=== PATIENT | female | born 1935 | race Asian ===

== ENCOUNTER 2016-11-27 14:55 | Inpatient (IN) | payer OTHER ==
--- NOTE | 2016-11-27 15:00 | PDOC ---
Rapid Medical Evaluation Time Seen by Provider: 11/27/16 14:57 Medical Evaluation: Allergies Allergy/AdvReac Type Severity Reaction Status Date / Time No Known Allergies Allergy Verified 12/15/14 22:42 11/27/16 14:57 I have performed a brief in-person evaluation of this patient. This is an 81 yo F with a history of DM, HTN, HLD, Asthma presenting to the ER with a complaint of cough and shortness of breath x 1 week Pt also reports headache. Pt denies chest pain. Pt is able to lay flat in bed. Pt walks slowly due to shortness of breath Pertinent physical exam findings: On examination, pt is grunting while walking into the Triage area Temp: 97.6, O2 sat: 99% Faint end expiratory wheezing right upper lobe I have ordered the following: CBC, CMP, trop, BNP, EKG Will do blood cultures and lactate Will order cxr The patient will proceed to the ED for further evaluation. 11/27/16 15:00 11/27/16 15:03
[2016-11-27 15:01] VITALS: BMI 22.6
[2016-11-27 15:47] LABS: VENOUS PH 7.35 (7.32-7.42)
[2016-11-27 15:48] LABS: VENOUS BLOOD GAS HCO3 27.3 meq/L (19-25)
[2016-11-27 15:54] LABS: BASOPHIL 0.7 % (0-2.0); EOSINOPHIL 1.3 % (0-4.5); MCH 25.2 pg (25.7-33.7); MEAN CELL VOLUME 78.7 fl (80-96); MEAN PLT VOLUME 8.1 fl (7.5-11.1); NEUTROPHILS 72.1 % (42.8-82.8); PLATELET COUNT 248 K/MM3 (134-434); RDW 15.2 % (11.6-15.6)
[2016-11-27 16:18] LABS: INR 1.03 (0.82-1.09); PROTHROMBIN TIME (PATIENT) 11.3 SEC (9.98-11.88)
[2016-11-27 16:21] LABS: ACTIVATED PTT 32.5 SECONDS (26.9-34.4)
[2016-11-27 16:22] LABS: ALBUMIN 3.5 g/dl (3.4-5.0); ANION GAP 9 (8-16); BILIRUBIN,TOTAL 0.4 mg/dL (0.2-1.0); CALCIUM 9.4 mg/dL (8.5-10.1); CO2 29 mmol/L (21-32); CREATININE 0.8 mg/dL (0.55-1.02); GLUCOSE,RANDOM 182 mg/dL (74-106); SGOT/AST 13 U/L (15-37); SGPT/ALT 27 U/L (12-78); TOT PROT 7.6 g/dl (6.4-8.2)
[2016-11-27 16:25] LABS: ALK PHOS 79 U/L (45-117); TROPONIN I < 0.02 ng/ml (0.00-0.05)
[2016-11-27] MEDS ORDERED: methylPREDNISolone NA SUCC 125 MG/2 ML VIAL IVPB ONE (16:30)
[2016-11-27] MEDS ORDERED: SODIUM CHLORIDE 1,000 ML IV STA (16:37)
--- NOTE | 2016-11-27 16:38 | PDOC ---
History of Present Illness - General History Source: Patient, Family (Son) Exam Limitations: No Limitations - History of Present Illness Initial Comments: 11/27/16 17:04 The patient is an 81 year old female with significant past medical history of diabetes, hypertension, hyperlipidemia, and asthma who presents to the emergency department with cough and SOB for 1 week. The patient states that her breathing has gotten progressively worse in the last week. She has a dry cough. She does report mild SOB at rest and this gets worse with moving and walking around. She also reports a headache. She denies any fevers but reports chills. <Kimber Zavala - Last Filed: 11/27/16 17:04> <Margarita Cast - Last Filed: 11/29/16 08:02> - General Chief Complaint: Shortness of Breath Stated Complaint: SOB Time Seen by Provider: 11/27/16 14:57 Past History <Kimber Zavala - Last Filed: 11/27/16 17:04> - Past Medical History Anemia: No Asthma: Yes Cancer: No Cardiac Disorders: No CVA: No COPD: No CHF: No Dementia: No Diabetes: Yes GI Disorders: No Disorders: No HTN: Yes Hypercholesterolemia: Yes Liver Disease: No Suicide Attempt (Hx): No Seizures: No Thyroid Disease: No - Surgical History Abdominal Surgery: Yes Appendectomy: No Cardiac Surgery: No Cholecystectomy: Yes Lung Surgery: No Neurologic Surgery: No Orthopedic Surgery: Yes - Psycho/Social/Smoking Cessation Hx Anxiety: No Suicidal Ideation: No Smoking Status: No Smoking History: Never smoked Have you smoked in the past 12 months: No Number of Cigarettes Smoked Daily: 0 Hx Alcohol Use: No Drug/Substance Use Hx: No Substance Use Type: None Hx Substance Use Treatment: No <Margarita Cast - Last Filed: 11/29/16 08:02> - Past Medical History Allergies/Adverse Reactions: Allergies Allergy/AdvReac Type Severity Reaction Status Date / Time No Known Allergies Allergy Verified 11/27/16 15:01 Home Medications: Ambulatory Orders Glipizide [Glipizide Xl] 10 mg PO BID 02/20/13 Pravastatin Sodium [Pravachol -] 20 mg PO HS 02/20/13 Metoprolol Tartrate [Lopressor -] 25 mg PO BID 08/20/13 Metformin HCl [Metformin HCl ER] 500 mg PO BID 11/27/16 Albuterol Sulfate Inhaler - [Ventolin Hfa Inhaler -] 1 - 2 inh PO QID PRN Review of Systems - Review of Systems Able to Perform ROS?: Yes Comments:: 11/27/16 17:05 GENERAL/CONSTITUTIONAL: No fever or chills. No weakness. HEAD, EYES, EARS, NOSE AND THROAT: No change in vision. No ear pain or discharge. No sore throat. CARDIOVASCULAR: +SOB. No chest pain RESPIRATORY: +Wheezing, +cough. No hemoptysis. GASTROINTESTINAL: No nausea, vomiting, diarrhea or constipation. GENITOURINARY: No dysuria, frequency, or change in urination. MUSCULOSKELETAL: No joint or muscle swelling or pain. No neck or back pain. SKIN: No rash NEUROLOGIC: No headache, vertigo, loss of consciousness, or change in strength/ sensation. ENDOCRINE: No increased thirst. No abnormal weight change. HEMATOLOGIC/LYMPHATIC: No anemia, easy bleeding, or history of blood clots. ALLERGIC/IMMUNOLOGIC: No hives or skin allergy. <Kimber Zavala - Last Filed: 11/27/16 17:04> *Physical Exam - Vital Signs Last Vital Signs Temp Pulse Resp BP Pulse Ox 97.6 F 82 20 152/72 99 11/27/16 14:57 11/27/16 14:57 11/27/16 14:57 11/27/16 14:57 11/27/16 14:57 - Physical Exam Comments: 11/27/16 17:05 GENERAL: Awake, alert, and fully oriented, in no acute distress HEAD: No signs of trauma EYES: PERRLA, EOMI, sclera anicteric, conjunctiva clear ENT: Auricles normal inspection, hearing grossly normal, nares patent, oropharynx clear without exudates. Moist mucosa NECK: Normal ROM, supple, no lymphadenopathy, JVD, or masses LUNGS: +Decreased air entry bilaterally with diffuse expiratory wheezing and intermittent grunting. No crackles. HEART: Regular rate and rhythm, normal S1 and S2, no murmurs, rubs or gallops ABDOMEN: Soft, nontender, normoactive bowel sounds. No guarding, no rebound. No masses EXTREMITIES: Normal range of motion, no edema. No clubbing or cyanosis. No cords, erythema, or tenderness NEUROLOGICAL: Cranial nerves II through XII grossly intact. Normal speech, normal gait SKIN: Warm, Dry, normal turgor, no rashes or lesions noted. <Kimber Zavala - Last Filed: 11/27/16 17:04> - Vital Signs Last Vital Signs Temp Pulse Resp BP Pulse Ox 97.6 F 82 20 152/72 99 11/27/16 14:57 11/27/16 14:57 11/27/16 14:57 11/27/16 14:57 11/27/16 14:57 <Margarita Cast - Last Filed: 11/29/16 08:02> ED Treatment Course - LABORATORY CBC & Chemistry Diagram: 11/27/16 15:45 11/27/16 15:45 - ADDITIONAL ORDERS Additional order review: Laboratory Results 11/27/16 11/27/16 11/27/16 15:45 15:45 15:45 INR PTT (Actin FS) VBG pH 7.35 POC VBG pCO2 50.2 POC VBG pO2 35.0 Mixed VBG HCO3 27.3 H Sodium 138 Potassium 3.8 Chloride 100 Carbon Dioxide 29 Anion Gap 9 BUN 11 Creatinine 0.8 D Creat Clearance w eGFR > 60 Random Glucose 182 H Lactic Acid 2.884 H* Calcium 9.4 Total Bilirubin 0.4 D AST 13 L D ALT 27 D Alkaline Phosphatase 79 Creatine Kinase 73 Troponin I < 0.02 Total Protein 7.6 Albumin 3.5 11/27/16 15:45 INR 1.03 PTT (Actin FS) 32.5 VBG pH POC VBG pCO2 POC VBG pO2 Mixed VBG HCO3 Sodium Potassium Chloride Carbon Dioxide Anion Gap BUN Creatinine Creat Clearance w eGFR Random Glucose Lactic Acid Calcium Total Bilirubin AST ALT Alkaline Phosphatase Creatine Kinase Troponin I Total Protein Albumin 11/27/16 15:45 RBC 4.55 MCV 78.7 L MCHC 32.0 RDW 15.2 MPV 8.1 Neutrophils % 72.1 Lymphocytes % 21.3 D Monocytes % 4.6 Eosinophils % 1.3 D Basophils % 0.7 - Medications Given in the ED: ED Medications Discontinued Medications Generic Name Dose Route Start Last Admin Trade Name Freq PRN Reason Stop Dose Admin Methylprednisolone Sodium Succinate 125 mg 11/27/16 16:30 11/27/16 16:46 Solu-Medrol - IVPB 11/27/16 16:31 125 mg ONCE ONE Administration <Kimber Zavala - Last Filed: 11/27/16 17:04> - LABORATORY CBC & Chemistry Diagram: 11/28/16 06:00 11/28/16 06:00 - ADDITIONAL ORDERS Additional order review: Laboratory Results 11/27/16 11/27/16 11/27/16 15:45 15:45 15:45 INR PTT (Actin FS) VBG pH 7.35 POC VBG pCO2 50.2 POC VBG pO2 35.0 Mixed VBG HCO3 27.3 H Sodium 138 Potassium 3.8 Chloride 100 Carbon Dioxide 29 Anion Gap 9 BUN 11 Creatinine 0.8 D Creat Clearance w eGFR > 60 Random Glucose 182 H Lactic Acid 2.884 H* Calcium 9.4 Total Bilirubin 0.4 D AST 13 L D ALT 27 D Alkaline Phosphatase 79 Creatine Kinase 73 Troponin I < 0.02 Total Protein 7.6 Albumin 3.5 11/27/16 15:45 INR 1.03 PTT (Actin FS) 32.5 VBG pH POC VBG pCO2 POC VBG pO2 Mixed VBG HCO3 Sodium Potassium Chloride Carbon Dioxide Anion Gap BUN Creatinine Creat Clearance w eGFR Random Glucose Lactic Acid Calcium Total Bilirubin AST ALT Alkaline Phosphatase Creatine Kinase Troponin I Total Protein Albumin 11/27/16 15:45 RBC 4.55 MCV 78.7 L MCHC 32.0 RDW 15.2 MPV 8.1 Neutrophils % 72.1 Lymphocytes % 21.3 D Monocytes % 4.6 Eosinophils % 1.3 D Basophils % 0.7 <Margarita Cast - Last Filed: 11/29/16 08:02> Medical Decision Making - Medical Decision Making 11/27/16 19:[address] Guzman. Lung exam has improved. Awaiting CXR and repeat lactate results, reassessment. <Margarita Cast - Last Filed: 11/29/16 08:02> *DC/Admit/Observation/Transfer - Attestations Scribe Attestion: 11/27/16 17:05 Documentation prepared by Kimber Zavala, acting as medical staff credentialing coordinator for Margarita Cast MD. <Kimber Zavala - Last Filed: 11/27/16 17:04> <Margarita Cast - Last Filed: 11/29/16 08:02> Diagnosis at time of Disposition: Cough, Elevated lactic acid level Sepsis Qualifiers: Sepsis type: sepsis due to unspecified organism Qualified Code(s): A41.9 - Sepsis, unspecified organism
[2016-11-27] MEDS ORDERED: methylPREDNISolone NA SUCC 125 MG/2 ML VIAL ONE (16:46)
[2016-11-27] MEDS: ALBUTEROL SO4 2.5/IPRATROPIUM 0.5 INH SOL 3 ML VIAL.NEB. NEB SCH ×5 (17:00→23:55)
[2016-11-27] MEDS ORDERED: ALBUTEROL SO4 2.5/IPRATROPIUM 0.5 INH SOL 3 ML VIAL.NEB. NEB ONE (17:12)
[2016-11-27] MEDS ORDERED: guaiFENesin/CODEINE 10 ML UNIT-DOSE CUPS PO ONE (18:20)
[2016-11-27] MEDS ORDERED: guaiFENesin/CODEINE 5 ML UNIT-DOSE CUPS PO ONE ×2 (18:57→18:58)
--- NOTE | 2016-11-27 19:34 | PDOC ---
*Physical Exam - Vital Signs Last Vital Signs Temp Pulse Resp BP Pulse Ox 98 F 114 H 19 108/45 97 11/27/16 19:31 11/27/16 19:31 11/27/16 19:31 11/27/16 19:31 11/27/16 19:31 ED Treatment Course - LABORATORY CBC & Chemistry Diagram: 11/27/16 15:45 11/27/16 15:45 - ADDITIONAL ORDERS Additional order review: Laboratory Results 11/27/16 11/27/16 11/27/16 18:35 15:45 15:45 INR PTT (Actin FS) VBG pH POC VBG pCO2 POC VBG pO2 Mixed VBG HCO3 Sodium 138 Potassium 3.8 Chloride 100 Carbon Dioxide 29 Anion Gap 9 BUN 11 Creatinine 0.8 D Creat Clearance w eGFR > 60 Random Glucose 182 H Lactic Acid 4.389 H* 2.884 H* Calcium 9.4 Total Bilirubin 0.4 D AST 13 L D ALT 27 D Alkaline Phosphatase 79 Creatine Kinase 73 Troponin I < 0.02 Total Protein 7.6 Albumin 3.5 11/27/16 11/27/16 15:45 15:45 INR 1.03 PTT (Actin FS) 32.5 VBG pH 7.35 POC VBG pCO2 50.2 POC VBG pO2 35.0 Mixed VBG HCO3 27.3 H Sodium Potassium Chloride Carbon Dioxide Anion Gap BUN Creatinine Creat Clearance w eGFR Random Glucose Lactic Acid Calcium Total Bilirubin AST ALT Alkaline Phosphatase Creatine Kinase Troponin I Total Protein Albumin 11/27/16 15:45 RBC 4.55 MCV 78.7 L MCHC 32.0 RDW 15.2 MPV 8.1 Neutrophils % 72.1 Lymphocytes % 21.3 D Monocytes % 4.6 Eosinophils % 1.3 D Basophils % 0.7 - Medications Given in the ED: ED Medications Discontinued Medications Generic Name Dose Route Start Last Admin Trade Name Freq PRN Reason Stop Dose Admin Albuterol/Ipratropium 1 amp 11/27/16 16:30 11/27/16 18:10 Duoneb - NEB 11/27/16 17:16 1 amp Q15M HERSON Administration Guaifenesin/Codeine Phosphate 10 ml 11/27/16 18:20 11/27/16 18:56 Robitussin Ac - PO 11/27/16 18:21 10 ml ONCE ONE Administration Sodium Chloride 1,000 mls @ 1,000 mls/hr 11/27/16 16:37 11/27/16 16:46 Normal Saline - IV 11/27/16 17:36 1,000 mls/hr ASDIR STA Administration Methylprednisolone Sodium Succinate 125 mg 11/27/16 16:30 11/27/16 16:46 Solu-Medrol - IVPB 11/27/16 16:31 125 mg ONCE ONE Administration Medical Decision Making - Medical Decision Making 11/27/16 19:35 Pt still doesn't feel well. Pt repeat Lactic acid is above 4. Pt will be admitted *DC/Admit/Observation/Transfer Diagnosis at time of Disposition: Cough, Elevated lactic acid level Sepsis Qualifiers: Sepsis type: sepsis due to unspecified organism Qualified Code(s): A41.9 - Sepsis, unspecified organism - Discharge Dispostion Admit: Yes
[2016-11-27] MEDS ORDERED: CEFEPIME HCL 2 GM VIAL (RESTRICTED TO ID) IVPB ONE (19:41)
[2016-11-27] MEDS ORDERED: VANCOMYCIN 1,000 MG in DEXTROSE 5%-WATER - 250 ML IVPB ONE (19:42)
[2016-11-27] MEDS ORDERED: CEFEPIME 100 ML IVPB ONE (19:45)
[2016-11-27] MEDS ORDERED: SODIUM CHLORIDE 1,000 ML IV SCH ×2 (19:45→21:05)
[2016-11-27] MEDS ORDERED: VANCOMYCIN 1 GRAM (PRE-DOCKED) 250 ML IVPB ONE (20:04)
[2016-11-27 20:35] LABS: URINE APPEARANCE CLEAR; URINE BILIRUBIN NEGATIVE (NEGATIVE); URINE COLOR COLORLESS; URINE GLUCOSE (UA) 1+ (NEGATIVE); URINE KETONE TRACE (NEGATIVE); URINE LEUK ESTERASE NEGATIVE (NEGATIVE); URINE NITRITE NEGATIVE (NEGATIVE); URINE PROTEIN NEGATIVE (NEGATIVE); URINE UROBILINOGEN NEGATIVE E.U./dl (0.2-1.0)
[2016-11-27 21:13] LABS: URINE BLOOD 1+ (NEGATIVE)
[2016-11-27 21:29] LABS: URINE BACTERIA RARE /hpf (NONE SEEN); URINE MUCUS RARE; URINE RBC 1 /hpf (0-3); URINE WBC <1 /hpf (3-5)
--- NOTE | 2016-11-27 21:33 | HP ---
CHIEF COMPLAINT: SOB, cough PCP: Gema Luna HISTORY OF PRESENT ILLNESS: This is an 81 year old female with PMH DM, HTN, HLD, asthma, lumbar herniations presented to ED with c/o cough and SOB x 1 week. Also with c/o left sided chest pain which worsens with cough and deep breathing ER course was notable for: (1) elevated lactic acid 2.884, repeat 4.389 (2) CXR without obvious infiltrate or effusion Recent Travel: pt denies PAST MEDICAL HISTORY: DM HTN HLD asthma lumbar disc herniations, receives steroid injections twice/year PAST SURGICAL HISTORY: cholecystectomy R dislocated shoulder s/p surgical repair Social History: Smoking: pt denies Alcohol: pt denies Drugs: pt denies Family History: mother and father both age 97, old age brother had DC age 65, another brother with DM Allergies No Known Allergies Allergy (Verified 11/27/16 15:01) HOME MEDICATIONS: 3 Medication Instructions Recorded Glipizide [Glipizide Xl] 10 mg PO BID 02/20/13 Pravastatin Sodium [Pravachol -] 20 mg PO HS 02/20/13 Albuterol 0.083% Nebulizer Amie 1 neb NEB PRN PRN 08/20/13 [Ventolin 0.083% Nebulizer Soln -] Metoprolol Tartrate [Lopressor -] 25 mg PO BID 08/20/13 Metformin HCl [Metformin HCl ER] 500 mg PO BID 11/27/16 REVIEW OF SYSTEMS CONSTITUTIONAL: Absent: fever, chills, diaphoresis, generalized weakness, malaise, loss of appetite, weight change HEENT: Absent: rhinorrhea, nasal congestion, throat pain, throat swelling, difficulty swallowing, mouth swelling, ear pain, eye pain, visual changes CARDIOVASCULAR: Present: chest pain Absent: syncope, palpitations, irregular heart rate, lightheadedness, peripheral edema RESPIRATORY: Present: cough, shortness of breath Absent: dyspnea with exertion, orthopnea, wheezing, stridor, hemoptysis GASTROINTESTINAL: Absent: abdominal pain, abdominal distension, nausea, vomiting, diarrhea, constipation, melena, hematochezia GENITOURINARY: Absent: dysuria, frequency, urgency, hesitancy, hematuria, flank pain, genital pain MUSCULOSKELETAL: Absent: myalgia, arthralgia, joint swelling, back pain, neck pain SKIN: Absent: rash, itching, pallor HEMATOLOGIC/IMMUNOLOGIC: Absent: easy bleeding, easy bruising, lymphadenopathy, frequent infections ENDOCRINE: Absent: unexplained weight gain, unexplained weight loss, heat intolerance, cold intolerance NEUROLOGIC: Absent: headache, focal weakness or paresthesias, dizziness, unsteady gait, seizure, mental status changes, bladder or bowel incontinence PSYCHIATRIC: Absent: anxiety, depression, suicidal or homicidal ideation, hallucinations. PHYSICAL EXAMINATION Vital Signs - 24 hr 3 11/27/16 11/27/16 11/27/16 14:57 19:31 21:05 Temperature 97.6 F 98 F 98.2 F Pulse Rate 82 Pulse Rate [ 114 H 109 H Radial] Respiratory 20 19 Rate Blood Pressure 152/72 Blood Pressure 108/45 126/67 [Arm] O2 Sat by Pulse 99 97 Oximetry (%) GENERAL: Awake, alert, and fully oriented, in no acute distress. HEAD: Normal with no signs of trauma. EYES: Pupils equal, round and reactive to light, extraocular movements intact, sclera anicteric, conjunctiva clear. No lid lag. EARS, NOSE, THROAT: Ears normal, nares patent, oropharynx clear without exudates. Moist mucous membranes. NECK: Normal range of motion, supple without lymphadenopathy, JVD, or masses. LUNGS: Breath sounds equal, clear to auscultation bilaterally. No wheezes, and no crackles. No accessory muscle use. HEART: Regular rate and rhythm, normal S1 and S2 without murmur, rub or gallop. ABDOMEN: Soft, nontender, not distended, normoactive bowel sounds, no guarding, no rebound, no masses. No hepatomegaly or splenomegaly. MUSCULOSKELETAL: Normal range of motion at all joints. No bony deformities or tenderness. No CVA tenderness. UPPER EXTREMITIES: 2+ pulses, warm, well-perfused. No cyanosis. No clubbing. Cap refill <2 seconds. No peripheral edema. LOWER EXTREMITIES: 2+ pulses, warm, well-perfused. No calf tenderness. No peripheral edema. NEUROLOGICAL: Cranial nerves II-XII intact. Normal speech. Normal gait. PSYCHIATRIC: Cooperative. Good eye contact. Appropriate mood and affect. SKIN: Warm, dry, normal turgor, no rashes or lesions noted. Laboratory Results - last 24 hr 3 11/27/16 11/27/16 11/27/16 15:45 15:45 15:45 WBC 12.0 H RBC 4.55 Hgb 11.4 Hct 35.8 MCV 78.7 L MCHC 32.0 RDW 15.2 Plt Count 248 D MPV 8.1 Neutrophils % 72.1 Lymphocytes % 21.3 D Monocytes % 4.6 Eosinophils % 1.3 D Basophils % 0.7 INR 1.03 PTT (Actin FS) 32.5 VBG pH 7.35 POC VBG pCO2 50.2 POC VBG pO2 35.0 Mixed VBG HCO3 27.3 H Sodium Potassium Chloride Carbon Dioxide Anion Gap BUN Creatinine Creat Clearance w eGFR Random Glucose Lactic Acid Calcium Total Bilirubin AST ALT Alkaline Phosphatase Creatine Kinase Troponin I Total Protein Albumin Urine Color Urine Appearance Urine pH Ur Specific [place] Urine Protein Urine Glucose (UA) Urine Ketones Urine Blood Urine Nitrite Urine Bilirubin Urine Urobilinogen Ur Leukocyte Esterase 3 11/27/16 11/27/16 11/27/16 15:45 15:45 18:35 WBC RBC Hgb Hct MCV MCHC RDW Plt Count MPV Neutrophils % Lymphocytes % Monocytes % Eosinophils % Basophils % INR PTT (Actin FS) VBG pH POC VBG pCO2 POC VBG pO2 Mixed VBG HCO3 Sodium 138 Potassium 3.8 Chloride 100 Carbon Dioxide 29 Anion Gap 9 BUN 11 Creatinine 0.8 D Creat Clearance w eGFR > 60 Random Glucose 182 H Lactic Acid 2.884 H* 4.389 H* Calcium 9.4 Total Bilirubin 0.4 D AST 13 L D ALT 27 D Alkaline Phosphatase 79 Creatine Kinase 73 Troponin I < 0.02 Total Protein 7.6 Albumin 3.5 Urine Color Urine Appearance Urine pH Ur Specific [place] Urine Protein Urine Glucose (UA) Urine Ketones Urine Blood Urine Nitrite Urine Bilirubin Urine Urobilinogen Ur Leukocyte Esterase 3 Urine Color Colorless 11/27/16 20:00 Urine Appearance Clear 11/27/16 20:00 Urine pH 5.0 (5.0-8.0) D 11/27/16 20:00 Ur Specific [place] 1.005 (1.001-1.035) 11/27/16 20:00 Urine Protein Negative (NEGATIVE) 11/27/16 20:00 Urine Glucose (UA) 1+ (NEGATIVE) H 11/27/16 20:00 Urine Ketones Trace (NEGATIVE) H 11/27/16 20:00 Urine Blood 1+ (NEGATIVE) H 11/27/16 20:00 Urine Nitrite Negative (NEGATIVE) 11/27/16 20:00 Urine Bilirubin Negative (NEGATIVE) 11/27/16 20:00 Ur Leukocyte Esterase Negative (NEGATIVE) 11/27/16 20:00 CXR: No obvious infiltrates or effusion noted, official read pending ECG: sinus tachycardia, rate 113, QTC 493, nonspecific ST abnormality ASSESSMENT/PLAN: 81yF with PMH HTN, HLD, DM, asthma presented to the ED with cough x 1 week. She is being admitted for sepsis. Sepsis secondary to respiratory infection with asthma exacerbation - Lactic acid went up to 4.389, give additional liter IVF @ 200cc/hr - repeat lactic acid at 10pm - given cefepime and vanco in ED empirically, will obtain ID consult, cont cefepime - duoneb q6h - solumedrol 40mg Q8H chest pain - likely due to cough/costochondritis but will trend troponin - murmur noted on auscultation, will obtain echo HTN - cont home lopressor HLD - home pravachol changed to formulary lipitor with dose reduction to 10mg HS DVT PPX - heparin 5000u SC TID FEN - NS 200cc/hr x 1 liter, then reassess - repeat labs in am - low sodium diet in am as tolerated Dispo: Pt currently requires inpatient hospitalization for management of her emergent condition. Visit type - Emergency Visit Emergency Visit: Yes ED Registration Date: 11/27/16 Care time: The patient presented to the Emergency Department on the above date and was hospitalized for further evaluation of their emergent condition. - New Patient This patient is new to me today: Yes Date on this admission: 11/27/16 - Critical Care Critical Care patient: No
[2016-11-27] MEDS: METOPROLOL TARTRATE 25 MG TABLET (FP) PO SCH (22:42)
[2016-11-27] MEDS: ATORVASTATIN CA 10 MG TABLET (FP) PO SCH (22:42)
[2016-11-27] MEDS ORDERED: INSULIN (NOVOLOG) ASPART 100 UNITS/ML 10ML VIAL ONE (22:54)
[2016-11-27] MEDS ORDERED: INSULIN (NOVOLOG) ASPART 100 UNITS/ML 10ML VIAL SQ ONE (23:19)
[2016-11-27] MEDS: SODIUM CHLORIDE 1,000 ML IV SCH (23:27)
[2016-11-28 03:13] LABS: TROPONIN I 0.04 ng/ml (0.00-0.05)
[2016-11-28] MEDS ORDERED: CEFEPIME HCL 2 GM VIAL (RESTRICTED TO ID) IVPB ONE (06:00)
[2016-11-28] MEDS ORDERED: INSULIN (NOVOLOG) ASPART 100 UNITS/ML 10ML VIAL ONE ×3 (06:12→21:16)
[2016-11-28] MEDS ORDERED: CEFEPIME 2 GM/100 ML BAG PRE-DOCKED IVPB ONE (06:15)
[2016-11-28] MEDS: guaiFENesin 200 MG/10 ML 10 ML UNIT-DOSE CUPS PO PRN ×2 (06:18→17:28)
[2016-11-28] MEDS: INSULIN SLIDING SCALE (NOVOLOG) 1 VIAL SQ SCH ×4 (06:20→21:22)
[2016-11-28] MEDS: ALBUTEROL SO4 2.5/IPRATROPIUM 0.5 INH SOL 3 ML VIAL.NEB. NEB SCH ×4 (06:37→23:35)
[2016-11-28 07:27] LABS: BASOPHIL 0.5 % (0-2.0); MCH 25.4 pg (25.7-33.7); MCHC 32.6 g/dl (32.0-36.0); MEAN CELL VOLUME 77.7 fl (80-96); MEAN PLT VOLUME 8.5 fl (7.5-11.1); NEUTROPHILS 82.9 % (42.8-82.8); PLATELET COUNT 201 K/MM3 (134-434); WHITE BLOOD COUNT 11.2 K/mm3 (4.0-10.0)
[2016-11-28 08:11] LABS: ALBUMIN 2.8 g/dl (3.4-5.0); ANION GAP 13 (8-16); BILIRUBIN,TOTAL 0.4 mg/dL (0.2-1.0); CALCIUM 8.4 mg/dL (8.5-10.1); CO2 22 mmol/L (21-32); CREATININE 0.8 mg/dL (0.55-1.02); GLUCOSE,RANDOM 169 mg/dL (74-106); MAGNESIUM 1.7 mg/dL (1.8-2.4); SGOT/AST 20 U/L (15-37); SGPT/ALT 20 U/L (12-78); TOT PROT 6.3 g/dl (6.4-8.2)
[2016-11-28 08:25] LABS: ALK PHOS 62 U/L (45-117)
[2016-11-28 08:36] LABS: TROPONIN I 2.62 ng/ml (0.00-0.05)
[2016-11-28] MEDS ORDERED: ASPIRIN 325 MG ENTERIC COATED TABLET (FP) PO ONE (08:41)
[2016-11-28] MEDS ORDERED: ASPIRIN 81 MG CHEWABLE TABLETS PO ONE (08:51)
--- NOTE | 2016-11-28 09:01 | PN ---
Physical Exam: SUBJECTIVE: Patient seen this morning and was in process of getting a bedside echo. Patient denies any chest pain or shortness of breath. She is resting in the bed , her daughter at the bedside. OBJECTIVE: Noted elevated trop of 2.62 Ordered Lovenox BID weight dosing ASA 324 x 1 Oxygen 2 liters Give Lopressor 25mg now (has scheduled Lopressor BID) EKG shows a run of atrial fib? spoke to bilingual manager, there are P waves vehicle monitor technician: sinus tachy 100 EKG 11/27/2016 sinus tacy 113 with PACs Vital Signs Period Temp Pulse Resp BP Sys/Thomas Pulse Ox Last 24 Hr 98.0 F-99.1 F 95-132 18-20 110-149/50-77 96 GENERAL: The patient is awake, alert, and fully oriented, in no acute distress. HEAD: Normal with no signs of trauma. EYES: PERRL, extraocular movements intact, sclera anicteric, conjunctiva clear. No ptosis. ENT: Ears normal, nares patent, oropharynx clear without exudates, moist mucous membranes. NECK: Trachea midline, full range of motion, supple. LUNGS: Breaths sounds diminished at the bases, no wheezing noted, patient grunts intermittently HEART: radiation monitor with sinus tachycardia 105s ABDOMEN: Soft, nontender, nondistended, normoactive bowel sounds, no guarding, no rebound, no hepatosplenomegaly, no masses. EXTREMITIES: no edema. NEUROLOGICAL: Normal speech, gait not observed. PSYCH: Normal mood, normal affect. SKIN: Warm, dry, normal turgor, no rashes or lesions noted Laboratory Results - last 24 hr 11/27/16 11/27/16 11/27/16 20:00 21:20 22:00 WBC RBC Hgb Hct MCV MCHC RDW Plt Count MPV Neutrophils % Lymphocytes % Monocytes % Eosinophils % Basophils % Sodium Potassium Chloride Carbon Dioxide Anion Gap BUN Creatinine Creat Clearance w eGFR POC Glucometer Random Glucose Hemoglobin A1c % Lactic Acid 6.268 H* Calcium Phosphorus Magnesium Total Bilirubin AST ALT Alkaline Phosphatase Creatine Kinase Troponin I Total Protein Albumin Urine Color Colorless Urine Appearance Clear Urine pH 5.0 D Ur Specific [place] 1.005 Urine Protein Negative Urine Glucose (UA) 1+ H Urine Ketones Trace H Urine Blood 1+ H Urine Nitrite Negative Urine Bilirubin Negative Urine Urobilinogen Negative Ur Leukocyte Esterase Negative Urine RBC 1 Urine WBC <1 Urine Bacteria Rare Urine Mucus Rare Blood Type O POSITIVE Antibody Screen Negative 11/27/16 11/27/16 11/28/16 22:00 22:40 05:55 WBC RBC Hgb Hct MCV MCHC RDW Plt Count MPV Neutrophils % Lymphocytes % Monocytes % Eosinophils % Basophils % Sodium Potassium Chloride Carbon Dioxide Anion Gap BUN Creatinine Creat Clearance w eGFR POC Glucometer 343 187 Random Glucose Hemoglobin A1c % Lactic Acid Calcium Phosphorus Magnesium Total Bilirubin AST ALT Alkaline Phosphatase Creatine Kinase 57 Troponin I 0.04 Total Protein Albumin Urine Color Urine Appearance Urine pH Ur Specific [place] Urine Protein Urine Glucose (UA) Urine Ketones Urine Blood Urine Nitrite Urine Bilirubin Urine Urobilinogen Ur Leukocyte Esterase Urine RBC Urine WBC Urine Bacteria Urine Mucus Blood Type Antibody Screen 11/28/16 11/28/16 11/28/16 06:00 06:00 06:00 WBC 11.2 H RBC 3.84 Hgb 9.7 L D Hct 29.9 L D MCV 77.7 L MCHC 32.6 RDW 15.0 Plt Count 201 MPV 8.5 Neutrophils % 82.9 H Lymphocytes % 12.2 D Monocytes % 4.4 Eosinophils % 0.0 D Basophils % 0.5 Sodium 142 Potassium 4.0 Chloride 107 Carbon Dioxide 22 D Anion Gap 13 BUN 10 Creatinine 0.8 Creat Clearance w eGFR > 60 POC Glucometer Random Glucose 169 H Hemoglobin A1c % 8.3 H D Lactic Acid Calcium 8.4 L Phosphorus 3.0 Magnesium 1.7 L Total Bilirubin 0.4 AST 20 D ALT 20 D Alkaline Phosphatase 62 D Creatine Kinase 105 Troponin I 2.62 H* Total Protein 6.3 L Albumin 2.8 L Urine Color Urine Appearance Urine pH Ur Specific [place] Urine Protein Urine Glucose (UA) Urine Ketones Urine Blood Urine Nitrite Urine Bilirubin Urine Urobilinogen Ur Leukocyte Esterase Urine RBC Urine WBC Urine Bacteria Urine Mucus Blood Type Antibody Screen 11/28/16 06:00 WBC RBC Hgb Hct MCV MCHC RDW Plt Count MPV Neutrophils % Lymphocytes % Monocytes % Eosinophils % Basophils % Sodium Potassium Chloride Carbon Dioxide Anion Gap BUN Creatinine Creat Clearance w eGFR POC Glucometer Random Glucose Hemoglobin A1c % Lactic Acid 3.431 H* Calcium Phosphorus Magnesium Total Bilirubin AST ALT Alkaline Phosphatase Creatine Kinase Troponin I Total Protein Albumin Urine Color Urine Appearance Urine pH Ur Specific [place] Urine Protein Urine Glucose (UA) Urine Ketones Urine Blood Urine Nitrite Urine Bilirubin Urine Urobilinogen Ur Leukocyte Esterase Urine RBC Urine WBC Urine Bacteria Urine Mucus Blood Type Antibody Screen Active Medications Generic Name Dose Route Start Last Admin Trade Name Freq PRN Reason Stop Dose Admin Albuterol/Ipratropium 1 amp 11/28/16 00:00 11/28/16 06:37 Duoneb - NEB 1 amp QIDR HERSON Administration Atorvastatin Calcium 10 mg 11/27/16 22:00 11/27/16 22:42 Lipitor - PO 10 mg HS HERSON Administration Enoxaparin Sodium 60 mg 11/28/16 08:45 Lovenox - SQ Q12H HERSON Guaifenesin 10 ml 11/28/16 06:00 11/28/16 06:18 Robitussin - PO 10 ml Q4H PRN Administration COUGH Sodium Chloride 1,000 mls @ 100 mls/hr 11/27/16 23:30 11/27/16 23:27 Normal Saline - IV 100 mls/hr ASDIR HERSON Administration Insulin Aspart 1 vial 11/28/16 07:00 11/28/16 06:20 Novolog Vial Sliding Scale - SQ 2 units ACHS HERSON Administration Protocol Methylprednisolone Sodium Succinate 40 mg 11/28/16 10:00 Solu-Medrol - IVPB Q8H-IV HERSON Metoprolol Tartrate 25 mg 11/27/16 22:00 11/27/16 22:42 Lopressor - PO 25 mg BID HERSON Administration ASSESSMENT/PLAN: Patient is an 81 year old female with a significant past medical history of diabetes, hypertension, hyperlipidemia and asthma. She presented to the ED on 11/27/2016 with complaints of a persistent cough and shortness of breath x 1 week. On admission, patient denied any chest pain and continues to deny chest pain despite elevated troponins. Cardiology: Positive Troponin with EKG sinus tachy/NSTEMI- acute Assessment/Plan: On exam, patient without chest pain, no shortness of breath Troponin 0.02 > 0.04> 2.62 > 3.31. will order a.m. troponin to document peak Ordered Lovenox BID weight dosing ASA 324 x 1, then ASA 81mg daily Oxygen 2 liters Give Lopressor 25mg now (has scheduled Lopressor BID) EKG shows a run of atrial fib? spoke to bilingual manager, there are P waves vehicle monitor technician: sinus tachy 100 EKG 11/27/2016 sinus tacy 113 with PACs On Lipitor @ hs Nitro SL PRN if chest pain occurs Echo 11/28/2016: LV hyperdynamic, LV wall normal, mild mitral regurg, mild-mod tricuspid regurg, mod-pulm htn As per cardiology: once pt is more stable, plan on nuclear stress test vs. cath Hypertension - chronic Assessment/Plan: BP controlled on Metoprolol 25mg BID Monitor BPs Hyperlipidemia - chronic Assessment/Plan: On Lipitor 10mg @hs Pulmonary: Cough/Asthma - acute exacerbation Assessment/Plan: On Solumedrol 40mg q8 Supplemental oxygen as needed Negative for flu ID: Sepsis criteria met on admission: SIRS criteria - acute Assessment/Plan: Lactic acidosis, Leukocytosis, Tachycardia Persistent lactic acidosis: 2.8>4.3>6.2>3.4>3.5 - will give 500cc bolus x 1 now cautiously as pt is slightly short of breath and concern for fluid overload Blood cultures and urine cultures pending ID consulted for antibiotic therapy Repeat lactic acid levels after bolus Hematology Anemia - likely acute Assessment/Plan: Hmg/hct low stable monitor while on anticoags. Endocrine Diabetes mellitus - elevated BGMs added levemir 5u tonight Hmg A1c: 8.3 Disposition: Continues to require inpatient hospitalization. Full code. Visit type - Emergency Visit Emergency Visit: Yes ED Registration Date: 11/27/16 Care time: The patient presented to the Emergency Department on the above date and was hospitalized for further evaluation of their emergent condition. - New Patient This patient is new to me today: Yes Date on this admission: 11/28/16 - Critical Care Critical Care patient: No - Discharge Referral Referred to [facility] No
[2016-11-28] MEDS: METOPROLOL TARTRATE 25 MG TABLET (FP) PO SCH ×2 (09:03→21:18)
[2016-11-28] MEDS: ENOXAPARIN NA (PORCINE) 60 MG/0.6 ML DISP.SYRIN SQ SCH ×2 (09:05→21:20)
[2016-11-28] MEDS: methylPREDNISolone NA SUCC 40 MG/1 ML VIAL IVPB SCH ×2 (09:05→17:28)
--- NOTE | 2016-11-28 10:30 | CON.CARD ---
Cardiology Consult (text) - Consultation Consultation Note: cc: sob, cough hpi: 81 f hx dm, htn, hld, asthma here with sob, cough. For about 1 week has had sob and dry cough. No cp, palps, dizzy, loc, pnd, orthopnea, le edema. No hx hrt dz. Being treated for asthma/uri and trops elevated now so cardio eval requested. Pt currently comfortable, no cp/sob. pmh: per hpi psh: cholecystectomy, shoulder surgery fam: brother mi 65 yo social: no tob ros: per hpi; no nvd, fever, gib, hematuria, dysuria, wt loss, vision changes, muscle pains meds: Home Medications Medication Instructions Recorded Glipizide [Glipizide Xl] 10 mg PO BID 02/20/13 Pravastatin Sodium [Pravachol -] 20 mg PO HS 02/20/13 Metoprolol Tartrate [Lopressor -] 25 mg PO BID 08/20/13 Metformin HCl [Metformin HCl ER] 500 mg PO BID 11/27/16 Albuterol Sulfate Inhaler - 1 - 2 inh PO QID PRN 11/28/16 [Ventolin Hfa Inhaler -] pe: Vital Signs Period Temp Pulse Resp BP Sys/Thomas Pulse Ox Last 24 Hr 97.6 F-99.1 F 82-132 18-20 108-152/45-77 96-99 nad no jvd rrr s1s2 no mrg mild wheeze, nl eff abd nt nd pos bs no le e/c/c aaox3 no jaundice diaphoresis +dp pt no carotid bruit Laboratory Last Values WBC 11.2 K/mm3 (4.0-10.0) H 11/28/16 06:00 RBC 3.84 M/mm3 (3.60-5.2) 11/28/16 06:00 Hgb 9.7 GM/dL (10.7-15.3) L D 11/28/16 06:00 Hct 29.9 % (32.4-45.2) L D 11/28/16 06:00 MCV 77.7 fl (80-96) L 11/28/16 06:00 MCHC 32.6 g/dl (32.0-36.0) 11/28/16 06:00 RDW 15.0 % (11.6-15.6) 11/28/16 06:00 Plt Count 201 K/MM3 (134-434) 11/28/16 06:00 MPV 8.5 fl (7.5-11.1) 11/28/16 06:00 Neutrophils % 82.9 % (42.8-82.8) H 11/28/16 06:00 Lymphocytes % 12.2 % (8-40) D 11/28/16 06:00 Monocytes % 4.4 % (3.8-10.2) 11/28/16 06:00 Eosinophils % 0.0 % (0-4.5) D 11/28/16 06:00 Basophils % 0.5 % (0-2.0) 11/28/16 06:00 INR 1.03 (0.82-1.09) 11/27/16 15:45 PTT (Actin FS) 32.5 SECONDS (26.9-34.4) 11/27/16 15:45 VBG pH 7.35 (7.32-7.42) 11/27/16 15:45 POC VBG pCO2 50.2 mmHg (38-52) 11/27/16 15:45 POC VBG pO2 35.0 mmHg (28-48) 11/27/16 15:45 Mixed VBG HCO3 27.3 meq/L (19-25) H 11/27/16 15:45 Sodium 142 mmol/L (136-145) 11/28/16 06:00 Potassium 4.0 mmol/L (3.5-5.1) 11/28/16 06:00 Chloride 107 mmol/L (98-107) 11/28/16 06:00 Carbon Dioxide 22 mmol/L (21-32) D 11/28/16 06:00 Anion Gap 13 (8-16) 11/28/16 06:00 BUN 10 mg/dL (7-18) 11/28/16 06:00 Creatinine 0.8 mg/dL (0.55-1.02) 11/28/16 06:00 Creat Clearance w eGFR > 60 (>60) 11/28/16 06:00 POC Glucometer 187 UNITS (()) 11/28/16 05:55 Random Glucose 169 mg/dL (74-106) H 11/28/16 06:00 Hemoglobin A1c % 8.3 % (4.8-6.0) H D 11/28/16 06:00 Lactic Acid 3.431 mmol/L (0.4-2.0) H* 11/28/16 06:00 Calcium 8.4 mg/dL (8.5-10.1) L 11/28/16 06:00 Phosphorus 3.0 mg/dL (2.5-4.9) 11/28/16 06:00 Magnesium 1.7 mg/dL (1.8-2.4) L 11/28/16 06:00 Total Bilirubin 0.4 mg/dL (0.2-1.0) 11/28/16 06:00 AST 20 U/L (15-37) D 11/28/16 06:00 ALT 20 U/L (12-78) D 11/28/16 06:00 Alkaline Phosphatase 62 U/L (45-117) D 11/28/16 06:00 Creatine Kinase 105 IU/L (26-192) 11/28/16 06:00 Troponin I 2.62 ng/ml (0.00-0.05) H* 11/28/16 06:00 Total Protein 6.3 g/dl (6.4-8.2) L 11/28/16 06:00 Albumin 2.8 g/dl (3.4-5.0) L 11/28/16 06:00 Urine Color Colorless 11/27/16 20:00 Urine Appearance Clear 11/27/16 20:00 Urine pH 5.0 (5.0-8.0) D 11/27/16 20:00 Ur Specific [place] 1.005 (1.001-1.035) 11/27/16 20:00 Urine Protein Negative (NEGATIVE) 11/27/16 20:00 Urine Glucose (UA) 1+ (NEGATIVE) H 11/27/16 20:00 Urine Ketones Trace (NEGATIVE) H 11/27/16 20:00 Urine Blood 1+ (NEGATIVE) H 11/27/16 20:00 Urine Nitrite Negative (NEGATIVE) 11/27/16 20:00 Urine Bilirubin Negative (NEGATIVE) 11/27/16 20:00 Urine Urobilinogen Negative E.U./dl (0.2-1.0) 11/27/16 20:00 Ur Leukocyte Esterase Negative (NEGATIVE) 11/27/16 20:00 Urine RBC 1 /hpf (0-3) 11/27/16 20:00 Urine WBC <1 /hpf (3-5) 11/27/16 20:00 Urine Bacteria Rare /hpf (NONE SEEN) 11/27/16 20:00 Urine Mucus Rare 11/27/16 20:00 Blood Type O POSITIVE 11/27/16 21:20 Antibody Screen Negative 11/27/16 21:20 tele: sr, artifact, no afib, sinus tach with pacs vs mat at times cxr: clear lungs ecg 11/27/16: sinus tachy, pacs, nl intervals, no ischemic changes a/p: 81 f hx dm, htn, hld, asthma here with sob, cough. positive troponin, nstemi: -pt has no chest pain symptoms but trop has trended up from 0.02 to 0.04 to 2.62 now. ecg unremarkable. This pattern of trop elevation consistent with nstemi/acs. Would cont to treat with asa, lovenox as doing. Also cont bb, statin. Given her anemia with drop from 11s to 9s since yesterday would hold off on plavix for now and monitor hgb trend. -monitor on tele -check echo -if remains stable then once acute uri/asthma issues resolve will plan on nuclear stress test vs cath prior to dc htn: -stable on current meds hld: -cont statin sob, cough, asthma: -no signs chf -check echo -likely due to uri/asthma, cont treatment per pmd/ID anemia: -hgb dropped from baseline 11s to 9s today, monitor while on ac, w/u per pmd
--- NOTE | 2016-11-28 11:37 | EKG ---
Test Reason : Blood Pressure : / mmHG Vent. Rate : 113 BPM Atrial Rate : 113 BPM P-R Int : 138 ms QRS Dur : 080 ms QT Int : 360 ms P-R-T Axes : 055 021 054 degrees QTc Int : 493 ms SINUS TACHYCARDIA WITH PREMATURE ATRIAL COMPLEXES NONSPECIFIC ST ABNORMALITY ABNORMAL ECG WHEN COMPARED WITH ECG OF 01-SEP-2014 10:04, PREMATURE ATRIAL COMPLEXES ARE NOW PRESENT Confirmed by WALKER KEMP, REINA ([id number]) on 11/28/2016 11:36:54 AM Referred By: Confirmed By:REINA CARDOSO MD
[2016-11-28] MEDS: SODIUM CHLORIDE 1,000 ML IV SCH (12:00)
--- NOTE | 2016-11-28 13:53 | EKG ---
Test Reason : Blood Pressure : / mmHG Vent. Rate : 086 BPM Atrial Rate : 086 BPM P-R Int : 156 ms QRS Dur : 080 ms QT Int : 370 ms P-R-T Axes : 041 019 053 degrees QTc Int : 442 ms NORMAL SINUS RHYTHM NORMAL ECG WHEN COMPARED WITH ECG OF 27-NOV-2016 20:03, PREMATURE ATRIAL COMPLEXES ARE NO LONGER PRESENT Confirmed by REINA CARDOSO MD ([id number]) on 11/28/2016 1:52:54 PM Referred By: LEOBARDO RIOS Confirmed By:REINA CARDOSO MD
[2016-11-28] MEDS ORDERED: HEPARIN NA (PORCINE) 5,000 UNITS/ML 1ML VIAL SQ SCH (14:00)
--- NOTE | 2016-11-28 15:53 | CONSULT ---
Consult Consult Specialty:: infectious diseases Reason for Consultation:: resp infection,weakness,uti. lactic acidosis, leikocytosis - History of Present Illness Chief Complaint: weakness,dirrhoea History of Present Illness: 81 year old female with significant past medical history of diabetes, hypertension, hyperlipidemia, and asthma who presents to the emergency department with cough and SOB for 1 week. The patient states that her breathing has gotten progressively worse in the last week. She has a dry cough. She does report mild SOB at rest and this gets worse with moving and walking around. She also reports a headache. She denies any fevers but reports chills. spoke wiht her son he says she hs not been eating also well the cough just progressively increased and patient became very weak and last week she has not been eating well at all and he decided to bring the patient to the hospital - History Source History Provided By: Family Member Limitations to Obtaining History: Language Barrier - Past Medical History ...: No - Alcohol/Substance Use Hx Alcohol Use: No - Smoking History Smoking history: Never smoked Have you smoked in the past 12 months: No Aproximately how many cigarettes per day: 0 Home Medications - Allergies Allergies/Adverse Reactions: Allergies Allergy/AdvReac Type Severity Reaction Status Date / Time No Known Allergies Allergy Verified 11/27/16 15:01 - Home Medications Home Medications: Ambulatory Orders Glipizide [Glipizide Xl] 10 mg PO BID 02/20/13 Pravastatin Sodium [Pravachol -] 20 mg PO HS 02/20/13 Metoprolol Tartrate [Lopressor -] 25 mg PO BID 08/20/13 Metformin HCl [Metformin HCl ER] 500 mg PO BID 11/27/16 Albuterol Sulfate Inhaler - [Ventolin Hfa Inhaler -] 1 - 2 inh PO QID PRN Review of Systems - Review of Systems Constitutional: reports: Weakness Eyes: reports: No Symptoms HENT: reports: No Symptoms Neck: reports: No Symptoms Cardiovascular: reports: No Symptoms Respiratory: reports: Cough, SOB, SOB on Exertion, Wheezing Gastrointestinal: reports: Other (not hungry) Musculoskeletal: reports: No Symptoms Integumentary: reports: No Symptoms Neurological: reports: No Symptoms Endocrine: reports: No Symptoms Hematology/Lymphatic: reports: No Symptoms Psychiatric: reports: No Symptoms Physical Exam Vital Signs: Vital Signs Temperature 99.1 F 11/28/16 14:21 Pulse Rate 99 H 11/28/16 14:21 Respiratory Rate 20 11/28/16 14:21 Blood Pressure 120/54 11/28/16 14:21 O2 Sat by Pulse Oximetry (%) 96 11/28/16 08:50 Constitutional: Yes: Calm, Mild Distress, Thin, Other Eyes: Yes: Conjunctiva Clear HENT: Yes: Atraumatic Neck: Yes: Supple, Trachea Midline Cardiovascular: Yes: Regular Rate and Rhythm Respiratory: Yes: Regular, Poor Air Entry, Wheezes Gastrointestinal: Yes: Normal Bowel Sounds, Soft Musculoskeletal: Yes: WNL Extremities: Yes: WNL Integumentary: Yes: WNL Neurological: Yes: Alert, Oriented Psychiatric: Yes: Alert, Oriented Labs: CBC, BMP 11/28/16 06:00 11/28/16 06:00 Imaging - Results Chest X-ray: Report Reviewed, Image Reviewed Assessment/Plan after evaluating the patient i think she is severely dehydrated she probably has upper resp infection (1) Cough Code(s): R05 - COUGH (2) Elevated lactic acid level Code(s): R79.89 - OTHER SPECIFIED ABNORMAL FINDINGS OF BLOOD CHEMISTRY (3) Bronchitis Code(s): J40 - BRONCHITIS, NOT SPECIFIED ACUTE OR CHRONIC (4) Diabetes Code(s): E11.9 - TYPE 2 DIABETES MELLITUS WITHOUT COMPLICATIONS (5) Upper respiratory infection Code(s): J06.9 - ACUTE UPPER RESPIRATORY INFECTION, UNSPECIFIED (6) Pulmonary hypertension Code(s): I27.2 - OTHER SECONDARY PULMONARY HYPERTENSION (7) Non-ST elevation (NSTEMI) myocardial infarction Code(s): I21.4 - NON-ST ELEVATION (NSTEMI) MYOCARDIAL INFARCTION (8) Interstitial lung disease Code(s): J84.9 - INTERSTITIAL PULMONARY DISEASE, UNSPECIFIED patient is on ceftriaxone plan continue ceftriaxone we should work her up from p[ul poit of view ct of the chest incentive shar[facility] nutrition
[2016-11-28] MEDS ORDERED: NITROGLYCERIN SUBLINGUAL 1/200 0.3 MG BTL SL PRN (17:51)
[2016-11-28] MEDS ORDERED: SODIUM CHLORIDE 500 ML IV STA (18:05)
[2016-11-28] MEDS ORDERED: FUROSEMIDE 40 MG/4 ML INJECTABLE VIAL IVPUSH ONE (20:30)
--- NOTE | 2016-11-28 20:40 | HOSP ---
Subjective - Review of Symptoms Events since last encounter: Called by nurse who reported pt sounded congested. Immediately went to evaluate the pt. Pulmonary: Yes: Dyspnea, Cough, Pleuritic Chest Pain Physical Examination Vital Signs: Vital Signs Temperature 99.2 F 11/28/16 18:00 Pulse Rate 80 11/28/16 18:00 Respiratory Rate 20 11/28/16 18:00 Blood Pressure 136/62 11/28/16 18:00 O2 Sat by Pulse Oximetry (%) 96 11/28/16 08:50 Cardiovascular: Yes: WNL Respiratory: Yes: Other (bibasilar rales with expiratory wheezing) Gastrointestinal: Yes: WNL Labs: CBC, BMP 11/28/16 06:00 11/28/16 06:00 Hospitalist Encounter Assessment: Acute fluid overload - lasix 20mg IVP now - hold IVF wheezing - albuterol neb now
[2016-11-28] MEDS ORDERED: ALBUTEROL SO4 0.083% IH SOL 2.5 MG/3 ML VIAL.NEB. NEB ONE ×2 (20:46→21:00)
[2016-11-28] MEDS: ATORVASTATIN CA 10 MG TABLET (FP) PO SCH (21:18)
[2016-11-28] MEDS ORDERED: INSULIN DETEMIR 100 UNITS/ML MDV SQ SCH (22:00)
[2016-11-29] MEDS: methylPREDNISolone NA SUCC 40 MG/1 ML VIAL IVPB SCH ×3 (01:18→17:24)
[2016-11-29] MEDS: INSULIN SLIDING SCALE (NOVOLOG) 1 VIAL SQ SCH ×4 (06:11→22:25)
[2016-11-29] MEDS: ALBUTEROL SO4 2.5/IPRATROPIUM 0.5 INH SOL 3 ML VIAL.NEB. NEB SCH ×4 (06:25→23:12)
[2016-11-29 07:41] LABS: ARTERIAL BLD GAS O2 SATURATION 97.9 % (90-98.9); ARTERIAL BLOOD GAS HCO3 23.8 meq/L (22-26); ARTERIAL BLOOD GAS PO2 88.1 mmHg (68-100); ARTERIAL BLOOD GAS pH 7.48 (7.35-7.45)
[2016-11-29 07:42] LABS: ALLENS TEST POSITIVE; ART PUNCT SITE RIGHT RADIAL; LPM/O2% 21%; PT. ON O2? NO; TYPE OF O2 ROOM AIR
[2016-11-29 08:00] LABS: BASOPHIL 0.3 % (0-2.0); MCH 25.3 pg (25.7-33.7); MCHC 32.4 g/dl (32.0-36.0); MEAN CELL VOLUME 78.3 fl (80-96); MEAN PLT VOLUME 9.2 fl (7.5-11.1); NEUTROPHILS 89.3 % (42.8-82.8); PLATELET COUNT 209 K/MM3 (134-434); RDW 15.3 % (11.6-15.6); WHITE BLOOD COUNT 12.9 K/mm3 (4.0-10.0)
[2016-11-29] MEDS ORDERED: POLYETHYLENE GLYCOL 3350 119 GM BTL PO ONE (08:26)
[2016-11-29 08:48] LABS: ALBUMIN 3.3 g/dl (3.4-5.0); CALCIUM 9.3 mg/dL (8.5-10.1)
[2016-11-29 08:51] LABS: BILIRUBIN,TOTAL 0.3 mg/dL (0.2-1.0); CREATININE 0.9 mg/dL (0.55-1.02); TOT PROT 7.1 g/dl (6.4-8.2)
--- NOTE | 2016-11-29 09:37 | PN ---
Physical Exam: SUBJECTIVE: Patient seen and examined. She was sitting up in the chair, daughter at the bedside. Patient in mild respiratory distress. She denies chest pain, denies shortness of breath although she clearly is. OBJECTIVE: Overnight patient had difficulty breathing, likely secondary to fluid boluses to try and clear her persistent lactic acidosis Was given Lasix with good effect ABG today shows respiratory alkalosis Asked respiratory to place patient on venti mask @50% to help with her labored breathing alternating with nasal cannula. Lactic acidosis may be due to her asthma vs. home metformin use and not likely due to sepsis Started her on Symbicort, noted more wheezing on left anterior lobe. Troponins trended down to 1.55. Vital Signs Period Temp Pulse Resp BP Sys/Thomas Pulse Ox Last 24 Hr 97.9 F-99.2 F 80-105 20-22 120-144/54-66 94-100 GENERAL: The patient is awake, alert, and fully oriented, in mild respiratory distress. HEAD: Normal with no signs of trauma. EYES: PERRL, extraocular movements intact, sclera anicteric, conjunctiva clear. No ptosis. ENT: Ears normal, nares patent, oropharynx clear without exudates, moist mucous membranes. NECK: Trachea midline, full range of motion, supple. LUNGS: Increased wheezing on left anterior lobe, bilateral lung melvin mostly clear, diminished at the bases. HEART: property assessment monitor with sinus tachycardia 100s ABDOMEN: Soft, nontender, nondistended, normoactive bowel sounds, +constipation EXTREMITIES: no edema. NEUROLOGICAL: Normal speech, gait not observed. PSYCH: Normal mood, normal affect. SKIN: Warm, dry, normal turgor, no rashes or lesions noted Laboratory Results - last 24 hr 11/28/16 11/28/16 11/28/16 11:55 12:00 15:00 WBC RBC Hgb Hct MCV MCHC RDW Plt Count MPV Neutrophils % Lymphocytes % Monocytes % Eosinophils % Basophils % Puncture Site ABG pH ABG pCO2 at Pt Temp ABG pO2 at Pt Temp ABG HCO3 ABG O2 Sat (Measured) ABG O2 Content ABG Base Excess Paulino Test O2 Delivery Device Oxygen Flow Rate PEEP Sodium Potassium Chloride Carbon Dioxide Anion Gap BUN Creatinine Creat Clearance w eGFR POC Glucometer 288 Random Glucose Lactic Acid 3.511 H* Calcium Total Bilirubin AST ALT Alkaline Phosphatase Troponin I 3.31 H* Total Protein Albumin Triglycerides Cholesterol Total LDL Cholesterol HDL Cholesterol 11/28/16 11/28/16 11/28/16 17:52 20:42 23:00 WBC RBC Hgb Hct MCV MCHC RDW Plt Count MPV Neutrophils % Lymphocytes % Monocytes % Eosinophils % Basophils % Puncture Site ABG pH ABG pCO2 at Pt Temp ABG pO2 at Pt Temp ABG HCO3 ABG O2 Sat (Measured) ABG O2 Content ABG Base Excess Paulino Test O2 Delivery Device Oxygen Flow Rate PEEP Sodium Potassium Chloride Carbon Dioxide Anion Gap BUN Creatinine Creat Clearance w eGFR POC Glucometer 265 282 Random Glucose Lactic Acid 5.857 H* Calcium Total Bilirubin AST ALT Alkaline Phosphatase Troponin I Total Protein Albumin Triglycerides Cholesterol Total LDL Cholesterol HDL Cholesterol 11/29/16 11/29/16 11/29/16 05:35 05:35 05:35 WBC RBC Hgb Hct MCV MCHC RDW Plt Count MPV Neutrophils % Lymphocytes % Monocytes % Eosinophils % Basophils % Puncture Site ABG pH ABG pCO2 at Pt Temp ABG pO2 at Pt Temp ABG HCO3 ABG O2 Sat (Measured) ABG O2 Content ABG Base Excess Paulino Test O2 Delivery Device Oxygen Flow Rate PEEP Sodium 137 Potassium 4.1 Chloride 102 Carbon Dioxide 25 Anion Gap 10 BUN 14 D Creatinine 0.9 Creat Clearance w eGFR 59.94 POC Glucometer Random Glucose 263 H D Lactic Acid Calcium 9.3 Total Bilirubin 0.3 D AST 28 D ALT 24 Alkaline Phosphatase 68 Troponin I 1.55 H* Total Protein 7.1 Albumin 3.3 L Triglycerides 74 Cancelled Cholesterol 141 Cancelled Total LDL Cholesterol 70 Cancelled HDL Cholesterol 65 H Cancelled 11/29/16 11/29/16 11/29/16 05:35 05:50 06:00 WBC 12.9 H RBC 4.14 Hgb 10.5 L Hct 32.4 MCV 78.3 L MCHC 32.4 RDW 15.3 Plt Count 209 MPV 9.2 Neutrophils % 89.3 H Lymphocytes % 8.2 D Monocytes % 2.2 L Eosinophils % 0.0 Basophils % 0.3 Puncture Site ABG pH ABG pCO2 at Pt Temp ABG pO2 at Pt Temp ABG HCO3 ABG O2 Sat (Measured) ABG O2 Content ABG Base Excess Paulino Test O2 Delivery Device Oxygen Flow Rate PEEP Sodium Potassium Chloride Carbon Dioxide Anion Gap BUN Creatinine Creat Clearance w eGFR POC Glucometer 293 Random Glucose Lactic Acid 3.917 H* Calcium Total Bilirubin AST ALT Alkaline Phosphatase Troponin I Total Protein Albumin Triglycerides Cholesterol Total LDL Cholesterol HDL Cholesterol 11/29/16 07:28 WBC RBC Hgb Hct MCV MCHC RDW Plt Count MPV Neutrophils % Lymphocytes % Monocytes % Eosinophils % Basophils % Puncture Site Right radial ABG pH 7.48 H ABG pCO2 at Pt Temp 32.6 L ABG pO2 at Pt Temp 88.1 D ABG HCO3 23.8 ABG O2 Sat (Measured) 97.9 ABG O2 Content 13.8 L ABG Base Excess 1.0 Paulino Test Positive O2 Delivery Device Room air Oxygen Flow Rate 21% PEEP 0.0 Sodium Potassium Chloride Carbon Dioxide Anion Gap BUN Creatinine Creat Clearance w eGFR POC Glucometer Random Glucose Lactic Acid Calcium Total Bilirubin AST ALT Alkaline Phosphatase Troponin I Total Protein Albumin Triglycerides Cholesterol Total LDL Cholesterol HDL Cholesterol Active Medications Generic Name Dose Route Start Last Admin Trade Name Freq PRN Reason Stop Dose Admin Albuterol/Ipratropium 1 amp 11/28/16 00:00 11/29/16 06:25 Duoneb - NEB 1 amp QIDR HERSON Administration Aspirin 81 mg 11/29/16 10:00 Ecotrin - PO DAILY HERSON Atorvastatin Calcium 10 mg 11/27/16 22:00 11/28/16 21:18 Lipitor - PO 10 mg HS HERSON Administration Budesonide/Formoterol Fumarate 2 puff 11/29/16 10:00 Symbicort 80/4.5mcg - IH BID HERSON Docusate Sodium 100 mg 11/29/16 14:00 Colace - PO TID HERSON Enoxaparin Sodium 60 mg 11/28/16 10:00 11/28/16 21:20 Lovenox - SQ 60 mg BID HERSON Administration Guaifenesin 10 ml 11/28/16 06:00 11/28/16 17:28 Robitussin - PO 10 ml Q4H PRN Administration COUGH Insulin Aspart 1 vial 11/28/16 18:34 11/29/16 06:11 Novolog Vial Sliding Scale - SQ 8 units ACHS HERSON Administration Protocol Insulin Detemir 5 units 11/28/16 22:00 11/28/16 21:22 Levemir Vial SQ 5 units HS HERSON Administration Methylprednisolone Sodium Succinate 40 mg 11/28/16 10:00 11/29/16 01:18 Solu-Medrol - IVPB 40 mg Q8H-IV HERSON Administration Metoprolol Tartrate 25 mg 11/27/16 22:00 11/28/16 21:18 Lopressor - PO 25 mg BID HERSON Administration ASSESSMENT/PLAN: Patient is an 81 year old female with a significant past medical history of diabetes, hypertension, hyperlipidemia and asthma. She presented to the ED on 11/27/2016 with complaints of a persistent cough and shortness of breath x 1 week. On admission, patient denied any chest pain and continues to deny chest pain despite elevated troponins. Cardiology: Positive Troponin with EKG sinus tachy/NSTEMI- acute Assessment/Plan: On exam, patient without chest pain, no shortness of breath Troponin 0.02 > 0.04> 2.62 > 3.31 >1.55 On Lovenox BID weight dosing ASA 324 x 1 given yesterday for ACS, now ASA 81mg daily Added venti mask @ 50% after ABG shows respiratory alkalosis, pt continues to have intermittent grunting and to help keep her breathing less labored. On Lopressor 25mg BID EKG shows a run of atrial fib? spoke to chute tapper, there are P waves alarm security or surveillance monitor: sinus tachy 100s EKG 11/27/2016 sinus tacy 113 with PACs On Lipitor @ hs Nitro SL PRN if chest pain occurs - denies chest pain Echo 11/28/2016: LV hyperdynamic, LV wall normal, mild mitral regurg, mild-mod tricuspid regurg, mod-pulm htn As per cardiology: once pt is more stable, plan on nuclear stress test vs. cath Hypertension - chronic Assessment/Plan: BP controlled on Metoprolol 25mg BID Monitor BPs Hyperlipidemia - chronic Assessment/Plan: On Lipitor 10mg @hs awaiting lipid panel and will adjust Lipitor Pulmonary: Cough/Asthma - acute exacerbation Assessment/Plan: On Solumedrol 40mg q8 Venti mask @50% with nasal cannula at 2 liters Negative for flu Pulmonary consult ID: Sepsis criteria met on admission: SIRS criteria - acute Assessment/Plan: Lactic acidosis, Leukocytosis, Tachycardia Persistent lactic acidosis: 2.8>4.3>6.2>3.4>3.5 >3.9 urine cultures negative/blood cult pending. ID consulted for antibiotic therapy Persistent Lactic acidosis - acute Assessment/Plan: causes could be sepsis vs. asthma exacerbation vs. metformin use vs. cardiac? Now on Novolog, will not send pt home with metformin Will hold off on further IVF boluses as she was congested this a.m. and was given Lasix by night team. Hematology Anemia - likely acute - improving Assessment/Plan: Hmg/hct low stable monitor while on anticoags. Endocrine Diabetes mellitus - elevated BGMs added levemir but will adjust to higher dose Hmg A1c: 8.3 Disposition: Continues to require inpatient hospitalization. Full code. Visit type - Emergency Visit Emergency Visit: Yes ED Registration Date: 11/27/16 Care time: The patient presented to the Emergency Department on the above date and was hospitalized for further evaluation of their emergent condition. - New Patient This patient is new to me today: No - Critical Care Critical Care patient: No - Discharge Referral Referred to [facility] Med P.C.: No
[2016-11-29] MEDS ORDERED: PT OWN MED DRAWER 7, Y5N ONE ×2 (09:42→10:27)
[2016-11-29] MEDS: ASPIRIN COATED 81 MG TABLET.EC PO SCH (10:06)
[2016-11-29] MEDS: ENOXAPARIN NA (PORCINE) 60 MG/0.6 ML DISP.SYRIN SQ SCH ×2 (10:06→22:19)
[2016-11-29] MEDS: METOPROLOL TARTRATE 25 MG TABLET (FP) PO SCH ×2 (10:06→22:18)
[2016-11-29] MEDS: BUDESONIDE/FORMETEROL FUMARATE 80/4.5 mcg INHALER IH SCH ×2 (10:07→22:15)
--- NOTE | 2016-11-29 10:19 | PN ---
Progress Note (short form) - Note Progress Note: s: cc: nstemi; overnight had some sob and thought to have pulm edema 2/2 ivfs. ivfs stopped and given lasix iv20 x1 and sxs improved. This AM has sob/cough still but more comfortable laying flat (no orthopnea). Has sharp left chest pain with cough and deep breaths. No palps dizzy. Eating well per family. No cigs. o: Vital Signs Period Temp Pulse Resp BP Sys/Thomas Pulse Ox Last 24 Hr 97.9 F-99.2 F 80-105 20-22 120-144/54-66 94-100 nad no jvd rrr s1s2 no mrg mild wheeze, nl eff abd nt nd pos bs no le e/c/c aaox3 no jaundice diaphoresis +dp pt Current Medications Generic Name Dose Route Start Last Admin Trade Name Freq PRN Reason Stop Dose Admin Albuterol/Ipratropium 1 amp 11/28/16 00:00 11/29/16 06:25 Duoneb - NEB 1 amp QIDR HERSON Administration Aspirin 81 mg 11/29/16 10:00 Ecotrin - PO DAILY HERSON Atorvastatin Calcium 20 mg 11/29/16 22:00 Lipitor - PO HS HERSON Budesonide/Formoterol Fumarate 2 puff 11/29/16 10:00 Symbicort 80/4.5mcg - IH BID HERSON Docusate Sodium 100 mg 11/29/16 14:00 Colace - PO TID HERSON Enoxaparin Sodium 60 mg 11/28/16 10:00 11/28/16 21:20 Lovenox - SQ 60 mg BID HERSON Administration Guaifenesin 10 ml 11/28/16 06:00 11/28/16 17:28 Robitussin - PO 10 ml Q4H PRN Administration COUGH Insulin Aspart 1 vial 11/28/16 18:34 11/29/16 06:11 Novolog Vial Sliding Scale - SQ 8 units ACHS HERSON Administration Protocol Insulin Detemir 10 units 11/29/16 09:56 Levemir Vial SQ HS HERSON Methylprednisolone Sodium Succinate 40 mg 11/28/16 10:00 11/29/16 01:18 Solu-Medrol - IVPB 40 mg Q8H-IV HERSON Administration Metoprolol Tartrate 25 mg 11/27/16 22:00 11/28/16 21:18 Lopressor - PO 25 mg BID HERSON Administration Laboratory Last Values WBC 12.9 K/mm3 (4.0-10.0) H 11/29/16 06:00 RBC 4.14 M/mm3 (3.60-5.2) 11/29/16 06:00 Hgb 10.5 GM/dL (10.7-15.3) L 11/29/16 06:00 Hct 32.4 % (32.4-45.2) 11/29/16 06:00 MCV 78.3 fl (80-96) L 11/29/16 06:00 MCHC 32.4 g/dl (32.0-36.0) 11/29/16 06:00 RDW 15.3 % (11.6-15.6) 11/29/16 06:00 Plt Count 209 K/MM3 (134-434) 11/29/16 06:00 MPV 9.2 fl (7.5-11.1) 11/29/16 06:00 Neutrophils % 89.3 % (42.8-82.8) H 11/29/16 06:00 Lymphocytes % 8.2 % (8-40) D 11/29/16 06:00 Monocytes % 2.2 % (3.8-10.2) L 11/29/16 06:00 Eosinophils % 0.0 % (0-4.5) 11/29/16 06:00 Basophils % 0.3 % (0-2.0) 11/29/16 06:00 INR 1.03 (0.82-1.09) 11/27/16 15:45 PTT (Actin FS) 32.5 SECONDS (26.9-34.4) 11/27/16 15:45 Puncture Site Right radial 11/29/16 07:28 ABG pH 7.48 (7.35-7.45) H 11/29/16 07:28 ABG pCO2 at Pt Temp 32.6 mmHg (35-45) L 11/29/16 07:28 ABG pO2 at Pt Temp 88.1 mmHg (68-100) D 11/29/16 07:28 ABG HCO3 23.8 meq/L (22-26) 11/29/16 07:28 ABG O2 Sat (Measured) 97.9 % (90-98.9) 11/29/16 07:28 ABG O2 Content 13.8 % vol (15-22) L 11/29/16 07:28 ABG Base Excess 1.0 meq/l (-2-2) 11/29/16 07:28 Paulino Test Positive 11/29/16 07:28 VBG pH 7.35 (7.32-7.42) 11/27/16 15:45 POC VBG pCO2 50.2 mmHg (38-52) 11/27/16 15:45 POC VBG pO2 35.0 mmHg (28-48) 11/27/16 15:45 Mixed VBG HCO3 27.3 meq/L (19-25) H 11/27/16 15:45 O2 Delivery Device Room air 11/29/16 07:28 Oxygen Flow Rate 21% 11/29/16 07:28 PEEP 0.0 cmH2O 11/29/16 07:28 Sodium 137 mmol/L (136-145) 11/29/16 05:35 Potassium 4.1 mmol/L (3.5-5.1) 11/29/16 05:35 Chloride 102 mmol/L (98-107) 11/29/16 05:35 Carbon Dioxide 25 mmol/L (21-32) 11/29/16 05:35 Anion Gap 10 (8-16) 11/29/16 05:35 BUN 14 mg/dL (7-18) D 11/29/16 05:35 Creatinine 0.9 mg/dL (0.55-1.02) 11/29/16 05:35 Creat Clearance w eGFR 59.94 (>60) 11/29/16 05:35 POC Glucometer 293 UNITS (()) 11/29/16 05:50 Random Glucose 263 mg/dL (74-106) H D 11/29/16 05:35 Hemoglobin A1c % 8.3 % (4.8-6.0) H D 11/28/16 06:00 Lactic Acid 3.917 mmol/L (0.4-2.0) H* 11/29/16 05:35 Calcium 9.3 mg/dL (8.5-10.1) 11/29/16 05:35 Phosphorus 3.0 mg/dL (2.5-4.9) 11/28/16 06:00 Magnesium 1.7 mg/dL (1.8-2.4) L 11/28/16 06:00 Total Bilirubin 0.3 mg/dL (0.2-1.0) D 11/29/16 05:35 AST 28 U/L (15-37) D 11/29/16 05:35 ALT 24 U/L (12-78) 11/29/16 05:35 Alkaline Phosphatase 68 U/L (45-117) 11/29/16 05:35 Creatine Kinase 105 IU/L (26-192) 11/28/16 06:00 Troponin I 1.55 ng/ml (0.00-0.05) H* 11/29/16 05:35 Total Protein 7.1 g/dl (6.4-8.2) 11/29/16 05:35 Albumin 3.3 g/dl (3.4-5.0) L 11/29/16 05:35 Triglycerides 74 mg/dL (35-160) 11/29/16 05:35 Cholesterol 141 mg/dL (50-200) 11/29/16 05:35 Total LDL Cholesterol 70 mg/dL (5-100) 11/29/16 05:35 HDL Cholesterol 65 mg/dL (40-60) H 11/29/16 05:35 Urine Color Colorless 11/27/16 20:00 Urine Appearance Clear 11/27/16 20:00 Urine pH 5.0 (5.0-8.0) D 11/27/16 20:00 Ur Specific Baker 1.005 (1.001-1.035) 11/27/16 20:00 Urine Protein Negative (NEGATIVE) 11/27/16 20:00 Urine Glucose (UA) 1+ (NEGATIVE) H 11/27/16 20:00 Urine Ketones Trace (NEGATIVE) H 11/27/16 20:00 Urine Blood 1+ (NEGATIVE) H 11/27/16 20:00 Urine Nitrite Negative (NEGATIVE) 11/27/16 20:00 Urine Bilirubin Negative (NEGATIVE) 11/27/16 20:00 Urine Urobilinogen Negative E.U./dl (0.2-1.0) 11/27/16 20:00 Ur Leukocyte Esterase Negative (NEGATIVE) 11/27/16 20:00 Urine RBC 1 /hpf (0-3) 11/27/16 20:00 Urine WBC <1 /hpf (3-5) 11/27/16 20:00 Urine Bacteria Rare /hpf (NONE SEEN) 11/27/16 20:00 Urine Mucus Rare 11/27/16 20:00 Blood Type O POSITIVE 11/27/16 21:20 Antibody Screen Negative 11/27/16 21:20 tele: sr, no afib, sinus tach with pacs with brief episodes mat/PAT at times cxr: clear lungs ecg 11/27/16: sinus tachy, pacs, nl intervals, no ischemic changes echo 11/2016: hyperdynamic lvef, nl lv size, nl rv, mod phtn, mild mr, mild-mod tr a/p: 81 f hx dm, htn, hld, asthma here with sob, cough. positive troponin, nstemi: -troponin trended up from 0.02 to 0.04 to 2.62 to peak at 3.3, now trending down. ecg unremarkable. This pattern of trop elevation consistent with nstemi/ acs. Would cont to treat with asa, lovenox (48-72 hours, started 316 AM) as doing. Also cont bb, statin. Given her anemia with drop from 11s to 9s 11/28 have been holding plavix to monitor trend of hgb -monitor on tele -echo shows no WMA's -if remains stable then once acute uri/asthma issues resolve will plan on nuclear stress test vs cath prior to dc sob, cough, asthma: -no signs chf (had pulm congestion from ivfs, now have been stopped) -likely due to uri/asthma, cont treatment per pmd/ID -if sob not improving with steroids/nebs would consider cta chest to r/o PE as well given symptoms and +trops htn: -stable on current meds hld: -cont statin anemia: -hgb dropped from baseline 11s to 9s 11/28, today back up in 10s. Possibly was dilutional from ivfs, now stopped. Monitor hgb trend while on AC.\
[2016-11-29] MEDS ORDERED: BENZOCAINE/MENTH/CETYLPYRD CL 1 EACH LOZENGE MM PRN (11:38)
[2016-11-29] MEDS ORDERED: INSULIN (NOVOLOG) ASPART 100 UNITS/ML 10ML VIAL ONE ×2 (12:57→17:56)
--- NOTE | 2016-11-29 13:35 | PN ---
Progress Note (short form) - Note Progress Note: PULMONARY CONSULTATION DICTATED 11/29/16 IMP ASTHMA EXACERBATION/ACUTE BRONCHITIS LIKELY INTERSTITIAL LUNG DISEASE ACUTE NSTEMI + TROPONINS ELEVATED LACTATE LEVEL PULMONARY HTN ANEMIA PLAN IV STEROIDS INHALED BRONCHODILATORS NASAL O2 IVF TREND LACTATE CHEST CT ASA,LOVENOX MONITOR H=H DR GOULD Problem List - Problems (1) Cough Code(s): R05 - COUGH (2) Elevated lactic acid level Code(s): R79.89 - OTHER SPECIFIED ABNORMAL FINDINGS OF BLOOD CHEMISTRY (3) Bronchitis Code(s): J40 - BRONCHITIS, NOT SPECIFIED ACUTE OR CHRONIC (4) Diabetes Code(s): E11.9 - TYPE 2 DIABETES MELLITUS WITHOUT COMPLICATIONS (5) Upper respiratory infection Code(s): J06.9 - ACUTE UPPER RESPIRATORY INFECTION, UNSPECIFIED (6) Pulmonary hypertension Code(s): I27.2 - OTHER SECONDARY PULMONARY HYPERTENSION (7) Non-ST elevation (NSTEMI) myocardial infarction Code(s): I21.4 - NON-ST ELEVATION (NSTEMI) MYOCARDIAL INFARCTION (8) Interstitial lung disease Code(s): J84.9 - INTERSTITIAL PULMONARY DISEASE, UNSPECIFIED
--- NOTE | 2016-11-29 14:41 | CONS ---
DATE OF CONSULTATION: 11/29/2016 REFERRING PHYSICIAN: Kanika English NP HISTORY OF PRESENT ILLNESS: The patient is an 81-year-old [facility] female, past medical history of noninsulin-dependent diabetes mellitus, hypertension, hyperlipidemia, emotional asthma, interstitial lung disease, history of bronchitis treated 3 years ago, who is a nonsmoker, admitted to [facility] with complaint of 1-week history of increasing shortness of breath and dry cough. Patient denying fevers, chills, nausea, vomiting, and diaphoresis. Apparently, symptoms worsened at which time she presented to the ER. In the ER, she was started on inhaled bronchodilators and steroids. Some clinical improvement. She was transferred up to the telemetry unit for further monitoring. Of note, she was noted to have elevation of troponin. She was evaluated by Dr. 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 Patient, as stated, is a nonsmoker. There is no history of occupational exposure to chemical fumes. There is no history of recent travel. There is no history of DVT or PE in the past. Patient denies hemoptysis. She does complain of some right-sided chest discomfort that is sharp in character for the past couple of days. There is no history of TB in the past. She was born in [facility] and moved to the [facility] in the late . PAST MEDICAL HISTORY: Again includes noninsulin-dependent diabetes mellitus, hyperlipidemia, bronchitis, asthma, likely interstitial lung disease as noted on previous CAT scan of the chest in 2012. CURRENT MEDICATIONS: Include Symbicort 80/4.5, Solu-Medrol 40 q.8, Lovenox 60 b.i.d., Duo-Neb, Lopressor, Colace, Robitussin, Lipitor, and Ecotrin. REVIEW OF SYSTEMS: Positive for cough. Positive for mild chest congestion. No fever. No chills. No hemoptysis. Positive right-sided chest pain. No nausea. No vomiting. No diaphoresis. No lower extremity edema. PHYSICAL EXAMINATION: General: The patient is an elderly female, wide awake, alert, in no acute distress. Vital Signs: She is currently afebrile, blood pressure 136/68, respiratory rate is 22, O2 saturation is 98% on 2 L. HEENT: Normocephalic, atraumatic. Neck: Supple. Heart: Regular. S1, S2. Chest: Bilateral crackles throughout. Abdomen: Soft. Bowel sounds are positive. Extremities: No cyanosis or edema. LABORATORIES: WBC is 12.9, hemoglobin 10.5, hematocrit 32.4, with a platelet count of 209,000. D-dimer is less than 200. Blood gas: PH 7.48, PCO2 of 32, PO2 of 88, bicarbonate of 23, and saturation of 97.9. Lactate level is 3.917. Troponin 1.55. Chest x-ray: No acute infiltrates ,mild increased markings bilaterally. Echocardiogram: Normal LV function, left ventricle is hyperdynamic, RV is normal in size and function, the tricuspid valve is not well visualized, there is moderate pulmonary hypertension. IMPRESSION: 1. Dyspnea and cough most likely secondary to acute asthmatic bronchitis/asthma exacerbation. 2. Likely chronic interstitial lung disease. 3. NSTEMI 4. Elevated lactate level. 5. Anemia. 6. Pulmonary Hypertension PLAN: IV steroids,inhaled bronchodilator. Supplemental O2. Chest Ct non- contrast PFTs as outpatient. IV fluids. Trend lactate. Continue aspirin and Lovenox. GI prophylaxis. Thank you. KOFI GOULD M.D. [id number] MTDD
--- NOTE | 2016-11-29 15:08 | PN ---
Progress Note, Physician History of Present Illness: feels better today still says very sob - Current Medication List Current Medications: Active Medications Albuterol/Ipratropium (Duoneb -) 1 amp NEB QIDR [facility], [facility] Last Admin: 11/29/16 11:23 Dose: 1 amp Aspirin (Ecotrin -) 81 mg PO DAILY [facility], [facility] Last Admin: 11/29/16 10:06 Dose: 81 mg Atorvastatin Calcium (Lipitor -) 20 mg PO HS [facility], [facility]1983 Benzocaine/Menthol (Cepacol Lozenge -) 1 each MM PRN PRN PRN Reason: SORE THROAT Last Admin: 11/29/16 13:16 Dose: 1 each Budesonide/Formoterol Fumarate (Symbicort 80/4.5mcg -) 2 puff IH BID [facility], [facility] Last Admin: 11/29/16 10:07 Dose: 2 puff Docusate Sodium (Colace -) 100 mg PO TID [facility] Enoxaparin Sodium (Lovenox -) 60 mg SQ BID [facility] Last Admin: 11/29/16 10:06 Dose: 60 mg Guaifenesin (Robitussin -) 10 ml PO Q4H PRN PRN Reason: COUGH Last Admin: 11/28/16 17:28 Dose: 10 ml Insulin Aspart (Novolog Vial Sliding Scale -) 1 vial SQ ACHS [facility] PRN Reason: Protocol Last Admin: 11/29/16 13:15 Dose: 8 units Insulin Detemir (Levemir Vial) 10 units SQ HS [facility] Methylprednisolone Sodium Succinate (Solu-Medrol -) 40 mg IVPB Q8H-IV [facility] Last Admin: 11/29/16 10:06 Dose: 40 mg Metoprolol Tartrate (Lopressor -) 25 mg PO BID [facility] Last Admin: 11/29/16 10:06 Dose: 25 mg - Objective Vital Signs: Vital Signs Temperature 97.6 F 11/29/16 13:47 Pulse Rate 90 11/29/16 13:47 Respiratory Rate 20 11/29/16 13:47 Blood Pressure 157/74 11/29/16 13:47 O2 Sat by Pulse Oximetry (%) 98 11/29/16 11:22 Constitutional: Yes: Calm, Mild Distress Cardiovascular: Yes: Regular Rate and Rhythm Respiratory: Yes: Poor Air Entry, Wheezes Gastrointestinal: Yes: Normal Bowel Sounds, Soft Musculoskeletal: Yes: WNL Extremities: Yes: WNL Neurological: Yes: Alert, Oriented Psychiatric: Yes: Alert Labs: CBC, BMP 11/29/16 06:00 11/29/16 05:35 INR, PTT INR 1.03 (0.82-1.09) 11/27/16 15:45 Assessment/Plan after evaluating the patient i think she is severely dehydrated she probably has upper resp infection (1) Cough Code(s): R05 - COUGH (2) Elevated lactic acid level Code(s): R79.89 - OTHER SPECIFIED ABNORMAL FINDINGS OF BLOOD CHEMISTRY (3) Bronchitis Code(s): J40 - BRONCHITIS, NOT SPECIFIED ACUTE OR CHRONIC (4) Diabetes Code(s): E11.9 - TYPE 2 DIABETES MELLITUS WITHOUT COMPLICATIONS (5) Upper respiratory infection Code(s): J06.9 - ACUTE UPPER RESPIRATORY INFECTION, UNSPECIFIED (6) Pulmonary hypertension Code(s): I27.2 - OTHER SECONDARY PULMONARY HYPERTENSION (7) Non-ST elevation (NSTEMI) myocardial infarction Code(s): I21.4 - NON-ST ELEVATION (NSTEMI) MYOCARDIAL INFARCTION (8) Interstitial lung disease Code(s): J84.9 - INTERSTITIAL PULMONARY DISEASE, UNSPECIFIED patient is on ceftriaxone plan continue ceftriaxone polly wait ct of results
[2016-11-29] MEDS: DOCUSATE SODIUM 100 MG CAPSULE (FP) PO SCH ×2 (16:34→22:16)
[2016-11-29] MEDS: ATORVASTATIN CA 20 MG TABLET (FP) PO SCH (22:16)
[2016-11-29] MEDS: INSULIN DETEMIR 100 UNITS/ML MDV SQ SCH (22:20)
[2016-11-30] MEDS: methylPREDNISolone NA SUCC 40 MG/1 ML VIAL IVPB SCH ×3 (01:59→17:48)
[2016-11-30] MEDS: ALBUTEROL SO4 2.5/IPRATROPIUM 0.5 INH SOL 3 ML VIAL.NEB. NEB SCH ×4 (05:47→23:43)
[2016-11-30] MEDS: DOCUSATE SODIUM 100 MG CAPSULE (FP) PO SCH ×3 (06:58→21:37)
[2016-11-30] MEDS: INSULIN SLIDING SCALE (NOVOLOG) 1 VIAL SQ SCH ×4 (06:58→21:38)
[2016-11-30 07:39] LABS: BASOPHIL 0.3 % (0-2.0); MCH 25.7 pg (25.7-33.7); MCHC 33.1 g/dl (32.0-36.0); MEAN CELL VOLUME 77.6 fl (80-96); MEAN PLT VOLUME 8.9 fl (7.5-11.1); NEUTROPHILS 89.3 % (42.8-82.8); PLATELET COUNT 225 K/MM3 (134-434); RDW 15.6 % (11.6-15.6); WHITE BLOOD COUNT 12.6 K/mm3 (4.0-10.0)
[2016-11-30 09:16] LABS: ALBUMIN 3.4 g/dl (3.4-5.0); ALK PHOS 72 U/L (45-117); ANION GAP 7 (8-16); BILIRUBIN,TOTAL 0.3 mg/dL (0.2-1.0); CALCIUM 9.2 mg/dL (8.5-10.1); CO2 29 mmol/L (21-32); CREATININE 0.8 mg/dL (0.55-1.02); GLUCOSE,RANDOM 278 mg/dL (74-106); SGOT/AST 29 U/L (15-37); SGPT/ALT 32 U/L (12-78); TOT PROT 7.2 g/dl (6.4-8.2)
[2016-11-30] MEDS ORDERED: PT OWN MED DRAWER 7, Y5N ONE ×2 (09:26→21:43)
[2016-11-30] MEDS: BUDESONIDE/FORMETEROL FUMARATE 80/4.5 mcg INHALER IH SCH ×2 (09:36→21:44)
[2016-11-30] MEDS: METOPROLOL TARTRATE 25 MG TABLET (FP) PO SCH ×2 (09:37→21:38)
[2016-11-30] MEDS: ASPIRIN COATED 81 MG TABLET.EC PO SCH (09:37)
[2016-11-30] MEDS: ENOXAPARIN NA (PORCINE) 60 MG/0.6 ML DISP.SYRIN SQ SCH (09:37)
[2016-11-30] MEDS ORDERED: INSULIN DETEMIR 100 UNITS/ML MDV SQ ONE (11:15)
--- NOTE | 2016-11-30 11:20 | PN ---
Progress Note, Physician History of Present Illness: No events Just returned from CTA COmplains of MSK left chest pain - Current Medication List Current Medications: Active Medications Albuterol/Ipratropium (Duoneb -) 1 amp NEB QIDR [facility] Last Admin: 11/30/16 05:47 Dose: 1 amp Aspirin (Ecotrin -) 81 mg PO DAILY [facility] Last Admin: 11/30/16 09:37 Dose: 81 mg Atorvastatin Calcium (Lipitor -) 20 mg PO HS [facility] Last Admin: 11/29/16 22:16 Dose: 20 mg Benzocaine/Menthol (Cepacol Lozenge -) 1 each MM PRN PRN PRN Reason: SORE THROAT Last Admin: 11/29/16 13:16 Dose: 1 each Budesonide/Formoterol Fumarate (Symbicort 80/4.5mcg -) 2 puff IH BID [facility] Last Admin: 11/30/16 09:36 Dose: 2 puff Docusate Sodium (Colace -) 100 mg PO TID [facility] Last Admin: 11/30/16 06:58 Dose: 100 mg Enoxaparin Sodium (Lovenox -) 60 mg SQ BID [facility] Last Admin: 11/30/16 09:37 Dose: 60 mg Guaifenesin (Robitussin -) 10 ml PO Q4H PRN PRN Reason: COUGH Last Admin: 11/28/16 17:28 Dose: 10 ml Insulin Aspart (Novolog Vial Sliding Scale -) 1 vial SQ [facility] PRN Reason: Protocol Last Admin: 11/30/16 06:58 Dose: 8 units Insulin Detemir (Levemir Vial) 10 units SQ [facility] Last Admin: 11/29/16 22:20 Dose: 10 units Insulin Detemir (Levemir Vial) 5 units SQ DAILY@0700 [facility] Methylprednisolone Sodium Succinate (Solu-Medrol -) 40 mg IVPB Q8H-IV [facility] Last Admin: 11/30/16 09:37 Dose: 40 mg Metoprolol Tartrate (Lopressor -) 25 mg PO BID [facility] Last Admin: 11/30/16 09:37 Dose: 25 mg - Objective Vital Signs: Vital Signs Temperature 97.4 F L 11/30/16 06:00 Pulse Rate 87 11/30/16 09:44 Respiratory Rate 20 11/30/16 09:44 Blood Pressure 150/75 11/30/16 09:44 O2 Sat by Pulse Oximetry (%) 96 11/29/16 20:00 Constitutional: Yes: No Distress Eyes: Yes: WNL HENT: Yes: WNL Neck: Yes: WNL Cardiovascular: Yes: Regular Rate and Rhythm Respiratory: Yes: WNL Gastrointestinal: Yes: WNL Musculoskeletal: Yes: Muscle Pain (Reproducible left precordial pain) Extremities: Yes: WNL Edema: No Labs: CBC, BMP 11/30/16 06:00 11/30/16 06:00 INR, PTT INR 1.03 (0.82-1.09) 11/27/16 15:45 Assessment/Plan a/p: 81 f hx dm, htn, hld, asthma here with sob, cough. positive troponin, nstemi: -troponin trended up from 0.02 to 0.04 to 2.62 to peak at 3.3, now trending down. ecg unremarkable. This pattern of trop elevation consistent with nstemi/ acs. Would cont to treat with asa, lovenox (48-72 hours, started 316 AM) as doing - will d/c today as trop down Also cont bb, statin. Given her anemia with drop from 11s to 9s 11/28 have been holding plavix to monitor trend of hgb -monitor on tele -echo shows no WMA's -if remains stable then once acute uri/asthma issues resolve will plan on nuclear stress test vs cath prior to dc sob, cough, asthma: -no signs chf (had pulm congestion from ivfs, now have been stopped) -likely due to uri/asthma, cont treatment per pmd/ID -Chest CTA negative for PE htn: -stable on current meds hld: -cont statin anemia: -hgb dropped from baseline 11s to 9s 11/28, today back up in 10s. Possibly was dilutional from ivfs, now stopped. Monitor hgb trend while on AC.
[2016-11-30] MEDS ORDERED: POLYETHYLENE GLYCOL 3350 119 GM BTL PO ONE (11:27)
--- NOTE | 2016-11-30 12:48 | PN ---
Physical Exam: SUBJECTIVE: Patient seen and examined. She is on the venti mask. She laying in her bed complaining of constipation and weakness. Otherwise appears well. Having some left sided chest discomfort/reproducible on palpation. OBJECTIVE: Vital Signs Period Temp Pulse Resp BP Sys/Thomas Pulse Ox Last 24 Hr 97.4 F-98.2 F 81-96 20-20 141-157/62-80 96 GENERAL: The patient is awake, alert, and fully oriented, in mild respiratory distress - now on venti mask @50% HEAD: Normal with no signs of trauma. EYES: PERRL, extraocular movements intact, sclera anicteric, conjunctiva clear. No ptosis. ENT: Ears normal, nares patent, oropharynx clear without exudates, moist mucous membranes. NECK: Trachea midline, full range of motion, supple. LUNGS: Increased wheezing on left anterior lobe, bilateral lung melvin mostly clear, diminished at the bases. 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 NEUROLOGICAL: Normal speech, gait not observed. PSYCH: Normal mood, normal affect. SKIN: Warm, dry, normal turgor, no rashes or lesions noted Laboratory Results - last 24 hr 11/29/16 11/29/16 11/29/16 16:53 18:45 18:45 WBC RBC Hgb Hct MCV MCHC RDW Plt Count MPV Neutrophils % Lymphocytes % Monocytes % Eosinophils % Basophils % D-Dimer 311 H Sodium Potassium Chloride Carbon Dioxide Anion Gap BUN Creatinine Creat Clearance w eGFR POC Glucometer 196 Random Glucose Lactic Acid 2.737 H* Calcium Total Bilirubin AST ALT Alkaline Phosphatase Troponin I Total Protein Albumin 11/29/16 11/30/16 11/30/16 22:12 06:00 06:00 WBC 12.6 H RBC 4.25 Hgb 10.9 Hct 33.0 MCV 77.6 L MCHC 33.1 RDW 15.6 Plt Count 225 MPV 8.9 Neutrophils % 89.3 H Lymphocytes % 8.0 Monocytes % 2.4 L Eosinophils % 0.0 Basophils % 0.3 D-Dimer Sodium 137 Potassium 3.9 Chloride 101 Carbon Dioxide 29 Anion Gap 7 L BUN 15 Creatinine 0.8 Creat Clearance w eGFR > 60 POC Glucometer 243 Random Glucose 278 H Lactic Acid Calcium 9.2 Total Bilirubin 0.3 AST 29 ALT 32 D Alkaline Phosphatase 72 Troponin I Total Protein 7.2 Albumin 3.4 11/30/16 11/30/16 11/30/16 06:00 06:00 06:00 WBC RBC Hgb Hct MCV MCHC RDW Plt Count MPV Neutrophils % Lymphocytes % Monocytes % Eosinophils % Basophils % D-Dimer Sodium Potassium Chloride Carbon Dioxide Anion Gap BUN Creatinine Creat Clearance w eGFR POC Glucometer 252 Random Glucose Lactic Acid 3.428 H* Calcium Total Bilirubin AST ALT Alkaline Phosphatase Troponin I 0.92 H* Total Protein Albumin 11/30/16 12:14 WBC RBC Hgb Hct MCV MCHC RDW Plt Count MPV Neutrophils % Lymphocytes % Monocytes % Eosinophils % Basophils % D-Dimer Sodium Potassium Chloride Carbon Dioxide Anion Gap BUN Creatinine Creat Clearance w eGFR POC Glucometer 289 Random Glucose Lactic Acid Calcium Total Bilirubin AST ALT Alkaline Phosphatase Troponin I Total Protein Albumin Active Medications Generic Name Dose Route Start Last Admin Trade Name Freq PRN Reason Stop Dose Admin Albuterol/Ipratropium 1 amp 11/28/16 00:00 11/30/16 05:47 Duoneb - NEB 1 amp QIDR [facility] Administration Aspirin 81 mg 11/29/16 10:00 11/30/16 09:37 Ecotrin - PO 81 mg DAILY [facility] Administration Atorvastatin Calcium 20 mg 11/29/16 22:00 11/29/16 22:16 Lipitor - PO 20 mg HS [facility] Administration Benzocaine/Menthol 1 each 11/29/16 11:38 11/29/16 13:16 Cepacol Lozenge - MM 1 each PRN PRN Administration SORE THROAT Budesonide/Formoterol Fumarate 2 puff 11/29/16 10:00 11/30/16 09:36 Symbicort 80/4.5mcg - IH 2 puff BID [facility] Administration Docusate Sodium 100 mg 11/29/16 14:00 11/30/16 06:58 Colace - PO 100 mg TID [facility] Administration Guaifenesin 10 ml 11/28/16 06:00 11/28/16 17:28 Robitussin - PO 10 ml Q4H PRN Administration COUGH Insulin Aspart 1 vial 11/28/16 18:34 11/30/16 12:19 Novolog Vial Sliding Scale - SQ 8 units ACHS [facility] Administration Protocol Insulin Detemir 10 units 11/29/16 09:56 11/29/16 22:20 Levemir Vial SQ 10 units HS [facility] Administration Insulin Detemir 5 units 12/01/16 07:00 Levemir Vial SQ DAILY@0700 [facility] Methylprednisolone Sodium Succinate 40 mg 11/28/16 10:00 11/30/16 09:37 Solu-Medrol - IVPB 40 mg Q8H-IV [facility] Administration Metoprolol Tartrate 25 mg 11/27/16 22:00 11/30/16 09:37 Lopressor - PO 25 mg BID [facility] Administration ASSESSMENT/PLAN: Patient is an 81 year old female with a significant past medical history of diabetes, hypertension, hyperlipidemia and asthma. She presented to the ED on 11/27/2016 with complaints of a persistent cough and shortness of breath x 1 week. On admission, patient denied any chest pain and continues to deny chest pain despite elevated troponins. Imaging: CT CTA 11/30/2016: negative for PE: some congestion noted, likely chronic vs. acute Cardiology: Positive Troponin with EKG sinus tachy/NSTEMI- acute Assessment/Plan: On exam, patient without chest pain, no shortness of breath Troponin 0.02 > 0.04> 2.62 > 3.31 >1.55>0.92. Lovenox BID d/nicky today by cardiology ASA 81mg daily Added venti mask @ 50% after ABG shows respiratory alkalosis:pt continues to have intermittent grunting, venti mask to help keep her breathing less labored. 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 cath Hypertension - chronic Assessment/Plan: BP controlled on Metoprolol 25mg BID Monitor BPs Hyperlipidemia - chronic Assessment/Plan: On Lipitor 20mg @hs Pulmonary: Cough/Asthma - acute exacerbation Assessment/Plan: On Solumedrol 40mg q8 Venti mask @50% with nasal cannula at 2 liters Negative for flu Symbicort BID Pulmonary consult, as per pulmonary, likely interstitial lung disease ID: Sepsis criteria met on admission: SIRS criteria - acute Assessment/Plan: Lactic acidosis, Leukocytosis, Tachycardia Persistent lactic acidosis: 2.8>4.3>6.2>3.4>3.5 >3.9>2.7>3.4 urine cultures negative/blood cult pending. ID consulted for possible antibiotic therapy Persistent Lactic acidosis - acute Assessment/Plan: Differentials of persistent lactic acidosis: metformin use, muscle fatigue from asthma exacerbation, elevated troponins, sepsis. Metformin discontinued, should not be re-started on discharge, spoke to daughter about a long acting on d/c Asthma exacerbation: muscle fatigue secondary to high energy demand of breathing - on venti mask now, likely will need home oxygen Elevated troponins: could be cause of elevated LA, trops peaked at 3.31 Sepsis: WBC @12.6, tachycardia, afebrile, blood and urine cultures ngtd - hold off on further IVF boluses secondary to congestion. Hematology Anemia - likely acute - improving Assessment/Plan: Hmg/hct low stable monitor while on anticoags. Endocrine Diabetes mellitus - elevated BGMs, Levemir 5units a.m., Levemir 10 units night Sliding scale Hmg A1c: 8.3 Proplylaxis: DVT: Lovenox 40mg daily GI: miralax, Protonix, Colace Disposition: Continues to require inpatient hospitalization. Full code. Visit type - Emergency Visit Emergency Visit: Yes ED Registration Date: 11/27/16 Care time: The patient presented to the Emergency Department on the above date and was hospitalized for further evaluation of their emergent condition. - New Patient This patient is new to me today: No - Critical Care Critical Care patient: No - Discharge Referral Referred to [facility] Med P.C.: No
--- NOTE | 2016-11-30 13:07 | PN ---
Progress Note, Physician History of Present Illness: patient slightly better today sitting in chair still very sob - Current Medication List Current Medications: Active Medications Albuterol/Ipratropium (Duoneb -) 1 amp NEB QIDR [facility] Last Admin: 11/30/16 05:47 Dose: 1 amp Aspirin (Ecotrin -) 81 mg PO DAILY [facility] Last Admin: 11/30/16 09:37 Dose: 81 mg Atorvastatin Calcium (Lipitor -) 20 mg PO [facility] Last Admin: 11/29/16 22:16 Dose: 20 mg Benzocaine/Menthol (Cepacol Lozenge -) 1 each MM PRN PRN PRN Reason: SORE THROAT Last Admin: 11/29/16 13:16 Dose: 1 each Budesonide/Formoterol Fumarate (Symbicort 80/4.5mcg -) 2 puff IH BID [facility] Last Admin: 11/30/16 09:36 Dose: 2 puff Docusate Sodium (Colace -) 100 mg PO TID [facility] Last Admin: 11/30/16 06:58 Dose: 100 mg Guaifenesin (Robitussin -) 10 ml PO Q4H PRN PRN Reason: COUGH Last Admin: 11/28/16 17:28 Dose: 10 ml Insulin Aspart (Novolog Vial Sliding Scale -) 1 vial SQ [facility] PRN Reason: Protocol Last Admin: 11/30/16 12:19 Dose: 8 units Insulin Detemir (Levemir Vial) 10 units SQ [facility] Last Admin: 11/29/16 22:20 Dose: 10 units Insulin Detemir (Levemir Vial) 5 units SQ DAILY@0700 [facility] Methylprednisolone Sodium Succinate (Solu-Medrol -) 40 mg IVPB Q8H-IV [facility] Last Admin: 11/30/16 09:37 Dose: 40 mg Metoprolol Tartrate (Lopressor -) 25 mg PO BID [facility] Last Admin: 11/30/16 09:37 Dose: 25 mg - Objective Vital Signs: Vital Signs Temperature 97.4 F L 11/30/16 06:00 Pulse Rate 87 11/30/16 09:44 Respiratory Rate 20 11/30/16 09:44 Blood Pressure 150/75 11/30/16 09:44 O2 Sat by Pulse Oximetry (%) 96 11/29/16 20:00 Constitutional: Yes: Calm, Mild Distress Cardiovascular: Yes: Regular Rate and Rhythm Respiratory: Yes: Wheezes Gastrointestinal: Yes: Normal Bowel Sounds, Soft Musculoskeletal: Yes: WNL Extremities: Yes: WNL Neurological: Yes: Alert, Oriented Psychiatric: Yes: Alert, Oriented Labs: CBC, BMP 11/30/16 06:00 11/30/16 06:00 INR, PTT INR 1.03 (0.82-1.09) 11/27/16 15:45 Assessment/Plan after evaluating the patient i think she is severely dehydrated she probably has upper resp infection (1) Cough Code(s): R05 - COUGH (2) Elevated lactic acid level Code(s): R79.89 - OTHER SPECIFIED ABNORMAL FINDINGS OF BLOOD CHEMISTRY (3) Bronchitis Code(s): J40 - BRONCHITIS, NOT SPECIFIED ACUTE OR CHRONIC (4) Diabetes Code(s): E11.9 - TYPE 2 DIABETES MELLITUS WITHOUT COMPLICATIONS (5) Upper respiratory infection Code(s): J06.9 - ACUTE UPPER RESPIRATORY INFECTION, UNSPECIFIED (6) Pulmonary hypertension Code(s): I27.2 - OTHER SECONDARY PULMONARY HYPERTENSION (7) Non-ST elevation (NSTEMI) myocardial infarction Code(s): I21.4 - NON-ST ELEVATION (NSTEMI) MYOCARDIAL INFARCTION (8) Interstitial lung disease Code(s): J84.9 - INTERSTITIAL PULMONARY DISEASE, UNSPECIFIED continues to have wheezing plan ct result noted continue current mgmt incentive sharita
[2016-11-30] MEDS ORDERED: PANTOPRAZOLE 40 MG TABLET (FP) PO ONE (13:11)
[2016-11-30] MEDS: guaiFENesin 200 MG/10 ML 10 ML UNIT-DOSE CUPS PO PRN ×2 (13:51→21:44)
--- NOTE | 2016-11-30 15:13 | PN ---
Progress Note (short form) - Note Progress Note: PULMONARY Per family at bedside, pt still some chest discomfort. +cough productive of white sputum. No fevers or chills. Last Vital Signs Temp Pulse Resp BP Pulse Ox 97.4 F L 87 20 150/75 96 11/30/16 06:00 11/30/16 09:44 11/30/16 09:44 11/30/16 09:44 11/29/16 20:00 Gen: NAD at rest Heart: RRR Lung: scattered rhonchi Abd: soft, nontender Ext: no edema CBC, BMP 11/30/16 06:00 11/30/16 06:00 Active Medications Albuterol/Ipratropium (Duoneb -) 1 amp NEB QIDR [facility] Last Admin: 11/30/16 11:45 Dose: 1 amp Aspirin (Ecotrin -) 81 mg PO DAILY [facility] Last Admin: 11/30/16 09:37 Dose: 81 mg Atorvastatin Calcium (Lipitor -) 20 mg PO [facility] Last Admin: 11/29/16 22:16 Dose: 20 mg Benzocaine/Menthol (Cepacol Lozenge -) 1 each MM PRN PRN PRN Reason: SORE THROAT Last Admin: 11/29/16 13:16 Dose: 1 each Budesonide/Formoterol Fumarate (Symbicort 80/4.5mcg -) 2 puff IH BID [facility] Last Admin: 11/30/16 09:36 Dose: 2 puff Docusate Sodium (Colace -) 100 mg PO TID [facility] Last Admin: 11/30/16 13:51 Dose: 100 mg Guaifenesin (Robitussin -) 10 ml PO Q4H PRN PRN Reason: COUGH Last Admin: 11/30/16 13:51 Dose: 10 ml Insulin Aspart (Novolog Vial Sliding Scale -) 1 vial SQ [facility] PRN Reason: Protocol Last Admin: 11/30/16 12:19 Dose: 8 units Insulin Detemir (Levemir Vial) 10 units SQ [facility] Last Admin: 11/29/16 22:20 Dose: 10 units Insulin Detemir (Levemir Vial) 5 units SQ DAILY@0700 [facility] Methylprednisolone Sodium Succinate (Solu-Medrol -) 40 mg IVPB Q8H-IV [facility] Last Admin: 03/18/17 09:37 Dose: 40 mg Metoprolol Tartrate (Lopressor -) 25 mg PO BID [facility] Last Admin: 11/30/16 09:37 Dose: 25 mg Pantoprazole Sodium (Protonix -) 40 mg PO DAILY [facility] A/P Acute Asthma Exacerbation +Troponins/Acute NSTEMI Lactic Acidosis Pulmonary HTN - continue medrol at current dose - inhaled bronchodilators - O2 as needed - ASA - cardiology work up in progress - DVT prophylaxis
[2016-11-30] MEDS ORDERED: INSULIN (NOVOLOG) ASPART 100 UNITS/ML 10ML VIAL ONE ×2 (17:53→21:34)
[2016-11-30] MEDS: ATORVASTATIN CA 20 MG TABLET (FP) PO SCH (21:38)
[2016-11-30] MEDS: INSULIN DETEMIR 100 UNITS/ML MDV SQ SCH (21:39)
[2016-12-01] MEDS: methylPREDNISolone NA SUCC 40 MG/1 ML VIAL IVPB SCH ×3 (01:28→21:55)
[2016-12-01] MEDS: guaiFENesin 200 MG/10 ML 10 ML UNIT-DOSE CUPS PO PRN (05:54)
[2016-12-01] MEDS: DOCUSATE SODIUM 100 MG CAPSULE (FP) PO SCH ×3 (05:57→21:55)
[2016-12-01] MEDS: INSULIN SLIDING SCALE (NOVOLOG) 1 VIAL SQ SCH ×4 (06:00→22:00)
[2016-12-01] MEDS: INSULIN DETEMIR 100 UNITS/ML MDV SQ SCH ×2 (06:01→21:59)
[2016-12-01] MEDS: ALBUTEROL SO4 2.5/IPRATROPIUM 0.5 INH SOL 3 ML VIAL.NEB. NEB SCH ×3 (06:16→18:00)
[2016-12-01] MEDS ORDERED: morphine CARPU-JECT 2 MG/1 ML DISP.SYRIN IVPUSH PRN (07:16)
[2016-12-01 07:26] LABS: BASOPHIL 0.4 % (0-2.0); MCH 25.4 pg (25.7-33.7); MCHC 32.5 g/dl (32.0-36.0); MEAN CELL VOLUME 78.4 fl (80-96); MEAN PLT VOLUME 8.4 fl (7.5-11.1); PLATELET COUNT 224 K/MM3 (134-434); RDW 15.3 % (11.6-15.6); WHITE BLOOD COUNT 11.5 K/mm3 (4.0-10.0)
[2016-12-01 07:53] LABS: ALBUMIN 3.2 g/dl (3.4-5.0); ANION GAP 10 (8-16); CALCIUM 8.7 mg/dL (8.5-10.1); CO2 29 mmol/L (21-32); GLUCOSE,RANDOM 225 mg/dL (74-106)
[2016-12-01 07:57] LABS: ALK PHOS 69 U/L (45-117); BILIRUBIN,TOTAL 0.4 mg/dL (0.2-1.0); CREATININE 0.8 mg/dL (0.55-1.02); SGOT/AST 23 U/L (15-37); SGPT/ALT 43 U/L (12-78)
[2016-12-01] MEDS ORDERED: PT OWN MED DRAWER 7, Y5N ONE ×3 (09:45→22:10)
[2016-12-01] MEDS: PANTOPRAZOLE 40 MG TABLET (FP) PO SCH (09:52)
[2016-12-01] MEDS: ASPIRIN COATED 81 MG TABLET.EC PO SCH (09:52)
[2016-12-01] MEDS: METOPROLOL TARTRATE 25 MG TABLET (FP) PO SCH ×2 (09:52→21:55)
[2016-12-01] MEDS: BUDESONIDE/FORMETEROL FUMARATE 80/4.5 mcg INHALER IH SCH ×2 (09:57→22:11)
[2016-12-01] MEDS ORDERED: morphine CARPU-JECT 2 MG/1 ML DISP.SYRIN IVPUSH ONE (10:18)
[2016-12-01] MEDS: SODIUM CHLORIDE 1,000 ML IV SCH (10:21)
[2016-12-01 10:44] LABS: ARTERIAL BLD GAS O2 SATURATION 99.5 % (90-98.9); ARTERIAL BLOOD GAS BASE EXCESS 3.4 meq/l (-2-2); ARTERIAL BLOOD GAS HCO3 27.6 meq/L (22-26); ARTERIAL BLOOD GAS pH 7.43 (7.35-7.45)
[2016-12-01 10:48] LABS: ALLENS TEST POSITIVE; ART PUNCT SITE RIGHT RADIAL; LPM/O2% 50%; PT. ON O2? YES; TYPE OF O2 VENTIMASK
--- NOTE | 2016-12-01 11:54 | PN ---
Progress Note, Physician History of Present Illness: No events overnight Still with MSK chest pain this AM CTA neg for PE Off LMWH - Current Medication List Current Medications: Active Medications Albuterol/Ipratropium (Duoneb -) 1 amp NEB QIDR [facility] Last Admin: 12/01/16 06:16 Dose: 1 amp Aspirin (Ecotrin -) 81 mg PO DAILY [facility] Last Admin: 12/01/16 09:52 Dose: 81 mg Atorvastatin Calcium (Lipitor -) 20 mg PO HS [facility] Last Admin: 11/30/16 21:38 Dose: 20 mg Benzocaine/Menthol (Cepacol Lozenge -) 1 each MM PRN PRN PRN Reason: SORE THROAT Last Admin: 11/29/16 13:16 Dose: 1 each Budesonide/Formoterol Fumarate (Symbicort 80/4.5mcg -) 2 puff IH BID [facility] Last Admin: 12/01/16 09:57 Dose: 2 puff Docusate Sodium (Colace -) 100 mg PO TID [facility] Last Admin: 12/01/16 05:57 Dose: 100 mg Guaifenesin (Robitussin -) 10 ml PO Q4H PRN PRN Reason: COUGH Last Admin: 12/01/16 05:54 Dose: 10 ml Sodium Chloride (Normal Saline -) 1,000 mls @ 42 mls/hr IV ASDIR [facility] Last Admin: 12/01/16 10:21 Dose: 42 mls/hr Insulin Aspart (Novolog Vial Sliding Scale -) 1 vial SQ ACHS [facility] PRN Reason: Protocol Last Admin: 12/01/16 06:00 Dose: 6 units Insulin Detemir (Levemir Vial) 10 units SQ HS [facility] Last Admin: 11/30/16 21:39 Dose: 10 units Insulin Detemir (Levemir Vial) 5 units SQ DAILY@0700 [facility] Last Admin: 12/01/16 06:01 Dose: 5 units Methylprednisolone Sodium Succinate (Solu-Medrol -) 40 mg IVPB Q8H-IV [facility] Last Admin: 12/01/16 09:53 Dose: 40 mg Metoprolol Tartrate (Lopressor -) 25 mg PO BID [facility] Last Admin: 12/01/16 09:52 Dose: 25 mg Morphine Sulfate (Morphine Injection -) 2 mg IVPUSH Q4H PRN PRN Reason: PAIN Pantoprazole Sodium (Protonix -) 40 mg PO DAILY [facility] Last Admin: 12/01/16 09:52 Dose: 40 mg - Objective Vital Signs: Vital Signs Temperature 98.1 F 12/01/16 10:02 Pulse Rate 86 12/01/16 10:02 Respiratory Rate 20 12/01/16 10:02 Blood Pressure 120/46 12/01/16 10:02 O2 Sat by Pulse Oximetry (%) 100 11/30/16 21:00 Constitutional: Yes: No Distress, Calm Eyes: Yes: WNL HENT: Yes: WNL Neck: Yes: WNL Cardiovascular: Yes: WNL, Regular Rate and Rhythm Respiratory: Yes: WNL Gastrointestinal: Yes: WNL Extremities: Yes: WNL Edema: No Labs: CBC, BMP 12/01/16 06:15 12/01/16 06:15 INR, PTT INR 1.03 (0.82-1.09) 11/27/16 15:45 Assessment/Plan a/p: 81 f hx dm, htn, hld, asthma here with sob, cough. positive troponin, nstemi: -troponin trended up from 0.02 to 0.04 to 2.62 to peak at 3.3, now trending down. ecg unremarkable. This pattern of trop elevation consistent with nstemi/ acs. Would cont to treat with asa, Lovenox stopped 11/30 Also cont bb, statin. Given her anemia with drop from 11s to 9s 11/28 have been holding plavix to monitor trend of hgb -monitor on tele -echo shows no WMA's -Agree with further risk stratification with myocardial perfusion stress testing (ordered for tomorrow) sob, cough, asthma: -no signs chf (had pulm congestion from ivfs, now have been stopped) -likely due to uri/asthma, cont treatment per pmd/ID -Chest CTA negative for PE htn: -stable on current meds hld: -cont statin anemia: -hgb dropped from baseline 11s to 9s 11/28, today back up in 10s. Possibly was dilutional from ivfs, now stopped. Off LMWH.
--- NOTE | 2016-12-01 13:06 | PN ---
Physical Exam: SUBJECTIVE: Patient seen and examined. She was laying in the bed, c/o of left chest wall tenderness. OBJECTIVE: for Persantine test tomorrow Will likely need pulmonary rehab, home oxygen and steriods on discharge D/c once cleared by cardiology and pulmonary No Metformin on d/c - will convert to Levemir left chest wall discomfort/pain reproducible on palpation Given Morphine 2mg for pain ABG repeated: shows acid base disorder with normal PH, will stop venti mask and apply 2 liter of nasal cannula and monitor Vital Signs Period Temp Pulse Resp BP Sys/Thomas Pulse Ox Last 24 Hr 97.6 F-98.5 F 85-104 20-20 120-165/46-76 100 GENERAL: The patient is awake, alert, and fully oriented, in mild respiratory distress - now on 2 liters nasal cannula HEAD: Normal with no signs of trauma. EYES: PERRL, extraocular movements intact, sclera anicteric, conjunctiva clear. No ptosis. ENT: Ears normal, nares patent, oropharynx clear without exudates, moist mucous membranes. NECK: Trachea midline, full range of motion, supple. LUNGS: Increased wheezing on left anterior lobe, bilateral lung melvin mostly clear, diminished at the bases. 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 NEUROLOGICAL: Normal speech, gait not observed. PSYCH: Normal mood, normal affect. SKIN: Warm, dry, normal turgor, no rashes or lesions noted Laboratory Results - last 24 hr 11/30/16 11/30/16 12/01/16 17:50 21:27 05:33 WBC RBC Hgb Hct MCV MCHC RDW Plt Count MPV Neutrophils % Lymphocytes % Monocytes % Eosinophils % Basophils % Puncture Site ABG pH ABG pCO2 at Pt Temp ABG pO2 at Pt Temp ABG HCO3 ABG O2 Sat (Measured) ABG O2 Content ABG Base Excess Paulino Test O2 Delivery Device Oxygen Flow Rate Sodium Potassium Chloride Carbon Dioxide Anion Gap BUN Creatinine Creat Clearance w eGFR POC Glucometer 295 344 234 Random Glucose Lactic Acid Calcium Total Bilirubin AST ALT Alkaline Phosphatase Total Protein Albumin 12/01/16 12/01/16 12/01/16 06:15 06:15 06:15 WBC 11.5 H RBC 4.34 Hgb 11.0 Hct 34.0 MCV 78.4 L MCHC 32.5 RDW 15.3 Plt Count 224 MPV 8.4 Neutrophils % 87.0 H Lymphocytes % 9.0 Monocytes % 3.6 L Eosinophils % 0.0 Basophils % 0.4 Puncture Site ABG pH ABG pCO2 at Pt Temp ABG pO2 at Pt Temp ABG HCO3 ABG O2 Sat (Measured) ABG O2 Content ABG Base Excess Paulino Test O2 Delivery Device Oxygen Flow Rate Sodium 137 Potassium 4.3 Chloride 98 Carbon Dioxide 29 Anion Gap 10 BUN 15 Creatinine 0.8 Creat Clearance w eGFR > 60 POC Glucometer Random Glucose 225 H Lactic Acid 3.433 H* Calcium 8.7 Total Bilirubin 0.4 D AST 23 D ALT 43 D Alkaline Phosphatase 69 Total Protein 7.0 Albumin 3.2 L 12/01/16 12/01/16 10:35 12:20 WBC RBC Hgb Hct MCV MCHC RDW Plt Count MPV Neutrophils % Lymphocytes % Monocytes % Eosinophils % Basophils % Puncture Site Right radial ABG pH 7.43 ABG pCO2 at Pt Temp 42.5 D ABG pO2 at Pt Temp 142.0 H D ABG HCO3 27.6 H ABG O2 Sat (Measured) 99.5 H ABG O2 Content 14.3 L ABG Base Excess 3.4 H Paulino Test Positive O2 Delivery Device Ventimask Oxygen Flow Rate 50% Sodium Potassium Chloride Carbon Dioxide Anion Gap BUN Creatinine Creat Clearance w eGFR POC Glucometer 208 Random Glucose Lactic Acid Calcium Total Bilirubin AST ALT Alkaline Phosphatase Total Protein Albumin Active Medications Generic Name Dose Route Start Last Admin Trade Name Freq PRN Reason Stop Dose Admin Albuterol/Ipratropium 1 amp 11/28/16 00:00 12/01/16 12:19 Duoneb - NEB 1 amp QIDR [facility] Administration Aspirin 81 mg 11/29/16 10:00 12/01/16 09:52 Ecotrin - PO 81 mg DAILY [facility] Administration Atorvastatin Calcium 20 mg 11/29/16 22:00 11/30/16 21:38 Lipitor - PO 20 mg HS [facility] Administration Benzocaine/Menthol 1 each 11/29/16 11:38 11/29/16 13:16 Cepacol Lozenge - MM 1 each PRN PRN Administration SORE THROAT Budesonide/Formoterol Fumarate 2 puff 11/29/16 10:00 12/01/16 09:57 Symbicort 80/4.5mcg - IH 2 puff BID [facility] Administration Docusate Sodium 100 mg 11/29/16 14:00 12/01/16 05:57 Colace - PO 100 mg TID [facility] Administration Guaifenesin 10 ml 11/28/16 06:00 12/01/16 05:54 Robitussin - PO 10 ml Q4H PRN Administration COUGH Sodium Chloride 1,000 mls @ 42 mls/hr 12/01/16 08:15 12/01/16 10:21 Normal Saline - IV 42 mls/hr ASDIR [facility] Administration Insulin Aspart 1 vial 11/28/16 18:34 12/01/16 12:26 Novolog Vial Sliding Scale - SQ 6 units ACHS [facility] Administration Protocol Insulin Detemir 10 units 11/29/16 09:56 11/30/16 21:39 Levemir Vial SQ 10 units HS [facility] Administration Insulin Detemir 5 units 12/01/16 07:00 12/01/16 06:01 Levemir Vial SQ 5 units DAILY@0700 [facility] Administration Methylprednisolone Sodium Succinate 40 mg 11/28/16 10:00 12/01/16 09:53 Solu-Medrol - IVPB 40 mg Q8H-IV [facility] Administration Metoprolol Tartrate 25 mg 11/27/16 22:00 12/01/16 09:52 Lopressor - PO 25 mg BID [facility] Administration Morphine Sulfate 2 mg 12/01/16 07:16 Morphine Injection - IVPUSH Q4H PRN PAIN Pantoprazole Sodium 40 mg 12/01/16 10:00 12/01/16 09:52 Protonix - PO 40 mg DAILY [facility] Administration ASSESSMENT/PLAN: Patient is an 81 year old female with a significant past medical history of diabetes, hypertension, hyperlipidemia and asthma. She presented to the ED on 11/27/2016 with complaints of a persistent cough and shortness of breath x 1 week. On admission, patient denied any chest pain and continues to deny chest pain despite elevated troponins. Imaging: CT CTA 11/30/2016: negative for PE: some congestion noted, likely chronic vs. acute Echo 11/28/2016: LV hyperdynamic, LV wall normal, mild mitral regurg, mild-mod tricuspid regurg, mod-pulm htn Cardiology: Positive Troponin with EKG sinus tachy/NSTEMI- acute Assessment/Plan: On exam, patient without chest pain, no shortness of breath Troponin 0.02 > 0.04> 2.62 > 3.31 >1.55>0.92. 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 EKG 11/27/2016 sinus tacy 113 with PACs On Lipitor @ hs Nitro SL PRN if chest pain occurs - having left sided chest discomfort reproducible on palpation - given morphine 2mg Persantine stress test tomorrow Hypertension - chronic Assessment/Plan: BP controlled on Metoprolol 25mg BID Monitor BPs Hyperlipidemia - chronic Assessment/Plan: On Lipitor 20mg @hs Pulmonary: Cough/Asthma - acute exacerbation Assessment/Plan: On Solumedrol 40mg q8 nasal cannula at 2 liters Negative for flu Symbicort BID Pulmonary following:as per pulmonary, likely interstitial lung disease ID: Sepsis criteria met on admission: SIRS criteria - likely not sepsis Assessment/Plan: urine cultures negative/blood cult negative Lactic acidosis, Leukocytosis, Tachycardia on admission Persistent lactic acidosis: 2.8>4.3>6.2>3.4>3.5 >3.9>2.7>3.4 ID consulted for possible antibiotic therapy Persistent Lactic acidosis - acute Assessment/Plan: Differentials of persistent lactic acidosis: metformin vs. muscle fatigue from asthma exacer vs elevated troponins - not likely sepsis Metformin discontinued, should not be re-started on discharge, spoke to daughter about a long acting on d/c Asthma exacerbation: muscle fatigue secondary to high energy demand of breathing - On 2 liters of nasal cannula Elevated troponins: could be cause of elevated LA, trops peaked at 3.31 Sepsis: unlikely, she remains afebrile, blood and urine cultures negative, WBC trending down Hematology Anemia - likely acute - resolved Assessment/Plan: Hmg/hct stable monitor while on anticoags. Endocrine Diabetes mellitus - elevated BGMs, Levemir 5units a.m., Levemir 10 units night Sliding scale, Hmg A1c: 8.3 Proplylaxis: DVT: Lovenox 40mg daily GI: miralax, Protonix, Colace Disposition: Continues to require inpatient hospitalization. Full code. for Persantine test tomorrow Will likely need pulmonary rehab, home oxygen and steriods on discharge D/c once cleared by cardiology and pulmonary No Metformin on d/c - will convert to Levemir Visit type - Emergency Visit Emergency Visit: Yes ED Registration Date: 11/27/16 Care time: The patient presented to the Emergency Department on the above date and was hospitalized for further evaluation of their emergent condition. - New Patient This patient is new to me today: No - Critical Care Critical Care patient: No - Discharge Referral Referred to [facility] Med P.C.: No
--- NOTE | 2016-12-01 13:38 | PN ---
Progress Note (short form) - Note Progress Note: PULMONARY Per family at bedside, pt still some chest discomfort with coughing. No fevers or chills. Last Vital Signs Temp Pulse Resp BP Pulse Ox 98.1 F 86 20 120/46 100 12/01/16 10:02 12/01/16 10:02 12/01/16 10:02 12/01/16 10:02 11/30/16 21:00 Gen: NAD at rest Heart: RRR Lung: decreased breath sounds at the bases Abd: soft, nontender Ext: no edema CBC, BMP 12/01/16 06:15 12/01/16 06:15 Active Medications Albuterol/Ipratropium (Duoneb -) 1 amp NEB QIDR [facility] Last Admin: 12/01/16 12:19 Dose: 1 amp Aspirin (Ecotrin -) 81 mg PO DAILY [facility] Last Admin: 12/01/16 09:52 Dose: 81 mg Atorvastatin Calcium (Lipitor -) 20 mg PO HS [facility] Last Admin: 11/30/16 21:38 Dose: 20 mg Benzocaine/Menthol (Cepacol Lozenge -) 1 each MM PRN PRN PRN Reason: SORE THROAT Last Admin: 11/29/16 13:16 Dose: 1 each Budesonide/Formoterol Fumarate (Symbicort 80/4.5mcg -) 2 puff IH BID [facility] Last Admin: 12/01/16 09:57 Dose: 2 puff Docusate Sodium (Colace -) 100 mg PO TID [facility] Last Admin: 12/01/16 05:57 Dose: 100 mg Guaifenesin (Robitussin -) 10 ml PO Q4H PRN PRN Reason: COUGH Last Admin: 12/01/16 05:54 Dose: 10 ml Sodium Chloride (Normal Saline -) 1,000 mls @ 42 mls/hr IV ASDIR [facility] Last Admin: 12/01/16 10:21 Dose: 42 mls/hr Insulin Aspart (Novolog Vial Sliding Scale -) 1 vial SQ ACHS [facility] PRN Reason: Protocol Last Admin: 12/01/16 12:26 Dose: 6 units Insulin Detemir (Levemir Vial) 10 units SQ HS [facility] Last Admin: 11/30/16 21:39 Dose: 10 units Insulin Detemir (Levemir Vial) 5 units SQ DAILY@0700 [facility] Last Admin: 12/01/16 06:01 Dose: 5 units Methylprednisolone Sodium Succinate (Solu-Medrol -) 40 mg IVPB Q8H-IV [facility] Last Admin: 12/01/16 09:53 Dose: 40 mg Metoprolol Tartrate (Lopressor -) 25 mg PO BID [facility] Last Admin: 12/01/16 09:52 Dose: 25 mg Morphine Sulfate (Morphine Injection -) 2 mg IVPUSH Q4H PRN PRN Reason: PAIN Pantoprazole Sodium (Protonix -) 40 mg PO DAILY [facility] Last Admin: 12/01/16 09:52 Dose: 40 mg A/P Acute Asthma Exacerbation +Troponins/Acute NSTEMI Lactic Acidosis Pulmonary HTN - will decrease medrol to q12h - if lung exam remains clear, can change steroids to PO in AM - will add codeine to robitussin - inhaled bronchodilators - O2 as needed - ASA - DVT prophylaxis
--- NOTE | 2016-12-01 17:36 | PN ---
Progress Note, Physician History of Present Illness: patient still not feeling well grand daughter in room patient still looks very sick looks very fatigued - Current Medication List Current Medications: Active Medications Albuterol/Ipratropium (Duoneb -) 1 amp NEB QIDR [facility] Last Admin: 12/01/16 12:19 Dose: 1 amp Aspirin (Ecotrin -) 81 mg PO DAILY [facility] Last Admin: 12/01/16 09:52 Dose: 81 mg Atorvastatin Calcium (Lipitor -) 20 mg PO [facility] Last Admin: 11/30/16 21:38 Dose: 20 mg Benzocaine/Menthol (Cepacol Lozenge -) 1 each MM PRN PRN PRN Reason: SORE THROAT Last Admin: 11/29/16 13:16 Dose: 1 each Budesonide/Formoterol Fumarate (Symbicort 80/4.5mcg -) 2 puff IH BID [facility] Last Admin: 12/01/16 09:57 Dose: 2 puff Docusate Sodium (Colace -) 100 mg PO TID [facility] Last Admin: 12/01/16 13:43 Dose: 100 mg Guaifenesin/Codeine Phosphate (Robitussin Ac -) 5 ml PO TID PRN PRN Reason: COUGH Sodium Chloride (Normal Saline -) 1,000 mls @ 42 mls/hr IV ASDIR [facility] Last Admin: 12/01/16 10:21 Dose: 42 mls/hr Insulin Aspart (Novolog Vial Sliding Scale -) 1 vial SQ ACHS [facility] PRN Reason: Protocol Last Admin: 12/01/16 12:26 Dose: 6 units Insulin Detemir (Levemir Vial) 10 units SQ [facility] Last Admin: 11/30/16 21:39 Dose: 10 units Insulin Detemir (Levemir Vial) 5 units SQ DAILY@0700 [facility] Last Admin: 12/01/16 06:01 Dose: 5 units Methylprednisolone Sodium Succinate (Solu-Medrol -) 40 mg IVPB BID [facility] Metoprolol Tartrate (Lopressor -) 25 mg PO BID [facility] Last Admin: 12/01/16 09:52 Dose: 25 mg Morphine Sulfate (Morphine Injection -) 2 mg IVPUSH Q4H PRN PRN Reason: PAIN Pantoprazole Sodium (Protonix -) 40 mg PO DAILY [facility] Last Admin: 12/01/16 09:52 Dose: 40 mg - Objective Vital Signs: Vital Signs Temperature 97.7 F 12/01/16 14:00 Pulse Rate 91 H 12/01/16 14:00 Respiratory Rate 20 12/01/16 14:00 Blood Pressure 116/70 12/01/16 14:00 O2 Sat by Pulse Oximetry (%) 100 11/30/16 21:00 Constitutional: Yes: Calm, Mild Distress Cardiovascular: Yes: Regular Rate and Rhythm Respiratory: Yes: Regular, Poor Air Entry, Wheezes Gastrointestinal: Yes: Normal Bowel Sounds, Soft Musculoskeletal: Yes: WNL Extremities: Yes: WNL Neurological: Yes: Alert, Oriented Psychiatric: Yes: Alert Labs: CBC, BMP 12/01/16 06:15 12/01/16 06:15 INR, PTT INR 1.03 (0.82-1.09) 11/27/16 15:45 Assessment/Plan after evaluating the patient i think she is severely dehydrated she probably has upper resp infection (1) Cough Code(s): R05 - COUGH (2) Elevated lactic acid level Code(s): R79.89 - OTHER SPECIFIED ABNORMAL FINDINGS OF BLOOD CHEMISTRY (3) Bronchitis Code(s): J40 - BRONCHITIS, NOT SPECIFIED ACUTE OR CHRONIC (4) Diabetes Code(s): E11.9 - TYPE 2 DIABETES MELLITUS WITHOUT COMPLICATIONS (5) Upper respiratory infection Code(s): J06.9 - ACUTE UPPER RESPIRATORY INFECTION, UNSPECIFIED (6) Pulmonary hypertension Code(s): I27.2 - OTHER SECONDARY PULMONARY HYPERTENSION (7) Non-ST elevation (NSTEMI) myocardial infarction Code(s): I21.4 - NON-ST ELEVATION (NSTEMI) MYOCARDIAL INFARCTION (8) Interstitial lung disease Code(s): J84.9 - INTERSTITIAL PULMONARY DISEASE, UNSPECIFIED continues to have wheezing plan ct result noted will continue to watch if patient does not become alright might consider starting on ceftriaxone
[2016-12-01] MEDS: ATORVASTATIN CA 20 MG TABLET (FP) PO SCH (21:55)
[2016-12-01] MEDS: guaiFENesin/CODEINE 5 ML UNIT-DOSE CUPS PO PRN (21:55)
[2016-12-02] MEDS: ALBUTEROL SO4 2.5/IPRATROPIUM 0.5 INH SOL 3 ML VIAL.NEB. NEB SCH ×3 (06:05→11:20)
[2016-12-02] MEDS: DOCUSATE SODIUM 100 MG CAPSULE (FP) PO SCH ×3 (06:13→21:34)
[2016-12-02] MEDS: INSULIN SLIDING SCALE (NOVOLOG) 1 VIAL SQ SCH ×4 (06:13→21:34)
[2016-12-02] MEDS: INSULIN DETEMIR 100 UNITS/ML MDV SQ SCH ×2 (06:14→21:35)
[2016-12-02 07:07] LABS: BASOPHIL 0.1 % (0-2.0); EOSINOPHIL 0.1 % (0-4.5); MCH 25.7 pg (25.7-33.7); MCHC 32.7 g/dl (32.0-36.0); MEAN CELL VOLUME 78.7 fl (80-96); MEAN PLT VOLUME 8.2 fl (7.5-11.1); NEUTROPHILS 77.1 % (42.8-82.8); PLATELET COUNT 194 K/MM3 (134-434); RDW 15.8 % (11.6-15.6); WHITE BLOOD COUNT 10.6 K/mm3 (4.0-10.0)
[2016-12-02 07:52] LABS: ALBUMIN 2.9 g/dl (3.4-5.0); BILIRUBIN,TOTAL 0.4 mg/dL (0.2-1.0); CALCIUM 8.3 mg/dL (8.5-10.1); CREATININE 0.9 mg/dL (0.55-1.02)
--- NOTE | 2016-12-02 08:40 | PN ---
Progress Note, Physician Chief Complaint: sob, NSTEMI, asthma History of Present Illness: no cp, sob, palpit, syncope no cigs - Current Medication List Current Medications: Active Medications Albuterol/Ipratropium (Duoneb -) 1 amp NEB QIDR [facility] Last Admin: 12/02/16 06:05 Dose: 1 amp Aspirin (Ecotrin -) 81 mg PO DAILY [facility] Last Admin: 12/01/16 09:52 Dose: 81 mg Atorvastatin Calcium (Lipitor -) 20 mg PO [facility] Last Admin: 12/01/16 21:55 Dose: 20 mg Benzocaine/Menthol (Cepacol Lozenge -) 1 each MM PRN PRN PRN Reason: SORE THROAT Last Admin: 11/29/16 13:16 Dose: 1 each Budesonide/Formoterol Fumarate (Symbicort 80/4.5mcg -) 2 puff IH BID [facility] Last Admin: 12/01/16 22:11 Dose: 2 puff Docusate Sodium (Colace -) 100 mg PO TID [facility] Last Admin: 12/02/16 06:13 Dose: Not Given Guaifenesin/Codeine Phosphate (Robitussin Ac -) 5 ml PO TID PRN PRN Reason: COUGH Last Admin: 12/01/16 21:55 Dose: 5 ml Sodium Chloride (Normal Saline -) 1,000 mls @ 42 mls/hr IV ASDIR [facility] Last Admin: 12/01/16 10:21 Dose: 42 mls/hr Insulin Aspart (Novolog Vial Sliding Scale -) 1 vial SQ ACHS [facility] PRN Reason: Protocol Last Admin: 12/02/16 06:13 Dose: Not Given Insulin Detemir (Levemir Vial) 10 units SQ [facility] Last Admin: 12/01/16 21:59 Dose: 10 units Insulin Detemir (Levemir Vial) 5 units SQ DAILY@0700 [facility] Last Admin: 12/02/16 06:14 Dose: Not Given Methylprednisolone Sodium Succinate (Solu-Medrol -) 40 mg IVPB BID [facility] Last Admin: 12/01/16 21:55 Dose: 40 mg Metoprolol Tartrate (Lopressor -) 25 mg PO BID [facility] Last Admin: 12/01/16 21:55 Dose: 25 mg Morphine Sulfate (Morphine Injection -) 2 mg IVPUSH Q4H PRN PRN Reason: PAIN Pantoprazole Sodium (Protonix -) 40 mg PO DAILY [facility] Last Admin: 12/01/16 09:52 Dose: 40 mg - Objective Vital Signs: Vital Signs Temperature 98.1 F 12/02/16 06:00 Pulse Rate 75 12/02/16 06:00 Respiratory Rate 18 12/02/16 06:00 Blood Pressure 131/65 12/02/16 06:00 O2 Sat by Pulse Oximetry (%) 96 12/01/16 21:00 Constitutional: Yes: No Distress, Calm Eyes: No: Sclera Icterus HENT: No: Nasal Congestion Cardiovascular: Yes: Regular Rate and Rhythm, JVD (6cm), S1, S2, Other (PMI non diplaced). No: Gallop, Murmur Respiratory: Yes: Rales (R base), Wheezes (faint end-exp wheeze R base). No: Accessory Muscle Use Gastrointestinal: Yes: Normal Bowel Sounds, Soft. No: Tenderness Musculoskeletal: Yes: Other (No kyphosis) Extremities: No: Cyanosis Edema: No Integumentary: No: Jaundice Neurological: Yes: Alert, Oriented (x3) Psychiatric: No: Agitated Labs: CBC, BMP 12/02/16 05:35 12/02/16 05:35 INR, PTT INR 1.03 (0.82-1.09) 11/27/16 15:45 - ....Imaging EKG: Other (tele: NSR with APCs) Assessment/Plan echo 11/2016: hyperdynamic lvef, nl lv size, nl rv, mod phtn, mild mr, mild-mod tr a/p: 81 f hx dm, htn, hld, asthma here with sob, cough. positive troponin, nstemi: -troponin trended up from 0.02 to 0.04 to 2.62 to peak at 3.3, now trending down. ecg unremarkable. This pattern of trop elevation consistent with nstemi/ acs (? triggered by acute resp infection). -cont asa, low dose BB (monitor for bronchospasm worsening), statin -lovenox now d/c'd -plavix held due to initial drop in Hgb--? spurious (see below)--stable since, resume plavix -monitor on tele -echo normal LVEF/no WMA's -scattered ground glass opacification on 11/30 CT chest, no effusions--? mild acute HFpEF sec to myocardial ischemia -plan for nuclear stress test (persantine) once chf, asthma/wheezing stable (-will keep NPO after midnight tonight--to reassess in am for ? stress test) acute diast CHF: -ground glass opacities on CT chest -+JVD -? wheezing is chf vs asthma -? pulm htn on echo sec to hi LV filling pressures -send BNP -lasix 40 IVP x 1 today, reassess lasix requirements tomorrow -change RTC albuterol nebs to prn and reassess wheezing s/p diuresis a.e. asthma: -likely due to uri/asthma--cont tx per pulm -Chest CTA negative for PE lactic acidosis: -L.A. as hi as 6 here, ? etiology -doubt due to MS--never evidence of cardiogenic shock, never hypotensive here -? sepsis (BCx's negative) pulm HTN: -? sec to diast chf -CTA no PE -merits further outpt w/u once acute issues stabilized (rpt echo as well when euvolemic--as outpt) htn: -stable on current meds hld: -cont statin anemia: -prior baseline values 10s-11s; -initially dropped 11 to 9.7 here, came up on its own (no PRBCs given) and remains stable 10s-11s since--suspect 9 was spurious value -cont monitoring H/H trend
--- NOTE | 2016-12-02 09:56 | CONSULT ---
Consult - text type - Consultation Consultation Note: Renal Follow up for Lactic Acidosis This is a 81 year old woman with PMhx of DM type 2, Hypertension, Asthma who presented with sob x 1 week and found have acute asthma exacerbation with lactic acidosis. Lactic acidosis trend as below: Laboratory Tests 11/27/16 11/27/16 11/28/16 15:45 22:00 15:00 Lactic Acid 2.884 H* 6.268 H* 3.511 H* 11/29/16 11/30/16 12/01/16 05:35 06:00 06:15 Lactic Acid 3.917 H* 3.428 H* 3.433 H* Pt w/o any periods of hypotension or relative hypotension. Has been on IVF. + SOB but imporved. No chest pain, Abd pain, N/V/D. No flank pain. Good urine output. PMhx: as above Allergies: NKDA Family Hx: NC Social Hx :No T/A/D ROS: as per HPI, all other pertinent ros negative Home Meds: Home Medications Medication Instructions Recorded Pravastatin Sodium [Pravachol -] 20 mg PO HS 02/20/13 Metoprolol Tartrate [Lopressor -] 25 mg PO BID 08/20/13 Albuterol Sulfate Inhaler - 1 - 2 inh PO QID PRN 11/28/16 [Ventolin HFA Inhaler -] Vital Signs Temperature 98.1 F 12/02/16 06:00 Pulse Rate 75 12/02/16 06:00 Respiratory Rate 18 12/02/16 06:00 Blood Pressure 131/65 12/02/16 06:00 O2 Sat by Pulse Oximetry (%) 96 12/01/16 21:00 Intake & Output 11/29/16 11/30/16 12/01/16 12/02/16 23:59 23:59 23:59 23:59 Intake Total 400 400 862 504 Balance 400 400 862 504 Gen: Awake and alert HEENT: NC/AT, MMM, No JVD CVS:RRR, No M/R Lungs: CTA, no rales or wheeze Abd: soft NT/ND Ext: No edema, clubbing or cyanosis : no bladder distension Neuro: AAOx3, no focal defects CBC, BMP 12/02/16 05:35 12/02/16 05:35 Laboratory Tests 12/02/16 05:35 Calcium 8.3 L Albumin 2.9 L Current Medications Albuterol/Ipratropium (Duoneb -) 1 amp NEB QIDR [facility] Last Admin: 12/02/16 06:05 Dose: 1 amp Aspirin (Ecotrin -) 81 mg PO DAILY [facility] Last Admin: 12/01/16 09:52 Dose: 81 mg Atorvastatin Calcium (Lipitor -) 20 mg PO HS [facility] Last Admin: 12/01/16 21:55 Dose: 20 mg Benzocaine/Menthol (Cepacol Lozenge -) 1 each MM PRN PRN PRN Reason: SORE THROAT Last Admin: 11/29/16 13:16 Dose: 1 each Budesonide/Formoterol Fumarate (Symbicort 80/4.5mcg -) 2 puff IH BID [facility] Last Admin: 12/01/16 22:11 Dose: 2 puff Clopidogrel Bisulfate (Plavix -) 75 mg PO DAILY [facility] Docusate Sodium (Colace -) 100 mg PO TID [facility] Last Admin: 12/02/16 06:13 Dose: Not Given Guaifenesin/Codeine Phosphate (Robitussin Ac -) 5 ml PO TID PRN PRN Reason: COUGH Last Admin: 12/01/16 21:55 Dose: 5 ml Sodium Chloride (Normal Saline -) 1,000 mls @ 42 mls/hr IV ASDIR [facility] Last Admin: 12/01/16 10:21 Dose: 42 mls/hr Insulin Aspart (Novolog Vial Sliding Scale -) 1 vial SQ ACHS [facility] PRN Reason: Protocol Last Admin: 12/02/16 06:13 Dose: Not Given Insulin Detemir (Levemir Vial) 10 units SQ HS [facility] Last Admin: 12/01/16 21:59 Dose: 10 units Insulin Detemir (Levemir Vial) 5 units SQ DAILY@0700 [facility] Last Admin: 12/02/16 06:14 Dose: Not Given Methylprednisolone Sodium Succinate (Solu-Medrol -) 40 mg IVPB BID [facility] Last Admin: 12/01/16 21:55 Dose: 40 mg Metoprolol Tartrate (Lopressor -) 25 mg PO BID [facility] Last Admin: 12/01/16 21:55 Dose: 25 mg Morphine Sulfate (Morphine Injection -) 2 mg IVPUSH Q4H PRN PRN Reason: PAIN Pantoprazole Sodium (Protonix -) 40 mg PO DAILY [facility] Last Admin: 12/01/16 09:52 Dose: 40 mg A/P 81 year old woman with PMhx of DM type 2, Hypertension, Asthma who presented with sob x 1 week and found have acute asthma exacerbation with lactic acidosis. 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
[2016-12-02] MEDS: SODIUM CHLORIDE 1,000 ML IV SCH (10:20)
[2016-12-02] MEDS: BUDESONIDE/FORMETEROL FUMARATE 80/4.5 mcg INHALER IH SCH ×2 (10:25→21:34)
[2016-12-02] MEDS: methylPREDNISolone NA SUCC 40 MG/1 ML VIAL IVPB SCH ×2 (10:25→21:34)
[2016-12-02] MEDS ORDERED: ALBUTEROL SO4 2.5/IPRATROPIUM 0.5 INH SOL 3 ML VIAL.NEB. NEB PRN (12:00)
[2016-12-02] MEDS ORDERED: FUROSEMIDE 40 MG/4 ML INJECTABLE VIAL IVPUSH ONE (12:02)
--- NOTE | 2016-12-02 12:11 | PN ---
Physical Exam: SUBJECTIVE: Patient seen and examined. Reports continued chest pain with cough, but improved from previous. Denies abd pain. Reports normal BM this AM. OBJECTIVE: Vital Signs - 24 hr 3 12/01/16 12/01/16 12/01/16 14:00 18:00 18:02 Temperature 97.7 F 99.3 F Pulse Rate 91 H 88 76 Respiratory 20 18 Rate Blood Pressure 116/70 121/70 O2 Sat by Pulse 99 Oximetry (%) 3 12/01/16 12/01/16 12/02/16 21:00 22:00 02:00 Temperature 98.2 F 98.2 F 98.3 F Pulse Rate 76 76 91 H Respiratory 18 18 18 Rate Blood Pressure 144/65 144/65 121/63 O2 Sat by Pulse 96 Oximetry (%) 3 12/02/16 06:00 Temperature 98.1 F Pulse Rate 75 Respiratory 18 Rate Blood Pressure 131/65 O2 Sat by Pulse Oximetry (%) GENERAL: The patient is awake, alert, and fully oriented, in no acute distress. HEAD: Normal with no signs of trauma. EYES: PERRL, extraocular movements intact, sclera anicteric, conjunctiva clear. No ptosis. ENT: Ears normal, nares patent, oropharynx clear without exudates, moist mucous membranes. slightly distend neck veins NECK: Trachea midline, full range of motion, supple. LUNGS: Breath sounds equal, mild expiratory wheezes, bibasilar crackles, no accessory muscle use. HEART: Regular rate and rhythm, S1, S2 without murmur, rub or gallop. ABDOMEN: Soft, nontender, nondistended, normoactive bowel sounds, no guarding, no rebound, no hepatosplenomegaly, no masses. EXTREMITIES: 2+ pulses, warm, well-perfused, no edema. NEUROLOGICAL: Cranial nerves II through XII grossly intact. Normal speech, gait not observed. PSYCH: Normal mood, normal affect. SKIN: Warm, dry, normal turgor, no rashes or lesions noted Laboratory Results - last 24 hr 3 12/01/16 12/01/16 12/01/16 12:20 17:36 21:53 WBC RBC Hgb Hct MCV MCHC RDW Plt Count MPV Neutrophils % Lymphocytes % Monocytes % Eosinophils % Basophils % Sodium Potassium Chloride Carbon Dioxide Anion Gap BUN Creatinine Creat Clearance w eGFR POC Glucometer 208 170 160 Random Glucose Calcium Total Bilirubin AST ALT Alkaline Phosphatase Total Protein Albumin 3 12/02/16 12/02/16 12/02/16 05:35 05:35 05:52 WBC 10.6 H RBC 4.07 Hgb 10.5 L Hct 32.0 L MCV 78.7 L MCHC 32.7 RDW 15.8 H Plt Count 194 MPV 8.2 Neutrophils % 77.1 Lymphocytes % 17.0 D Monocytes % 5.7 Eosinophils % 0.1 D Basophils % 0.1 Sodium 139 Potassium 4.4 Chloride 103 Carbon Dioxide 30 Anion Gap 6 L BUN 25 H D Creatinine 0.9 Creat Clearance w eGFR 59.94 POC Glucometer 205 Random Glucose 198 H Calcium 8.3 L Total Bilirubin 0.4 AST 24 ALT 40 Alkaline Phosphatase 56 Total Protein 6.0 L Albumin 2.9 L Active Medications 3 Generic Name Dose Route Start Last Admin Trade Name Freq PRN Reason Stop Dose Admin Albuterol/Ipratropium 1 amp 12/02/16 12:00 Duoneb - NEB QIDR PRN WHEEZING Aspirin 81 mg 11/29/16 10:00 12/01/16 09:52 Ecotrin - PO 81 mg DAILY [facility] Administration Atorvastatin Calcium 20 mg 11/29/16 22:00 12/01/16 21:55 Lipitor - PO 20 mg HS [facility] Administration Benzocaine/Menthol 1 each 11/29/16 11:38 11/29/16 13:16 Cepacol Lozenge - MM 1 each PRN PRN Administration SORE THROAT Budesonide/Formoterol Fumarate 2 puff 11/29/16 10:00 12/02/16 10:25 Symbicort 80/4.5mcg - IH 2 puff BID [facility] Administration Clopidogrel Bisulfate 75 mg 12/02/16 10:00 Plavix - PO DAILY [facility] Docusate Sodium 100 mg 11/29/16 14:00 12/02/16 06:13 Colace - PO Not Given TID [facility] Guaifenesin/Codeine Phosphate 5 ml 12/01/16 13:39 12/01/16 21:55 Robitussin Ac - PO 5 ml TID PRN Administration COUGH Insulin Aspart 1 vial 11/28/16 18:34 12/02/16 06:13 Novolog Vial Sliding Scale - SQ Not Given ACHS [facility] Protocol Insulin Detemir 10 units 11/29/16 09:56 12/01/16 21:59 Levemir Vial SQ 10 units HS [facility] Administration Insulin Detemir 5 units 12/01/16 07:00 12/02/16 06:14 Levemir Vial SQ Not Given DAILY@0700 [facility] Methylprednisolone Sodium Succinate 40 mg 12/01/16 22:00 12/02/16 10:25 Solu-Medrol - IVPB 40 mg BID [facility] Administration Metoprolol Tartrate 25 mg 11/27/16 22:00 12/01/16 21:55 Lopressor - PO 25 mg BID [facility] Administration Morphine Sulfate 2 mg 12/01/16 07:16 Morphine Injection - IVPUSH Q4H PRN PAIN Pantoprazole Sodium 40 mg 12/01/16 10:00 12/01/16 09:52 Protonix - PO 40 mg DAILY [facility] Administration Imaging: CT CTA 11/30/2016: negative for PE: some congestion noted, likely chronic vs. acute Echo 11/28/2016: LV hyperdynamic, LV wall normal, mild mitral regurg, mild-mod tricuspid regurg, mod-pulm htn ASSESSMENT/PLAN: 81yF with PMH HTN, HLD, DM, asthma presented to the ED with cough x 1 week. She has been admitted with acute asthma exacerbation and elevated troponins. NSTEMI - troponin peaked at 3.31, then trended back down - cont ASA and statin - persantine stress test on hold due to wheezing. If no further wheezing, will be done tomorrow - lasix 40mg x1 for fluid overload, dc IVF Asthma exacerbation - cont solumedrol 40mg BID, taper as tolerated - nebs changed to PRN, to better ascertain respiratory readiness for persantine stress brad - cont symbicort BID - cont pulmonary consult HTN - cont home metoprolol. BP well controlled with same. Hyperlipidemia - cont statin Persistent lactic acidosis - unclear etiology. Metformin use vs elevated troponins - not likely sepsis as pt afebrile and WBC trending down; off antibiotics since 11/28 DM - cont levemir - cont novolog sliding scale - Would NOT restart metformin on DC. Anemia - likely dilutional, cont to monitor DVT PPX - on hold due to drop in H/H Disposition: Continues to require inpatient hospitalization. Full code. Visit type - Emergency Visit Emergency Visit: Yes ED Registration Date: 11/27/16 Care time: The patient presented to the Emergency Department on the above date and was hospitalized for further evaluation of their emergent condition. - New Patient This patient is new to me today: No - Critical Care Critical Care patient: No
[2016-12-02] MEDS: ASPIRIN COATED 81 MG TABLET.EC PO SCH (14:03)
[2016-12-02] MEDS: PANTOPRAZOLE 40 MG TABLET (FP) PO SCH (14:03)
[2016-12-02] MEDS: CLOPIDOGREL BISULFATE 75 MG TABLET (FP) PO SCH (14:03)
[2016-12-02] MEDS: METOPROLOL TARTRATE 25 MG TABLET (FP) PO SCH ×2 (14:03→21:34)
--- NOTE | 2016-12-02 14:24 | PN ---
Progress Note, Physician History of Present Illness: PULMONARY ALERT,FEELING BETTER,NAD,OOB-CHAIR. - Current Medication List Current Medications: Active Medications Albuterol/Ipratropium (Duoneb -) 1 amp NEB QIDR PRN PRN Reason: WHEEZING Aspirin (Ecotrin -) 81 mg PO DAILY [facility] Last Admin: 12/01/16 09:52 Dose: 81 mg Atorvastatin Calcium (Lipitor -) 20 mg PO HS [facility] Last Admin: 12/01/16 21:55 Dose: 20 mg Benzocaine/Menthol (Cepacol Lozenge -) 1 each MM PRN PRN PRN Reason: SORE THROAT Last Admin: 11/29/16 13:16 Dose: 1 each Budesonide/Formoterol Fumarate (Symbicort 80/4.5mcg -) 2 puff IH BID [facility] Last Admin: 12/02/16 10:25 Dose: 2 puff Clopidogrel Bisulfate (Plavix -) 75 mg PO DAILY [facility] Docusate Sodium (Colace -) 100 mg PO TID [facility] Last Admin: 12/02/16 06:13 Dose: Not Given Guaifenesin/Codeine Phosphate (Robitussin Ac -) 5 ml PO TID PRN PRN Reason: COUGH Last Admin: 12/01/16 21:55 Dose: 5 ml Insulin Aspart (Novolog Vial Sliding Scale -) 1 vial SQ [facility] PRN Reason: Protocol Last Admin: 12/02/16 12:14 Dose: Not Given Insulin Detemir (Levemir Vial) 10 units SQ [facility] Last Admin: 12/01/16 21:59 Dose: 10 units Insulin Detemir (Levemir Vial) 5 units SQ DAILY@0700 [facility] Last Admin: 12/02/16 06:14 Dose: Not Given Methylprednisolone Sodium Succinate (Solu-Medrol -) 40 mg IVPB BID [facility] Last Admin: 12/02/16 10:25 Dose: 40 mg Metoprolol Tartrate (Lopressor -) 25 mg PO BID [facility] Last Admin: 12/01/16 21:55 Dose: 25 mg Morphine Sulfate (Morphine Injection -) 2 mg IVPUSH Q4H PRN PRN Reason: PAIN Pantoprazole Sodium (Protonix -) 40 mg PO DAILY [facility] Last Admin: 12/01/16 09:52 Dose: 40 mg - Objective Vital Signs: Vital Signs Temperature 98.1 F 12/02/16 06:00 Pulse Rate 85 12/02/16 11:15 Respiratory Rate 18 12/02/16 06:00 Blood Pressure 131/65 12/02/16 06:00 O2 Sat by Pulse Oximetry (%) 98 12/02/16 11:15 Constitutional: Yes: Well Nourished, Calm Eyes: Yes: WNL HENT: Yes: WNL Neck: Yes: WNL Cardiovascular: Yes: Regular Rate and Rhythm, S1, S2 Respiratory: Yes: Rales, Rhonchi (BIBASILAR CRACKLES) Gastrointestinal: Yes: Normal Bowel Sounds, Soft Extremities: Yes: WNL Edema: No Labs: CBC, BMP 12/02/16 05:35 12/02/16 05:35 INR, PTT INR 1.03 (0.82-1.09) 11/27/16 15:45 Problem List - Problems (1) Cough Code(s): R05 - COUGH (2) Elevated lactic acid level Code(s): R79.89 - OTHER SPECIFIED ABNORMAL FINDINGS OF BLOOD CHEMISTRY (3) Bronchitis Code(s): J40 - BRONCHITIS, NOT SPECIFIED ACUTE OR CHRONIC (4) Diabetes Code(s): E11.9 - TYPE 2 DIABETES MELLITUS WITHOUT COMPLICATIONS (5) Upper respiratory infection Code(s): J06.9 - ACUTE UPPER RESPIRATORY INFECTION, UNSPECIFIED (6) Pulmonary hypertension Code(s): I27.2 - OTHER SECONDARY PULMONARY HYPERTENSION (7) Non-ST elevation (NSTEMI) myocardial infarction Code(s): I21.4 - NON-ST ELEVATION (NSTEMI) MYOCARDIAL INFARCTION (8) Interstitial lung disease Code(s): J84.9 - INTERSTITIAL PULMONARY DISEASE, UNSPECIFIED Assessment/Plan IMP ASTHMA EXACERBATION/ACUTE BRONCHITIS IMPROVING ACUTE NSTEMI + TROPONINS ELEVATED LACTATE LEVEL PULMONARY HTN ANEMIA PLAN TAPER STEROIDS INHALED BRONCHODILATORS NASAL O2 IVF TREND LACTATE ASA,LOVENOX MONITOR H=H DR GOULD Problem List - Problems (1) Cough Code(s): R05 - COUGH (2) Elevated lactic acid level Code(s): R79.89 - OTHER SPECIFIED ABNORMAL FINDINGS OF BLOOD CHEMISTRY (3) Bronchitis Code(s): J40 - BRONCHITIS, NOT SPECIFIED ACUTE OR CHRONIC (4) Diabetes Code(s): E11.9 - TYPE 2 DIABETES MELLITUS WITHOUT COMPLICATIONS (5) Upper respiratory infection Code(s): J06.9 - ACUTE UPPER RESPIRATORY INFECTION, UNSPECIFIED (6) Pulmonary hypertension Code(s): I27.2 - OTHER SECONDARY PULMONARY HYPERTENSION (7) Non-ST elevation (NSTEMI) myocardial infarction Code(s): I21.4 - NON-ST ELEVATION (NSTEMI) MYOCARDIAL INFARCTION (8) Interstitial lung disease Code(s): J84.9 - INTERSTITIAL PULMONARY DISEASE, UNSPECIFIED
--- NOTE | 2016-12-02 14:38 | PN ---
Progress Note, Physician History of Present Illness: feeling better still continues to wheeze - Current Medication List Current Medications: Active Medications Albuterol/Ipratropium (Duoneb -) 1 amp NEB QIDR PRN PRN Reason: WHEEZING Aspirin (Ecotrin -) 81 mg PO DAILY [facility] Last Admin: 12/02/16 14:03 Dose: 81 mg Atorvastatin Calcium (Lipitor -) 20 mg PO HS [facility] Last Admin: 12/01/16 21:55 Dose: 20 mg Benzocaine/Menthol (Cepacol Lozenge -) 1 each MM PRN PRN PRN Reason: SORE THROAT Last Admin: 11/29/16 13:16 Dose: 1 each Budesonide/Formoterol Fumarate (Symbicort 80/4.5mcg -) 2 puff IH BID [facility] Last Admin: 12/02/16 10:25 Dose: 2 puff Clopidogrel Bisulfate (Plavix -) 75 mg PO DAILY [facility] Last Admin: 12/02/16 14:03 Dose: 75 mg Docusate Sodium (Colace -) 100 mg PO TID [facility] Last Admin: 12/02/16 14:17 Dose: 100 mg Guaifenesin/Codeine Phosphate (Robitussin Ac -) 5 ml PO TID PRN PRN Reason: COUGH Last Admin: 12/01/16 21:55 Dose: 5 ml Insulin Aspart (Novolog Vial Sliding Scale -) 1 vial SQ [facility] PRN Reason: Protocol Last Admin: 12/02/16 12:14 Dose: Not Given Insulin Detemir (Levemir Vial) 10 units SQ HS [facility] Last Admin: 12/01/16 21:59 Dose: 10 units Insulin Detemir (Levemir Vial) 5 units SQ DAILY@0700 [facility] Last Admin: 12/02/16 06:14 Dose: Not Given Methylprednisolone Sodium Succinate (Solu-Medrol -) 40 mg IVPB BID [facility] Last Admin: 12/02/16 10:25 Dose: 40 mg Metoprolol Tartrate (Lopressor -) 25 mg PO BID [facility] Last Admin: 12/02/16 14:03 Dose: 25 mg Morphine Sulfate (Morphine Injection -) 2 mg IVPUSH Q4H PRN PRN Reason: PAIN Pantoprazole Sodium (Protonix -) 40 mg PO DAILY [facility] Last Admin: 12/02/16 14:03 Dose: 40 mg - Objective Vital Signs: Vital Signs Temperature 98.5 F 12/02/16 14:00 Pulse Rate 83 12/02/16 14:00 Respiratory Rate 18 12/02/16 14:00 Blood Pressure 123/54 12/02/16 14:00 O2 Sat by Pulse Oximetry (%) 98 12/02/16 11:15 Constitutional: Yes: Calm, Mild Distress Cardiovascular: Yes: Regular Rate and Rhythm Respiratory: Yes: Regular, Wheezes Gastrointestinal: Yes: Normal Bowel Sounds, Soft Musculoskeletal: Yes: WNL Extremities: Yes: WNL Neurological: Yes: Alert, Oriented Psychiatric: Yes: Alert Labs: CBC, BMP 12/02/16 05:35 12/02/16 05:35 INR, PTT INR 1.03 (0.82-1.09) 11/27/16 15:45 Assessment/Plan after evaluating the patient i think she is severely dehydrated she probably has upper resp infection (1) Cough Code(s): R05 - COUGH (2) Elevated lactic acid level Code(s): R79.89 - OTHER SPECIFIED ABNORMAL FINDINGS OF BLOOD CHEMISTRY (3) Bronchitis Code(s): J40 - BRONCHITIS, NOT SPECIFIED ACUTE OR CHRONIC (4) Diabetes Code(s): E11.9 - TYPE 2 DIABETES MELLITUS WITHOUT COMPLICATIONS (5) Upper respiratory infection Code(s): J06.9 - ACUTE UPPER RESPIRATORY INFECTION, UNSPECIFIED (6) Pulmonary hypertension Code(s): I27.2 - OTHER SECONDARY PULMONARY HYPERTENSION (7) Non-ST elevation (NSTEMI) myocardial infarction Code(s): I21.4 - NON-ST ELEVATION (NSTEMI) MYOCARDIAL INFARCTION (8) Interstitial lung disease Code(s): J84.9 - INTERSTITIAL PULMONARY DISEASE, UNSPECIFIED continues to have wheezing plan ct result noted will continue to watch await for stress test rest as per pulmonary
[2016-12-02] MEDS ORDERED: INSULIN (NOVOLOG) ASPART 100 UNITS/ML 10ML VIAL ONE ×2 (19:33→21:28)
[2016-12-02] MEDS: ATORVASTATIN CA 20 MG TABLET (FP) PO SCH (21:34)
[2016-12-03] MEDS: DOCUSATE SODIUM 100 MG CAPSULE (FP) PO SCH ×3 (05:41→21:04)
[2016-12-03] MEDS: INSULIN DETEMIR 100 UNITS/ML MDV SQ SCH ×3 (06:10→17:38)
[2016-12-03] MEDS: INSULIN SLIDING SCALE (NOVOLOG) 1 VIAL SQ SCH ×4 (06:10→21:04)
[2016-12-03 07:02] LABS: EOSINOPHIL 0.2 % (0-4.5); MCH 25.8 pg (25.7-33.7); MCHC 32.8 g/dl (32.0-36.0); MEAN CELL VOLUME 78.6 fl (80-96); MEAN PLT VOLUME 8.1 fl (7.5-11.1); NEUTROPHILS 79.4 % (42.8-82.8); PLATELET COUNT 252 K/MM3 (134-434); RDW 15.5 % (11.6-15.6); WHITE BLOOD COUNT 13.7 K/mm3 (4.0-10.0)
[2016-12-03 07:04] LABS: ALBUMIN 3.1 g/dl (3.4-5.0); BILIRUBIN,TOTAL 0.5 mg/dL (0.2-1.0); CREATININE 0.9 mg/dL (0.55-1.02); MAGNESIUM 2.4 mg/dL (1.8-2.4); PHOSPHOROUS 3.6 mg/dL (2.5-4.9); TOT PROT 6.6 g/dl (6.4-8.2)
--- NOTE | 2016-12-03 10:01 | PN ---
Progress Note (short form) - Note Progress Note: Chief Complaint: sob, NSTEMI, asthma History of Present Illness: no cp, sob, palpit, syncope. Received lasix 40 mg IV x 1 yesterday. no cigs Current Medications Albuterol/Ipratropium (Duoneb -) 1 amp NEB QIDR PRN PRN Reason: WHEEZING Aspirin (Ecotrin -) 81 mg PO DAILY [facility] Last Admin: 12/02/16 14:03 Dose: 81 mg Atorvastatin Calcium (Lipitor -) 20 mg PO HS [facility] Last Admin: 12/02/16 21:34 Dose: 20 mg Benzocaine/Menthol (Cepacol Lozenge -) 1 each MM PRN PRN PRN Reason: SORE THROAT Last Admin: 11/29/16 13:16 Dose: 1 each Budesonide/Formoterol Fumarate (Symbicort 80/4.5mcg -) 2 puff IH BID [facility] Last Admin: 12/02/16 21:34 Dose: 2 puff Clopidogrel Bisulfate (Plavix -) 75 mg PO DAILY [facility] Last Admin: 12/02/16 14:03 Dose: 75 mg Docusate Sodium (Colace -) 100 mg PO TID [facility] Last Admin: 12/03/16 05:41 Dose: Not Given Guaifenesin/Codeine Phosphate (Robitussin Ac -) 5 ml PO TID PRN PRN Reason: COUGH Last Admin: 12/01/16 21:55 Dose: 5 ml Insulin Aspart (Novolog Vial Sliding Scale -) 1 vial SQ ACHS [facility] PRN Reason: Protocol Last Admin: 12/03/16 06:10 Dose: Not Given Insulin Detemir (Levemir Vial) 12 units SQ BIDAC [facility] Methylprednisolone Sodium Succinate (Solu-Medrol -) 40 mg IVPB BID [facility] Last Admin: 12/02/16 21:34 Dose: 40 mg Metoprolol Tartrate (Lopressor -) 25 mg PO BID [facility] Last Admin: 12/02/16 21:34 Dose: 25 mg Morphine Sulfate (Morphine Injection -) 2 mg IVPUSH Q4H PRN PRN Reason: PAIN Pantoprazole Sodium (Protonix -) 40 mg PO DAILY [facility] Last Admin: 12/02/16 14:03 Dose: 40 mg Vital Signs - 24 hr 12/02/16 12/02/16 12/02/16 11:10 11:15 14:00 Temperature 98.5 F Pulse Rate 85 83 Respiratory 18 Rate Blood Pressure 123/54 O2 Sat by Pulse 98 98 Oximetry (%) 12/02/16 12/02/16 12/03/16 21:00 22:00 02:00 Temperature 98.5 F 98.7 F Pulse Rate 84 78 Respiratory 20 20 20 Rate Blood Pressure 114/55 120/57 O2 Sat by Pulse 98 Oximetry (%) 12/03/16 06:00 Temperature 98.1 F Pulse Rate 67 Respiratory 20 Rate Blood Pressure 108/47 O2 Sat by Pulse Oximetry (%) Intake & Output 12/01/16 12/02/16 12/03/16 12/04/16 07:59 07:59 07:59 07:59 Intake Total 712 1054 120 Balance 712 1054 120 Constitutional: Yes: No Distress, Calm Eyes: No: Sclera Icterus HENT: No: Nasal Congestion Cardiovascular: Yes: Regular Rate and Rhythm, JVD (6cm), S1, S2, Other (PMI non diplaced). No: Gallop, Murmur Respiratory: Yes: Rales bibasilar, . No: Accessory Muscle Use, nl effort Gastrointestinal: Yes: Normal Bowel Sounds, Soft. No: Tenderness Musculoskeletal: Yes: Other (No kyphosis) Extremities: No: Cyanosis Edema: No Integumentary: No: Jaundice Neurological: Yes: Alert, Oriented (x3) Psychiatric: No: Agitated Labs: CBC, BMP 12/03/16 05:35 12/03/16 05:35 Laboratory Tests 12/03/16 12/03/16 05:35 05:35 Lactic Acid 2.456 H* Magnesium 2.4 D Albumin 3.1 L - ....Imaging EKG: Other (tele: NSR with APCs) Assessment/Plan echo 11/2016: hyperdynamic lvef, nl lv size, nl rv, mod phtn, mild mr, mild-mod tr a/p: 81 f hx dm, htn, hld, asthma here with sob, cough. positive troponin, nstemi: -troponin trended up from 0.02 to 0.04 to 2.62 to peak at 3.3, now trending down. ecg unremarkable. This pattern of trop elevation consistent with nstemi/ acs (? triggered by acute resp infection). -cont asa, low dose BB (monitor for bronchospasm worsening), statin -lovenox now d/c'd -plavix held due to initial drop in Hgb--? spurious (see below)--stable since -- > resumed plavix. also on aSA -monitor on tele -echo normal LVEF/no WMA's -scattered ground glass opacification on 11/30 CT chest, no effusions--? mild acute HFpEF sec to myocardial ischemia -plan for nuclear stress test (persantine) once chf, asthma/wheezing stable - 12/03: wheezing resolved, but still with rales on exam. Will plan on IV lasix today and stress testing tomorrow am. Consider addition of ACEI if there is bp room down the road. acute diast CHF: -ground glass opacities on CT chest -+JVD -? wheezing is chf vs asthma -? pulm htn on echo sec to hi LV filling pressures -send BNP -lasix 40 IVP x 1 12/02. Repeat today 12/03. Daily standing weights. a.e. asthma: -likely due to uri/asthma--cont tx per pulm -Chest CTA negative for PE lactic acidosis: -L.A. as hi as 6 here, ? etiology -doubt due to WI--never evidence of cardiogenic shock, never hypotensive here. Per renal 2/2 albuterol. -? sepsis (BCx's negative) pulm HTN: -? sec to diast chf -CTA no PE -merits further outpt w/u once acute issues stabilized (rpt echo as well when euvolemic--as outpt) htn: -stable on current meds hld: -cont statin anemia: -prior baseline values 10s-11s; -initially dropped 11 to 9.7 here, came up on its own (no PRBCs given) and remains stable 10s-11s since--suspect 9 was spurious value -cont monitoring H/H trend
--- NOTE | 2016-12-03 11:03 | PN ---
Physical Exam: SUBJECTIVE: Patient seen and examined. She denies sob, CP, coughing at this time. Daughter at bedside. OBJECTIVE: Vital Signs Period Temp Pulse Resp BP Sys/Thomas Pulse Ox Last 24 Hr 98.1 F-98.7 F 67-85 18-20 108-123/47-57 98-98 PE Gen: appears fatigues Neuro: alert, awake, cn 2-12intact HEENT: + JVD Pulm: No wheezing, diminished bs CV: s1 s2 rrr no mrg Abd: s nt nd +bs Ext: Warm, no le edema CBCD WBC 13.7 K/mm3 (4.0-10.0) H 12/03/16 05:35 RBC 4.39 M/mm3 (3.60-5.2) 12/03/16 05:35 Hgb 11.3 GM/dL (10.7-15.3) 12/03/16 05:35 Hct 34.5 % (32.4-45.2) 12/03/16 05:35 MCV 78.6 fl (80-96) L 12/03/16 05:35 MCHC 32.8 g/dl (32.0-36.0) 12/03/16 05:35 RDW 15.5 % (11.6-15.6) 12/03/16 05:35 Plt Count 252 K/MM3 (134-434) D 12/03/16 05:35 MPV 8.1 fl (7.5-11.1) 12/03/16 05:35 CMP Sodium 137 mmol/L (136-145) 12/03/16 05:35 Potassium 4.2 mmol/L (3.5-5.1) 12/03/16 05:35 Chloride 96 mmol/L (98-107) L 12/03/16 05:35 Carbon Dioxide 32 mmol/L (21-32) 12/03/16 05:35 Anion Gap 9 (8-16) 12/03/16 05:35 BUN 25 mg/dL (7-18) H 12/03/16 05:35 Creatinine 0.9 mg/dL (0.55-1.02) 12/03/16 05:35 Creat Clearance w eGFR 59.94 (>60) 12/03/16 05:35 Calcium 9.0 mg/dL (8.5-10.1) 12/03/16 05:35 Total Bilirubin 0.5 mg/dL (0.2-1.0) D 12/03/16 05:35 AST 22 U/L (15-37) 12/03/16 05:35 ALT 46 U/L (12-78) 12/03/16 05:35 Alkaline Phosphatase 63 U/L (45-117) 12/03/16 05:35 Total Protein 6.6 g/dl (6.4-8.2) 12/03/16 05:35 Albumin 3.1 g/dl (3.4-5.0) L 12/03/16 05:35 11/28/16 11/29/16 11/30/16 11:55 05:35 06:00 Lactic Acid Troponin I 3.31 H* 1.55 H* 0.92 H* 12/01/16 12/03/16 06:15 05:35 Lactic Acid 3.433 H* 2.456 H* Troponin I Active Medications Generic Name Dose Route Start Last Admin Trade Name Freq PRN Reason Stop Dose Admin Albuterol/Ipratropium 1 amp 12/02/16 12:00 Duoneb - NEB QIDR PRN WHEEZING Aspirin 81 mg 11/29/16 10:00 12/02/16 14:03 Ecotrin - PO 81 mg DAILY [facility] Administration Atorvastatin Calcium 20 mg 11/29/16 22:00 12/02/16 21:34 Lipitor - PO 20 mg HS [facility] Administration Benzocaine/Menthol 1 each 11/29/16 11:38 11/29/16 13:16 Cepacol Lozenge - MM 1 each PRN PRN Administration SORE THROAT Budesonide/Formoterol Fumarate 2 puff 11/29/16 10:00 12/02/16 21:34 Symbicort 80/4.5mcg - IH 2 puff BID [facility] Administration Clopidogrel Bisulfate 75 mg 12/02/16 10:00 12/02/16 14:03 Plavix - PO 75 mg DAILY [facility] Administration Docusate Sodium 100 mg 11/29/16 14:00 12/03/16 05:41 Colace - PO Not Given TID [facility] Furosemide 40 mg 12/03/16 10:42 Lasix Injection - IVPUSH 12/03/16 10:43 ONCE ONE Guaifenesin/Codeine Phosphate 5 ml 12/01/16 13:39 12/01/16 21:55 Robitussin Ac - PO 5 ml TID PRN Administration COUGH Insulin Aspart 1 vial 11/28/16 18:34 12/03/16 06:10 Novolog Vial Sliding Scale - SQ Not Given ACHS [facility] Protocol Insulin Detemir 12 units 12/03/16 08:00 Levemir Vial SQ BIDAC [facility] Methylprednisolone Sodium Succinate 40 mg 12/01/16 22:00 12/02/16 21:34 Solu-Medrol - IVPB 40 mg BID [facility] Administration Metoprolol Tartrate 25 mg 11/27/16 22:00 12/02/16 21:34 Lopressor - PO 25 mg BID [facility] Administration Morphine Sulfate 2 mg 12/01/16 07:16 Morphine Injection - IVPUSH Q4H PRN PAIN Pantoprazole Sodium 40 mg 12/01/16 10:00 12/02/16 14:03 Protonix - PO 40 mg DAILY [facility] Administration Imaging: CT CTA 11/30/2016: negative for PE: some congestion noted, likely chronic vs. acute Echo 11/28/2016: LV hyperdynamic, LV wall normal, mild mitral regurg, mild-mod tricuspid regurg, mod-pulm htn Assessment: 81 year old female PMHx: HTN, HLD, DM, asthma admitted with cough x 1 week, acute asthma exacerbation and elevated troponins. Plan: 1. NSTEMI - Additional lasix 40mg x1 today - Lasix 40mg x1 yesterday - Trops down trended - Continue ASA, Lipitor 20mg daily - Stress test tomorrow 2. Asthma exacerbation - Improving, no further wheezing - Cont solumedrol 40mg BID - Symbicort BID - Duonebs PRN - Pulm seeing 3. HTN - Continue metoprolol 25mg BID - Monitor resp status 4. Hyperlipidemia - Cont statin 5. Lactic acidosis B - Likely due to Albuterol at this time, initially o2 demand - Lactate is decreasing, no further interventions as this time - Appreciate Renal consult 6. DM II - Change levemir 12units BID - ISS, BGM ACHS - Would NOT restart metformin on DC 7. Anemia - Stable 8. DVT PPX - Heparin BID Visit type - Emergency Visit Emergency Visit: Yes ED Registration Date: 11/27/16 Care time: The patient presented to the Emergency Department on the above date and was hospitalized for further evaluation of their emergent condition. - New Patient This patient is new to me today: Yes Date on this admission: 12/03/16 - Critical Care Critical Care patient: No
[2016-12-03] MEDS ORDERED: FUROSEMIDE 40 MG/4 ML INJECTABLE VIAL IVPUSH ONE (11:30)
[2016-12-03] MEDS: CLOPIDOGREL BISULFATE 75 MG TABLET (FP) PO SCH (11:44)
[2016-12-03] MEDS: METOPROLOL TARTRATE 25 MG TABLET (FP) PO SCH (11:45)
[2016-12-03] MEDS: methylPREDNISolone NA SUCC 40 MG/1 ML VIAL IVPB SCH ×2 (11:45→21:04)
[2016-12-03] MEDS: PANTOPRAZOLE 40 MG TABLET (FP) PO SCH (11:45)
[2016-12-03] MEDS: guaiFENesin/CODEINE 5 ML UNIT-DOSE CUPS PO PRN (11:45)
[2016-12-03] MEDS: ASPIRIN COATED 81 MG TABLET.EC PO SCH (11:45)
[2016-12-03] MEDS ORDERED: INSULIN (NOVOLOG) ASPART 100 UNITS/ML 10ML VIAL ONE ×3 (11:50→20:46)
[2016-12-03] MEDS: BUDESONIDE/FORMETEROL FUMARATE 80/4.5 mcg INHALER IH SCH ×2 (11:52→21:04)
--- NOTE | 2016-12-03 12:15 | PN ---
Progress Note, Physician History of Present Illness: pulmonary alert,oob-chair,less dyspneic,+ cough non-productive - Current Medication List Current Medications: Active Medications Albuterol/Ipratropium (Duoneb -) 1 amp NEB QIDR PRN PRN Reason: WHEEZING Last Admin: 12/03/16 11:03 Dose: 1 amp Aspirin (Ecotrin -) 81 mg PO DAILY [facility] Last Admin: 12/03/16 11:45 Dose: 81 mg Atorvastatin Calcium (Lipitor -) 20 mg PO HS [facility] Last Admin: 12/02/16 21:34 Dose: 20 mg Benzocaine/Menthol (Cepacol Lozenge -) 1 each MM PRN PRN PRN Reason: SORE THROAT Last Admin: 11/29/16 13:16 Dose: 1 each Budesonide/Formoterol Fumarate (Symbicort 80/4.5mcg -) 2 puff IH BID [facility] Last Admin: 12/03/16 11:52 Dose: 2 puff Clopidogrel Bisulfate (Plavix -) 75 mg PO DAILY [facility] Last Admin: 12/03/16 11:44 Dose: 75 mg Docusate Sodium (Colace -) 100 mg PO TID [facility] Last Admin: 12/03/16 05:41 Dose: Not Given Guaifenesin/Codeine Phosphate (Robitussin Ac -) 5 ml PO TID PRN PRN Reason: COUGH Last Admin: 12/03/16 11:45 Dose: 5 ml Heparin Sodium (Porcine) (Heparin -) 5,000 unit SQ BID [facility] Insulin Aspart (Novolog Vial Sliding Scale -) 1 vial SQ ACHS [facility] PRN Reason: Protocol Last Admin: 12/03/16 11:52 Dose: 4 units Insulin Detemir (Levemir Vial) 12 units SQ BIDAC [facility] Last Admin: 12/03/16 11:41 Dose: 12 units Methylprednisolone Sodium Succinate (Solu-Medrol -) 40 mg IVPB BID [facility] Last Admin: 12/03/16 11:45 Dose: 40 mg Metoprolol Tartrate (Lopressor -) 25 mg PO BID [facility] Last Admin: 12/03/16 11:45 Dose: 25 mg Morphine Sulfate (Morphine Injection -) 2 mg IVPUSH Q4H PRN PRN Reason: PAIN Pantoprazole Sodium (Protonix -) 40 mg PO DAILY [facility] Last Admin: 12/03/16 11:45 Dose: 40 mg - Objective Vital Signs: Vital Signs Temperature 98.1 F 12/03/16 06:00 Pulse Rate 67 12/03/16 06:00 Respiratory Rate 20 12/03/16 06:00 Blood Pressure 108/47 12/03/16 06:00 O2 Sat by Pulse Oximetry (%) 98 12/02/16 21:00 Constitutional: Yes: Well Nourished, Calm Eyes: Yes: WNL HENT: Yes: WNL Neck: Yes: WNL Cardiovascular: Yes: Regular Rate and Rhythm, S1, S2 Respiratory: Yes: Rales (bilateral crackles1/3 up,-wheezes) Gastrointestinal: Yes: Normal Bowel Sounds, Soft Extremities: Yes: WNL Edema: No Labs: CBC, BMP 12/03/16 05:35 12/03/16 05:35 INR, PTT INR 1.03 (0.82-1.09) 11/27/16 15:45 Problem List - Problems (1) Cough Code(s): R05 - COUGH (2) Elevated lactic acid level Code(s): R79.89 - OTHER SPECIFIED ABNORMAL FINDINGS OF BLOOD CHEMISTRY (3) Bronchitis Code(s): J40 - BRONCHITIS, NOT SPECIFIED ACUTE OR CHRONIC (4) Diabetes Code(s): E11.9 - TYPE 2 DIABETES MELLITUS WITHOUT COMPLICATIONS (5) Upper respiratory infection Code(s): J06.9 - ACUTE UPPER RESPIRATORY INFECTION, UNSPECIFIED (6) Pulmonary hypertension Code(s): I27.2 - OTHER SECONDARY PULMONARY HYPERTENSION (7) Non-ST elevation (NSTEMI) myocardial infarction Code(s): I21.4 - NON-ST ELEVATION (NSTEMI) MYOCARDIAL INFARCTION (8) Interstitial lung disease Code(s): J84.9 - INTERSTITIAL PULMONARY DISEASE, UNSPECIFIED Assessment/Plan IMP ASTHMA EXACERBATION/ACUTE BRONCHITIS IMPROVING ACUTE NSTEMI + TROPONINS ELEVATED LACTATE LEVEL PULMONARY HTN ANEMIA LIKELY ILD PLAN TAPER STEROIDS INHALED BRONCHODILATORS NASAL O2 TREND LACTATE ASA,LOVENOX MONITOR H+H DR GOULD Problem List - Problems (1) Cough Code(s): R05 - COUGH (2) Elevated lactic acid level Code(s): R79.89 - OTHER SPECIFIED ABNORMAL FINDINGS OF BLOOD CHEMISTRY (3) Bronchitis Code(s): J40 - BRONCHITIS, NOT SPECIFIED ACUTE OR CHRONIC (4) Diabetes Code(s): E11.9 - TYPE 2 DIABETES MELLITUS WITHOUT COMPLICATIONS (5) Upper respiratory infection Code(s): J06.9 - ACUTE UPPER RESPIRATORY INFECTION, UNSPECIFIED (6) Pulmonary hypertension Code(s): I27.2 - OTHER SECONDARY PULMONARY HYPERTENSION (7) Non-ST elevation (NSTEMI) myocardial infarction Code(s): I21.4 - NON-ST ELEVATION (NSTEMI) MYOCARDIAL INFARCTION (8) Interstitial lung disease Code(s): J84.9 - INTERSTITIAL PULMONARY DISEASE, UNSPECIFIED
--- NOTE | 2016-12-03 15:29 | PN ---
Progress Note (short form) - Note Progress Note: Renal followup for Lactic Acidosis Pt seen and examined at the bedside no acute complaints daughter at the bedside Vital Signs Temperature 98.1 F 12/03/16 14:24 Pulse Rate 76 12/03/16 14:24 Respiratory Rate 16 12/03/16 14:24 Blood Pressure 103/50 12/03/16 14:24 O2 Sat by Pulse Oximetry (%) 98 12/02/16 21:00 Gen: Awake and alert CVS:RRR, No M/R Lungs: CTA, no rales or wheeze Abd: soft NT/ND Ext: No edema, clubbing or cyanosis CBC, BMP 12/03/16 05:35 12/03/16 05:35 Current Medications Albuterol/Ipratropium (Duoneb -) 1 amp NEB QIDR PRN PRN Reason: WHEEZING Last Admin: 12/03/16 11:03 Dose: 1 amp Aspirin (Ecotrin -) 81 mg PO DAILY [facility] Last Admin: 12/03/16 11:45 Dose: 81 mg Atorvastatin Calcium (Lipitor -) 20 mg PO HS [facility] Last Admin: 12/02/16 21:34 Dose: 20 mg Benzocaine/Menthol (Cepacol Lozenge -) 1 each MM PRN PRN PRN Reason: SORE THROAT Last Admin: 11/29/16 13:16 Dose: 1 each Budesonide/Formoterol Fumarate (Symbicort 80/4.5mcg -) 2 puff IH BID [facility] Last Admin: 12/03/16 11:52 Dose: 2 puff Clopidogrel Bisulfate (Plavix -) 75 mg PO DAILY [facility] Last Admin: 12/03/16 11:44 Dose: 75 mg Docusate Sodium (Colace -) 100 mg PO TID [facility] Last Admin: 12/03/16 14:42 Dose: Not Given Guaifenesin/Codeine Phosphate (Robitussin Ac -) 5 ml PO TID PRN PRN Reason: COUGH Last Admin: 12/03/16 11:45 Dose: 5 ml Heparin Sodium (Porcine) (Heparin -) 5,000 unit SQ BID [facility] Insulin Aspart (Novolog Vial Sliding Scale -) 1 vial SQ ACHS [facility] PRN Reason: Protocol Last Admin: 12/03/16 11:52 Dose: 4 units Insulin Detemir (Levemir Vial) 12 units SQ BIDAC [facility] Last Admin: 12/03/16 11:41 Dose: 12 units Methylprednisolone Sodium Succinate (Solu-Medrol -) 30 mg IVPB BID [facility] Metoprolol Tartrate (Lopressor -) 25 mg PO BID [facility] Last Admin: 12/03/16 11:45 Dose: 25 mg Morphine Sulfate (Morphine Injection -) 2 mg IVPUSH Q4H PRN PRN Reason: PAIN Pantoprazole Sodium (Protonix -) 40 mg PO DAILY [facility] Last Admin: 12/03/16 11:45 Dose: 40 mg A/P 81 year old woman with PMhx of DM type 2, Hypertension, Asthma who presented with sob x 1 week and found have acute asthma exacerbation with lactic acidosis. #Lactic Acidosis (intially due to decreaed O2 delivery but now likely related to Albuterol) Lactic acidosis improved would continue to trend no aucte change in management #NSTEMI on ASA, Plavix, Metoprolol Stress test as per cardiology #Asthma Exacerbation Continue Steroid Taper and Nebs as per Pulmonry #Hypertension BP at goal on Metoprolol #Dm Insulin sliding scale Avoid Metformin for now Thank you Will follow Natan Orellana DO
--- NOTE | 2016-12-03 17:41 | PN ---
Progress Note, Physician History of Present Illness: feeling better patient for stress awaited - Current Medication List Current Medications: Active Medications Albuterol/Ipratropium (Duoneb -) 1 amp NEB QIDR PRN PRN Reason: WHEEZING Last Admin: 12/03/16 11:03 Dose: 1 amp Aspirin (Ecotrin -) 81 mg PO DAILY [facility] Last Admin: 12/03/16 11:45 Dose: 81 mg Atorvastatin Calcium (Lipitor -) 20 mg PO HS [facility] Last Admin: 12/02/16 21:34 Dose: 20 mg Benzocaine/Menthol (Cepacol Lozenge -) 1 each MM PRN PRN PRN Reason: SORE THROAT Last Admin: 11/29/16 13:16 Dose: 1 each Budesonide/Formoterol Fumarate (Symbicort 80/4.5mcg -) 2 puff IH BID [facility] Last Admin: 12/03/16 11:52 Dose: 2 puff Clopidogrel Bisulfate (Plavix -) 75 mg PO DAILY [facility] Last Admin: 12/03/16 11:44 Dose: 75 mg Docusate Sodium (Colace -) 100 mg PO TID [facility] Last Admin: 12/03/16 14:42 Dose: Not Given Guaifenesin/Codeine Phosphate (Robitussin Ac -) 5 ml PO TID PRN PRN Reason: COUGH Last Admin: 12/03/16 11:45 Dose: 5 ml Heparin Sodium (Porcine) (Heparin -) 5,000 unit SQ BID [facility] Insulin Aspart (Novolog Vial Sliding Scale -) 1 vial SQ ACHS [facility] PRN Reason: Protocol Last Admin: 12/03/16 17:38 Dose: 8 units Insulin Detemir (Levemir Vial) 12 units SQ BIDAC [facility] Last Admin: 12/03/16 17:38 Dose: 12 units Methylprednisolone Sodium Succinate (Solu-Medrol -) 30 mg IVPB BID [facility] Metoprolol Tartrate (Lopressor -) 25 mg PO BID [facility] Last Admin: 12/03/16 11:45 Dose: 25 mg Morphine Sulfate (Morphine Injection -) 2 mg IVPUSH Q4H PRN PRN Reason: PAIN Pantoprazole Sodium (Protonix -) 40 mg PO DAILY [facility] Last Admin: 12/03/16 11:45 Dose: 40 mg - Objective Vital Signs: Vital Signs Temperature 98.3 F 12/03/16 17:33 Pulse Rate 78 12/03/16 17:33 Respiratory Rate 18 12/03/16 17:33 Blood Pressure 107/50 12/03/16 17:33 O2 Sat by Pulse Oximetry (%) 98 12/02/16 21:00 Constitutional: Yes: Calm, Mild Distress Cardiovascular: Yes: Regular Rate and Rhythm Respiratory: Yes: Regular, Wheezes Gastrointestinal: Yes: Normal Bowel Sounds, Soft Musculoskeletal: Yes: WNL Extremities: Yes: WNL Neurological: Yes: Alert, Oriented Psychiatric: Yes: Alert, Oriented Labs: CBC, BMP 12/03/16 05:35 12/03/16 05:35 INR, PTT INR 1.03 (0.82-1.09) 11/27/16 15:45 Assessment/Plan after evaluating the patient i think she is severely dehydrated she probably has upper resp infection (1) Cough Code(s): R05 - COUGH (2) Elevated lactic acid level Code(s): R79.89 - OTHER SPECIFIED ABNORMAL FINDINGS OF BLOOD CHEMISTRY (3) Bronchitis Code(s): J40 - BRONCHITIS, NOT SPECIFIED ACUTE OR CHRONIC (4) Diabetes Code(s): E11.9 - TYPE 2 DIABETES MELLITUS WITHOUT COMPLICATIONS (5) Upper respiratory infection Code(s): J06.9 - ACUTE UPPER RESPIRATORY INFECTION, UNSPECIFIED (6) Pulmonary hypertension Code(s): I27.2 - OTHER SECONDARY PULMONARY HYPERTENSION (7) Non-ST elevation (NSTEMI) myocardial infarction Code(s): I21.4 - NON-ST ELEVATION (NSTEMI) MYOCARDIAL INFARCTION (8) Interstitial lung disease Code(s): J84.9 - INTERSTITIAL PULMONARY DISEASE, UNSPECIFIED continues to have wheezing plan ct result noted will continue to watch await for stress test rest as per pulmonary
[2016-12-03] MEDS ORDERED: PT OWN MED DRAWER 7, Y5N ONE ×2 (18:50→20:46)
[2016-12-03] MEDS: ATORVASTATIN CA 20 MG TABLET (FP) PO SCH (21:04)
[2016-12-03] MEDS: HEPARIN NA (PORCINE) 5,000 UNITS/ML 1ML VIAL SQ SCH (21:04)
[2016-12-04] MEDS: INSULIN DETEMIR 100 UNITS/ML MDV SQ SCH ×2 (06:04→17:19)
[2016-12-04] MEDS: DOCUSATE SODIUM 100 MG CAPSULE (FP) PO SCH ×3 (06:04→21:26)
[2016-12-04] MEDS: INSULIN SLIDING SCALE (NOVOLOG) 1 VIAL SQ SCH ×4 (06:04→21:35)
[2016-12-04 07:30] LABS: MCH 25.3 pg (25.7-33.7); MCHC 32.2 g/dl (32.0-36.0); MEAN CELL VOLUME 78.5 fl (80-96); MEAN PLT VOLUME 8.3 fl (7.5-11.1); PLATELET COUNT 228 K/MM3 (134-434); RDW 15.3 % (11.6-15.6); WHITE BLOOD COUNT 13.6 K/mm3 (4.0-10.0)
[2016-12-04 08:12] LABS: CALCIUM 8.9 mg/dL (8.5-10.1); CREATININE 0.8 mg/dL (0.55-1.02)
--- NOTE | 2016-12-04 09:30 | PN ---
Physical Exam: SUBJECTIVE: Patient seen and examined. No acute changes overnight. OBJECTIVE: Vital Signs Period Temp Pulse Resp BP Sys/Thomas Pulse Ox Last 24 Hr 97.6 F-98.9 F 73-84 16-20 103-136/43-61 PE Neuro: alert, awake, cn 2-12intact Pulm: crackles, no wheezing CV: s1 s2 rrr no mrg Abd: s nt nd +bs Ext: Warm, no le edema CBCD WBC 13.6 K/mm3 (4.0-10.0) H 12/04/16 06:00 RBC 4.51 M/mm3 (3.60-5.2) 12/04/16 06:00 Hgb 11.4 GM/dL (10.7-15.3) 12/04/16 06:00 Hct 35.4 % (32.4-45.2) 12/04/16 06:00 MCV 78.5 fl (80-96) L 12/04/16 06:00 MCHC 32.2 g/dl (32.0-36.0) 12/04/16 06:00 RDW 15.3 % (11.6-15.6) 12/04/16 06:00 Plt Count 228 K/MM3 (134-434) 12/04/16 06:00 MPV 8.3 fl (7.5-11.1) 12/04/16 06:00 CMP Sodium 138 mmol/L (136-145) 12/04/16 06:00 Potassium 4.1 mmol/L (3.5-5.1) 12/04/16 06:00 Chloride 96 mmol/L (98-107) L 12/04/16 06:00 Carbon Dioxide 31 mmol/L (21-32) 12/04/16 06:00 Anion Gap 11 (8-16) 12/04/16 06:00 BUN 28 mg/dL (7-18) H 12/04/16 06:00 Creatinine 0.8 mg/dL (0.55-1.02) 12/04/16 06:00 Creat Clearance w eGFR 59.94 (>60) 12/03/16 05:35 Calcium 8.9 mg/dL (8.5-10.1) 12/04/16 06:00 Total Bilirubin 0.5 mg/dL (0.2-1.0) D 12/03/16 05:35 AST 22 U/L (15-37) 12/03/16 05:35 ALT 46 U/L (12-78) 12/03/16 05:35 Alkaline Phosphatase 63 U/L (45-117) 12/03/16 05:35 Total Protein 6.6 g/dl (6.4-8.2) 12/03/16 05:35 Albumin 3.1 g/dl (3.4-5.0) L 12/03/16 05:35 12/04/16 06:00 Lactic Acid 2.096 H* Active Medications Generic Name Dose Route Start Last Admin Trade Name Freq PRN Reason Stop Dose Admin Albuterol/Ipratropium 1 amp 12/02/16 12:00 12/03/16 11:03 Duoneb - NEB 1 amp QIDR PRN Administration WHEEZING Aspirin 81 mg 11/29/16 10:00 12/03/16 11:45 Ecotrin - PO 81 mg DAILY [facility] Administration Atorvastatin Calcium 20 mg 11/29/16 22:00 12/03/16 21:04 Lipitor - PO 20 mg HS [facility] Administration Benzocaine/Menthol 1 each 11/29/16 11:38 11/29/16 13:16 Cepacol Lozenge - MM 1 each PRN PRN Administration SORE THROAT Budesonide/Formoterol Fumarate 2 puff 11/29/16 10:00 12/03/16 21:04 Symbicort 80/4.5mcg - IH 2 puff BID [facility] Administration Clopidogrel Bisulfate 75 mg 12/02/16 10:00 12/03/16 11:44 Plavix - PO 75 mg DAILY [facility] Administration Docusate Sodium 100 mg 11/29/16 14:00 12/04/16 06:04 Colace - PO Not Given TID [facility] Guaifenesin/Codeine Phosphate 5 ml 12/01/16 13:39 12/03/16 11:45 Robitussin Ac - PO 5 ml TID PRN Administration COUGH Heparin Sodium (Porcine) 5,000 unit 12/03/16 22:00 12/03/16 21:04 Heparin - SQ 5,000 unit BID [facility] Administration Dipyridamole 46.6 mg/ Dextrose 46.6 mls @ 699 mls/hr 12/04/16 10:00 IVPB 12/04/16 10:03 ONCE ONE Insulin Aspart 1 vial 11/28/16 18:34 12/04/16 06:04 Novolog Vial Sliding Scale - SQ Not Given ACHS [facility] Protocol Insulin Detemir 12 units 12/03/16 08:00 12/04/16 06:04 Levemir Vial SQ Not Given BIDAC [facility] Methylprednisolone Sodium Succinate 30 mg 12/03/16 12:27 12/03/16 21:04 Solu-Medrol - IVPB 30 mg BID [facility] Administration Pantoprazole Sodium 40 mg 12/01/16 10:00 12/03/16 11:45 Protonix - PO 40 mg DAILY [facility] Administration Imaging: CT CTA 11/30/2016: negative for PE: some congestion noted, likely chronic vs. acute Echo 11/28/2016: LV hyperdynamic, LV wall normal, mild mitral regurg, mild-mod tricuspid regurg, mod-pulm htn Assessment: 81 year old female PMHx: HTN, HLD, DM, asthma admitted with cough x 1 week, acute asthma exacerbation and elevated troponins. Plan: 1. NSTEMI - For stress test today - Trops down trended - Continue ASA, Lipitor 20mg daily 2. Asthma exacerbation - Taper solumedrol 30mg BID - Transition to PO tomorrow - Symbicort BID - Duonebs PRN - Pulm seeing 3. Acute diastolic CHF - Improved - s/p lasix x2 doses 4. HTN - Metoprolol 25mg BID - Monitor resp status 5. Hyperlipidemia - Cont statin 6. Lactic acidosis B - Likely due to Albuterol at this time, initially o2 demand - Lactate continues to downtrend 7. DM II - Change levemir 12units BID - ISS, BGM ACHS - Would NOT restart metformin on DC 8. Anemia - Stable 9. DVT PPX - Heparin BID Visit type - Emergency Visit Emergency Visit: Yes ED Registration Date: 11/27/16 Care time: The patient presented to the Emergency Department on the above date and was hospitalized for further evaluation of their emergent condition. - New Patient This patient is new to me today: No - Critical Care Critical Care patient: No
[2016-12-04] MEDS ORDERED: DIPYRIDAMOLE STRESS TEST 46.6 MG in DEXTROSE 5%-WATER - 37.28 ML IVPB ONE (10:00)
--- NOTE | 2016-12-04 10:30 | PN ---
Progress Note (short form) - Note Progress Note: s: no cp sob palps dizzy Current Medications Generic Name Dose Route Start Last Admin Trade Name Freq PRN Reason Stop Dose Admin Albuterol/Ipratropium 1 amp 12/02/16 12:00 12/03/16 11:03 Duoneb - NEB 1 amp QIDR PRN Administration WHEEZING Aspirin 81 mg 11/29/16 10:00 12/03/16 11:45 Ecotrin - PO 81 mg DAILY [facility] Administration Atorvastatin Calcium 20 mg 11/29/16 22:00 12/03/16 21:04 Lipitor - PO 20 mg HS [facility] Administration Benzocaine/Menthol 1 each 11/29/16 11:38 11/29/16 13:16 Cepacol Lozenge - MM 1 each PRN PRN Administration SORE THROAT Budesonide/Formoterol Fumarate 2 puff 11/29/16 10:00 12/03/16 21:04 Symbicort 80/4.5mcg - IH 2 puff BID [facility] Administration Clopidogrel Bisulfate 75 mg 12/02/16 10:00 12/03/16 11:44 Plavix - PO 75 mg DAILY [facility] Administration Docusate Sodium 100 mg 11/29/16 14:00 12/04/16 06:04 Colace - PO Not Given TID [facility] Guaifenesin/Codeine Phosphate 5 ml 12/01/16 13:39 12/03/16 11:45 Robitussin Ac - PO 5 ml TID PRN Administration COUGH Heparin Sodium (Porcine) 5,000 unit 12/03/16 22:00 12/03/16 21:04 Heparin - SQ 5,000 unit BID [facility] Administration Insulin Aspart 1 vial 11/28/16 18:34 12/04/16 06:04 Novolog Vial Sliding Scale - SQ Not Given ACHS [facility] Protocol Insulin Detemir 12 units 12/03/16 08:00 12/04/16 06:04 Levemir Vial SQ Not Given BIDAC [facility] Methylprednisolone Sodium Succinate 30 mg 12/03/16 12:27 12/03/16 21:04 Solu-Medrol - IVPB 30 mg BID [facility] Administration Pantoprazole Sodium 40 mg 12/01/16 10:00 12/03/16 11:45 Protonix - PO 40 mg DAILY [facility] Administration Vital Signs Period Temp Pulse Resp BP Sys/Thomas Pulse Ox Last 24 Hr 97.6 F-98.9 F 73-84 16-20 103-136/43-61 nad no jvd rrr s1s2 no mrg cta bl, nl eff abd nt nd pos bs no le e/c/c aaox3 no jaundice diaphoresis Laboratory Last Values WBC 13.6 K/mm3 (4.0-10.0) H 12/04/16 06:00 RBC 4.51 M/mm3 (3.60-5.2) 12/04/16 06:00 Hgb 11.4 GM/dL (10.7-15.3) 12/04/16 06:00 Hct 35.4 % (32.4-45.2) 12/04/16 06:00 MCV 78.5 fl (80-96) L 12/04/16 06:00 MCHC 32.2 g/dl (32.0-36.0) 12/04/16 06:00 RDW 15.3 % (11.6-15.6) 12/04/16 06:00 Plt Count 228 K/MM3 (134-434) 12/04/16 06:00 MPV 8.3 fl (7.5-11.1) 12/04/16 06:00 Neutrophils % 79.4 % (42.8-82.8) 12/03/16 05:35 Lymphocytes % 15.1 % (8-40) 12/03/16 05:35 Monocytes % 5.3 % (3.8-10.2) 12/03/16 05:35 Eosinophils % 0.2 % (0-4.5) D 12/03/16 05:35 Basophils % 0.0 % (0-2.0) 12/03/16 05:35 INR 1.03 (0.82-1.09) 11/27/16 15:45 PTT (Actin FS) 32.5 SECONDS (26.9-34.4) 11/27/16 15:45 D-Dimer 311 ng/ml (<200-235) H 11/29/16 18:45 Puncture Site Right radial 12/01/16 10:35 ABG pH 7.43 (7.35-7.45) 12/01/16 10:35 ABG pCO2 at Pt Temp 42.5 mmHg (35-45) D 12/01/16 10:35 ABG pO2 at Pt Temp 142.0 mmHg (68-100) H D 12/01/16 10:35 ABG HCO3 27.6 meq/L (22-26) H 12/01/16 10:35 ABG O2 Sat (Measured) 99.5 % (90-98.9) H 12/01/16 10:35 ABG O2 Content 14.3 % vol (15-22) L 12/01/16 10:35 ABG Base Excess 3.4 meq/l (-2-2) H 12/01/16 10:35 Paulino Test Positive 12/01/16 10:35 VBG pH 7.35 (7.32-7.42) 11/27/16 15:45 POC VBG pCO2 50.2 mmHg (38-52) 11/27/16 15:45 POC VBG pO2 35.0 mmHg (28-48) 11/27/16 15:45 Mixed VBG HCO3 27.3 meq/L (19-25) H 11/27/16 15:45 O2 Delivery Device Ventimask 12/01/16 10:35 Oxygen Flow Rate 50% 12/01/16 10:35 PEEP 0.0 cmH2O 11/29/16 07:28 Sodium 138 mmol/L (136-145) 12/04/16 06:00 Potassium 4.1 mmol/L (3.5-5.1) 12/04/16 06:00 Chloride 96 mmol/L (98-107) L 12/04/16 06:00 Carbon Dioxide 31 mmol/L (21-32) 12/04/16 06:00 Anion Gap 11 (8-16) 12/04/16 06:00 BUN 28 mg/dL (7-18) H 12/04/16 06:00 Creatinine 0.8 mg/dL (0.55-1.02) 12/04/16 06:00 Creat Clearance w eGFR 59.94 (>60) 12/03/16 05:35 POC Glucometer 199 UNITS (()) 12/04/16 05:54 Random Glucose 190 mg/dL (74-106) H D 12/04/16 06:00 Hemoglobin A1c % 8.3 % (4.8-6.0) H D 11/28/16 06:00 Lactic Acid 2.096 mmol/L (0.4-2.0) H* 12/04/16 06:00 Calcium 8.9 mg/dL (8.5-10.1) 12/04/16 06:00 Phosphorus 3.6 mg/dL (2.5-4.9) 12/03/16 05:35 Magnesium 2.4 mg/dL (1.8-2.4) D 12/03/16 05:35 Total Bilirubin 0.5 mg/dL (0.2-1.0) D 12/03/16 05:35 AST 22 U/L (15-37) 12/03/16 05:35 ALT 46 U/L (12-78) 12/03/16 05:35 Alkaline Phosphatase 63 U/L (45-117) 12/03/16 05:35 Creatine Kinase 105 IU/L (26-192) 11/28/16 06:00 Troponin I 0.92 ng/ml (0.00-0.05) H* 11/30/16 06:00 B-Natriuretic Peptide 299.40 pg/ml (5-450) 12/02/16 05:35 Total Protein 6.6 g/dl (6.4-8.2) 12/03/16 05:35 Albumin 3.1 g/dl (3.4-5.0) L 12/03/16 05:35 Triglycerides 74 mg/dL (35-160) 11/29/16 05:35 Cholesterol 141 mg/dL (50-200) 11/29/16 05:35 Total LDL Cholesterol 70 mg/dL (5-100) 11/29/16 05:35 HDL Cholesterol 65 mg/dL (40-60) H 11/29/16 05:35 Urine Color Colorless 11/27/16 20:00 Urine Appearance Clear 11/27/16 20:00 Urine pH 5.0 (5.0-8.0) D 11/27/16 20:00 Ur Specific [place] 1.005 (1.001-1.035) 11/27/16 20:00 Urine Protein Negative (NEGATIVE) 11/27/16 20:00 Urine Glucose (UA) 1+ (NEGATIVE) H 11/27/16 20:00 Urine Ketones Trace (NEGATIVE) H 11/27/16 20:00 Urine Blood 1+ (NEGATIVE) H 11/27/16 20:00 Urine Nitrite Negative (NEGATIVE) 11/27/16 20:00 Urine Bilirubin Negative (NEGATIVE) 11/27/16 20:00 Urine Urobilinogen Negative E.U./dl (0.2-1.0) 11/27/16 20:00 Ur Leukocyte Esterase Negative (NEGATIVE) 11/27/16 20:00 Urine RBC 1 /hpf (0-3) 11/27/16 20:00 Urine WBC <1 /hpf (3-5) 11/27/16 20:00 Urine Bacteria Rare /hpf (NONE SEEN) 11/27/16 20:00 Urine Mucus Rare 11/27/16 20:00 Blood Type O POSITIVE 11/27/16 21:20 Antibody Screen Negative 11/27/16 21:20 tele: SR echo 11/2016: hyperdynamic lvef, nl lv size, nl rv, mod phtn, mild mr, mild-mod tr a/p: 81 f hx dm, htn, hld, asthma here with sob, cough. positive troponin, nstemi: -troponin trended up from 0.02 to 0.04 to 2.62 to peak at 3.3, now trended down. ecg unremarkable. This pattern of trop elevation consistent with nstemi/ acs (? triggered by acute resp infection). -cont asa, low dose BB, statin -lovenox now d/c'd -plavix held due to initial drop in Hgb--? spurious (see below)--stable since -- > resumed plavix. also on aSA -monitor on tele -echo normal LVEF/no WMA's -scattered ground glass opacification on 11/30 CT chest, no effusions--? mild acute HFpEF sec to myocardial ischemia -plan for nuclear stress test today for risk stratification acute diast CHF: -improved, has been getting prn lasix a.e. asthma: -likely due to uri/asthma--cont tx per pulm -Chest CTA negative for PE pulm HTN: -? sec to diast chf -CTA no PE -merits further outpt w/u once acute issues stabilized (rpt echo as well when euvolemic--as outpt) htn: -stable on current meds hld: -cont statin anemia: -prior baseline values 10s-11s; -initially dropped 11 to 9.7 here, came up on its own (no PRBCs given) and remains stable 10s-11s since--suspect 9 was spurious value
[2016-12-04] MEDS ORDERED: INSULIN (NOVOLOG) ASPART 100 UNITS/ML 10ML VIAL ONE (11:17)
[2016-12-04] MEDS: methylPREDNISolone NA SUCC 40 MG/1 ML VIAL IVPB SCH ×2 (12:30→21:35)
[2016-12-04] MEDS: BUDESONIDE/FORMETEROL FUMARATE 80/4.5 mcg INHALER IH SCH ×2 (12:31→21:26)
[2016-12-04] MEDS: HEPARIN NA (PORCINE) 5,000 UNITS/ML 1ML VIAL SQ SCH ×2 (12:31→21:26)
[2016-12-04] MEDS: ASPIRIN COATED 81 MG TABLET.EC PO SCH (12:31)
[2016-12-04] MEDS: CLOPIDOGREL BISULFATE 75 MG TABLET (FP) PO SCH (12:31)
[2016-12-04] MEDS: PANTOPRAZOLE 40 MG TABLET (FP) PO SCH (12:31)
--- NOTE | 2016-12-04 14:41 | PN ---
Progress Note (short form) - Note Progress Note: Renal followup for Lactic Acidosis SOB improving continuing to requrie Nebs around the clock for stress test today Vital Signs Temperature 97.7 F 12/04/16 10:00 Pulse Rate 77 12/04/16 10:00 Respiratory Rate 19 12/04/16 10:00 Blood Pressure 137/67 12/04/16 10:00 O2 Sat by Pulse Oximetry (%) 95 12/04/16 09:00 Intake & Output 12/01/16 12/02/16 12/03/16 12/04/16 23:59 23:59 23:59 23:59 Intake Total 862 624 930 Balance 862 624 930 Weight 180 lb 3.2 oz Gen: Awake and alert CVS:RRR, No M/R Lungs: CTA, no rales or wheeze Abd: soft NT/ND Ext: No edema, clubbing or cyanosis CBC, BMP 12/04/16 06:00 12/04/16 06:00 Current Medications Albuterol/Ipratropium (Duoneb -) 1 amp NEB QIDR PRN PRN Reason: WHEEZING Last Admin: 12/03/16 11:03 Dose: 1 amp Aspirin (Ecotrin -) 81 mg PO DAILY [facility] Last Admin: 12/04/16 12:31 Dose: 81 mg Atorvastatin Calcium (Lipitor -) 20 mg PO HS [facility] Last Admin: 12/03/16 21:04 Dose: 20 mg Benzocaine/Menthol (Cepacol Lozenge -) 1 each MM PRN PRN PRN Reason: SORE THROAT Last Admin: 11/29/16 13:16 Dose: 1 each Budesonide/Formoterol Fumarate (Symbicort 80/4.5mcg -) 2 puff IH BID [facility] Last Admin: 12/04/16 12:31 Dose: 2 puff Clopidogrel Bisulfate (Plavix -) 75 mg PO DAILY [facility] Last Admin: 12/04/16 12:31 Dose: 75 mg Docusate Sodium (Colace -) 100 mg PO TID [facility] Last Admin: 12/04/16 14:14 Dose: 100 mg Guaifenesin/Codeine Phosphate (Robitussin Ac -) 5 ml PO TID PRN PRN Reason: COUGH Last Admin: 12/03/16 11:45 Dose: 5 ml Heparin Sodium (Porcine) (Heparin -) 5,000 unit SQ BID [facility] Last Admin: 12/04/16 12:31 Dose: 5,000 unit Insulin Aspart (Novolog Vial Sliding Scale -) 1 vial SQ ACHS [facility] PRN Reason: Protocol Last Admin: 12/04/16 12:48 Dose: Not Given Insulin Detemir (Levemir Vial) 12 units SQ BIDAC [facility] Last Admin: 12/04/16 06:04 Dose: Not Given Methylprednisolone Sodium Succinate (Solu-Medrol -) 30 mg IVPB BID [facility] Last Admin: 12/04/16 12:30 Dose: 30 mg Pantoprazole Sodium (Protonix -) 40 mg PO DAILY [facility] Last Admin: 12/04/16 12:31 Dose: 40 mg A/P 81 year old woman with PMhx of DM type 2, Hypertension, Asthma who presented with sob x 1 week and found have acute asthma exacerbation with lactic acidosis. #Lactic Acidosis likely secondary to Beta-agonists Continue to trend lactic acid, Serum Bicarb no acute intervention warranted unless serum bicab changes #NSTEMI on ASA, Plavix, Metoprolol Stress test as per cardiology #Asthma Exacerbation Continue Steroid Taper and Nebs as per Pulmonary #Hypertension BP at goal on Metoprolol Natan Orellana DO
--- NOTE | 2016-12-04 17:07 | PN ---
Progress Note, Physician History of Present Illness: clinically patient looks slightly better family in room - Current Medication List Current Medications: Active Medications Albuterol/Ipratropium (Duoneb -) 1 amp NEB QIDR PRN PRN Reason: WHEEZING Last Admin: 12/03/16 11:03 Dose: 1 amp Aspirin (Ecotrin -) 81 mg PO DAILY [facility] Last Admin: 12/04/16 12:31 Dose: 81 mg Atorvastatin Calcium (Lipitor -) 20 mg PO HS [facility] Last Admin: 12/03/16 21:04 Dose: 20 mg Benzocaine/Menthol (Cepacol Lozenge -) 1 each MM PRN PRN PRN Reason: SORE THROAT Last Admin: 11/29/16 13:16 Dose: 1 each Budesonide/Formoterol Fumarate (Symbicort 80/4.5mcg -) 2 puff IH BID [facility] Last Admin: 12/04/16 12:31 Dose: 2 puff Clopidogrel Bisulfate (Plavix -) 75 mg PO DAILY [facility] Last Admin: 12/04/16 12:31 Dose: 75 mg Docusate Sodium (Colace -) 100 mg PO TID [facility] Last Admin: 12/04/16 14:14 Dose: 100 mg Guaifenesin/Codeine Phosphate (Robitussin Ac -) 5 ml PO TID PRN PRN Reason: COUGH Last Admin: 12/03/16 11:45 Dose: 5 ml Heparin Sodium (Porcine) (Heparin -) 5,000 unit SQ BID [facility] Last Admin: 12/04/16 12:31 Dose: 5,000 unit Insulin Aspart (Novolog Vial Sliding Scale -) 1 vial SQ ACHS [facility] PRN Reason: Protocol Last Admin: 12/04/16 12:48 Dose: Not Given Insulin Detemir (Levemir Vial) 12 units SQ BIDAC [facility] Last Admin: 12/04/16 06:04 Dose: Not Given Methylprednisolone Sodium Succinate (Solu-Medrol -) 30 mg IVPB BID [facility] Last Admin: 12/04/16 12:30 Dose: 30 mg Pantoprazole Sodium (Protonix -) 40 mg PO DAILY [facility] Last Admin: 12/04/16 12:31 Dose: 40 mg - Objective Vital Signs: Vital Signs Temperature 97.4 F L 12/04/16 14:05 Pulse Rate 83 12/04/16 14:05 Respiratory Rate 20 12/04/16 14:05 Blood Pressure 118/50 12/04/16 14:05 O2 Sat by Pulse Oximetry (%) 95 12/04/16 09:00 Constitutional: Yes: No Distress, Calm Cardiovascular: Yes: Regular Rate and Rhythm Respiratory: Yes: Regular, Wheezes Gastrointestinal: Yes: Normal Bowel Sounds, Soft Musculoskeletal: Yes: WNL Extremities: Yes: WNL Neurological: Yes: Alert, Oriented Psychiatric: Yes: Alert Labs: CBC, BMP 12/04/16 06:00 12/04/16 06:00 INR, PTT INR 1.03 (0.82-1.09) 11/27/16 15:45 Assessment/Plan after evaluating the patient i think she is severely dehydrated she probably has upper resp infection (1) Cough Code(s): R05 - COUGH (2) Elevated lactic acid level Code(s): R79.89 - OTHER SPECIFIED ABNORMAL FINDINGS OF BLOOD CHEMISTRY (3) Bronchitis Code(s): J40 - BRONCHITIS, NOT SPECIFIED ACUTE OR CHRONIC (4) Diabetes Code(s): E11.9 - TYPE 2 DIABETES MELLITUS WITHOUT COMPLICATIONS (5) Upper respiratory infection Code(s): J06.9 - ACUTE UPPER RESPIRATORY INFECTION, UNSPECIFIED (6) Pulmonary hypertension Code(s): I27.2 - OTHER SECONDARY PULMONARY HYPERTENSION (7) Non-ST elevation (NSTEMI) myocardial infarction Code(s): I21.4 - NON-ST ELEVATION (NSTEMI) MYOCARDIAL INFARCTION (8) Interstitial lung disease Code(s): J84.9 - INTERSTITIAL PULMONARY DISEASE, UNSPECIFIED continues to have wheezing plan patient for stress test await the results and then decide
[2016-12-04] MEDS: guaiFENesin/CODEINE 5 ML UNIT-DOSE CUPS PO PRN (21:26)
[2016-12-04] MEDS: ATORVASTATIN CA 20 MG TABLET (FP) PO SCH (21:27)
[2016-12-05] MEDS ORDERED: PT OWN MED DRAWER 7, Y5N ONE (05:44)
[2016-12-05] MEDS: DOCUSATE SODIUM 100 MG CAPSULE (FP) PO SCH ×2 (06:14→14:49)
[2016-12-05] MEDS: INSULIN SLIDING SCALE (NOVOLOG) 1 VIAL SQ SCH ×3 (06:15→17:43)
[2016-12-05] MEDS: INSULIN DETEMIR 100 UNITS/ML MDV SQ SCH ×2 (06:15→17:42)
[2016-12-05 07:56] LABS: MCH 25.5 pg (25.7-33.7); MCHC 32.3 g/dl (32.0-36.0); MEAN CELL VOLUME 78.8 fl (80-96); MEAN PLT VOLUME 8.5 fl (7.5-11.1); PLATELET COUNT 210 K/MM3 (134-434); RDW 15.1 % (11.6-15.6); WHITE BLOOD COUNT 13.9 K/mm3 (4.0-10.0)
[2016-12-05 08:40] LABS: CALCIUM 8.4 mg/dL (8.5-10.1); CREATININE 0.8 mg/dL (0.55-1.02)
[2016-12-05] MEDS ORDERED: DIPYRIDAMOLE STRESS TEST IVPB ONE (10:00)
[2016-12-05] MEDS ORDERED: WATER IVPB ONE (10:00)
[2016-12-05] MEDS ORDERED: DEXTROSE 5% IVPB ONE (10:00)
[2016-12-05] MEDS: ASPIRIN COATED 81 MG TABLET.EC PO SCH (13:02)
[2016-12-05] MEDS: CLOPIDOGREL BISULFATE 75 MG TABLET (FP) PO SCH (13:02)
[2016-12-05] MEDS: HEPARIN NA (PORCINE) 5,000 UNITS/ML 1ML VIAL SQ SCH (13:02)
[2016-12-05] MEDS: PANTOPRAZOLE 40 MG TABLET (FP) PO SCH (13:03)
[2016-12-05] MEDS: methylPREDNISolone NA SUCC 40 MG/1 ML VIAL IVPB SCH (13:03)
[2016-12-05] MEDS: BUDESONIDE/FORMETEROL FUMARATE 80/4.5 mcg INHALER IH SCH (13:03)
--- NOTE | 2016-12-05 13:48 | PN ---
Progress Note (short form) - Note Progress Note: s: no cp sob palps dizzy Current Medications Generic Name Dose Route Start Last Admin Trade Name Freq PRN Reason Stop Dose Admin Albuterol/Ipratropium 1 amp 12/02/16 12:00 12/03/16 11:03 Duoneb - NEB 1 amp QIDR PRN Administration WHEEZING Aspirin 81 mg 11/29/16 10:00 12/05/16 13:02 Ecotrin - PO 81 mg DAILY [facility] Administration Atorvastatin Calcium 20 mg 11/29/16 22:00 12/04/16 21:27 Lipitor - PO 20 mg HS [facility] Administration Benzocaine/Menthol 1 each 11/29/16 11:38 11/29/16 13:16 Cepacol Lozenge - MM 1 each PRN PRN Administration SORE THROAT Budesonide/Formoterol Fumarate 2 puff 11/29/16 10:00 12/05/16 13:03 Symbicort 80/4.5mcg - IH 2 puff BID [facility] Administration Clopidogrel Bisulfate 75 mg 12/02/16 10:00 12/05/16 13:02 Plavix - PO 75 mg DAILY [facility] Administration Docusate Sodium 100 mg 11/29/16 14:00 12/05/16 06:14 Colace - PO Not Given TID [facility] Guaifenesin/Codeine Phosphate 5 ml 12/01/16 13:39 12/04/16 21:26 Robitussin Ac - PO 5 ml TID PRN Administration COUGH Heparin Sodium (Porcine) 5,000 unit 12/03/16 22:00 12/05/16 13:02 Heparin - SQ 5,000 unit BID [facility] Administration Insulin Aspart 1 vial 11/28/16 18:34 12/05/16 13:03 Novolog Vial Sliding Scale - SQ 6 units ACHS [facility] Administration Protocol Insulin Detemir 12 units 12/03/16 08:00 12/05/16 06:15 Levemir Vial SQ Not Given BIDAC [facility] Methylprednisolone Sodium Succinate 30 mg 12/03/16 12:27 12/05/16 13:03 Solu-Medrol - IVPB 30 mg BID [facility] Administration Pantoprazole Sodium 40 mg 12/01/16 10:00 12/05/16 13:03 Protonix - PO 40 mg DAILY [facility] Administration Vital Signs Period Temp Pulse Resp BP Sys/Thomas Pulse Ox Last 24 Hr 97.4 F-98.6 F 52-83 18-20 96-118/49-62 99-99 nad no jvd rrr s1s2 no mrg cta bl, nl eff abd nt nd pos bs no le e/c/c aaox3 no jaundice diaphoresis Laboratory Last Values WBC 13.9 K/mm3 (4.0-10.0) H 12/05/16 06:20 RBC 4.28 M/mm3 (3.60-5.2) 12/05/16 06:20 Hgb 10.9 GM/dL (10.7-15.3) 12/05/16 06:20 Hct 33.7 % (32.4-45.2) 12/05/16 06:20 MCV 78.8 fl (80-96) L 12/05/16 06:20 MCHC 32.3 g/dl (32.0-36.0) 12/05/16 06:20 RDW 15.1 % (11.6-15.6) 12/05/16 06:20 Plt Count 210 K/MM3 (134-434) 12/05/16 06:20 MPV 8.5 fl (7.5-11.1) 12/05/16 06:20 Neutrophils % 79.4 % (42.8-82.8) 12/03/16 05:35 Lymphocytes % 15.1 % (8-40) 12/03/16 05:35 Monocytes % 5.3 % (3.8-10.2) 12/03/16 05:35 Eosinophils % 0.2 % (0-4.5) D 12/03/16 05:35 Basophils % 0.0 % (0-2.0) 12/03/16 05:35 INR 1.03 (0.82-1.09) 11/27/16 15:45 PTT (Actin FS) 32.5 SECONDS (26.9-34.4) 11/27/16 15:45 D-Dimer 311 ng/ml (<200-235) H 11/29/16 18:45 Puncture Site Right radial 12/01/16 10:35 ABG pH 7.43 (7.35-7.45) 12/01/16 10:35 ABG pCO2 at Pt Temp 42.5 mmHg (35-45) D 12/01/16 10:35 ABG pO2 at Pt Temp 142.0 mmHg (68-100) H D 12/01/16 10:35 ABG HCO3 27.6 meq/L (22-26) H 12/01/16 10:35 ABG O2 Sat (Measured) 99.5 % (90-98.9) H 12/01/16 10:35 ABG O2 Content 14.3 % vol (15-22) L 12/01/16 10:35 ABG Base Excess 3.4 meq/l (-2-2) H 12/01/16 10:35 Paulino Test Positive 12/01/16 10:35 VBG pH 7.35 (7.32-7.42) 11/27/16 15:45 POC VBG pCO2 50.2 mmHg (38-52) 11/27/16 15:45 POC VBG pO2 35.0 mmHg (28-48) 11/27/16 15:45 Mixed VBG HCO3 27.3 meq/L (19-25) H 11/27/16 15:45 O2 Delivery Device Ventimask 12/01/16 10:35 Oxygen Flow Rate 50% 12/01/16 10:35 PEEP 0.0 cmH2O 11/29/16 07:28 Sodium 137 mmol/L (136-145) 12/05/16 06:20 Potassium 4.5 mmol/L (3.5-5.1) 12/05/16 06:20 Chloride 97 mmol/L (98-107) L 12/05/16 06:20 Carbon Dioxide 31 mmol/L (21-32) 12/05/16 06:20 Anion Gap 9 (8-16) 12/05/16 06:20 BUN 23 mg/dL (7-18) H 12/05/16 06:20 Creatinine 0.8 mg/dL (0.55-1.02) 12/05/16 06:20 Creat Clearance w eGFR 59.94 (>60) 12/03/16 05:35 POC Glucometer 204 UNITS (()) 12/05/16 12:37 Random Glucose 273 mg/dL (74-106) H D 12/05/16 06:20 Hemoglobin A1c % 8.3 % (4.8-6.0) H D 11/28/16 06:00 Lactic Acid 2.307 mmol/L (0.4-2.0) H* 12/05/16 06:20 Calcium 8.4 mg/dL (8.5-10.1) L 12/05/16 06:20 Phosphorus 3.6 mg/dL (2.5-4.9) 12/03/16 05:35 Magnesium 2.4 mg/dL (1.8-2.4) D 12/03/16 05:35 Total Bilirubin 0.5 mg/dL (0.2-1.0) D 12/03/16 05:35 AST 22 U/L (15-37) 12/03/16 05:35 ALT 46 U/L (12-78) 12/03/16 05:35 Alkaline Phosphatase 63 U/L (45-117) 12/03/16 05:35 Creatine Kinase 105 IU/L (26-192) 11/28/16 06:00 Troponin I 0.92 ng/ml (0.00-0.05) H* 11/30/16 06:00 B-Natriuretic Peptide 299.40 pg/ml (5-450) 12/02/16 05:35 Total Protein 6.6 g/dl (6.4-8.2) 12/03/16 05:35 Albumin 3.1 g/dl (3.4-5.0) L 12/03/16 05:35 Triglycerides 74 mg/dL (35-160) 11/29/16 05:35 Cholesterol 141 mg/dL (50-200) 11/29/16 05:35 Total LDL Cholesterol 70 mg/dL (5-100) 11/29/16 05:35 HDL Cholesterol 65 mg/dL (40-60) H 11/29/16 05:35 Urine Color Colorless 11/27/16 20:00 Urine Appearance Clear 11/27/16 20:00 Urine pH 5.0 (5.0-8.0) D 11/27/16 20:00 Ur Specific [place] 1.005 (1.001-1.035) 11/27/16 20:00 Urine Protein Negative (NEGATIVE) 11/27/16 20:00 Urine Glucose (UA) 1+ (NEGATIVE) H 11/27/16 20:00 Urine Ketones Trace (NEGATIVE) H 11/27/16 20:00 Urine Blood 1+ (NEGATIVE) H 11/27/16 20:00 Urine Nitrite Negative (NEGATIVE) 11/27/16 20:00 Urine Bilirubin Negative (NEGATIVE) 11/27/16 20:00 Urine Urobilinogen Negative E.U./dl (0.2-1.0) 11/27/16 20:00 Ur Leukocyte Esterase Negative (NEGATIVE) 11/27/16 20:00 Urine RBC 1 /hpf (0-3) 11/27/16 20:00 Urine WBC <1 /hpf (3-5) 11/27/16 20:00 Urine Bacteria Rare /hpf (NONE SEEN) 11/27/16 20:00 Urine Mucus Rare 11/27/16 20:00 Blood Type O POSITIVE 11/27/16 21:20 Antibody Screen Negative 11/27/16 21:20 tele: SR echo 11/2016: hyperdynamic lvef, nl lv size, nl rv, mod phtn, mild mr, mild-mod tr a/p: 81 f hx dm, htn, hld, asthma here with sob, cough. positive troponin, nstemi: -troponin trended up from 0.02 to 0.04 to 2.62 to peak at 3.3, now trended down. ecg unremarkable. This pattern of trop elevation consistent with nstemi/ acs (? triggered by acute resp infection). -cont asa, low dose BB, statin -lovenox now d/c'd -plavix held due to initial drop in Hgb--? spurious (see below)--stable since -- > resumed plavix. also on aSA -echo normal LVEF/no WMA's -mibi today shows no ischemia or scar -no further inpatient cardiac testing needed at this time, cont med management for cad acute diast CHF: -improved, has been getting prn lasix a.e. asthma: -likely due to uri/asthma--cont tx per pulm -Chest CTA negative for PE pulm HTN: -? sec to diast chf, asthma -CTA no PE -merits further outpt w/u once acute issues stabilized (rpt echo as well when euvolemic--as outpt) htn: -stable on current meds hld: -cont statin anemia: -prior baseline values 10s-11s; -initially dropped 11 to 9.7 here, came up on its own (no PRBCs given) and remains stable 10s-11s since--suspect 9 was spurious value
[2016-12-05 14:28] VITALS: BP 104/52; PULSE 85; TEMP 98
--- NOTE | 2016-12-05 14:59 | DS ---
Physical Exam: SUBJECTIVE: Patient seen and examined OBJECTIVE: Vital Signs Period Temp Pulse Resp BP Sys/Thomas Pulse Ox Last 24 Hr 98 F-98.6 F 52-85 18-20 96-118/49-62 99-99 PE Neuro: alert, awake, cn 2-12intact Pulm: crackles, no wheezing CV: s1 s2 rrr no mrg Abd: s nt nd +bs Ext: Warm, no le edema Laboratory Results - last 24 hr 12/04/16 12/04/16 12/04/16 08:35 17:18 21:29 WBC RBC Hgb Hct MCV MCHC RDW Plt Count MPV Sodium Potassium Chloride Carbon Dioxide Anion Gap BUN Creatinine POC Glucometer 448 246 Random Glucose 390 H* D Lactic Acid Calcium 12/05/16 12/05/16 12/05/16 05:12 06:20 06:20 WBC 13.9 H RBC 4.28 Hgb 10.9 Hct 33.7 MCV 78.8 L MCHC 32.3 RDW 15.1 Plt Count 210 MPV 8.5 Sodium 137 Potassium 4.5 Chloride 97 L Carbon Dioxide 31 Anion Gap 9 BUN 23 H Creatinine 0.8 POC Glucometer 284 Random Glucose 273 H D Lactic Acid Calcium 8.4 L 12/05/16 12/05/16 06:20 12:37 WBC RBC Hgb Hct MCV MCHC RDW Plt Count MPV Sodium Potassium Chloride Carbon Dioxide Anion Gap BUN Creatinine POC Glucometer 204 Random Glucose Lactic Acid 2.307 H* Calcium HOSPITAL COURSE: Date of Admission:11/27/16 Date of Discharge: 12/05/16 Minutes to complete discharge: 35 Discharge Summary Reason For Visit: COUGH Current Active Problems Cough (Acute) Elevated lactic acid level (Acute) Interstitial lung disease (Acute) Non-ST elevation (NSTEMI) myocardial infarction (Acute) Pulmonary hypertension (Acute) Sepsis (Acute) Condition: Stable - Instructions Diet, Activity, Other Instructions: Please return to the ED for any new, persistent, or worsening symptoms. Follow up with your PCP in 1 week Take medications as directed on home medication list. They have been sent to your pharmacy Follow up with Dr. Orellana (Renal Doctor) next week to follow your lactic acid levels Follow up with Dr. Contreras (Cardiology) in 1-2 weeks for continued management Two primary care doctor names have been referred to you. Dr. Dona Hong and Dr. Terry Carlos Referrals: Tyshawn Mancini MD [Staff Physician] - Clayton Carlos MD [Staff Physician] - 1 Week (Primary Care Doctor referral ) Hill Contreras MD [Staff Physician] - 2 Weeks Dona Cordova MD [Staff Physician] - 1 Week (Primary Care Doctor referral ) Natan Orellana MD [Staff Physician] - 1 Week (Follow up in 1 week, lactic acid level) Disposition: HOME - Home Medications Comprehensive Discharge Medication List: Ambulatory Orders Pravastatin Sodium [Pravachol -] 20 mg PO HS 02/20/13 Metoprolol Tartrate [Lopressor -] 25 mg PO BID 08/20/13 Albuterol Sulfate Inhaler - [Ventolin HFA Inhaler -] 1 - 2 inh PO QID PRN Aspirin Coated [Ecotrin -] 81 mg PO DAILY #30 tablet.ec 12/05/16 Budesonide/Formeterol Fumarate [SYMBICORT 80/4.5mcg -] 2 puff IH BID #1 inhaler 12/05/16 Clopidogrel Bisulfate [Plavix -] 75 mg PO DAILY #30 tablet 12/05/16 Methylprednisolone [Medrol Dose Joaquin] 4 mg PO ASDIR #21 tablet 12/05/16 Pantoprazole Sodium [Protonix] 40 mg PO DAILY #30 tablet. 12/05/16 - Discharge Referral Referred to [facility] No
--- NOTE | 2016-12-05 15:03 | PN ---
Progress Note (short form) - Note Progress Note: OOB to chair in NAD. Afebrile. No acute events overnight. Intake & Output 12/02/16 12/03/16 12/04/16 12/05/16 23:59 23:59 23:59 23:59 Intake Total 624 930 780 250 Balance 624 930 780 250 Weight 180 lb 3.2 oz 124 lb 6 oz Last Vital Signs Temp Pulse Resp BP Pulse Ox 98 F 85 18 104/52 99 12/05/16 14:27 12/05/16 14:27 12/05/16 14:27 12/05/16 14:27 12/05/16 09:00 Active Medications Albuterol/Ipratropium (Duoneb -) 1 amp NEB QIDR PRN PRN Reason: WHEEZING Last Admin: 12/03/16 11:03 Dose: 1 amp Aspirin (Ecotrin -) 81 mg PO DAILY [facility] Last Admin: 12/05/16 13:02 Dose: 81 mg Atorvastatin Calcium (Lipitor -) 20 mg PO HS [facility] Last Admin: 12/04/16 21:27 Dose: 20 mg Benzocaine/Menthol (Cepacol Lozenge -) 1 each MM PRN PRN PRN Reason: SORE THROAT Last Admin: 11/29/16 13:16 Dose: 1 each Budesonide/Formoterol Fumarate (Symbicort 80/4.5mcg -) 2 puff IH BID [facility] Last Admin: 12/05/16 13:03 Dose: 2 puff Clopidogrel Bisulfate (Plavix -) 75 mg PO DAILY [facility] Last Admin: 12/05/16 13:02 Dose: 75 mg Docusate Sodium (Colace -) 100 mg PO TID [facility] Last Admin: 12/05/16 14:49 Dose: 100 mg Guaifenesin/Codeine Phosphate (Robitussin Ac -) 5 ml PO TID PRN PRN Reason: COUGH Last Admin: 12/04/16 21:26 Dose: 5 ml Heparin Sodium (Porcine) (Heparin -) 5,000 unit SQ BID [facility] Last Admin: 12/05/16 13:02 Dose: 5,000 unit Insulin Aspart (Novolog Vial Sliding Scale -) 1 vial SQ ACHS [facility] PRN Reason: Protocol Last Admin: 12/05/16 13:03 Dose: 6 units Insulin Detemir (Levemir Vial) 12 units SQ BIDAC [facility] Last Admin: 12/05/16 06:15 Dose: Not Given Methylprednisolone Sodium Succinate (Solu-Medrol -) 30 mg IVPB BID [facility] Last Admin: 12/05/16 13:03 Dose: 30 mg Pantoprazole Sodium (Protonix -) 40 mg PO DAILY [facility] Last Admin: 12/05/16 13:03 Dose: 40 mg Constitutional: Yes: Well Nourished, Calm Eyes: Yes: WNL HENT: Yes: WNL Neck: Yes: WNL Cardiovascular: Yes: Regular Rate and Rhythm, S1, S2 Respiratory: Yes: Rales (bilateral crackles1/3 up,-wheezes) Gastrointestinal: Yes: Normal Bowel Sounds, Soft Extremities: Yes: WNL Edema: No Labs: Laboratory Results - last 24 hr 12/04/16 12/04/16 12/04/16 08:35 17:18 21:29 WBC RBC Hgb Hct MCV MCHC RDW Plt Count MPV Sodium Potassium Chloride Carbon Dioxide Anion Gap BUN Creatinine POC Glucometer 448 246 Random Glucose 390 H* D Lactic Acid Calcium 12/05/16 12/05/16 12/05/16 05:12 06:20 06:20 WBC 13.9 H RBC 4.28 Hgb 10.9 Hct 33.7 MCV 78.8 L MCHC 32.3 RDW 15.1 Plt Count 210 MPV 8.5 Sodium 137 Potassium 4.5 Chloride 97 L Carbon Dioxide 31 Anion Gap 9 BUN 23 H Creatinine 0.8 POC Glucometer 284 Random Glucose 273 H D Lactic Acid Calcium 8.4 L 12/05/16 12/05/16 06:20 12:37 WBC RBC Hgb Hct MCV MCHC RDW Plt Count MPV Sodium Potassium Chloride Carbon Dioxide Anion Gap BUN Creatinine POC Glucometer 204 Random Glucose Lactic Acid 2.307 H* Calcium Problem List - Problems (1) Cough Code(s): R05 - COUGH (2) Elevated lactic acid level Code(s): R79.89 - OTHER SPECIFIED ABNORMAL FINDINGS OF BLOOD CHEMISTRY (3) Bronchitis Code(s): J40 - BRONCHITIS, NOT SPECIFIED ACUTE OR CHRONIC (4) Diabetes Code(s): E11.9 - TYPE 2 DIABETES MELLITUS WITHOUT COMPLICATIONS (5) Upper respiratory infection Code(s): J06.9 - ACUTE UPPER RESPIRATORY INFECTION, UNSPECIFIED (6) Pulmonary hypertension Code(s): I27.2 - OTHER SECONDARY PULMONARY HYPERTENSION (7) Non-ST elevation (NSTEMI) myocardial infarction Code(s): I21.4 - NON-ST ELEVATION (NSTEMI) MYOCARDIAL INFARCTION (8) Interstitial lung disease Code(s): J84.9 - INTERSTITIAL PULMONARY DISEASE, UNSPECIFIED Assessment/Plan IMP ASTHMA EXACERBATION/ACUTE BRONCHITIS IMPROVING ACUTE NSTEMI + TROPONINS ELEVATED LACTATE LEVEL PULMONARY HTN ANEMIA LIKELY ILD PLAN MEDROL TAPER INHALED BRONCHODILATORS PFTS ONCE STABLE WILL NEED FURTHER OUTPATIENT W/UP D/C HOME DR KING
--- NOTE | 2016-12-06 13:39 | PN ---
Progress Note, Physician History of Present Illness: doing well no complaints back from the stress test weakness and fatigue - Objective Vital Signs: Vital Signs Temperature 98 F 12/05/16 14:27 Pulse Rate 85 12/05/16 14:27 Respiratory Rate 18 12/05/16 14:27 Blood Pressure 104/52 12/05/16 14:27 O2 Sat by Pulse Oximetry (%) 99 12/05/16 09:00 Constitutional: Yes: No Distress, Calm Cardiovascular: Yes: Regular Rate and Rhythm Respiratory: Yes: Regular, CTA Bilaterally Musculoskeletal: Yes: WNL Extremities: Yes: WNL Neurological: Yes: Alert, Oriented Psychiatric: Yes: Alert, Oriented Labs: CBC, BMP 12/05/16 06:20 12/05/16 06:20 INR, PTT INR 1.03 (0.82-1.09) 11/27/16 15:45 Assessment/Plan after evaluating the patient i think she is severely dehydrated she probably has upper resp infection (1) Cough Code(s): R05 - COUGH (2) Elevated lactic acid level Code(s): R79.89 - OTHER SPECIFIED ABNORMAL FINDINGS OF BLOOD CHEMISTRY (3) Bronchitis Code(s): J40 - BRONCHITIS, NOT SPECIFIED ACUTE OR CHRONIC (4) Diabetes Code(s): E11.9 - TYPE 2 DIABETES MELLITUS WITHOUT COMPLICATIONS (5) Upper respiratory infection Code(s): J06.9 - ACUTE UPPER RESPIRATORY INFECTION, UNSPECIFIED (6) Pulmonary hypertension Code(s): I27.2 - OTHER SECONDARY PULMONARY HYPERTENSION (7) Non-ST elevation (NSTEMI) myocardial infarction Code(s): I21.4 - NON-ST ELEVATION (NSTEMI) MYOCARDIAL INFARCTION (8) Interstitial lung disease Code(s): J84.9 - INTERSTITIAL PULMONARY DISEASE, UNSPECIFIED continues to have wheezing plan await for the final result continue current mgmt rest as per cardiology and primary
== END 2016-12-05 17:55 | disposition home or self-care (01) | DRG 720 ==
LOC: JER 14:55 → J4S 19:34 → OBSVTOIN 19:34 → JERBED 19:34 → UNDOADMOB 19:34 → JERBED 21:47 → J4S 21:47
PROVIDERS: ADMIT Internal Medicine; ATTEND Nurse Practitioner Acute Care
PROC: 3E033GC Introduction of Other Therapeutic Substance into Peripheral Vein, Percutaneous Approach (ICD-10-PCS; principal; 2016-11-28)
PROC: 3E0F7GC Introduction of Other Therapeutic Substance into Respiratory Tract, Via Natural or Artificial Opening (ICD-10-PCS; 2016-11-28)
DX: A41.9 Sepsis, unspecified organism (principal); J06.9 Acute upper respiratory infection, unspecified; J45.901 Unspecified asthma with (acute) exacerbation; I21.4 Non-ST elevation (NSTEMI) myocardial infarction; J84.9 Interstitial pulmonary disease, unspecified; E78.5 Hyperlipidemia, unspecified; E11.9 Type 2 diabetes mellitus without complications; R05 Cough; M51.26 Other intervertebral disc displacement, lumbar region; D64.9 Anemia, unspecified; I27.2 Other secondary pulmonary hypertension; E86.0 Dehydration; E87.2 Acidosis; E87.3 Alkalosis; I11.0 Hypertensive heart disease with heart failure; I50.31 Acute diastolic (congestive) heart failure
CPT/HCPCS: 36415; 36600; 71020-TC; 71250-TC; 71275-TC; 78452-TC; 80048; 80053; 80061; 81003; 81015; 82550; 82803; 82947; 83036; 83605; 83721; 83735; 83880; 84100; 84484; 85025; 85027; 85379; 85610; 85730; 86850; 86900; 86901; 87040; 87086; 87254; 87804; 93005; 93010; 93017; 93306-TC; 94010; 94640; 99283-25; A9502; J1245; J1644

== ENCOUNTER 2017-02-13 01:05 | Emergency (ER) | payer OTHER ==
--- NOTE | 2017-02-13 01:38 | PDOC ---
History of Present Illness - General History Source: Patient Exam Limitations: No Limitations - History of Present Illness Initial Comments: 02/13/17 01:42 The patient is a 82 year old female with significant past medical history of diabetes, hypertension, hyperlipidemia, asthma, and lumbar disc herniations ( receives steroid injections twice/year) who presents to the ED for less than 24 hours of nausea, vomiting, and diarrhea. Patient denies any abdominal pain. Patient states she attempted to fast for Ramadan yesterday morning. As person, patient eventually developed nausea, vomiting, and diarrhea The patient denies fever, chills, cough, SOB, chest pain, and palpitations. Allergies: NKDA Social History: No alcohol, tobacco, or drug use reported. Past Surgical History: cholecystectomy, R dislocated shoulder s/p surgical repair PCP: Gema Luna <Greta Babb - Last Filed: 02/13/17 01:42> - General History Source: Family <Tano Guzman - Last Filed: 02/13/17 03:42> - General Stated Complaint: VOMITING/DIARRHEA/BLOOD SUGAR PROBLEM Time Seen by Provider: 02/13/17 01:37 Past History <Greta Babb - Last Filed: 02/13/17 01:42> - Past Medical History Anemia: No Asthma: Yes Cancer: No Cardiac Disorders: No CVA: No COPD: No CHF: No Dementia: No Diabetes: Yes GI Disorders: No Disorders: No HTN: Yes Hypercholesterolemia: Yes Liver Disease: No Suicide Attempt (Hx): No Seizures: No Thyroid Disease: No - Surgical History Abdominal Surgery: Yes Appendectomy: No Cardiac Surgery: No Cholecystectomy: Yes Lung Surgery: No Neurologic Surgery: No Orthopedic Surgery: Yes - Psycho/Social/Smoking Cessation Hx Anxiety: No Suicidal Ideation: No Smoking Status: No Smoking History: Never smoked Have you smoked in the past 12 months: No Number of Cigarettes Smoked Daily: 0 Hx Alcohol Use: No Drug/Substance Use Hx: No Substance Use Type: None Hx Substance Use Treatment: No <Tano Guzman - Last Filed: 02/13/17 03:42> - Past Medical History Allergies/Adverse Reactions: Allergies Allergy/AdvReac Type Severity Reaction Status Date / Time No Known Allergies Allergy Verified 02/13/17 02:47 Home Medications: Ambulatory Orders Pravastatin Sodium [Pravachol -] 20 mg PO HS 02/20/13 Metoprolol Tartrate [Lopressor -] 25 mg PO BID 08/20/13 Albuterol Sulfate Inhaler - [Ventolin HFA Inhaler -] 1 - 2 inh PO QID PRN Aspirin Coated [Ecotrin -] 81 mg PO DAILY #30 tablet.ec 12/05/16 Budesonide/Formeterol Fumarate [SYMBICORT 80/4.5mcg -] 2 puff IH BID #1 inhaler 12/05/16 Clopidogrel Bisulfate [Plavix -] 75 mg PO DAILY #30 tablet 12/05/16 Glipizide [Glipizide ER] 2.5 mg PO DAILY #30 tab.er.24 12/05/16 Methylprednisolone [Medrol Dose Joaquin] 4 mg PO ASDIR #21 tablet 12/05/16 Pantoprazole Sodium [Protonix] 40 mg PO DAILY #30 tablet. 12/05/16 Ondansetron [Zofran *Odt*] 4 mg SL TID #30 od.tablet 02/13/17 Review of Systems - Review of Systems Able to Perform ROS?: Yes Comments:: 02/13/17 01:42 CONSTITUTIONAL: Absent: fever, no chills, no fatigue EYES: Absent: visual changes ENT: Absent: ear pain, no sore throat CARDIOVASCULAR: Absent: chest pain, no palpitations RESPIRATORY: Absent: cough, no SOB GI: +nausea, vomiting, diarrhea Absent: abdominal pain, no constipation GENITOURINARY: Absent: dysuria, no frequency, no hematuria MUSCULOSKELETAL: Absent: back pain, no arthralgia, no myalgia SKIN: Absent: rash NEURO: Absent: headache <Bharrat,Greta - Last Filed: 02/13/17 01:42> *Physical Exam - Physical Exam Comments: 02/13/17 01:42 GENERAL: Well-appearing, well-nourished. No apparent distress. HEENT: Normocephalic, atraumatic. PERRL, EOM intact. Dry oral mucosa. CARDIOVASCULAR: Normal S1, S2. Regular rate and rhythm. PULMONARY: Clear to auscultation bilaterally. ABDOMEN: Soft, non-distended, non-tender. EXTREMITIES: Normal ROM in all four extremities. No gross deformities. SKIN: Warm, dry. No rash NEUROLOGICAL: No focal neurological deficits. <Greta Babb - Last Filed: 02/13/17 01:42> ED Treatment Course - LABORATORY CBC & Chemistry Diagram: 02/13/17 02:03 02/13/17 02:03 <Tano Guzman - Last Filed: 02/13/17 03:42> Medical Decision Making - Medical Decision Making 02/13/17 03:42 Dr. Guzman: The scribe's documentation has been prepared under my direction and personally reviewed by me in its entirery. I confirm that the note above accurately reflects all work, treatment, procedures, and medical decision making performed by me. <Tano Guzman - Last Filed: 02/13/17 03:42> *DC/Admit/Observation/Transfer - Attestations Scribe Attestion: 02/13/17 01:42 Documentation prepared by Greta Babb, acting as associate medical director for Tano Guzman MD/DO. <Greta Babb - Last Filed: 02/13/17 01:42> - Discharge Dispostion Admit: No <Tano Guzman - Last Filed: 02/13/17 03:42> Diagnosis at time of Disposition: Gastroenteritis - Discharge Dispostion Disposition: HOME Condition at time of disposition: Stable - Referrals Referrals: STAFF,NOT ON [Primary Care Provider] - Darin Scott MD [Staff Physician] - Bill Wyman MD [Staff Physician] - - Patient Instructions Printed Discharge Instructions: Gastroenteritis Diet, DI for Viral Gastroenteritis -- Adult Print Language: WELSH
[2017-02-13] MEDS ORDERED: ONDANSETRON 4 MG/2 ML VIAL IVPUSH STA (01:39)
[2017-02-13] MEDS ORDERED: SODIUM CHLORIDE 1,000 ML IV STA (01:39)
[2017-02-13 02:13] LABS: BASOPHIL 0.3 % (0-2.0); EOSINOPHIL 3.4 % (0-4.5); MCH 24.6 pg (25.7-33.7); MCHC 32.1 g/dl (32.0-36.0); MEAN CELL VOLUME 76.6 fl (80-96); MEAN PLT VOLUME 7.8 fl (7.5-11.1); NEUTROPHILS 55.2 % (42.8-82.8); PLATELET COUNT 229 K/MM3 (134-434); RDW 15.8 % (11.6-15.6); WHITE BLOOD COUNT 8.4 K/mm3 (4.0-10.0)
[2017-02-13 02:35] LABS: INR 1.12 (0.82-1.09); PROTHROMBIN TIME (PATIENT) 12.3 SEC (9.98-11.88)
[2017-02-13 02:43] LABS: ALBUMIN 2.9 g/dl (3.4-5.0); AMYLASE 72 U/L (25-115); ANION GAP 9 (8-16); BILIRUBIN,TOTAL 0.3 mg/dL (0.2-1.0); CALCIUM 8.2 mg/dL (8.5-10.1); CO2 26 mmol/L (21-32); COCKROFT - GAULT 0; CREATININE 0.8 mg/dL (0.55-1.02); GLUCOSE,RANDOM 150 mg/dL (74-106); SGOT/AST 18 U/L (15-37); SGPT/ALT 24 U/L (12-78); TOT PROT 6.5 g/dl (6.4-8.2)
[2017-02-13 02:44] LABS: ALK PHOS 56 U/L (45-117); TROPONIN I < 0.02 ng/ml (0.00-0.05)
[2017-02-13 02:47] VITALS: BP 114/51; PULSE 90; TEMP 98.4; BMI 24.0
[2017-02-13] MEDS ORDERED: ONDANSETRON 4 MG/2 ML VIAL ONE (03:40)
[2017-02-13 03:44] LABS: ACETONE SERUM NEGATIVE (NEGATIVE)
== END 2017-02-13 04:21 | disposition home or self-care (01) ==
LOC: JER 01:05
PROC: 3E033GC Introduction of Other Therapeutic Substance into Peripheral Vein, Percutaneous Approach (ICD-10-PCS; principal; 2017-02-13)
DX: K52.9 Noninfective gastroenteritis and colitis, unspecified (principal); I10 Essential (primary) hypertension; E11.9 Type 2 diabetes mellitus without complications; Z79.84 Long term (current) use of oral hypoglycemic drugs; E78.5 Hyperlipidemia, unspecified; E78.00 Pure hypercholesterolemia, unspecified; J45.909 Unspecified asthma, uncomplicated; M51.26 Other intervertebral disc displacement, lumbar region
CPT/HCPCS: 36415; 80053; 82009; 82150; 82550; 83690; 83735; 84484; 85025; 85610; 96374; 99281-25; 99282-25

== ENCOUNTER 2017-10-29 00:13 | Emergency (ER) | payer OTHER ==
[2017-10-29 00:53] VITALS: BP 138/64; PULSE 75; TEMP 97.6; BMI 23.8
--- NOTE | 2017-10-29 01:12 | PDOC ---
History of Present Illness - General History Source: Family Exam Limitations: No Limitations - History of Present Illness Initial Comments: 10/29/17 02:41 Patient is an 82 year old female with a significant past medical history of diabetes, hypertension, hyperlipidemia, asthma, and lumbar disc herniations ( receives steroid injections twice/year), who presents to the ED s/p altered mental status that began earlier today. As per patient's son, patient began to feel unwell 2 days agos ago. He reports patient began to experiencing episodes of diarrhea, and dull abdominal pain. Patient's son reports upon seeing patient this afternoon, it was noticed she appeared slightly confused. He reports taking her blood sugar level, with the results showing 42. As per patient's son, he gave the patient a cup of juice, stating she began to return back to her baseline affect. Patient reports being compliant with diabetes medication this afternoon but states she has not eaten. Denies chest pain, Sob. Denies nausea, vomiting. Denies fevers, chills. Denies change in appetite, change in diet. Denies any other symptoms.m Allergies: None Social history: No alcohol, tobacco, or drug use reported. Surgical history: cholecystectomy, R dislocated shoulder s/p surgical repair PMD: Not on staff. <Ridge Melendez - Last Filed: 10/29/17 02:41> - General History Source: Family (son) <Tano Guzman - Last Filed: 10/29/17 03:19> - General Chief Complaint: Blood Sugar Problem Stated Complaint: BLOOD SUGAR PROBLEM Time Seen by Provider: 10/29/17 01:07 Past History <Ridge Melendez - Last Filed: 10/29/17 02:41> - Past Medical History Anemia: No Asthma: Yes Cancer: No Cardiac Disorders: No CVA: No COPD: No CHF: No Dementia: No Diabetes: Yes GI Disorders: No Disorders: No HTN: Yes Hypercholesterolemia: Yes Liver Disease: No Seizures: No Thyroid Disease: No - Surgical History Abdominal Surgery: Yes Appendectomy: No Cardiac Surgery: No Cholecystectomy: Yes Lung Surgery: No Neurologic Surgery: No Orthopedic Surgery: Yes - Suicide/Smoking/Psychosocial Hx Smoking Status: No Smoking History: Never smoked Have you smoked in the past 12 months: No Number of Cigarettes Smoked Daily: 0 Information on smoking cessation initiated: No Hx Alcohol Use: No Drug/Substance Use Hx: No Substance Use Type: None Hx Substance Use Treatment: No <Tano Guzman - Last Filed: 10/29/17 03:19> - Past Medical History Allergies/Adverse Reactions: Allergies Allergy/AdvReac Type Severity Reaction Status Date / Time No Known Allergies Allergy Verified 10/29/17 00:44 Home Medications: Ambulatory Orders Pravastatin Sodium [Pravachol -] 20 mg PO HS 02/20/13 Metoprolol Tartrate [Lopressor -] 25 mg PO BID 08/20/13 Albuterol Sulfate Inhaler - [Ventolin HFA Inhaler -] 1 - 2 inh PO QID PRN Aspirin Coated [Ecotrin -] 81 mg PO DAILY #30 tablet.ec 12/05/16 Budesonide/Formeterol Fumarate [SYMBICORT 80/4.5mcg -] 2 puff IH BID #1 inhaler 12/05/16 Clopidogrel Bisulfate [Plavix -] 75 mg PO DAILY #30 tablet 12/05/16 Glipizide [Glipizide ER] 2.5 mg PO DAILY #30 tab.er.24 12/05/16 Methylprednisolone [Medrol Dose Joaquin] 4 mg PO ASDIR #21 tablet 12/05/16 Pantoprazole Sodium [Protonix] 40 mg PO DAILY #30 tablet. 12/05/16 Ondansetron [Zofran *Odt*] 4 mg SL TID #30 od.tablet 02/13/17 Cephalexin Monohydrate [Keflex -] 500 mg PO BID #10 capsule 10/29/17 Review of Systems - Review of Systems Able to Perform ROS?: Yes Comments:: 10/29/17 02:41 CONSTITUTIONAL: Absent: fever, no chills, no fatigue EYES: Absent: visual changes ENT: Absent: ear pain, no sore throat CARDIOVASCULAR: Absent: chest pain, no palpitations RESPIRATORY: Absent: cough, no SOB GI: Absent: abdominal pain, no nausea, no vomiting, no constipation, no diarrhea GENITOURINARY: Absent: dysuria, no frequency, no hematuria MUSCULOSKELETAL: Absent: back pain, no arthralgia, no myalgia SKIN: Absent: rash <Ridge Melendez - Last Filed: 10/29/17 02:41> *Physical Exam - Vital Signs Last Vital Signs Temp Pulse Resp BP Pulse Ox 97.6 F 75 20 138/64 97 10/29/17 00:45 10/29/17 00:45 10/29/17 00:45 10/29/17 00:45 10/29/17 00:45 - Physical Exam Comments: 10/29/17 02:42 GENERAL: Well-appearing, well-nourished. No apparent distress. HEENT: Normocephalic, atraumatic. PERRL, EOM intact. CARDIOVASCULAR: Normal S1, S2. Regular rate and rhythm. PULMONARY: Clear to auscultation bilaterally. ABDOMEN: Soft, non-distended, non-tender. EXTREMITIES: Normal ROM in all four extremities. No gross deformities. SKIN: Warm, dry. No rash NEUROLOGICAL: No focal neurological deficits. <Ridge Melendez - Last Filed: 10/29/17 02:41> - Vital Signs Last Vital Signs Temp Pulse Resp BP Pulse Ox 97.6 F 75 20 138/64 97 10/29/17 00:45 10/29/17 00:45 10/29/17 00:45 10/29/17 00:45 10/29/17 00:45 <Tano Guzman - Last Filed: 10/29/17 03:19> ED Treatment Course - LABORATORY CBC & Chemistry Diagram: 10/29/17 01:50 10/29/17 01:50 - ADDITIONAL ORDERS Additional order review: Laboratory Results 10/29/17 01:50 Sodium 141 Potassium 4.1 Chloride 109 H Carbon Dioxide 23 Anion Gap 9 BUN 11 Creatinine 0.8 Creat Clearance w eGFR > 60 Random Glucose 74 Calcium 8.9 Total Bilirubin 0.2 D AST 19 ALT 20 Alkaline Phosphatase 69 Total Protein 7.4 Albumin 3.2 L 10/29/17 01:50 RBC 4.14 MCV 77.8 L MCHC 32.3 RDW 15.5 MPV 7.9 Neutrophils % 58.0 Lymphocytes % 33.8 Monocytes % 5.6 Eosinophils % 1.7 Basophils % 0.9 <Ridge Melendez - Last Filed: 10/29/17 02:41> - LABORATORY CBC & Chemistry Diagram: 10/29/17 01:50 10/29/17 01:50 <Tano Guzman - Last Filed: 10/29/17 03:19> Medical Decision Making - Medical Decision Making 10/29/17 02:45 Dr. Guzman: The scribe's documentation has been prepared under my direction and personally reviewed by me in its entirery. I confirm that the note above accurately reflects all work, treatment, procedures, and medical decision making performed by me. <Tano Guzman - Last Filed: 10/29/17 03:19> *DC/Admit/Observation/Transfer - Attestations Scribe Attestion: 10/29/17 02:42 Documentation prepared by Ridge Meelndez, acting as medical office rep for Tano Guzman MD/DO. <Ridge Melendez - Last Filed: 10/29/17 02:41> - Discharge Dispostion Admit: No <Tano Guzman - Last Filed: 10/29/17 03:19> Diagnosis at time of Disposition: Diabetes, UTI (urinary tract infection) - Discharge Dispostion Disposition: HOME Condition at time of disposition: Improved - Prescriptions Prescriptions: Cephalexin Monohydrate [Keflex -] 500 mg PO BID #10 capsule - Referrals Referrals: ON STAFF,NOT [Primary Care Provider] - - Patient Instructions Printed Discharge Instructions: Type 1 Diabetes, DI for Urinary Tract Infection (UTI) Additional Instructions: Please don't use any medication for diabetes if you don't eat. Drink plenty of fluids. Return if any problems.
[2017-10-29] MEDS ORDERED: DEXTROSE 5%-0.45% SALINE 1,000 ML IV SCH (01:15)
[2017-10-29 01:55] LABS: BASO % 0.9 % (0-2.0); EOS % 1.7 % (0-4.5); HEMATOCRIT 32.2 % (32.4-45.2); HEMOGLOBIN 10.4 GM/dL (10.7-15.3); LYMPH % 33.8 % (8-40); MCH 25.1 pg (25.7-33.7); MCHC 32.3 g/dl (32.0-36.0); MEAN CELL VOLUME 77.8 fl (80-96); MEAN PLT VOLUME 7.9 fl (7.5-11.1); MONO % 5.6 % (3.8-10.2); PLATELET COUNT 222 K/MM3 (134-434); RBC 4.14 M/mm3 (3.60-5.2); RDW 15.5 % (11.6-15.6)
[2017-10-29 02:22] LABS: ALBUMIN 3.2 g/dl (3.4-5.0); ANION GAP 9 (8-16); BILIRUBIN,TOTAL 0.2 mg/dL (0.2-1.0); BLOOD UREA NITROGEN 11 mg/dL (7-18); CALCIUM 8.9 mg/dL (8.5-10.1); CHLORIDE 109 mmol/L (98-107); CO2 23 mmol/L (21-32); CREATININE 0.8 mg/dL (0.55-1.02); GLUCOSE,RANDOM 74 mg/dL (74-106); POTASSIUM 4.1 mmol/L (3.5-5.1); SGOT/AST 19 U/L (15-37); SGPT/ALT 20 U/L (12-78); SODIUM 141 mmol/L (136-145); TOT PROT 7.4 g/dl (6.4-8.2)
[2017-10-29 02:23] LABS: ALK PHOS 69 U/L (45-117)
[2017-10-29 02:57] LABS: URINE APPEARANCE CLEAR; URINE BILIRUBIN NEGATIVE (NEGATIVE); URINE BLOOD 3+ (NEGATIVE); URINE COLOR STRAW; URINE GLUCOSE (UA) NEGATIVE (NEGATIVE); URINE KETONE NEGATIVE (NEGATIVE); URINE LEUK ESTERASE TRACE (NEGATIVE); URINE NITRITE NEGATIVE (NEGATIVE); URINE PROTEIN NEGATIVE (NEGATIVE); URINE UROBILINOGEN NEGATIVE mg/dL (0.2-1.0)
[2017-10-29 03:04] LABS: URINE MUCUS RARE
[2017-10-29] MEDS ORDERED: CEPHALEXIN MONOHYDRATE 500 MG CAPSULE (UD) PO ONE (03:17)
[2017-10-29] MEDS ORDERED: CEPHALEXIN MONOHYDRATE 250 MG CAPSULE (FP) ONE (03:27)
== END 2017-10-29 04:04 | disposition home or self-care (01) ==
LOC: JER 00:13
DX: E11.649 Type 2 diabetes mellitus with hypoglycemia without coma (principal); Z79.84 Long term (current) use of oral hypoglycemic drugs; N39.0 Urinary tract infection, site not specified; I10 Essential (primary) hypertension; E78.00 Pure hypercholesterolemia, unspecified; J45.909 Unspecified asthma, uncomplicated
CPT/HCPCS: 36415; 80053; 81003; 81015; 85025; 99282-25

== ENCOUNTER 2017-12-03 11:15 | Observation (INO) | payer OTHER ==
[2017-12-03 11:34] VITALS: BMI 23.8
--- NOTE | 2017-12-03 11:43 | PDOC ---
History of Present Illness - General Chief Complaint: Syncope/Near Syncope Stated Complaint: Syncope/Near Syncope Time Seen by Provider: 12/03/17 11:42 - History of Present Illness Initial Comments: This is an 82 year old female with PMHx of DM, HTN, hyperlipidemia, asthma, lumbar disc herniations, and new diagnosis of bladder mass (pending cytoscopy, discovered 1 month prior) presenting s/p an episode of unresponsiveness. Patient was NPO since midnight for this bladder mass removal procedure then was unresponsive for 1-2 mins exhibiting repetitive chewing/ mouth movements and bladder incontinence. She did not seem to have a post-ictal phase because she was alert and oriented after recovering from the episode. She did not fall from her chair and did not hit her head. She had a similar episode one week prior as well. No FS was checked on the scene and she was given a snack which she felt more alert after. She has had some congestion and cough lately as well. Deneis recent fevers, chills, nausea, vomiting, or diarrhea. 12/03/17 12:05 Past History - Past Medical History Allergies/Adverse Reactions: Allergies Allergy/AdvReac Type Severity Reaction Status Date / Time No Known Allergies Allergy Verified 12/03/17 11:27 Home Medications: Ambulatory Orders Pravastatin Sodium [Pravachol -] 10 mg PO HS 02/20/13 Metoprolol Tartrate [Lopressor -] 50 mg PO BID 08/20/13 Albuterol Sulfate Inhaler - [Ventolin HFA Inhaler -] 1 - 2 inh PO QID PRN Aspirin Coated [Ecotrin -] 81 mg PO DAILY #30 tablet.ec 12/05/16 Pantoprazole Sodium [Protonix] 40 mg PO DAILY #30 tablet. 12/05/16 Glipizide [Glipizide ER] 10 mg PO DAILY 11/05/17 Ipratropium [place] 1 puff IH Q6H 11/05/17 Janumet Xr 50-500 mg Tablet 50 - 100 mg PO BID 11/05/17 Metformin HCl [Glucophage] 1,000 mg PO BID 11/05/17 Montelukast Na [Singulair -] 10 mg PO HS 11/05/17 Salmeterol/Fluticasone [Advair 100Mcg/50Mcg -] 1 puff IH DAILY 11/05/17 Anemia: No Asthma: Yes COPD: No DVT: No Diabetes: Yes Dialysis: No HTN: Yes Hypercholesterolemia: Yes Kidney Stones: No Psychiatric Problems: No Lung CA: No - Surgical History Abdominal Surgery: Yes Cholecystectomy: Yes Gastric Stapling: No GI Surgery: Yes (Bladder) Orthopedic Surgery: (Yes, right shoulder repair) - Suicide/Smoking/Psychosocial Hx Smoking Status: No Smoking History: Never smoked Have you smoked in the past 12 months: No Number of Cigarettes Smoked Daily: 0 Information on smoking cessation initiated: No Hx Alcohol Use: No Drug/Substance Use Hx: No Substance Use Type: None Hx Substance Use Treatment: No Review of Systems - Review of Systems Constitutional: No: Chills, Diaphoresis, Fever HEENTM: No: Blurred Vision Respiratory: Yes: Cough, Shortness of Breath Cardiac (ROS): No: Chest Pain, Edema, Irregular Heart Rate ABD/GI: No: Constipated, Diarrhea, Nausea, Vomiting : No: Burning, Dysuria, Discharge Musculoskeletal: No: Back Pain, Joint Pain Integumentary: No: Bruising, Change in Color, Erythema, Flushing, Lesions Neurological: No: Headache, Numbness, Paresthesia *Physical Exam - Vital Signs Last Vital Signs Temp Pulse Resp BP Pulse Ox 99.1 F 78 20 96/61 92 L 12/03/17 11:28 12/03/17 11:28 12/03/17 11:28 12/03/17 11:28 12/03/17 11:28 - Physical Exam General Appearance: Yes: Appropriately Dressed, Thin. No: Apparent Distress HEENT: positive: EOMI, JONO, Normal ENT Inspection, Normal Voice Neck: positive: Trachea midline, Normal Thyroid, Supple. negative: Tender, Rigid Respiratory/Chest: negative: Chest Tender, Lungs Clear (Slight expiratory wheezes), Normal Breath Sounds, Respiratory Distress, Accessory Muscle Use Cardiovascular: positive: Regular Rhythm, Tachycardia. negative: Regular Rate Gastrointestinal/Abdominal: positive: Normal Bowel Sounds, Flat, Soft. negative : Tender Musculoskeletal: positive: Normal Inspection Extremity: positive: Normal Capillary Refill, Normal Inspection, Normal Range of Motion. negative: Tender Integumentary: positive: Normal Color, Dry, Warm Neurologic: positive: Fully Oriented, Alert, Other (appears generally weak). negative: Motor Strength 5/5 ED Treatment Course - LABORATORY CBC & Chemistry Diagram: 12/03/17 12:00 12/03/17 12:00 Medical Decision Making - Medical Decision Making 82 year old female with episode of unresponsiveness concerning for seizure vs. arrhythmia vs. syncope. Neurology was paged as this could be concerning for brain mets in the setting of new bladder mass. Placed on Keppra 1 G BID per neurology. Patient slightly hypotensive on admission to 90s systolic but remeasured pressures were in low 100s. Still hypoxic on RA to low 90s but mid- upper 90s on 2-3L so telemetry was considered but will admit to med-surg floor per ADORE Quigley. 12/03/17 15:22 *DC/Admit/Observation/Transfer Diagnosis at time of Disposition: Unresponsive episode - Discharge Dispostion Condition at time of disposition: Stable Admit: Yes - Referrals - Patient Instructions - Post Discharge Activity
[2017-12-03] MEDS ORDERED: ALBUTEROL SO4 2.5/IPRATROPIUM 0.5 INH SOL 3 ML VIAL.NEB. NEB ONE ×2 (12:25→12:40)
[2017-12-03 12:36] LABS: BASO % 0.4 % (0-2.0); EOS % 0.1 % (0-4.5); HEMATOCRIT 33.5 % (32.4-45.2); HEMOGLOBIN 10.9 GM/dL (10.7-15.3); LYMPH % 21.1 % (8-40); MCH 25.5 pg (25.7-33.7); MCHC 32.6 g/dl (32.0-36.0); MEAN CELL VOLUME 78.1 fl (80-96); MEAN PLT VOLUME 8.2 fl (7.5-11.1); MONO % 8.9 % (3.8-10.2); NEUT % 69.5 % (42.8-82.8); PLATELET COUNT 177 K/MM3 (134-434); RBC 4.29 M/mm3 (3.60-5.2); RDW 16.1 % (11.6-15.6); WHITE BLOOD COUNT 6.7 K/mm3 (4.0-10.0)
[2017-12-03 12:49] LABS: INR 1.06 (0.82-1.09)
[2017-12-03 12:52] LABS: ACTIVATED PTT 34.2 SECONDS (26.9-34.4)
[2017-12-03 13:07] LABS: ALBUMIN 3.4 g/dl (3.4-5.0); ANION GAP 11 (8-16); BILIRUBIN,TOTAL 0.3 mg/dL (0.2-1.0); BLOOD UREA NITROGEN 14 mg/dL (7-18); CALCIUM 8.4 mg/dL (8.5-10.1); CHLORIDE 98 mmol/L (98-107); CO2 26 mmol/L (21-32); CREATININE 0.9 mg/dL (0.55-1.02); GLUCOSE,RANDOM 150 mg/dL (74-106); MAGNESIUM 2.2 mg/dL (1.8-2.4); SGOT/AST 31 U/L (15-37); SGPT/ALT 31 U/L (12-78); SODIUM 135 mmol/L (136-145); TOT PROT 7.2 g/dl (6.4-8.2)
[2017-12-03 13:10] LABS: ALK PHOS 71 U/L (45-117); N-TERMINAL BNP 101.44 pg/ml (5-450)
--- NOTE | 2017-12-03 15:04 | EKG ---
Test Reason : Blood Pressure : / mmHG Vent. Rate : 105 BPM Atrial Rate : 105 BPM P-R Int : 166 ms QRS Dur : 072 ms QT Int : 348 ms P-R-T Axes : -26 032 057 degrees QTc Int : 459 ms SINUS TACHYCARDIA OTHERWISE NORMAL ECG WHEN COMPARED WITH ECG OF 05-NOV-2017 05:25, NO SIGNIFICANT CHANGE WAS FOUND Confirmed by DALIA ESPINO MD ([id number]) on 12/03/2017 3:03:42 PM Referred By: Confirmed By:DALIA ESPINO MD
--- NOTE | 2017-12-03 15:33 | HP ---
Admitting History and Physical - Admission Chief Complaint: seizure History of Present Illness: HPI This is an 82 year old female with PMHx of DM, HTN, hyperlipidemia, asthma, lumbar disc herniations, and new diagnosis of bladder mass (pending cytoscopy, discovered 1 month prior) presented to the ED after an episode of unresponsiveness in waiting room with lip smacking and urinary incontinence. She regained consciousness. She had been NPO for her procedure and was given a snack to which improved her mental status. She did not hit her head or fall. Per family the pt had a similar episode a week ago. In the ED she is awake and appears weak. She denies cough, however has some RLQ tenderness. Rectal temp is 99.9 Previous Echo 11/28/2016: LV hyperdynamic, LV wall normal, mild mitral regurg, mild-mod tricuspid regurg, mod-pulm htn History Source: Family Member, Medical Record Limitations to Obtaining History: Language Barrier - Past Medical History Cardiovascular: Yes: HTN, Hyperlipdemia, CA (NSTEMI) Pulmonary: Yes: Asthma Heme/Onc: Yes: Anemia Endocrine: Yes: Diabetes Mellitus - Smoking History Smoking history: Never smoked Have you smoked in the past 12 months: No Aproximately how many cigarettes per day: 0 - Alcohol/Substance Use Hx Alcohol Use: No History of Substance Use: reports: None - Social History Usual Living Arrangement: Yes: With Child ADL: Family Assistance History of Recent Travel: No Home Medications - Allergies Allergies/Adverse Reactions: Allergies Allergy/AdvReac Type Severity Reaction Status Date / Time No Known Allergies Allergy Verified 12/03/17 11:27 - Home Medications Home Medications: Ambulatory Orders Pravastatin Sodium [Pravachol -] 10 mg PO HS 02/20/13 Metoprolol Tartrate [Lopressor -] 50 mg PO BID 08/20/13 Albuterol Sulfate Inhaler - [Ventolin HFA Inhaler -] 1 - 2 inh PO QID PRN Aspirin Coated [Ecotrin -] 81 mg PO DAILY #30 tablet.ec 12/05/16 Pantoprazole Sodium [Protonix] 40 mg PO DAILY #30 tablet. 12/05/16 Glipizide [Glipizide ER] 10 mg PO DAILY 11/05/17 Ipratropium [place] 1 puff IH Q6H 11/05/17 Janumet Xr 50-500 mg Tablet 50 - 100 mg PO BID 11/05/17 Metformin HCl [Glucophage] 1,000 mg PO BID 11/05/17 Montelukast Na [Singulair -] 10 mg PO HS 11/05/17 Salmeterol/Fluticasone [Advair 100Mcg/50Mcg -] 1 puff IH DAILY 11/05/17 Review of Systems - Review of Systems Constitutional: reports: No Symptoms Eyes: reports: No Symptoms HENT: reports: No Symptoms Neck: reports: No Symptoms Cardiovascular: reports: No Symptoms Respiratory: reports: No Symptoms Gastrointestinal: reports: No Symptoms Genitourinary: reports: No Symptoms Musculoskeletal: reports: No Symptoms Neurological: reports: Change in LOC, Seizure Endocrine: reports: No Symptoms Hematology/Lymphatic: reports: No Symptoms Psychiatric: reports: No Symptoms Physical Examination Vital Signs: Vital Signs Temperature 99.1 F 12/03/17 11:28 Pulse Rate 78 12/03/17 11:28 Respiratory Rate 20 12/03/17 11:28 Blood Pressure 96/61 12/03/17 11:28 O2 Sat by Pulse Oximetry (%) 100 12/03/17 12:07 Constitutional: Yes: Diaphoresis (mild) Eyes: Yes: WNL, Conjunctiva Clear HENT: Yes: Atraumatic Neck: Yes: Supple Cardiovascular: Yes: Regular Rate and Rhythm, S1, S2 Respiratory: Yes: On Nasal O2, Rhonchi, Wheezes (mild) Gastrointestinal: Yes: Normal Bowel Sounds, Soft, Tenderness (RLQ tenderness to palpation) Musculoskeletal: Yes: WNL Extremities: Yes: WNL Edema: No Integumentary: Yes: WNL Neurological: Yes: Alert, Oriented, Cran Nerves II-XII Intact Psychiatric: Yes: Alert, Oriented Labs: CBC, BMP 12/03/17 12:00 12/03/17 12:00 Imaging - Results Chest X-ray: Report Reviewed, Image Reviewed EKG: Report Reviewed Assessment/Plan Assessment: 81 year old female PMHx: HTN, HLD, DM II, diastolic CHF, asthma admitted with new onset seizures Plan: 1. New onset seizures - Keppra loaded in ED - Start keppra 1000mg BID - Trops neg, bnp unremarkable - EKG and tele NSR, less likely arrhythmia - Obtain MRI brain - Neurology consulted 2. Asthma - No exacerbation - Singulair - Advair - Symbicort BID 3. Diastolic CH - Not in exacerbation 4. HTN - Metoprolol 25mg BID 5. Hyperlipidemia - Cont ASA 6. DM II - Hold po antidiabetics - Trial levemir 8units - ISS, BGM ACHS 7. Low grade temp - Obtain UA now 8. Bladder mass - Re schedule cystoscopy Visit type - Emergency Visit Emergency Visit: Yes ED Registration Date: 12/03/17 Care time: The patient presented to the Emergency Department on the above date and was hospitalized for further evaluation of their emergent condition. - New Patient This patient is new to me today: Yes Date on this admission: 12/03/17 - Critical Care Critical Care patient: No Hospitalist Screening - Colonoscopy Questionnaire Colonoscopy Questionnaire: Colonoscopy Questionnaire - Patient: 50 - 75 years old and never had a screening colonoscopy: Unknown History of colon or rectal polyps, or CA: Unknown History of IBD, Crohn's disease or UC: Unknown History of abdominal radiation therapy as a child: Unknown - Relative: 1 with colon or rectal CA, or polyps at age 60 or younger: Unknown Colon or rectal CA diagnosed at age 45 or younger: Unknown Multiple relatives with colon or rectal CA: Unknown - Outcome: Screening Result: Negative Screen
--- NOTE | 2017-12-03 17:05 | PDOC ---
Attending Attestation - HPI HPI: 12/03/17 17:08 The patient is an 82 year old hypertension, hyperlipidemia, NIDDM, lumbar disc herniations, asthma, bladder mass of unknown etiology who presents to the ED sent to the ED for an episode of unresponsiveness. The patient was scheduled for bladder mass removal today and has been NPO since midnight. Around nooon, the patient was sitting in a chair when she was noted to slump over in the chair with associated bladder incontinence and rhythmic movements of the mouth. Patient regained consciousness briefly afterward. Patient was reportedly given a "sweet snack" to eat and improved in alertness. Pt had a similar episode last week, not in the setting of fasting. No fever or chills. No chest pain or shortness of breath. No headache, blurred vision, or numbness or tingling. - Physicial Exam PE: 12/03/17 17:08 agree with resident exam Documentation prepared by Michelle Gruber, acting as medical affairs director for Milly Zapata MD. <Michelle Gruber - Last Filed: 12/03/17 17:08> - Resident Resident Name: GiulianaDelmyliseth - ED Attending Attestation I have performed the following: I have examined & evaluated the patient, The case was reviewed & discussed with the resident, I agree w/resident's findings & plan, Exceptions are as noted - Medical Decision Making 12/03/17 14:44 82-year-old female with multiple medical problems including bladder mass that she is currently being worked up for presents emergency Department with 2 episodes of loss of consciousness. Vitals initially with low blood pressure and mildly elevated temperature to 99.6 and thus a sepsis workup was initiated. Episodes concerning for possible seizures, but differential also includes cardiac syncope. Labs and CTH with no acute patholgoy. Patient has been admitted for further management and monitoring. <Milly Zapata - Last Filed: 12/03/17 18:45>
[2017-12-03] MEDS ORDERED: levETIRAcetam 500 MG/5 ML INJECTION VIAL IVPB ONE ×2 (17:27→17:28)
--- NOTE | 2017-12-03 17:38 | CON.NEURO ---
Consult - Past Medical History Cardio/Vascular: Yes: HTN, Hyperlipdemia, MA (NSTEMI) Pulmonary: Yes: Asthma Endocrine: Yes: Diabetes Mellitus - Alcohol/Substance Use Hx Alcohol Use: No History of Substance Use: reports: None - Smoking History Smoking history: Never smoked Have you smoked in the past 12 months: No Aproximately how many cigarettes per day: 0 - Social History ADL: Family Assistance History of Recent Travel: No Home Medications - Allergies Allergies/Adverse Reactions: Allergies Allergy/AdvReac Type Severity Reaction Status Date / Time No Known Allergies Allergy Verified 12/03/17 11:27 - Home Medications Home Medications: Ambulatory Orders Pravastatin Sodium [Pravachol -] 10 mg PO HS 02/20/13 Metoprolol Tartrate [Lopressor -] 50 mg PO BID 08/20/13 Albuterol Sulfate Inhaler - [Ventolin HFA Inhaler -] 1 - 2 inh PO QID PRN Aspirin Coated [Ecotrin -] 81 mg PO DAILY #30 tablet.ec 12/05/16 Pantoprazole Sodium [Protonix] 40 mg PO DAILY #30 tablet. 12/05/16 Glipizide [Glipizide ER] 10 mg PO DAILY 11/05/17 Ipratropium [place] 1 puff IH Q6H 11/05/17 Janumet Xr 50-500 mg Tablet 50 - 100 mg PO BID 11/05/17 Metformin HCl [Glucophage] 1,000 mg PO BID 11/05/17 Montelukast Na [Singulair -] 10 mg PO HS 11/05/17 Salmeterol/Fluticasone [Advair 100Mcg/50Mcg -] 1 puff IH DAILY 11/05/17 Physical Exam-Neuro Vital Signs: Vital Signs Temperature 99.1 F 12/03/17 11:28 Pulse Rate 78 12/03/17 11:28 Respiratory Rate 20 12/03/17 11:28 Blood Pressure 96/61 12/03/17 11:28 O2 Sat by Pulse Oximetry (%) 100 12/03/17 12:07 Labs: CBC, BMP 12/03/17 12:00 12/03/17 12:00 INR, PTT INR 1.06 (0.82-1.09) 12/03/17 12:00 Assessment/Plan cc episode of passing out , lip smacking and incontinence HPI 82 year old female history of DM, HTN, HLD, asthma, had some procedure planned at office of urologist. Patient was npo, overnight and waiting in waiting room. She had episode of passing out , there was lip smacking and urinary incontinence. She regained consciousness now and had ct head. Patient has similar episode 1 week ago. Now she is regaining consciousness and She has daughter in law at the bed side. AT home Patient is very functioning and denies any focal neurological symptoms recenlty. PMH as above NKDA FH,SH,ROS reviewed in chart Home Medications: Pravastatin Sodium [Pravachol -] 10 mg PO HS 02/20/13 Metoprolol Tartrate [Lopressor -] 50 mg PO BID 08/20/13 Albuterol Sulfate Inhaler - [Ventolin HFA Inhaler -] 1 - 2 inh PO QID PRN Aspirin Coated [Ecotrin -] 81 mg PO DAILY #30 tablet.ec 12/05/16 Pantoprazole Sodium [Protonix] 40 mg PO DAILY #30 tablet. 12/05/16 Glipizide [Glipizide ER] 10 mg PO DAILY 11/05/17 Ipratropium [place] 1 puff IH Q6H 11/05/17 Janumet Xr 50-500 mg Tablet 50 - 100 mg PO BID 11/05/17 Metformin HCl [Glucophage] 1,000 mg PO BID 11/05/17 Montelukast Na [Singulair -] 10 mg PO HS 11/05/17 Salmeterol/Fluticasone [Advair 100Mcg/50Mcg -] 1 puff IH DAILY 11/05/17 Neurological Examination Alert , able to follow command, she is in hospital and she is moving all extremity, she knows what date is today she is very tired and sleepy at the time of interview. History of taking through daughter inlaw no neck stiffness eomi, pupils is reactive,no face asymmetry moving all extremity sensation is normal Ct Head unremarkable Assessment- Most likel episode of seizure,( given lip smacking and incontinence) , she has second episode Plan- agree with primary team plan, start iv keppra 1 gm once and one gm po bid -- mri of brain with contrast eeg seizure precautions Thanking you so much Roman Durant MD
[2017-12-03] MEDS: INSULIN SLIDING SCALE (NOVOLOG) 1 VIAL SQ SCH ×2 (18:37→21:47)
[2017-12-03] MEDS: FLUTICASONE/SALMETEROL 100 MCG/50 MCG DISKUS IH SCH (18:52)
[2017-12-03] MEDS: INSULIN DETEMIR 100 UNITS/ML MDV SQ SCH (21:46)
[2017-12-03] MEDS: METOPROLOL TARTRATE 50 MG TABLET (FP) PO SCH (21:47)
[2017-12-03] MEDS: MONTELUKAST NA 10 MG TABLET PO SCH (21:47)
[2017-12-03] MEDS ORDERED: levETIRAcetam 500 MG/5 ML INJECTION VIAL IVPB SCH (22:00)
[2017-12-04] MEDS: INSULIN SLIDING SCALE (NOVOLOG) 1 VIAL SQ SCH ×4 (06:21→21:42)
[2017-12-04 08:11] LABS: BASO % 0.3 % (0-2.0); EOS % 0.5 % (0-4.5); HEMATOCRIT 32.6 % (32.4-45.2); HEMOGLOBIN 10.6 GM/dL (10.7-15.3); LYMPH % 44.8 % (8-40); MCH 25.2 pg (25.7-33.7); MCHC 32.5 g/dl (32.0-36.0); MEAN CELL VOLUME 77.5 fl (80-96); MEAN PLT VOLUME 8.3 fl (7.5-11.1); NEUT % 44.4 % (42.8-82.8); PLATELET COUNT 173 K/MM3 (134-434); RBC 4.21 M/mm3 (3.60-5.2); WHITE BLOOD COUNT 4.8 K/mm3 (4.0-10.0)
[2017-12-04 08:45] LABS: CHLORIDE 97 mmol/L (98-107); POTASSIUM 4.1 mmol/L (3.5-5.1); SODIUM 136 mmol/L (136-145)
[2017-12-04 08:54] LABS: ALBUMIN 3.2 g/dl (3.4-5.0); ALK PHOS 61 U/L (45-117); ANION GAP 12 (8-16); BILIRUBIN,TOTAL 0.5 mg/dL (0.2-1.0); BLOOD UREA NITROGEN 15 mg/dL (7-18); CALCIUM 8.6 mg/dL (8.5-10.1); CO2 27 mmol/L (21-32); CREATININE 0.8 mg/dL (0.55-1.02); GLUCOSE,RANDOM 143 mg/dL (74-106); SGOT/AST 25 U/L (15-37); SGPT/ALT 28 U/L (12-78); TOT PROT 6.7 g/dl (6.4-8.2)
[2017-12-04 10:52] LABS: URINE APPEARANCE CLOUDY; URINE BILIRUBIN NEGATIVE (NEGATIVE); URINE BLOOD 1+ (NEGATIVE); URINE COLOR YELLOW; URINE GLUCOSE (UA) NEGATIVE (NEGATIVE); URINE KETONE NEGATIVE (NEGATIVE); URINE NITRITE NEGATIVE (NEGATIVE); URINE UROBILINOGEN NEGATIVE mg/dL (0.2-1.0)
[2017-12-04 10:53] LABS: URINE LEUK ESTERASE 3+ (NEGATIVE); URINE PROTEIN 1+ (NEGATIVE)
[2017-12-04 10:54] LABS: EPI CELLS RARE /HPF (FEW); URINE MUCUS RARE
--- NOTE | 2017-12-04 10:58 | PN ---
Progress Note (short form) - Note Progress Note: 82 year old female history of DM, HTN, HLD, asthma, had some procedure planned at office of urologist. Patient was npo, overnight and waiting in waiting room. She had episode of passing out , there was lip smacking and urinary incontinence. She regained consciousness now and had ct head. Patient has similar episode 1 week ago. She is back to her normal self and eating breakfast. She had mri of brain , it was unremarkable. waiting for eeg. spoke to nursing , no overnight event or seizure She is on keppra 1 gm po bid Neurological Examination Alert , able to follow command, she is in hospital and she is moving all extremity, she knows what date is today she is very tired and sleepy at the time of interview. History of taking through daughter inlaw no neck stiffness eomi, pupils is reactive,no face asymmetry moving all extremity sensation is normal Ct Head unremarkable, mri of brain unremarkable Assessment- Most likel episode of seizure,( given lip smacking and incontinence) , she has second episode , neuro exam is normal, mri is uremarkable. Plan- seizure precautions continue keppra , she can follow outpatient if delays discharge, eeg can be done outpatient Thank you so jorge Durant MD
--- NOTE | 2017-12-04 11:38 | PN ---
Progress Note (short form) - Note Progress Note: Subjective: The patient was seen and examined at the bedside, she has no complaints at this time Influenza B positive: start Tamiflu UA 3+ leuks, start Ceftriaxone, f/u urine culture Current Medications Generic Name Dose Route Start Last Admin Trade Name Daryn PRN Reason Stop Dose Admin Aspirin 81 mg 12/04/17 10:00 Ecotrin - PO DAILY HERSON Enoxaparin Sodium 40 mg 12/04/17 10:00 Lovenox - SQ DAILY HERSON Ceftriaxone Sodium 1 gm/ 50 mls @ 100 mls/hr 12/04/17 11:30 Dextrose IVPB DAILY HERSON Insulin Aspart 1 vial 12/03/17 16:30 12/04/17 06:21 Novolog Vial Sliding Scale - SQ Not Given ACHS [facility] Protocol Insulin Detemir 8 units 12/03/17 22:00 12/03/17 21:46 Levemir Vial SQ 8 units HS HERSON Administration Metoprolol Tartrate 50 mg 12/03/17 22:00 12/03/17 21:47 Lopressor - PO 50 mg BID HERSON Administration Montelukast Sodium 10 mg 12/03/17 22:00 12/03/17 21:47 Singulair - PO 10 mg HS HERSON Administration Oseltamivir Phosphate 30 mg 12/04/17 10:00 Tamiflu - PO 12/09/17 09:59 BID HERSON Pantoprazole Sodium 40 mg 12/04/17 10:00 Protonix - PO DAILY HERSON Fluticasone/Salmeterol 1 puff 12/03/17 16:30 12/03/17 18:52 Advair 100mcg/50mcg - IH Not Given DAILY HERSON Objective: Vital Signs Period Temp Pulse Resp BP Sys/Thomas Pulse Ox Last 24 Hr 97.4 F-99.6 F 81-85 16-18 106-114/51-61 97-100 Physical Exam: General: NAD Lungs: Mild end expiratory wheezing Heart: RRR, S1S2 Abd: Soft, non-tender, non-distended. Normoactive bowel sounds Ext: Warm, well-perfused. 2+ DP/PT bilaterally CBCD WBC 4.8 K/mm3 (4.0-10.0) 12/04/17 06:20 RBC 4.21 M/mm3 (3.60-5.2) 12/04/17 06:20 Hgb 10.6 GM/dL (10.7-15.3) L 12/04/17 06:20 Hct 32.6 % (32.4-45.2) 12/04/17 06:20 MCV 77.5 fl (80-96) L 12/04/17 06:20 MCHC 32.5 g/dl (32.0-36.0) 12/04/17 06:20 RDW 16.0 % (11.6-15.6) H 12/04/17 06:20 Plt Count 173 K/MM3 (134-434) 12/04/17 06:20 MPV 8.3 fl (7.5-11.1) 12/04/17 06:20 CMP Sodium 136 mmol/L (136-145) 12/04/17 06:20 Potassium 4.1 mmol/L (3.5-5.1) 12/04/17 06:20 Chloride 97 mmol/L (98-107) L 12/04/17 06:20 Carbon Dioxide 27 mmol/L (21-32) 12/04/17 06:20 Anion Gap 12 (8-16) 12/04/17 06:20 BUN 15 mg/dL (7-18) 12/04/17 06:20 Creatinine 0.8 mg/dL (0.55-1.02) 12/04/17 06:20 Creat Clearance w eGFR > 60 (>60) 12/04/17 06:20 Random Glucose 143 mg/dL (74-106) H 12/04/17 06:20 Calcium 8.6 mg/dL (8.5-10.1) 12/04/17 06:20 Total Bilirubin 0.5 mg/dL (0.2-1.0) D 12/04/17 06:20 AST 25 U/L (15-37) 12/04/17 06:20 ALT 28 U/L (12-78) 12/04/17 06:20 Alkaline Phosphatase 61 U/L (45-117) 12/04/17 06:20 Total Protein 6.7 g/dl (6.4-8.2) 12/04/17 06:20 Albumin 3.2 g/dl (3.4-5.0) L 12/04/17 06:20 CARDIAC ENZYMES Troponin I 0.02 ng/ml (0.00-0.05) 12/03/17 12:00 Microbiology 12/03/17 17:11 Nasopharyngeal Swab Influenza Types A,B Antigen (ELIZABETH) - Final 12/03/17 17:11 Nasopharyngeal Swab - Final Assessment: This is an 82 year old female with PMHx of DM, HTN, hyperlipidemia, asthma, lumbar disc herniations, and new diagnosis of bladder mass (pending cytoscopy, discovered 1 month prior) presented to the ED after an episode of unresponsiveness in waiting room with lip smacking and urinary incontinence Plan: 1) New onset seizures - Start Keppra 1000mg po bid - EEG - Brain MRI: No evidence of metastatic disease, no intracranial hemorrhage or acute infarct - Appreciate neurology consult 2) Influenza B - Start Tamiflu 30mg po bid (CrCl <60) - Isolation precautions 3) UTI - UA with 3+ Leuks - F/u urine culture - Start Ceftriaxone 4) Asthma - Albuterol nebs - Singulair - Advair 5) DM - BGM ACHS - ISS ACHS - Levemir 8u sq hs 6) Bladder mass - F/u outpatient for cystoscopy 7) F/E/N: - Diabetic diet - Monitor electrolytes 8) Prophylaxis: - Lovenox 40mg sq daily 9) Dispo: - Requires continued inpatient care CODE STATUS: FULL CODE Visit type - Emergency Visit Emergency Visit: Yes ED Registration Date: 12/03/17 Care time: The patient presented to the Emergency Department on the above date and was hospitalized for further evaluation of their emergent condition. - New Patient This patient is new to me today: Yes Date on this admission: 12/04/17 - Critical Care Critical Care patient: No
[2017-12-04] MEDS ORDERED: PT OWN MED DRAWER 7, Y5N ONE (11:44)
[2017-12-04] MEDS ORDERED: ALBUTEROL SO4 0.083% IH SOL 2.5 MG/3 ML VIAL.NEB. NEB PRN (11:54)
[2017-12-04] MEDS: ASPIRIN COATED 81 MG TABLET.EC PO SCH (12:00)
[2017-12-04] MEDS: ENOXAPARIN NA (PORCINE) 40 MG/0.4 ML DISP.SYRIN SQ SCH (12:00)
[2017-12-04] MEDS: METOPROLOL TARTRATE 50 MG TABLET (FP) PO SCH ×2 (12:00→21:41)
[2017-12-04] MEDS: PANTOPRAZOLE 40 MG TABLET (FP) PO SCH (12:01)
[2017-12-04] MEDS: OSELTAMIVIR PHOSPHATE 30 MG CAPSULE PO SCH ×2 (12:01→21:42)
[2017-12-04] MEDS ORDERED: DEXTROSE 5%-WATER - 50 ML IVPB ONE (14:45)
[2017-12-04] MEDS ORDERED: cefTRIAXone SODIUM 1 GM VIAL ONE (14:45)
[2017-12-04] MEDS: CEFTRIAXONE 1 GM in DEXTROSE 5%-WATER - 50 ML IVPB SCH (15:01)
[2017-12-04] MEDS: FLUTICASONE/SALMETEROL 100 MCG/50 MCG DISKUS IH SCH (15:03)
[2017-12-04] MEDS: levETIRAcetam 500 MG TABLET (FP) PO SCH ×2 (15:03→21:41)
[2017-12-04] MEDS: MONTELUKAST NA 10 MG TABLET PO SCH (21:42)
[2017-12-04] MEDS: INSULIN DETEMIR 100 UNITS/ML MDV SQ SCH (21:42)
[2017-12-05] MEDS: INSULIN SLIDING SCALE (NOVOLOG) 1 VIAL SQ SCH ×2 (06:29→11:37)
[2017-12-05 07:36] LABS: BASO % 0.5 % (0-2.0); EOS % 1.1 % (0-4.5); HEMATOCRIT 30.1 % (32.4-45.2); LYMPH % 57.5 % (8-40); MCH 25.6 pg (25.7-33.7); MCHC 33.2 g/dl (32.0-36.0); MEAN CELL VOLUME 76.9 fl (80-96); MONO % 11.3 % (3.8-10.2); NEUT % 29.6 % (42.8-82.8); PLATELET COUNT 158 K/MM3 (134-434); RBC 3.91 M/mm3 (3.60-5.2); WHITE BLOOD COUNT 4.6 K/mm3 (4.0-10.0)
[2017-12-05 08:57] LABS: CHLORIDE 97 mmol/L (98-107); POTASSIUM 4.2 mmol/L (3.5-5.1); SODIUM 134 mmol/L (136-145)
[2017-12-05 09:12] LABS: ALK PHOS 63 U/L (45-117); ANION GAP 10 (8-16); BILIRUBIN,TOTAL 0.3 mg/dL (0.2-1.0); BLOOD UREA NITROGEN 13 mg/dL (7-18); CALCIUM 8.1 mg/dL (8.5-10.1); CO2 27 mmol/L (21-32); CREATININE 0.8 mg/dL (0.55-1.02); GLUCOSE,RANDOM 117 mg/dL (74-106); SGOT/AST 26 U/L (15-37); SGPT/ALT 27 U/L (12-78); TOT PROT 6.5 g/dl (6.4-8.2)
--- NOTE | 2017-12-05 10:34 | PN ---
Physical Exam: SUBJECTIVE: Patient seen and examined at the bedside. Family present. OBJECTIVE: Diffiused exp. wheezing auscultated, PO prednisone 60mg x 1 now and monitor for improvement. Albuterol x 1 now 94% room oxygen at rest will order pre and post/PT therapy Patient family asking for silver brazer patient can follow outpatient, will refer. If her breathing improves will send home on prednisone taper and pulm. follow up. Family asking for new PCP referral. Vital Signs Period Temp Pulse Resp BP Sys/Thomas Pulse Ox Last 24 Hr 97.8 F-100.0 F 79-92 - 101-127/5-63 96 GENERAL: The patient is awake, alert, and fully oriented, in no acute distress. HEAD: Normal with no signs of trauma. EYES: PERRL, extraocular movements intact, sclera anicteric, conjunctiva clear. No ptosis. ENT: Ears normal, nares patent, oropharynx clear without exudates, moist mucous membranes. NECK: Trachea midline, full range of motion, supple. LUNGS: scattered expiratory wheezing throught lung melvin HEART: Regular rate and rhythm ABDOMEN: Soft, nontender, nondistended, normoactive bowel sounds, no guarding, no rebound, no hepatosplenomegaly, no masses. EXTREMITIES: 2+ pulses, warm, well-perfused, no edema. NEUROLOGICAL: Normal speech, gait not observed. PSYCH: Normal mood, normal affect. SKIN: Warm, dry, normal turgor, no rashes or lesions noted Laboratory Results - last 24 hr 12/04/17 12/04/17 12/04/17 02:00 11:58 17:14 WBC RBC Hgb Hct MCV MCH MCHC RDW Plt Count MPV Neutrophils % Lymphocytes % Monocytes % Eosinophils % Basophils % Sodium Potassium Chloride Carbon Dioxide Anion Gap BUN Creatinine Creat Clearance w eGFR POC Glucometer 209 272 Random Glucose Calcium Total Bilirubin AST ALT Alkaline Phosphatase Total Protein Albumin Urine Color Yellow Urine Appearance Cloudy Urine pH 6.0 Ur Specific [place] 1.015 Urine Protein 1+ H Urine Glucose (UA) Negative Urine Ketones Negative Urine Blood 1+ H Urine Nitrite Negative Urine Bilirubin Negative Urine Urobilinogen Negative Ur Leukocyte Esterase 3+ H Urine WBC (Auto) 132 Urine RBC (Auto) 6 Ur Epithelial Cells Rare Urine Mucus Rare 12/04/17 12/05/17 12/05/17 21:39 06:29 07:02 WBC 4.6 RBC 3.91 Hgb 10.0 L Hct 30.1 L MCV 76.9 L MCH 25.6 L MCHC 33.2 RDW 16.0 H Plt Count 158 MPV 8.0 Neutrophils % 29.6 L D Lymphocytes % 57.5 H D Monocytes % 11.3 H Eosinophils % 1.1 D Basophils % 0.5 Sodium Potassium Chloride Carbon Dioxide Anion Gap BUN Creatinine Creat Clearance w eGFR POC Glucometer 150 123 Random Glucose Calcium Total Bilirubin AST ALT Alkaline Phosphatase Total Protein Albumin Urine Color Urine Appearance Urine pH Ur Specific [place] Urine Protein Urine Glucose (UA) Urine Ketones Urine Blood Urine Nitrite Urine Bilirubin Urine Urobilinogen Ur Leukocyte Esterase Urine WBC (Auto) Urine RBC (Auto) Ur Epithelial Cells Urine Mucus 12/05/17 07:02 WBC RBC Hgb Hct MCV MCH MCHC RDW Plt Count MPV Neutrophils % Lymphocytes % Monocytes % Eosinophils % Basophils % Sodium 134 L Potassium 4.2 Chloride 97 L Carbon Dioxide 27 Anion Gap 10 BUN 13 Creatinine 0.8 Creat Clearance w eGFR > 60 POC Glucometer Random Glucose 117 H Calcium 8.1 L Total Bilirubin 0.3 D AST 26 ALT 27 Alkaline Phosphatase 63 Total Protein 6.5 Albumin 3.0 L Urine Color Urine Appearance Urine pH Ur Specific [place] Urine Protein Urine Glucose (UA) Urine Ketones Urine Blood Urine Nitrite Urine Bilirubin Urine Urobilinogen Ur Leukocyte Esterase Urine WBC (Auto) Urine RBC (Auto) Ur Epithelial Cells Urine Mucus Active Medications Generic Name Dose Route Start Last Admin Trade Name Freq PRN Reason Stop Dose Admin Albuterol Sulfate 1 amp 12/04/17 11:54 Ventolin 0.083% Nebulizer Soln - NEB Q6H PRN SHORT OF BREATH/WHEEZING Aspirin 81 mg 12/04/17 10:00 12/04/17 12:00 Ecotrin - PO 81 mg DAILY HERSON Administration Enoxaparin Sodium 40 mg 12/04/17 10:00 12/04/17 12:00 Lovenox - SQ 40 mg DAILY HERSON Administration Ceftriaxone Sodium 1 gm/ 50 mls @ 100 mls/hr 12/04/17 12:30 12/04/17 15:01 Dextrose IVPB 100 mls/hr DAILY HERSON Administration Insulin Aspart 1 vial 12/03/17 16:30 12/05/17 06:29 Novolog Vial Sliding Scale - SQ Not Given ACHS [facility] Protocol Insulin Detemir 8 units 12/03/17 22:00 12/04/17 21:42 Levemir Vial SQ 8 units HS HERSON Administration Levetiracetam 1,000 mg 12/04/17 12:00 12/04/17 21:41 Keppra - PO 1,000 mg BID HERSON Administration Metoprolol Tartrate 50 mg 12/03/17 22:00 12/04/17 21:41 Lopressor - PO 50 mg BID HERSON Administration Montelukast Sodium 10 mg 12/03/17 22:00 12/04/17 21:42 Singulair - PO 10 mg HS HERSON Administration Oseltamivir Phosphate 30 mg 12/04/17 10:00 12/04/17 21:42 Tamiflu - PO 12/09/17 09:59 30 mg BID HERSON Administration Pantoprazole Sodium 40 mg 12/04/17 10:00 12/04/17 12:01 Protonix - PO 40 mg DAILY HERSON Administration Prednisone 60 mg 12/05/17 10:29 Deltasone - PO 12/05/17 10:30 ONCE ONE Fluticasone/Salmeterol 1 puff 12/03/17 16:30 12/04/17 15:03 Advair 100mcg/50mcg - IH 1 puff DAILY HERSON Administration ASSESSMENT/PLAN: Patient is an 82 year old female with a significant past medical history of diabetes, hypertension, DE (NSTEMI), hyperlipidemia, asthma, lumbar disc herniations, and new diagnosis of bladder mass (pending cytoscopy). Patient presents to the ED on 12/03/2017 with an episode of unresponsiveness when at the urologist office for a bladder mass removal procedure. As per ED report, pateint had repetitive chewing and mouth movements with bladder incontinence during the episode. She was reported to be alert and oriented after the episode (unclear how long episode lasted for). She also had a similar episode 1 month ago. On presentation to the hospital, patient tested + for Influenza B and was started on Tamiflu. She was also noted to have a positive UA and now has acute asthma exacerbation. Imaging: Brain MRi: no evidence of mets EKG: sinus tachycardia Heat CT: age relted volume loss Neuro: Seizure, new onset Loading dose Keppra given in ED Now on Keppra 1000mg BID Brain MRI as noted above Neuro notes reviewed Neuro follow up as outpatient Pulm: Asthma exacerbation, acute on chronic Likely triggered by influenza B Diffused scattered wheezing on exam Give Prednisone 60mg x 1 now with duoneb Monitor for improvement If improves this afternoon, will send home with PO taper If no improvement will start Medrol x 24 hours Pre and post prior to d/c, not home oxygen dependent Discussed with pulmonary Influfady B On Tamiflu : UTI, acute On Ceftriaxone Bladder mass, hx Outpatient urology follow up Endocrine Diabetes Monitor in the setting of steriods On BGMs, Novolog, Levemir F.E.N. Fluids: PO adequate Electrolytes: panel reviewed Nutrition: diabetic diet Prophy: DVT: Lovenox 40mg for now until ambulatory GI: Protonix Disposition: full code. Discussed with family, they are in agreement of plan outlined above.
[2017-12-05] MEDS ORDERED: cefTRIAXone SODIUM 1 GM VIAL ONE (10:38)
[2017-12-05] MEDS ORDERED: PT OWN MED DRAWER 7, Y5N ONE (10:38)
[2017-12-05] MEDS ORDERED: DEXTROSE 5%-WATER - 50 ML IVPB ONE (10:39)
[2017-12-05] MEDS: ENOXAPARIN NA (PORCINE) 40 MG/0.4 ML DISP.SYRIN SQ SCH (10:47)
[2017-12-05] MEDS: METOPROLOL TARTRATE 50 MG TABLET (FP) PO SCH (10:47)
[2017-12-05] MEDS: ASPIRIN COATED 81 MG TABLET.EC PO SCH (10:47)
[2017-12-05] MEDS: levETIRAcetam 500 MG TABLET (FP) PO SCH (10:47)
[2017-12-05] MEDS: FLUTICASONE/SALMETEROL 100 MCG/50 MCG DISKUS IH SCH (10:48)
[2017-12-05] MEDS: CEFTRIAXONE 1 GM in DEXTROSE 5%-WATER - 50 ML IVPB SCH (10:48)
[2017-12-05] MEDS: PANTOPRAZOLE 40 MG TABLET (FP) PO SCH (10:48)
[2017-12-05] MEDS: OSELTAMIVIR PHOSPHATE 30 MG CAPSULE PO SCH (10:49)
[2017-12-05] MEDS ORDERED: ALBUTEROL SO4 2.5/IPRATROPIUM 0.5 INH SOL 3 ML VIAL.NEB. NEB ONE (12:00)
[2017-12-05] MEDS ORDERED: predniSONE 20 MG TABLET (UD) PO ONE (12:00)
--- NOTE | 2017-12-05 12:17 | PN ---
Progress Note (short form) - Note Progress Note: PULMONARY CONSULTATION DICTATED 12/05/17 IMP ASTHMA EXACERBATION INFLUENZA B SEIZURE BLADDER MASS DM ASHD S/P NSTEMI PLAN PREDNISONE INHALED BRONCHODILATORS O2 TAMIFLU KEPPRA MONITOR PEAK FLOW DR GOULD Problem List - Problems (1) Influenza B Code(s): J10.1 - FLU DUE TO OTH IDENT INFLUENZA VIRUS W OTH RESP MANIFEST (2) Unresponsive episode Code(s): R41.89 - OTH SYMPTOMS AND SIGNS W COGNITIVE FUNCTIONS AND AWARENESS (3) Bladder mass Code(s): N32.89 - OTHER SPECIFIED DISORDERS OF BLADDER (4) Bronchitis Code(s): J40 - BRONCHITIS, NOT SPECIFIED ACUTE OR CHRONIC (5) Diabetes Code(s): E11.9 - TYPE 2 DIABETES MELLITUS WITHOUT COMPLICATIONS (6) Asthma Code(s): J45.909 - UNSPECIFIED ASTHMA, UNCOMPLICATED (7) Seizure Code(s): R56.9 - UNSPECIFIED CONVULSIONS
--- NOTE | 2017-12-05 12:33 | CONS ---
DATE OF CONSULTATION: 12/05/2017 REFERRING PHYSICIAN: Kanika English NP HISTORY: The history was obtained from the chart. The patient does not speak [place]. The patient is an 82-year-old [place] female with past medical history of diabetes, hypertension, hyperlipidemia, asthma, lumbar disk herniations, recently diagnosed bladder mass pending cytology apparently discovered 1 month prior to this admission admitted to [facility] after having an episode of unresponsiveness in the waiting room. At that time, she was noted to have an episode of unresponsiveness with lip smacking and urinary incontinence. She apparently regained consciousness. She apparently has been n.p.o. for a procedure, a cystoscopy performed later that day. The patient was admitted with the above. On admission, she was felt to have a possible seizure by Neurology for which she was placed on Keppra. She had an MRI, which revealed no evidence of acute pathology. Hospitalization was significant for her developing cough, productive yellowish sputum. Influenza screen was performed with positive influenza B for which she was started on Tamiflu. She was also noted to have increasing wheezing at which time she was placed on prednisone. She has a history of asthma. There is no history of respiratory failure in the past or ventilatory support. She is a nonsmoker. There is no apparent history of occupational exposures. She was born in [place] and moved to the [facility] years ago. PAST MEDICAL HISTORY: Again includes diabetes, hypertension, hyperlipidemia, asthma, lumbar disk herniations, ASHD status post NSTEMI. SOCIAL HISTORY: Born in [place]. Moved to the [facility] years ago. No occupational exposures. Nonsmoker. REVIEW OF SYSTEMS: Unable to obtain at this time. CURRENT MEDICATIONS: Include Advair 100/50, ceftriaxone, Lovenox, Keppra, albuterol, Lopressor, NovoLog, Levemir, Singulair, Tamiflu, Ecotrin, Protonix. PHYSICAL EXAMINATION: General: The patient is an elderly female well-developed, well-nourished, drowsy but in no acute distress. Vital Signs: She is currently afebrile. Blood pressure 119/50, respiratory rate 18. HEENT: Normocephalic and atraumatic. Neck: Supple. Heart: Regular S1, S2. Chest: Scattered bilateral wheezes. Abdomen: Soft. Bowel sounds are positive. Extremities: No cyanosis or edema. LABORATORIES: Chemistry, sodium 134, BUN 13, creatinine 0.8, INR 1.06, WBC 4.6, hemoglobin 10, hematocrit 30.1 with a platelet count of 158,000. Chest x-ray reveals no infiltrates and no effusions. IMPRESSION: 1. Syncope status post seizure. 2. Asthma exacerbation secondary to influenza B. 3. Influenza B. 4. History of diabetes. 5. Arteriosclerotic heart disease status post non-ST elevation myocardial infarction. PLAN: Prednisone. Inhaled bronchodilators. O2 as needed. Continue Tamiflu. Continue Keppra for seizures. KOFI GOULD M.D. [id number]
[2017-12-05 13:45] LABS: MAGNESIUM 2.2 mg/dL (1.8-2.4)
--- NOTE | 2017-12-05 13:59 | PN ---
Progress Note (short form) - Note Progress Note: 82 year old female history of DM, HTN, HLD, asthma, had some procedure planned at office of urologist. Patient was npo, overnight and waiting in waiting room. She had episode of passing out , there was lip smacking and urinary incontinence. She regained consciousness now and had ct head. Patient has similar episode 1 week ago. She had mri of brain , it was unremarkable. no seizure since yesterday. She developed flu and being treated She is on keppra 1 gm po bid Neurological Examination Alert , able to follow command, she is in hospital and she is moving all extremity, she knows what date is today she is very tired and sleepy at the time of interview. History of taking through daughter inlaw no neck stiffness eomi, pupils is reactive,no face asymmetry moving all extremity sensation is normal Ct Head unremarkable, mri of brain unremarkable eeg is pending Assessment- Most likel episode of seizure,( given lip smacking and incontinence) , she has second episode , neuro exam is normal, mri is uremarkable. Plan- seizure precautions and continue keppra follow up outpatient Thanking you so much Roman Durant MD
--- NOTE | 2017-12-05 14:06 | DS ---
Physical Exam: SUBJECTIVE: Patient seen and examined OBJECTIVE: Ambulated with RT, maintained oxygen at 94% room air with ambulation Mild wheezing, patient to continue Tamiflu, Prednisone and antibiotics at home Follow up with Dr. Mancini x 1 week Vital Signs Period Temp Pulse Resp BP Sys/Thomas Pulse Ox Last 24 Hr 97.8 F-100.0 F 70-92 18-22 101-127/5-63 96 PHYSICAL EXAM GENERAL: The patient is awake, alert, and fully oriented, in no acute distress. HEAD: Normal with no signs of trauma. EYES: PERRL, extraocular movements intact, sclera anicteric, conjunctiva clear. ENT: Ears normal, nares patent, oropharynx clear without exudates, moist mucous membranes. NECK: Trachea midline, full range of motion, supple. LUNGS: Mild expiratory wheezing, much improved after Prednisone 60mg PO, continue as outpatient HEART: Regular rate and rhythm, S1, S2 without murmur, rub or gallop. ABDOMEN: Soft, nontender, nondistended, normoactive bowel sounds, no guarding, no rebound, no hepatosplenomegaly, no masses. EXTREMITIES: 2+ pulses, warm, well-perfused, no edema. NEUROLOGICAL: Cranial nerves II through XII grossly intact. Normal speech, gait not observed. PSYCH: flat affect SKIN: Warm, dry, normal turgor, no rashes or lesions noted. LABS Laboratory Results - last 24 hr 12/04/17 12/04/17 12/05/17 17:14 21:39 06:29 WBC RBC Hgb Hct MCV MCH MCHC RDW Plt Count MPV Neutrophils % Lymphocytes % Monocytes % Eosinophils % Basophils % Sodium Potassium Chloride Carbon Dioxide Anion Gap BUN Creatinine Creat Clearance w eGFR POC Glucometer 272 150 123 Random Glucose Calcium Magnesium Total Bilirubin AST ALT Alkaline Phosphatase Total Protein Albumin 12/05/17 12/05/17 12/05/17 07:02 07:02 11:34 WBC 4.6 RBC 3.91 Hgb 10.0 L Hct 30.1 L MCV 76.9 L MCH 25.6 L MCHC 33.2 RDW 16.0 H Plt Count 158 MPV 8.0 Neutrophils % 29.6 L D Lymphocytes % 57.5 H D Monocytes % 11.3 H Eosinophils % 1.1 D Basophils % 0.5 Sodium 134 L Potassium 4.2 Chloride 97 L Carbon Dioxide 27 Anion Gap 10 BUN 13 Creatinine 0.8 Creat Clearance w eGFR > 60 POC Glucometer 286 Random Glucose 117 H Calcium 8.1 L Magnesium 2.2 Total Bilirubin 0.3 D AST 26 ALT 27 Alkaline Phosphatase 63 Total Protein 6.5 Albumin 3.0 L HOSPITAL COURSE: Date of Admission:12/03/17 Date of Discharge: 12/05/17 Patient is an 82 year old female with a significant past medical history of diabetes, hypertension, [place] (NSTEMI), hyperlipidemia, asthma, lumbar disc herniations, and new diagnosis of bladder mass (pending cytoscopy). Patient presents to the ED on 12/03/2017 with an episode of unresponsiveness when at the urologist office for a bladder mass removal procedure. As per ED report, pateint had repetitive chewing and mouth movements with bladder incontinence during the episode. She was reported to be alert and oriented after the episode (unclear how long episode lasted for). She also had a similar episode 1 month ago. On presentation to the hospital, patient tested + for Influenza B and was started on Tamiflu. She was also noted to have a positive UA and now has acute asthma exacerbation. Imaging: Brain MRi: no evidence of mets EKG: sinus tachycardia Heat CT: age relted volume loss Neuro: Seizure, new onset Loading dose Keppra given in ED Now on Keppra 1000mg BID Brain MRI as noted above Neuro notes reviewed Neuro follow up as outpatient Pulm: Asthma exacerbation, acute on chronic Likely triggered by influenza B Diffused scattered wheezing on exam improved after Prednisone 60mg given Will send home on Prednisone taper with follow up with pulmonary within 1-2 weeks Pre and post shows no need for home oxygen Discussed with pulmonary Influeza B On Tamiflu to continue until 12/09/2017 : UTI, acute On Ceftriaxone during hospitalization 7 more days of Ceftin for home Bladder mass, hx Outpatient urology follow up Endocrine Diabetes [facility] Made patient an appointment on December 09 at 2:45pm with Dr. Hero Oquendo. Instructed familty to bring hospital papers and insurance card. Disposition: full code. Discharge home. Will need Neuro follow up outpatient. Discharge Summary Reason For Visit: SEIZURE,HYPOXIA Current Active Problems Asthma (Acute) Influenza B (Acute) Seizure (Acute) Unresponsive episode (Acute) Condition: Stable - Instructions Diet, Activity, Other Instructions: Mrs Keating: You will be discharged home to continue the following medications: (1)Prednisone as follows: - START TOMORROW 12/06/2017 AT 8AM On 12/06 take 60mg once day at 8am On 12/07 take 50mg once day at 8am On 12/08 take 40mg once day at 8am On 12/09 take 30mg once day at 8am On 12/10 take 20mg once day at 8am On 12/11 take 10mg once day at 8am - last dose (2)Ceftin 500mg twice per day (8am and 8pm)- antibiotic - START TONIGHT 2017 AT 8PM (3)Keppra 1000mg twice per day (8am and 8pm)- anti seizure medications - START TONIGHT AT 12/05/2017 AT 8PM (4) Tamiflu 30mg twice per day until 12/09/2017 - TAKE TONIGHT 12/05/2017 AT 8PM Please see the neurologist (Dr. Durant) within 1 week for follow up. Please see Dr. Mancini (pulmonary). A new primary care doctor has been referred to you. Dr. Ward (please make an appointment in his office) Please call me with any questions that you may have. You have an appointment on December 09 at 2:45pm with Dr. Hero Oquendo. Please bring your hospital papers and insurance card. Anastasiya Chun, [employer] [phone] [facility] Referrals: Roman Durant MD [Staff Physician] - 1 Week Tyshawn Mancini MD [Staff Physician] - 1 Week (follow up in 1 week for asthma exacerbation (olericulturist)) Paige Nagel MD [Staff Physician] - 1 Week (appointment made for fridaydecember 09, 2:45pm.) Walker Ward MD [Staff Physician] - (PCP referral. Dr. Ward is also a olericulturist and works with Dr. Mancini. Plse make an appt to follow up within 1 week) Disposition: HOME - Home Medications Comprehensive Discharge Medication List: Ambulatory Orders Pravastatin Sodium [Pravachol -] 10 mg PO HS 02/20/13 Metoprolol Tartrate [Lopressor -] 50 mg PO BID 08/20/13 Albuterol Sulfate Inhaler - [Ventolin HFA Inhaler -] 1 - 2 inh PO QID PRN Aspirin Coated [Ecotrin -] 81 mg PO DAILY #30 tablet.ec 12/05/16 Pantoprazole Sodium [Protonix] 40 mg PO DAILY #30 tablet.dr 12/05/16 Glipizide [Glipizide ER] 10 mg PO DAILY 11/05/17 Ipratropium [place] 1 puff IH Q6H 11/05/17 Janumet Xr 50-500 mg Tablet 50 - 100 mg PO BID 11/05/17 Metformin HCl [Glucophage] 1,000 mg PO BID 11/05/17 Montelukast Na [Singulair -] 10 mg PO HS 11/05/17 Salmeterol/Fluticasone [Advair 100Mcg/50Mcg -] 1 puff IH DAILY 11/05/17
[2017-12-05 15:25] VITALS: BP 128/61; PULSE 102; TEMP 98.3
--- NOTE | 2017-12-07 21:58 | EKG ---
Test Reason : Blood Pressure : / mmHG Vent. Rate : 088 BPM Atrial Rate : 088 BPM P-R Int : 156 ms QRS Dur : 068 ms QT Int : 368 ms P-R-T Axes : 044 014 041 degrees QTc Int : 445 ms SINUS RHYTHM WITH PREMATURE ATRIAL COMPLEXES OTHERWISE NORMAL ECG WHEN COMPARED WITH ECG OF 03-DEC-2017 11:36, PREMATURE ATRIAL COMPLEXES ARE NOW PRESENT Confirmed by EBER PETER MD ([id number]) on 12/07/2017 9:58:13 PM Referred By: Confirmed By:EBER PETER MD
--- NOTE | 2017-12-08 08:47 | HOSP ---
Physical Examination Vital Signs: Vital Signs Temperature 98.3 F 12/05/17 14:22 Pulse Rate 102 H 12/05/17 14:22 Respiratory Rate 22 12/05/17 14:22 Blood Pressure 128/61 12/05/17 14:22 O2 Sat by Pulse Oximetry (%) 94 L 12/05/17 14:04 Labs: CBC, BMP 12/05/17 07:02 12/05/17 07:02 Hospitalist Encounter Assessment: Received fax from lab on this patient's urine culture which shows kleb pneumonia - esbl with sensitivities to Levaquin Patient was discharged on Ceftin Called and spoke to patient's daughter Leah Haq and informed her that patient should stop taking the Ceftin and start Levaquin (called into her pharmacy) Leah Haq verbalized understanding patient has a standing appointment with Dr. Hero Oquendo tomorrow @ 2:45pm
== END 2017-12-05 16:19 | disposition home health service (06) ==
LOC: JER 11:15 → JERBED 14:41 → J5S 19:35
PROVIDERS: ADMIT Internal Medicine; ATTEND Nurse Practitioner Family
PROC: 3E03329 Introduction of Other Anti-infective into Peripheral Vein, Percutaneous Approach (ICD-10-PCS; principal; 2017-12-03)
PROC: 3E033GC Introduction of Other Therapeutic Substance into Peripheral Vein, Percutaneous Approach (ICD-10-PCS; 2017-12-03)
PROC: 3E013VG Introduction of Insulin into Subcutaneous Tissue, Percutaneous Approach (ICD-10-PCS; 2017-12-03)
PROC: 3E013GC Introduction of Other Therapeutic Substance into Subcutaneous Tissue, Percutaneous Approach (ICD-10-PCS; 2017-12-03)
PROC: 3E0F7GC Introduction of Other Therapeutic Substance into Respiratory Tract, Via Natural or Artificial Opening (ICD-10-PCS; 2017-12-03)
DX: G40.89 Other seizures (principal); R55 Syncope and collapse; N39.0 Urinary tract infection, site not specified; J45.901 Unspecified asthma with (acute) exacerbation; J10.1 Influenza due to other identified influenza virus with other respiratory manifestations; I10 Essential (primary) hypertension; I25.10 Atherosclerotic heart disease of native coronary artery without angina pectoris; I25.2 Old myocardial infarction; I50.30 Unspecified diastolic (congestive) heart failure; E11.9 Type 2 diabetes mellitus without complications; E78.5 Hyperlipidemia, unspecified; N32.89 Other specified disorders of bladder; M51.26 Other intervertebral disc displacement, lumbar region; Z79.82 Long term (current) use of aspirin; Z79.84 Long term (current) use of oral hypoglycemic drugs; R09.02 Hypoxemia
CPT/HCPCS: 36415; 70450-TC; 70552-TC; 71045-TC-FY; 80053; 81003; 81015; 82962; 83735; 83880; 84443; 84484; 85025; 85610; 85730; 87086; 87186; 87804; 93005; 93010; 94640; 94761; 95816; 96372; 96374; 97116-GP; 97161-GP; 99285-25; G0378

== ENCOUNTER 2017-12-30 09:35 | Inpatient (IN) | payer OTHER ==
[2017-12-30] MEDS ORDERED: PROPOFOL 20 ML ONE (11:02)
[2017-12-30] MEDS ORDERED: ceFAZolin SODIUM 1 GM VIAL ONE ×2 (11:22→18:58)
[2017-12-30] MEDS ORDERED: LIDOCAINE HCL/PF 2% SDV 5ML VIAL ONE (11:22)
[2017-12-30] MEDS ORDERED: SODIUM CHLORIDE 0.9% P/F 10 ML VIAL IJ ONE (11:22)
[2017-12-30] MEDS ORDERED: DEXAMETHASONE SOD PHOSPHATE 4 MG/1 ML VIAL ONE (11:22)
[2017-12-30] MEDS ORDERED: ceFAZolin SODIUM 1 GM VIAL IVPB ONE (11:23)
--- NOTE | 2017-12-30 11:46 | OP ---
Operative Note - Note: Operative Date: 12/30/17 Pre-Operative Diagnosis: Bladder Tumor Operation: TURBT Post-Operative Diagnosis: Same as Pre-op Surgeon: Shaggy Lara MD. Anesthesia: MAC Operative Report Dictated: Yes
[2017-12-30] MEDS ORDERED: PROMETHAZINE HCL 25 MG/1 ML VIAL IVPUSH PRN (11:54)
[2017-12-30] MEDS ORDERED: ONDANSETRON 4 MG/2 ML VIAL IVPUSH PRN (11:54)
[2017-12-30] MEDS ORDERED: LACTATED RINGERS SOLUTION 1,000 ML IV SCH (12:00)
[2017-12-30] MEDS ORDERED: ACETAMINOPHEN 325 MG TABLET (FP) PO PRN (15:50)
[2017-12-30] MEDS ORDERED: ACETAMINOPHEN 325 MG TABLET (FP) ONE (15:52)
[2017-12-30] MEDS ORDERED: ACETAMINOPHEN 325 MG TABLET (FP) PO ONE (16:00)
[2017-12-30] MEDS ORDERED: morphine SULFATE 4 MG/ML VIAL IVPUSH PRN (17:57)
[2017-12-30] MEDS: LACTATED RINGERS SOLUTION 1,000 ML IV SCH (18:47)
[2017-12-30] MEDS ORDERED: DEXTROSE 5%-WATER - 50 ML IVPB ONE (18:58)
[2017-12-30] MEDS: CEFAZOLIN 1 GM in DEXTROSE 5%-WATER - 50 ML IVPB SCH (19:01)
[2017-12-30] MEDS: levETIRAcetam 500 MG TABLET (FP) PO SCH (21:05)
[2017-12-30] MEDS: ATORVASTATIN CA 10 MG TABLET (FP) PO SCH (21:05)
[2017-12-30] MEDS: METOPROLOL TARTRATE 50 MG TABLET (FP) PO SCH (21:05)
[2017-12-30] MEDS: metFORMIN HCL 500 MG TABLET (FP) PO SCH (21:41)
[2017-12-31] MEDS ORDERED: ceFAZolin SODIUM 1 GM VIAL ONE ×3 (01:06→17:51)
[2017-12-31] MEDS ORDERED: DEXTROSE 5%-WATER - 50 ML IVPB ONE ×3 (01:06→17:52)
[2017-12-31] MEDS: CEFAZOLIN 1 GM in DEXTROSE 5%-WATER - 50 ML IVPB SCH ×3 (01:23→18:02)
[2017-12-31] MEDS: metFORMIN HCL 500 MG TABLET (FP) PO SCH ×2 (06:34→16:32)
[2017-12-31] MEDS: sitaGLIPtin PHOSPHATE 50 MG TABLET PO SCH ×2 (06:35→16:32)
[2017-12-31] MEDS: glipiZIDE 10 MG TABLET (FP) PO SCH (06:35)
[2017-12-31] MEDS: LACTATED RINGERS SOLUTION 1,000 ML IV SCH ×2 (06:37→18:05)
[2017-12-31 09:03] LABS: HEMATOCRIT 28.6 % (32.4-45.2); HEMOGLOBIN 9.3 GM/dL (10.7-15.3); MCH 25.5 pg (25.7-33.7); MCHC 32.6 g/dl (32.0-36.0); MEAN CELL VOLUME 78.3 fl (80-96); MEAN PLT VOLUME 8.8 fl (7.5-11.1); PLATELET COUNT 169 K/MM3 (134-434); RBC 3.65 M/mm3 (3.60-5.2); RDW 15.3 % (11.6-15.6); WHITE BLOOD COUNT 8.6 K/mm3 (4.0-10.0)
[2017-12-31 09:28] LABS: ALBUMIN 2.7 g/dl (3.4-5.0); ANION GAP 7 (8-16); CALCIUM 8.3 mg/dL (8.5-10.1); CHLORIDE 106 mmol/L (98-107); CO2 28 mmol/L (21-32); POTASSIUM 4.3 mmol/L (3.5-5.1); SODIUM 141 mmol/L (136-145)
[2017-12-31] MEDS ORDERED: PT OWN MED DRAWER 7, Y5N ONE ×2 (09:30→16:28)
[2017-12-31] MEDS: METOPROLOL TARTRATE 50 MG TABLET (FP) PO SCH ×2 (09:33→21:14)
[2017-12-31] MEDS: levETIRAcetam 500 MG TABLET (FP) PO SCH ×2 (09:33→21:14)
[2017-12-31] MEDS: FLUTICASONE/SALMETEROL 100 MCG/50 MCG DISKUS IH SCH (09:33)
[2017-12-31 09:35] LABS: ALK PHOS 63 U/L (45-117); BILIRUBIN,TOTAL 0.1 mg/dL (0.2-1.0); BLOOD UREA NITROGEN 10 mg/dL (7-18); CREATININE 0.7 mg/dL (0.55-1.02); GLUCOSE,RANDOM 115 mg/dL (74-106); SGOT/AST 26 U/L (15-37); SGPT/ALT 36 U/L (12-78); TOT PROT 6.1 g/dl (6.4-8.2)
--- NOTE | 2017-12-31 09:53 | OP ---
DATE OF OPERATION: 12/30/2017 SURGEON: Shaggy Lara MD PREOPERATIVE DIAGNOSIS: Bladder tumor. POSTOPERATIVE DIAGNOSIS: Bladder tumor. PROCEDURE: Transurethral resection of the bladder tumor. HISTORY: This is an 82-year-old female. On cystoscopy, she was found to have a posterior bladder wall approximately 3-cm tumor and was scheduled for a transurethral resection of stated lesion. Risks and benefits of treatment and alternative treatments were discussed in detail. All questions were answered. BRIEF OPERATIVE NOTE: Patient was brought to the operating room, placed in supine position. Using a bipolar loop, the lesion was resected into muscle layer. The area was fulgurated using fulguration current. There was no evidence of residual tumor at the termination of the procedure, nor was there any evidence of bleeding with the bladder decompressed. Specimen was given off as bladder tumor. Then, a 16-Hungarian Arana catheter was placed to straight drainage. The patient was brought to the recovery room in stable, satisfactory condition. Diane [id number]
--- NOTE | 2017-12-31 15:14 | PATH ---
Surgical Pathology Report Patient Name: CHELITA FARRELL Med. Rec. #: [id number] /Age/Gender: 1935 (Age: 82) / F Account: [id number] Location: [address] [place] [address]/[facility] Taken: 12/30/2017 Received: 12/30/2017 Reported: 12/31/2017 Physicians: Shaggy Lara M.D. Specimen(s) Received POSTERIOR BLADDER TUMOR Clinical History Bladder tumor Final Diagnosis BLADDER, POSTERIOR WALL, TUMOR, TRANSURETHRAL RESECTION OF BLADDER TUMOR: NON-INVASIVE PAPILLARY UROTHELIAL CARCINOMA, LOW GRADE. NO MUSCULARIS PROPRIA IDENTIFIED. NO FLAT CARCINOMA IN SITU (CIS) IDENTIFIED. Comment: Office of Dr. Lara informed that significant findings will be faxed ([place]). Electronically Signed Stefany Ackerman M.D. Gross Description Received in formalin labeled "posterior wall bladder tumor," is a 2.5 x 2.3 x 0.3 cm aggregate of burns-pink soft tissue fragments. The formalin is filtered and the specimen is entirely submitted in one cassette. /12/30/2017 saudi/12/30/2017
[2017-12-31] MEDS: ATORVASTATIN CA 10 MG TABLET (FP) PO SCH (21:14)
[2018-01-01] MEDS ORDERED: ceFAZolin SODIUM 1 GM VIAL ONE ×2 (00:40→09:39)
[2018-01-01] MEDS ORDERED: DEXTROSE 5%-WATER - 50 ML IVPB ONE ×2 (00:41→09:40)
[2018-01-01] MEDS: CEFAZOLIN 1 GM in DEXTROSE 5%-WATER - 50 ML IVPB SCH ×2 (00:59→09:46)
[2018-01-01] MEDS: sitaGLIPtin PHOSPHATE 50 MG TABLET PO SCH (06:29)
[2018-01-01] MEDS: metFORMIN HCL 500 MG TABLET (FP) PO SCH (06:29)
[2018-01-01] MEDS: glipiZIDE 10 MG TABLET (FP) PO SCH (06:29)
[2018-01-01] MEDS: METOPROLOL TARTRATE 50 MG TABLET (FP) PO SCH (09:48)
[2018-01-01] MEDS: levETIRAcetam 500 MG TABLET (FP) PO SCH (09:48)
[2018-01-01] MEDS: FLUTICASONE/SALMETEROL 100 MCG/50 MCG DISKUS IH SCH (10:00)
[2018-01-01 13:55] VITALS: BP 150/78; PULSE 65; TEMP 97.9
== END 2018-01-01 15:59 | disposition home or self-care (01) | DRG 446 ==
LOC: JASU-SURG 09:35 → J6S 16:34 → JASU-SURG 16:35
PROVIDERS: ADMIT Urology; ATTEND Urology
PROC: 0TBB8ZZ Excision of Bladder, Via Natural or Artificial Opening Endoscopic (ICD-10-PCS; principal; 2017-12-30 11:00)
DX: D09.0 Carcinoma in situ of bladder (principal); N39.0 Urinary tract infection, site not specified; I11.0 Hypertensive heart disease with heart failure; I50.32 Chronic diastolic (congestive) heart failure; J45.21 Mild intermittent asthma with (acute) exacerbation; I36.1 Nonrheumatic tricuspid (valve) insufficiency; I27.20 Pulmonary hypertension, unspecified; E11.9 Type 2 diabetes mellitus without complications; B96.1 Klebsiella pneumoniae [K. pneumoniae] as the cause of diseases classified elsewhere; G40.909 Epilepsy, unspecified, not intractable, without status epilepticus; J10.1 Influenza due to other identified influenza virus with other respiratory manifestations; E78.5 Hyperlipidemia, unspecified; Z79.84 Long term (current) use of oral hypoglycemic drugs; I25.2 Old myocardial infarction; Z79.4 Long term (current) use of insulin; I25.10 Atherosclerotic heart disease of native coronary artery without angina pectoris; R41.89 Other symptoms and signs involving cognitive functions and awareness
CPT/HCPCS: 36415; 80053; 82962; 85027; 88305-TC; 94760

== ENCOUNTER 2020-05-24 03:54 | Inpatient (IN) | payer OTHER ==
[2020-05-24] MEDS ORDERED: ACETAMINOPHEN 1000 MG/100 ML VIAL (NON FORMULARY) IVPB ONE (04:26)
[2020-05-24] MEDS ORDERED: SODIUM CHLORIDE 1,000 ML IV STA (04:26)
[2020-05-24] MEDS ORDERED: ACETAMINOPHEN INJECTION 100 ML IVPB ONE (04:35)
[2020-05-24 05:12] LABS: EPI CELLS 10 /uL (0-25.1); HYALINE CASTS 0 /uL (0-3.1); PH,URINE 5.5 (5.0-8.0); URINE APPEARANCE CLEAR; URINE BACTERIA 11 /uL (0-1359); URINE BILIRUBIN NEGATIVE (NEGATIVE); URINE COLOR YELLOW; URINE GLUCOSE (UA) TRACE (NEGATIVE); URINE KETONE NEGATIVE (NEGATIVE); URINE LEUK ESTERASE NEGATIVE (NEGATIVE); URINE NITRITE NEGATIVE (NEGATIVE); URINE PROTEIN TRACE (NEGATIVE); URINE RBC 24 /uL (0-23.9); URINE UROBILINOGEN 0.2 mg/dL (0.2-1.0); URINE WBC 12 /uL (0-25.8)
[2020-05-24 05:30] LABS: BASO % 0.5 % (0-2.0); EOS % 2.1 % (0-4.5); HEMATOCRIT 38.4 % (32.4-45.2); HEMOGLOBIN 12.6 GM/dL (10.7-15.3); LYMPH % 29.2 % (8-40); MCH 27.1 pg (25.7-33.7); MCHC 32.7 g/dl (32.0-36.0); MEAN CELL VOLUME 82.8 fl (80-96); MEAN PLT VOLUME 8.8 fl (7.5-11.1); MONO % 5.7 % (3.8-10.2); NEUT % 62.5 % (42.8-82.8); PLATELET COUNT 186 K/MM3 (134-434); RBC 4.64 M/mm3 (3.60-5.2); RDW 14.3 % (11.6-15.6); WHITE BLOOD COUNT 10.5 K/mm3 (4.0-10.0)
[2020-05-24 05:38] LABS: ALBUMIN 3.8 g/dl (3.4-5.0); ALK PHOS 116 U/L (45-117); ANION GAP 7 MMOL/L (8-16); BILIRUBIN,TOTAL 0.3 mg/dL (0.2-1); CHLORIDE 104 mmol/L (98-107); CO2 26 mmol/L (21-32); GLUCOSE,RANDOM 183 mg/dL (74-106); LIPASE 276 U/L (73-393); MAGNESIUM 1.9 mg/dL (1.8-2.4); PHOSPHOROUS 2.7 mg/dL (2.5-4.9); POTASSIUM 4.2 mmol/L (3.5-5.1); SGOT/AST 29 U/L (15-37); SGPT/ALT 37 U/L (13-61); SODIUM 138 mmol/L (136-145); TOT PROT 8.1 g/dl (6.4-8.2)
[2020-05-24] MEDS ORDERED: ALBUTEROL SO4 HFA INHALER IH PRN (10:37)
[2020-05-24] MEDS ORDERED: ACETAMINOPHEN 1000 MG/100 ML VIAL (NON FORMULARY) IVPB PRN (10:37)
[2020-05-24] MEDS: LACTATED RINGERS SOLUTION 1,000 ML IV SCH (11:08)
[2020-05-24] MEDS: INSULIN SLIDING SCALE (NOVOLOG) 1 VIAL SQ SCH ×3 (12:16→23:36)
[2020-05-24] MEDS ORDERED: levETIRAcetam 500 MG TABLET (FP) PO ONE (12:19)
[2020-05-24] MEDS: levETIRAcetam 250 MG TABLET PO SCH ×2 (12:26→23:31)
[2020-05-24] MEDS ORDERED: HEPARIN NA (PORCINE) 5,000 UNITS/ML 1ML VIAL ONE (14:57)
[2020-05-24] MEDS: HEPARIN NA (PORCINE) 5,000 UNITS/ML 1ML VIAL SQ SCH ×2 (15:05→23:31)
[2020-05-24] MEDS: ATORVASTATIN CA 10 MG TABLET (FP) PO SCH (23:31)
[2020-05-24] MEDS: METOPROLOL TARTRATE 50 MG TABLET (FP) PO SCH (23:31)
[2020-05-25] MEDS: HEPARIN NA (PORCINE) 5,000 UNITS/ML 1ML VIAL SQ SCH (05:57)
[2020-05-25] MEDS: INSULIN SLIDING SCALE (NOVOLOG) 1 VIAL SQ SCH ×4 (06:16→22:24)
[2020-05-25 08:09] LABS: HEMATOCRIT 32.2 % (32.4-45.2); HEMOGLOBIN 10.6 GM/dL (10.7-15.3); MCH 27.4 pg (25.7-33.7); MCHC 32.8 g/dl (32.0-36.0); MEAN CELL VOLUME 83.4 fl (80-96); MEAN PLT VOLUME 9.1 fl (7.5-11.1); PLATELET COUNT 150 K/MM3 (134-434); RBC 3.86 M/mm3 (3.60-5.2); RDW 14.3 % (11.6-15.6); WHITE BLOOD COUNT 9.1 K/mm3 (4.0-10.0)
[2020-05-25 08:13] LABS: CALCIUM 8.1 mg/dL (8.5-10.1); CREATININE 0.9 mg/dL (0.55-1.3); MAGNESIUM 1.8 mg/dL (1.8-2.4); PHOSPHOROUS 2.8 mg/dL (2.5-4.9); POTASSIUM 3.5 mmol/L (3.5-5.1)
[2020-05-25] MEDS ORDERED: POTASSIUM CHLORIDE TABS 20 MEQ TABLET.ER (FP) PO ONE (09:20)
[2020-05-25] MEDS ORDERED: ASPIRIN COATED 81 MG TABLET.EC PO SCH (10:00)
[2020-05-25] MEDS ORDERED: ENOXAPARIN NA (PORCINE) 40 MG/0.4 ML DISP.SYRIN SQ SCH (10:00)
[2020-05-25] MEDS: METOPROLOL TARTRATE 50 MG TABLET (FP) PO SCH ×2 (10:40→22:24)
[2020-05-25] MEDS: levETIRAcetam 250 MG TABLET PO SCH ×2 (10:40→22:23)
[2020-05-25] MEDS: LACTATED RINGERS SOLUTION 1,000 ML IV SCH (10:41)
[2020-05-25] MEDS: ATORVASTATIN CA 10 MG TABLET (FP) PO SCH (22:24)
[2020-05-26] MEDS: LACTATED RINGERS SOLUTION 1,000 ML IV SCH ×2 (02:34→12:04)
[2020-05-26] MEDS: INSULIN SLIDING SCALE (NOVOLOG) 1 VIAL SQ SCH ×4 (06:09→22:57)
[2020-05-26 07:45] LABS: ALBUMIN 3.1 g/dl (3.4-5.0); ANION GAP 5 MMOL/L (8-16); BILIRUBIN,TOTAL 0.5 mg/dL (0.2-1); BLOOD UREA NITROGEN 7.2 mg/dL (7-18); CALCIUM 8.9 mg/dL (8.5-10.1); CHLORIDE 102 mmol/L (98-107); CO2 29 mmol/L (21-32); CREATININE 0.8 mg/dL (0.55-1.3); GLUCOSE,RANDOM 203 mg/dL (74-106); POTASSIUM 3.8 mmol/L (3.5-5.1); SGOT/AST 18 U/L (15-37); SGPT/ALT 23 U/L (13-61); SODIUM 137 mmol/L (136-145); TOT PROT 6.8 g/dl (6.4-8.2)
[2020-05-26 07:47] LABS: ALK PHOS 75 U/L (45-117)
[2020-05-26 07:49] LABS: BASO % 0.7 % (0-2.0); EOS % 2.5 % (0-4.5); HEMATOCRIT 35.5 % (32.4-45.2); HEMOGLOBIN 11.4 GM/dL (10.7-15.3); LYMPH % 32.9 % (8-40); MCH 26.6 pg (25.7-33.7); MCHC 32.1 g/dl (32.0-36.0); MEAN CELL VOLUME 82.8 fl (80-96); MEAN PLT VOLUME 8.6 fl (7.5-11.1); MONO % 4.3 % (3.8-10.2); NEUT % 59.6 % (42.8-82.8); PLATELET COUNT 167 K/MM3 (134-434); RBC 4.29 M/mm3 (3.60-5.2); RDW 14.3 % (11.6-15.6); WHITE BLOOD COUNT 11.1 K/mm3 (4.0-10.0)
[2020-05-26] MEDS: levETIRAcetam 250 MG TABLET PO SCH ×2 (09:18→22:56)
[2020-05-26] MEDS: METOPROLOL TARTRATE 50 MG TABLET (FP) PO SCH ×2 (09:18→22:56)
[2020-05-26] MEDS ORDERED: ACETAMINOPHEN 325 MG TABLET (FP) PO PRN (09:49)
[2020-05-26 12:31] VITALS: BMI 24.7
[2020-05-26] MEDS ORDERED: INSULIN (NOVOLOG) ASPART 100 UNITS/ML 10ML VIAL ONE (21:46)
[2020-05-26] MEDS: ATORVASTATIN CA 10 MG TABLET (FP) PO SCH (22:56)
[2020-05-27] MEDS: INSULIN SLIDING SCALE (NOVOLOG) 1 VIAL SQ SCH ×4 (06:08→21:16)
[2020-05-27 08:07] LABS: BASO % 0.5 % (0-2.0); EOS % 3.1 % (0-4.5); HEMATOCRIT 34.4 % (32.4-45.2); HEMOGLOBIN 11.4 GM/dL (10.7-15.3); LYMPH % 30.7 % (8-40); MCH 27.2 pg (25.7-33.7); MCHC 33.1 g/dl (32.0-36.0); MEAN CELL VOLUME 82.4 fl (80-96); MEAN PLT VOLUME 8.8 fl (7.5-11.1); MONO % 4.9 % (3.8-10.2); NEUT % 60.8 % (42.8-82.8); PLATELET COUNT 165 K/MM3 (134-434); RBC 4.18 M/mm3 (3.60-5.2); RDW 14.5 % (11.6-15.6)
[2020-05-27 08:38] LABS: BILIRUBIN,TOTAL 0.5 mg/dL (0.2-1); BLOOD UREA NITROGEN 8.7 mg/dL (7-18); CALCIUM 8.5 mg/dL (8.5-10.1); CREATININE 0.8 mg/dL (0.55-1.3); TOT PROT 6.7 g/dl (6.4-8.2)
[2020-05-27] MEDS: levETIRAcetam 250 MG TABLET PO SCH ×2 (09:12→21:15)
[2020-05-27] MEDS: METOPROLOL TARTRATE 50 MG TABLET (FP) PO SCH ×2 (09:12→21:15)
[2020-05-27] MEDS: LACTATED RINGERS SOLUTION 1,000 ML IV SCH (10:28)
[2020-05-27] MEDS: ATORVASTATIN CA 10 MG TABLET (FP) PO SCH (21:15)
[2020-05-28] MEDS: INSULIN SLIDING SCALE (NOVOLOG) 1 VIAL SQ SCH ×4 (06:11→21:28)
[2020-05-28] MEDS: LACTATED RINGERS SOLUTION 1,000 ML IV SCH ×2 (06:29→11:30)
[2020-05-28 08:04] LABS: BASO % 0.7 % (0-2.0); EOS % 2.7 % (0-4.5); HEMATOCRIT 33.7 % (32.4-45.2); HEMOGLOBIN 11.1 GM/dL (10.7-15.3); LYMPH % 28.4 % (8-40); MCH 27.3 pg (25.7-33.7); MCHC 32.9 g/dl (32.0-36.0); MEAN CELL VOLUME 83.2 fl (80-96); MEAN PLT VOLUME 8.6 fl (7.5-11.1); NEUT % 62.2 % (42.8-82.8); PLATELET COUNT 156 K/MM3 (134-434); RBC 4.05 M/mm3 (3.60-5.2); RDW 14.2 % (11.6-15.6); WHITE BLOOD COUNT 9.1 K/mm3 (4.0-10.0)
[2020-05-28 08:27] LABS: BLOOD UREA NITROGEN 9.5 mg/dL (7-18); CALCIUM 8.7 mg/dL (8.5-10.1); CREATININE 0.8 mg/dL (0.55-1.3); POTASSIUM 4.1 mmol/L (3.5-5.1)
[2020-05-28] MEDS: METOPROLOL TARTRATE 50 MG TABLET (FP) PO SCH ×2 (09:07→21:30)
[2020-05-28] MEDS: levETIRAcetam 250 MG TABLET PO SCH ×2 (09:07→21:30)
[2020-05-28] MEDS ORDERED: INSULIN (NOVOLOG) ASPART 100 UNITS/ML 10ML VIAL ONE ×2 (11:35→20:47)
[2020-05-28] MEDS: ATORVASTATIN CA 10 MG TABLET (FP) PO SCH (21:30)
[2020-05-29] MEDS: LACTATED RINGERS SOLUTION 1,000 ML IV SCH ×4 (05:34→22:14)
[2020-05-29] MEDS: INSULIN SLIDING SCALE (NOVOLOG) 1 VIAL SQ SCH ×4 (06:03→22:22)
[2020-05-29 07:51] LABS: BASO % 0.8 % (0-2.0); EOS % 2.9 % (0-4.5); HEMATOCRIT 34.4 % (32.4-45.2); HEMOGLOBIN 11.3 GM/dL (10.7-15.3); LYMPH % 26.9 % (8-40); MCH 27.1 pg (25.7-33.7); MCHC 32.9 g/dl (32.0-36.0); MEAN CELL VOLUME 82.4 fl (80-96); MEAN PLT VOLUME 8.3 fl (7.5-11.1); MONO % 5.8 % (3.8-10.2); NEUT % 63.6 % (42.8-82.8); PLATELET COUNT 174 K/MM3 (134-434); RBC 4.17 M/mm3 (3.60-5.2); RDW 14.4 % (11.6-15.6); WHITE BLOOD COUNT 9.5 K/mm3 (4.0-10.0)
[2020-05-29 08:21] LABS: INR 1.03 (0.83-1.09); PROTHROMBIN TIME (PATIENT) 12.1 SEC (9.7-13.0)
[2020-05-29 08:24] LABS: ACTIVATED PTT 29.6 SECONDS (25.2-36.5)
[2020-05-29 08:40] LABS: BILIRUBIN,TOTAL 1.1 mg/dL (0.2-1); BLOOD UREA NITROGEN 9.2 mg/dL (7-18); CREATININE 0.8 mg/dL (0.55-1.3); MAGNESIUM 2.1 mg/dL (1.8-2.4); PHOSPHOROUS 4.2 mg/dL (2.5-4.9); TOT PROT 7.5 g/dl (6.4-8.2)
[2020-05-29] MEDS: levETIRAcetam 250 MG TABLET PO SCH ×2 (09:45→22:16)
[2020-05-29] MEDS: METOPROLOL TARTRATE 50 MG TABLET (FP) PO SCH ×2 (09:45→22:16)
[2020-05-29] MEDS ORDERED: PROPOFOL 20 ML ONE (14:23)
[2020-05-29] MEDS ORDERED: LIDOCAINE HCL/PF 2% SDV 5ML VIAL ONE (14:23)
[2020-05-29] MEDS ORDERED: ceFAZolin SODIUM 1 GM VIAL IVPB ONE (14:41)
[2020-05-29] MEDS ORDERED: ceFAZolin SODIUM 1 GM VIAL ONE (14:44)
[2020-05-29] MEDS ORDERED: ONDANSETRON 4 MG/2 ML VIAL IVPUSH PRN (14:49)
[2020-05-29] MEDS ORDERED: LACTATED RINGERS SOLUTION 1,000 ML IV SCH (15:00)
[2020-05-29] MEDS: ONDANSETRON 4 MG/2 ML VIAL IVPUSH PRN ×2 (16:42→18:21)
[2020-05-29] MEDS ORDERED: ONDANSETRON 4 MG/2 ML VIAL ONE (16:54)
[2020-05-29] MEDS: ACETAMINOPHEN 325 MG TABLET (FP) PO PRN (18:51)
[2020-05-29] MEDS ORDERED: ACETAMINOPHEN 325 MG TABLET (FP) PO ONE (20:26)
[2020-05-29] MEDS ORDERED: MORPHINE SULFATE 2 MG/ML VIAL IVPUSH ONE (20:42)
[2020-05-29] MEDS ORDERED: traMADol HCL 50 MG TABLET PO ONE (21:43)
[2020-05-29] MEDS: ATORVASTATIN CA 10 MG TABLET (FP) PO SCH (22:16)
[2020-05-29] MEDS ORDERED: MORPHINE SULFATE 2 MG/ML VIAL IVPUSH PRN (22:30)
[2020-05-30] MEDS ORDERED: ONDANSETRON 4 MG/2 ML VIAL IVPUSH ONE (02:13)
[2020-05-30] MEDS: ALBUTEROL SO4 HFA INHALER IH PRN ×2 (04:13→17:11)
[2020-05-30] MEDS ORDERED: ALBUTEROL SO4 2.5/IPRATROPIUM 0.5 INH SOL 3 ML VIAL.NEB. NEB ONE ×2 (05:27→22:38)
[2020-05-30] MEDS: INSULIN SLIDING SCALE (NOVOLOG) 1 VIAL SQ SCH ×4 (06:30→21:37)
[2020-05-30 07:40] LABS: BASO % 0.1 % (0-2.0); EOS % 0.1 % (0-4.5); HEMATOCRIT 34.1 % (32.4-45.2); HEMOGLOBIN 10.8 GM/dL (10.7-15.3); LYMPH % 8.2 % (8-40); MCH 26.9 pg (25.7-33.7); MCHC 31.8 g/dl (32.0-36.0); MEAN CELL VOLUME 84.5 fl (80-96); MEAN PLT VOLUME 8.7 fl (7.5-11.1); MONO % 2.5 % (3.8-10.2); NEUT % 89.1 % (42.8-82.8); PLATELET COUNT 171 K/MM3 (134-434); RBC 4.04 M/mm3 (3.60-5.2); RDW 14.6 % (11.6-15.6); WHITE BLOOD COUNT 14.8 K/mm3 (4.0-10.0)
[2020-05-30 08:05] LABS: ALBUMIN 2.6 g/dl (3.4-5.0); BILIRUBIN,TOTAL 0.9 mg/dL (0.2-1); BLOOD UREA NITROGEN 10.8 mg/dL (7-18); CALCIUM 7.8 mg/dL (8.5-10.1); CREATININE 0.9 mg/dL (0.55-1.3); POTASSIUM 3.8 mmol/L (3.5-5.1)
[2020-05-30] MEDS: METOPROLOL TARTRATE 50 MG TABLET (FP) PO SCH ×2 (09:20→21:34)
[2020-05-30] MEDS: levETIRAcetam 250 MG TABLET PO SCH ×2 (09:20→21:34)
[2020-05-30] MEDS: ACETAMINOPHEN 325 MG TABLET (FP) PO PRN ×2 (10:10→15:53)
[2020-05-30 12:41] LABS: ANISOCYTOSIS 0; MACROCYTOSIS 0; OVALOCYTE 1+; PLATELET ESTIMATE NORMAL
[2020-05-30] MEDS: oxyCODONE HCL 5 MG TABLET PO PRN (15:52)
[2020-05-30] MEDS ORDERED: HYDROmorphone HCl 2 MG/ML VIAL IM PRN (17:30)
[2020-05-30] MEDS: ATORVASTATIN CA 10 MG TABLET (FP) PO SCH (21:34)
[2020-05-30] MEDS ORDERED: ALBUTEROL SO4 0.083% IH SOL 2.5 MG/3 ML VIAL.NEB. NEB ONE (23:13)
[2020-05-31] MEDS: ALBUTEROL SO4 HFA INHALER IH PRN ×2 (04:53→23:05)
[2020-05-31] MEDS ORDERED: MAGNESIUM SULF 50% (8.12 MEQ/2 ML-1 GM VIAL) IVPB ONE (05:15)
[2020-05-31] MEDS: ACETAMINOPHEN 325 MG TABLET (FP) PO PRN (05:27)
[2020-05-31] MEDS: ALBUTEROL SO4 2.5/IPRATROPIUM 0.5 INH SOL 3 ML VIAL.NEB. NEB SCH ×3 (05:40→23:50)
[2020-05-31] MEDS: INSULIN SLIDING SCALE (NOVOLOG) 1 VIAL SQ SCH ×4 (06:46→22:57)
[2020-05-31 07:49] LABS: BASO % 0.1 % (0-2.0); EOS % 0.5 % (0-4.5); HEMATOCRIT 30.8 % (32.4-45.2); HEMOGLOBIN 10.1 GM/dL (10.7-15.3); LYMPH % 7.4 % (8-40); MCH 27.4 pg (25.7-33.7); MCHC 32.8 g/dl (32.0-36.0); MEAN CELL VOLUME 83.5 fl (80-96); MEAN PLT VOLUME 8.9 fl (7.5-11.1); MONO % 3.4 % (3.8-10.2); NEUT % 88.6 % (42.8-82.8); PLATELET COUNT 153 K/MM3 (134-434); RBC 3.68 M/mm3 (3.60-5.2); RDW 14.4 % (11.6-15.6); WHITE BLOOD COUNT 14.3 K/mm3 (4.0-10.0)
[2020-05-31 08:20] LABS: POTASSIUM 3.7 mmol/L (3.5-5.1)
[2020-05-31 08:44] LABS: ALBUMIN 2.4 g/dl (3.4-5.0); BILIRUBIN,TOTAL 0.8 mg/dL (0.2-1); BLOOD UREA NITROGEN 12.1 mg/dL (7-18); CALCIUM 8.1 mg/dL (8.5-10.1); CREATININE 0.8 mg/dL (0.55-1.3); MAGNESIUM 2.1 mg/dL (1.8-2.4); TOT PROT 5.8 g/dl (6.4-8.2)
[2020-05-31] MEDS: METOPROLOL TARTRATE 50 MG TABLET (FP) PO SCH ×2 (09:09→22:57)
[2020-05-31] MEDS: levETIRAcetam 250 MG TABLET PO SCH ×2 (09:09→22:57)
[2020-05-31] MEDS: oxyCODONE HCL 5 MG TABLET PO PRN ×2 (13:34→23:18)
[2020-05-31] MEDS ORDERED: FUROSEMIDE 40 MG/4 ML INJECTABLE VIAL IVPUSH ONE (16:18)
[2020-05-31] MEDS: HEPARIN NA (PORCINE) 5,000 UNITS/ML 1ML VIAL SQ SCH (22:57)
[2020-05-31] MEDS: ATORVASTATIN CA 10 MG TABLET (FP) PO SCH (22:57)
[2020-06-01] MEDS: ALBUTEROL SO4 2.5/IPRATROPIUM 0.5 INH SOL 3 ML VIAL.NEB. NEB SCH (00:05)
[2020-06-01] MEDS ORDERED: FUROSEMIDE 40 MG/4 ML INJECTABLE VIAL IVPUSH ONE (02:34)
[2020-06-01] MEDS ORDERED: METOPROLOL TARTRATE 25 MG TABLET (FP) PO ONE (03:00)
[2020-06-01] MEDS: oxyCODONE HCL 5 MG TABLET PO PRN (03:09)
[2020-06-01] MEDS ORDERED: ONDANSETRON 4 MG/2 ML VIAL IVPUSH ONE (04:46)
[2020-06-01] MEDS ORDERED: MORPHINE SULFATE 2 MG/ML VIAL IVPUSH ONE (04:47)
[2020-06-01] MEDS ORDERED: NYSTATIN 500,000 UNITS/5 ML SUSPENSION PO ONE (06:03)
[2020-06-01] MEDS: HEPARIN NA (PORCINE) 5,000 UNITS/ML 1ML VIAL SQ SCH ×3 (06:11→21:39)
[2020-06-01] MEDS ORDERED: ALBUTEROL SO4 HFA INHALER IH PRN (06:37)
[2020-06-01] MEDS ORDERED: HYDROmorphone HCl 2 MG/ML VIAL IM PRN (06:37)
[2020-06-01] MEDS ORDERED: oxyCODONE HCL 5 MG TABLET PO PRN (06:37)
[2020-06-01] MEDS ORDERED: METOPROLOL TARTRATE 5 MG/5 ML VIAL IVPUSH ONE (06:57)
[2020-06-01] MEDS: INSULIN SLIDING SCALE (NOVOLOG) 1 VIAL SQ SCH ×4 (07:01→22:00)
[2020-06-01 07:53] LABS: BASO % 0.5 % (0-2.0); EOS % 0.1 % (0-4.5); HEMATOCRIT 31.5 % (32.4-45.2); HEMOGLOBIN 10.3 GM/dL (10.7-15.3); LYMPH % 6.1 % (8-40); MCHC 32.6 g/dl (32.0-36.0); MEAN CELL VOLUME 82.8 fl (80-96); MONO % 3.9 % (3.8-10.2); NEUT % 89.4 % (42.8-82.8); PLATELET COUNT 211 K/MM3 (134-434); RBC 3.81 M/mm3 (3.60-5.2); RDW 14.5 % (11.6-15.6); WHITE BLOOD COUNT 14.6 K/mm3 (4.0-10.0)
[2020-06-01 08:29] LABS: POTASSIUM 3.3 mmol/L (3.5-5.1)
[2020-06-01 08:57] LABS: ALBUMIN 2.5 g/dl (3.4-5.0); BILIRUBIN,TOTAL 1.4 mg/dL (0.2-1); BLOOD UREA NITROGEN 12.3 mg/dL (7-18); CALCIUM 8.6 mg/dL (8.5-10.1); CREATININE 0.8 mg/dL (0.55-1.3); TOT PROT 6.2 g/dl (6.4-8.2)
[2020-06-01] MEDS: levETIRAcetam 250 MG TABLET PO SCH ×2 (09:42→21:40)
[2020-06-01] MEDS: KCL 10 MEQ IVPB 10 MEQ/100 ML INFUS.BAG IVPB SCH ×3 (09:42→12:28)
[2020-06-01] MEDS: METOPROLOL TARTRATE 50 MG TABLET (FP) PO SCH ×2 (09:42→21:40)
[2020-06-01 10:00] LABS: ANISOCYTOSIS 1+; MACROCYTOSIS 0; PLATELET ESTIMATE NORMAL
[2020-06-01] MEDS ORDERED: MEROPENEM 1 GM in DEXTROSE 5%-WATER 100 ML IVPB ONE (13:30)
[2020-06-01] MEDS ORDERED: DEXTROSE 5%-WATER 100 ML IVPB ONE ×2 (13:32→17:16)
[2020-06-01] MEDS ORDERED: MEROPENEM 1 GM VIAL (RESTRICTED TO ID) IVPB ONE ×2 (13:32→17:16)
[2020-06-01] MEDS: MEROPENEM 1 GM in DEXTROSE 5%-WATER 100 ML IVPB SCH (17:33)
[2020-06-01] MEDS: ATORVASTATIN CA 10 MG TABLET (FP) PO SCH (21:40)
[2020-06-02] MEDS ORDERED: MEROPENEM 1 GM VIAL (RESTRICTED TO ID) IVPB ONE ×3 (00:57→17:04)
[2020-06-02] MEDS ORDERED: DEXTROSE 5%-WATER 100 ML IVPB ONE ×3 (00:58→17:04)
[2020-06-02] MEDS: MEROPENEM 1 GM in DEXTROSE 5%-WATER 100 ML IVPB SCH ×3 (01:18→18:15)
[2020-06-02] MEDS: HEPARIN NA (PORCINE) 5,000 UNITS/ML 1ML VIAL SQ SCH ×3 (06:08→22:14)
[2020-06-02] MEDS: INSULIN SLIDING SCALE (NOVOLOG) 1 VIAL SQ SCH ×4 (07:19→22:16)
[2020-06-02 07:24] LABS: BASO % 0.4 % (0-2.0); EOS % 2.1 % (0-4.5); HEMATOCRIT 32.5 % (32.4-45.2); HEMOGLOBIN 10.5 GM/dL (10.7-15.3); MCHC 32.5 g/dl (32.0-36.0); MEAN CELL VOLUME 83.1 fl (80-96); MONO % 5.8 % (3.8-10.2); NEUT % 80.7 % (42.8-82.8); PLATELET COUNT 214 K/MM3 (134-434); RBC 3.91 M/mm3 (3.60-5.2); RDW 14.1 % (11.6-15.6); WHITE BLOOD COUNT 12.2 K/mm3 (4.0-10.0)
[2020-06-02 08:28] LABS: BLOOD UREA NITROGEN 15.2 mg/dL (7-18); CALCIUM 8.8 mg/dL (8.5-10.1); CREATININE 0.7 mg/dL (0.55-1.3)
[2020-06-02] MEDS ORDERED: HYDROmorphone HCl 2 MG/ML VIAL IM PRN (09:19)
[2020-06-02] MEDS: levETIRAcetam 250 MG TABLET PO SCH ×2 (09:24→22:15)
[2020-06-02] MEDS: METOPROLOL TARTRATE 50 MG TABLET (FP) PO SCH ×2 (09:24→22:16)
[2020-06-02] MEDS ORDERED: DOCUSATE SODIUM 100 MG CAPSULE (FP) PO PRN (11:47)
[2020-06-02] MEDS: ATORVASTATIN CA 10 MG TABLET (FP) PO SCH (22:16)
[2020-06-03] MEDS ORDERED: MEROPENEM 1 GM VIAL (RESTRICTED TO ID) IVPB ONE ×4 (02:12→20:55)
[2020-06-03] MEDS ORDERED: DEXTROSE 5%-WATER 100 ML IVPB ONE ×4 (02:12→20:55)
[2020-06-03] MEDS: MEROPENEM 1 GM in DEXTROSE 5%-WATER 100 ML IVPB SCH ×3 (02:15→17:18)
[2020-06-03] MEDS: HEPARIN NA (PORCINE) 5,000 UNITS/ML 1ML VIAL SQ SCH (05:21)
[2020-06-03 06:44] LABS: BASO % 0.2 % (0-2.0); EOS % 1.1 % (0-4.5); HEMATOCRIT 33.2 % (32.4-45.2); HEMOGLOBIN 10.8 GM/dL (10.7-15.3); LYMPH % 11.2 % (8-40); MCH 26.8 pg (25.7-33.7); MCHC 32.6 g/dl (32.0-36.0); MEAN CELL VOLUME 82.3 fl (80-96); MEAN PLT VOLUME 8.8 fl (7.5-11.1); MONO % 8.4 % (3.8-10.2); NEUT % 79.1 % (42.8-82.8); PLATELET COUNT 226 K/MM3 (134-434); RBC 4.03 M/mm3 (3.60-5.2); RDW 14.2 % (11.6-15.6); WHITE BLOOD COUNT 11.6 K/mm3 (4.0-10.0)
[2020-06-03] MEDS: INSULIN SLIDING SCALE (NOVOLOG) 1 VIAL SQ SCH ×4 (07:05→22:07)
[2020-06-03 07:08] LABS: BLOOD UREA NITROGEN 13.7 mg/dL (7-18); CALCIUM 8.4 mg/dL (8.5-10.1); CREATININE 0.7 mg/dL (0.55-1.3); POTASSIUM 3.8 mmol/L (3.5-5.1)
[2020-06-03] MEDS: levETIRAcetam 250 MG TABLET PO SCH ×2 (09:42→22:08)
[2020-06-03] MEDS: METOPROLOL TARTRATE 50 MG TABLET (FP) PO SCH ×2 (09:43→22:07)
[2020-06-03] MEDS ORDERED: PROPOFOL 20 ML ONE (10:52)
[2020-06-03] MEDS ORDERED: MIDAZOLAM HCL 2 MG/2 ML SINGLE DOSE VIAL ONE ×2 (10:53)
[2020-06-03] MEDS ORDERED: ROCURONIUM BROMIDE 50 MG/5 ML SYRINGE ONE (10:53)
[2020-06-03] MEDS ORDERED: PHENYLEPHRINE HCL 10 MG/1 ML SINGLE DOSE VIAL ONE (11:32)
[2020-06-03] MEDS ORDERED: ceFAZolin SODIUM 1 GM VIAL ONE (11:33)
[2020-06-03 11:35] LABS: INR 1.11 (0.83-1.09); PROTHROMBIN TIME (PATIENT) 13.1 SEC (9.7-13.0)
[2020-06-03] MEDS ORDERED: ceFAZolin SODIUM 1 GM VIAL IVPB ONE (11:35)
[2020-06-03] MEDS ORDERED: METOPROLOL TARTRATE 5 MG/5 ML VIAL ONE ×3 (11:54→13:16)
[2020-06-03] MEDS ORDERED: NEOSTIGMINE METHYLSULFATE 0.5 MG/ML - 10 ML MDV ONE (12:38)
[2020-06-03] MEDS ORDERED: GLYCOPYRROLATE 0.2 MG/1 ML VIAL ONE (12:38)
[2020-06-03 13:06] LABS: ANISOCYTOSIS 0; MACROCYTOSIS 0; PLATELET ESTIMATE NORMAL
[2020-06-03] MEDS ORDERED: LACTATED RINGERS SOLUTION 1,000 ML IV SCH (13:45)
[2020-06-03] MEDS: ACETAMINOPHEN 1000 MG/100 ML VIAL (NON FORMULARY) IVPB SCH ×2 (13:52→20:59)
[2020-06-03] MEDS: LACTATED RINGERS SOLUTION 1,000 ML IV SCH (17:18)
[2020-06-03] MEDS ORDERED: SODIUM CHLORIDE 250 ML IV STA (21:47)
[2020-06-03] MEDS: ATORVASTATIN CA 10 MG TABLET (FP) PO SCH (22:08)
[2020-06-03] MEDS ORDERED: levETIRAcetam 500 MG/5 ML INJECTION VIAL IVPB ONE (22:25)
[2020-06-03] MEDS ORDERED: METOPROLOL TARTRATE 5 MG/5 ML VIAL IVPUSH PRN (22:27)
[2020-06-04] MEDS: MEROPENEM 1 GM in DEXTROSE 5%-WATER 100 ML IVPB SCH ×3 (03:30→22:53)
[2020-06-04] MEDS: ACETAMINOPHEN 1000 MG/100 ML VIAL (NON FORMULARY) IVPB SCH ×2 (03:43→08:30)
[2020-06-04] MEDS: INSULIN SLIDING SCALE (NOVOLOG) 1 VIAL SQ SCH ×5 (06:21→23:54)
[2020-06-04 06:59] LABS: BASO % 0.5 % (0-2.0); EOS % 2.4 % (0-4.5); HEMATOCRIT 31.4 % (32.4-45.2); HEMOGLOBIN 10.4 GM/dL (10.7-15.3); MCH 27.3 pg (25.7-33.7); MCHC 33.1 g/dl (32.0-36.0); MEAN CELL VOLUME 82.3 fl (80-96); MEAN PLT VOLUME 8.3 fl (7.5-11.1); MONO % 9.4 % (3.8-10.2); NEUT % 74.7 % (42.8-82.8); PLATELET COUNT 260 K/MM3 (134-434); RBC 3.81 M/mm3 (3.60-5.2); RDW 14.1 % (11.6-15.6); WHITE BLOOD COUNT 10.9 K/mm3 (4.0-10.0)
[2020-06-04 07:22] LABS: ALBUMIN 1.9 g/dl (3.4-5.0); BILIRUBIN,TOTAL 0.6 mg/dL (0.2-1); BLOOD UREA NITROGEN 10.9 mg/dL (7-18); CREATININE 0.6 mg/dL (0.55-1.3); POTASSIUM 3.8 mmol/L (3.5-5.1); TOT PROT 5.6 g/dl (6.4-8.2)
[2020-06-04] MEDS ORDERED: MEROPENEM 1 GM VIAL (RESTRICTED TO ID) IVPB ONE (10:24)
[2020-06-04] MEDS ORDERED: DEXTROSE 5%-WATER 100 ML IVPB ONE (10:24)
[2020-06-04] MEDS: METOPROLOL TARTRATE 50 MG TABLET (FP) PO SCH ×2 (12:17→22:54)
[2020-06-04] MEDS: levETIRAcetam 250 MG TABLET PO SCH ×2 (12:17→22:53)
[2020-06-04 13:17] LABS: ANISOCYTOSIS 0; MACROCYTOSIS 0; PLATELET ESTIMATE NORMAL
[2020-06-04] MEDS ORDERED: HEPARIN NA (PORCINE) 5,000 UNITS/ML 1ML VIAL SQ SCH (14:00)
[2020-06-04] MEDS: ENOXAPARIN NA (PORCINE) 40 MG/0.4 ML DISP.SYRIN SQ SCH (14:00)
[2020-06-04] MEDS ORDERED: EPINEPHrine 1:10,000 (P-F SYR) 1 MG/10 ML DISP.SYRIN ONE (19:13)
[2020-06-04] MEDS: LACTATED RINGERS SOLUTION 1,000 ML IV SCH (22:53)
[2020-06-04] MEDS: ATORVASTATIN CA 10 MG TABLET (FP) PO SCH (22:54)
[2020-06-05] MEDS ORDERED: DEXTROSE 5%-WATER 100 ML IVPB ONE ×3 (02:03→17:42)
[2020-06-05] MEDS ORDERED: MEROPENEM 1 GM VIAL (RESTRICTED TO ID) IVPB ONE ×3 (02:03→17:41)
[2020-06-05] MEDS: MEROPENEM 1 GM in DEXTROSE 5%-WATER 100 ML IVPB SCH ×3 (04:00→17:58)
[2020-06-05 07:59] LABS: BLOOD UREA NITROGEN 11.6 mg/dL (7-18); CALCIUM 7.8 mg/dL (8.5-10.1); CREATININE 0.6 mg/dL (0.55-1.3); MAGNESIUM 1.9 mg/dL (1.8-2.4); PHOSPHOROUS 1.7 mg/dL (2.5-4.9); POTASSIUM 3.6 mmol/L (3.5-5.1)
[2020-06-05 08:58] LABS: BASO % 0.4 % (0-2.0); EOS % 2.2 % (0-4.5); HEMATOCRIT 30.8 % (32.4-45.2); LYMPH % 11.8 % (8-40); MCH 26.8 pg (25.7-33.7); MCHC 32.6 g/dl (32.0-36.0); MEAN CELL VOLUME 82.4 fl (80-96); MEAN PLT VOLUME 8.9 fl (7.5-11.1); MONO % 8.2 % (3.8-10.2); NEUT % 77.4 % (42.8-82.8); PLATELET COUNT 315 K/MM3 (134-434); RBC 3.74 M/mm3 (3.60-5.2); RDW 14.5 % (11.6-15.6); WHITE BLOOD COUNT 13.1 K/mm3 (4.0-10.0)
[2020-06-05] MEDS: INSULIN SLIDING SCALE (NOVOLOG) 1 VIAL SQ SCH ×4 (09:30→22:35)
[2020-06-05] MEDS: levETIRAcetam 250 MG TABLET PO SCH ×2 (09:44→22:10)
[2020-06-05] MEDS: METOPROLOL TARTRATE 50 MG TABLET (FP) PO SCH ×2 (09:44→22:10)
[2020-06-05] MEDS: ENOXAPARIN NA (PORCINE) 40 MG/0.4 ML DISP.SYRIN SQ SCH (09:45)
[2020-06-05 10:14] LABS: ANISOCYTOSIS 2+; MACROCYTOSIS 0; PLATELET ESTIMATE NORMAL
[2020-06-05] MEDS ORDERED: MAGNESIUM SULF 50% (8.12 MEQ/2 ML-1 GM VIAL) IVPB ONE (17:47)
[2020-06-05] MEDS: ACETAMINOPHEN 325 MG TABLET (FP) PO PRN (18:01)
[2020-06-05] MEDS: LACTATED RINGERS SOLUTION 1,000 ML IV SCH (18:19)
[2020-06-05] MEDS: ATORVASTATIN CA 10 MG TABLET (FP) PO SCH (22:10)
[2020-06-05] MEDS ORDERED: ACETAMINOPHEN 1000 MG/100 ML VIAL (NON FORMULARY) IVPB ONE (23:13)
[2020-06-06] MEDS ORDERED: MEROPENEM 1 GM VIAL (RESTRICTED TO ID) IVPB ONE ×3 (02:41→17:09)
[2020-06-06] MEDS: MEROPENEM 1 GM in DEXTROSE 5%-WATER 100 ML IVPB SCH ×3 (02:42→17:14)
[2020-06-06] MEDS ORDERED: DEXTROSE 5%-WATER 100 ML IVPB ONE ×3 (02:42→17:10)
[2020-06-06 06:20] LABS: BASO % 0.4 % (0-2.0); EOS % 2.5 % (0-4.5); HEMATOCRIT 31.9 % (32.4-45.2); HEMOGLOBIN 10.4 GM/dL (10.7-15.3); LYMPH % 14.2 % (8-40); MCH 26.9 pg (25.7-33.7); MCHC 32.7 g/dl (32.0-36.0); MEAN CELL VOLUME 82.2 fl (80-96); MEAN PLT VOLUME 7.7 fl (7.5-11.1); MONO % 7.2 % (3.8-10.2); NEUT % 75.7 % (42.8-82.8); PLATELET COUNT 307 K/MM3 (134-434); RBC 3.88 M/mm3 (3.60-5.2); RDW 14.3 % (11.6-15.6); WHITE BLOOD COUNT 11.9 K/mm3 (4.0-10.0)
[2020-06-06 06:37] LABS: BLOOD UREA NITROGEN 8.8 mg/dL (7-18); CALCIUM 7.8 mg/dL (8.5-10.1); CREATININE 0.6 mg/dL (0.55-1.3); POTASSIUM 3.7 mmol/L (3.5-5.1)
[2020-06-06] MEDS: INSULIN SLIDING SCALE (NOVOLOG) 1 VIAL SQ SCH ×4 (06:42→21:15)
[2020-06-06] MEDS: levETIRAcetam 250 MG TABLET PO SCH ×2 (09:45→21:14)
[2020-06-06] MEDS: METOPROLOL TARTRATE 50 MG TABLET (FP) PO SCH ×2 (09:45→21:14)
[2020-06-06] MEDS: ENOXAPARIN NA (PORCINE) 40 MG/0.4 ML DISP.SYRIN SQ SCH (09:45)
[2020-06-06] MEDS: LACTATED RINGERS SOLUTION 1,000 ML IV SCH (17:13)
[2020-06-06] MEDS: DOCUSATE SODIUM 100 MG CAPSULE (FP) PO SCH (21:14)
[2020-06-06] MEDS: ACETAMINOPHEN 325 MG TABLET (FP) PO PRN (21:15)
[2020-06-06] MEDS: ATORVASTATIN CA 10 MG TABLET (FP) PO SCH (21:15)
[2020-06-07] MEDS ORDERED: DEXTROSE 5%-WATER 100 ML IVPB ONE ×3 (02:05→16:00)
[2020-06-07] MEDS ORDERED: MEROPENEM 1 GM VIAL (RESTRICTED TO ID) IVPB ONE ×3 (02:05→16:00)
[2020-06-07] MEDS: MEROPENEM 1 GM in DEXTROSE 5%-WATER 100 ML IVPB SCH ×3 (02:07→17:04)
[2020-06-07] MEDS: INSULIN SLIDING SCALE (NOVOLOG) 1 VIAL SQ SCH ×4 (06:23→22:46)
[2020-06-07 06:43] LABS: BASO % 0.7 % (0-2.0); EOS % 0.9 % (0-4.5); HEMATOCRIT 34.2 % (32.4-45.2); HEMOGLOBIN 11.4 GM/dL (10.7-15.3); LYMPH % 8.3 % (8-40); MCH 27.5 pg (25.7-33.7); MCHC 33.4 g/dl (32.0-36.0); MEAN CELL VOLUME 82.5 fl (80-96); MONO % 5.3 % (3.8-10.2); NEUT % 84.8 % (42.8-82.8); PLATELET COUNT 387 K/MM3 (134-434); RBC 4.14 M/mm3 (3.60-5.2); RDW 14.3 % (11.6-15.6); WHITE BLOOD COUNT 13.3 K/mm3 (4.0-10.0)
[2020-06-07 06:58] LABS: BLOOD UREA NITROGEN 10.1 mg/dL (7-18); CALCIUM 7.9 mg/dL (8.5-10.1); CREATININE 0.6 mg/dL (0.55-1.3); POTASSIUM 3.5 mmol/L (3.5-5.1)
[2020-06-07] MEDS: levETIRAcetam 250 MG TABLET PO SCH ×2 (10:00→22:29)
[2020-06-07] MEDS: METOPROLOL TARTRATE 50 MG TABLET (FP) PO SCH ×2 (10:00→22:29)
[2020-06-07] MEDS: ENOXAPARIN NA (PORCINE) 40 MG/0.4 ML DISP.SYRIN SQ SCH (10:00)
[2020-06-07] MEDS: DOCUSATE SODIUM 100 MG CAPSULE (FP) PO SCH ×2 (10:00→22:29)
[2020-06-07 11:02] LABS: PHOSPHOROUS 1.5 mg/dL (2.5-4.9)
[2020-06-07 12:09] LABS: PLATELET ESTIMATE ADEQUATE
[2020-06-07] MEDS ORDERED: POTASSIUM PHOSPHATE 30 MM in SODIUM CHLORIDE 500 ML IVPB ONE (15:00)
[2020-06-07] MEDS: ATORVASTATIN CA 10 MG TABLET (FP) PO SCH (22:29)
[2020-06-07] MEDS: LACTATED RINGERS SOLUTION 1,000 ML IV SCH (22:46)
[2020-06-08] MEDS ORDERED: MEROPENEM 1 GM VIAL (RESTRICTED TO ID) IVPB ONE ×4 (01:26→21:19)
[2020-06-08] MEDS ORDERED: DEXTROSE 5%-WATER 100 ML IVPB ONE ×4 (01:26→21:19)
[2020-06-08] MEDS: MEROPENEM 1 GM in DEXTROSE 5%-WATER 100 ML IVPB SCH ×3 (02:43→17:06)
[2020-06-08] MEDS: INSULIN SLIDING SCALE (NOVOLOG) 1 VIAL SQ SCH ×4 (06:50→21:17)
[2020-06-08 07:06] LABS: BASO % 0.6 % (0-2.0); EOS % 1.2 % (0-4.5); HEMATOCRIT 33.5 % (32.4-45.2); HEMOGLOBIN 10.9 GM/dL (10.7-15.3); LYMPH % 13.4 % (8-40); MCH 26.8 pg (25.7-33.7); MCHC 32.5 g/dl (32.0-36.0); MEAN CELL VOLUME 82.5 fl (80-96); MEAN PLT VOLUME 7.8 fl (7.5-11.1); MONO % 6.1 % (3.8-10.2); NEUT % 78.7 % (42.8-82.8); PLATELET COUNT 432 K/MM3 (134-434); RBC 4.06 M/mm3 (3.60-5.2); RDW 14.5 % (11.6-15.6); WHITE BLOOD COUNT 12.9 K/mm3 (4.0-10.0)
[2020-06-08 07:29] LABS: ALBUMIN 2.1 g/dl (3.4-5.0); BLOOD UREA NITROGEN 9.3 mg/dL (7-18); CALCIUM 8.1 mg/dL (8.5-10.1); CREATININE 0.5 mg/dL (0.55-1.3); MAGNESIUM 2.1 mg/dL (1.8-2.4); PHOSPHOROUS 2.2 mg/dL (2.5-4.9); POTASSIUM 3.7 mmol/L (3.5-5.1); TOT PROT 6.3 g/dl (6.4-8.2)
[2020-06-08 07:43] LABS: BILIRUBIN,TOTAL 0.3 mg/dL (0.2-1)
[2020-06-08] MEDS: levETIRAcetam 250 MG TABLET PO SCH ×2 (09:35→21:23)
[2020-06-08] MEDS: METOPROLOL TARTRATE 50 MG TABLET (FP) PO SCH ×2 (09:35→21:23)
[2020-06-08] MEDS: NAPH,MB-DB/K PH,MBDB POWDER PACKET PO SCH ×2 (09:35→21:24)
[2020-06-08] MEDS: DOCUSATE SODIUM 100 MG CAPSULE (FP) PO SCH (09:35)
[2020-06-08] MEDS: ENOXAPARIN NA (PORCINE) 40 MG/0.4 ML DISP.SYRIN SQ SCH (09:35)
[2020-06-08] MEDS ORDERED: POTASSIUM PHOSPHATE 15 MM in SODIUM CHLORIDE 250 ML IVPB ONE (10:00)
[2020-06-08] MEDS: POLYETHYLENE GLYCOL 3350 119 GM BTL PO SCH (14:58)
[2020-06-08] MEDS: LACTATED RINGERS SOLUTION 1,000 ML IV SCH (17:12)
[2020-06-08] MEDS ORDERED: PT OWN MED DRAWER 7, Y5N ONE (21:20)
[2020-06-08] MEDS: ATORVASTATIN CA 10 MG TABLET (FP) PO SCH (21:23)
[2020-06-08] MEDS: ACETAMINOPHEN 325 MG TABLET (FP) PO PRN (21:33)
[2020-06-09] MEDS ORDERED: METOPROLOL TARTRATE 25 MG TABLET (FP) PO ONE (02:04)
[2020-06-09] MEDS ORDERED: ACETAMINOPHEN 1000 MG/100 ML VIAL (NON FORMULARY) IVPB ONE (02:07)
[2020-06-09] MEDS ORDERED: NITROGLYCERIN 25MG/D5W 250ML 25 MG/250 ML ML IVPB ONE (02:09)
[2020-06-09] MEDS: MEROPENEM 1 GM in DEXTROSE 5%-WATER 100 ML IVPB SCH ×3 (02:17→17:39)
[2020-06-09] MEDS: INSULIN SLIDING SCALE (NOVOLOG) 1 VIAL SQ SCH ×4 (06:10→21:18)
[2020-06-09 06:50] LABS: BASO % 0.6 % (0-2.0); EOS % 1.4 % (0-4.5); HEMATOCRIT 34.9 % (32.4-45.2); HEMOGLOBIN 11.4 GM/dL (10.7-15.3); LYMPH % 11.5 % (8-40); MCH 26.9 pg (25.7-33.7); MCHC 32.5 g/dl (32.0-36.0); MEAN CELL VOLUME 82.7 fl (80-96); MEAN PLT VOLUME 7.6 fl (7.5-11.1); MONO % 5.3 % (3.8-10.2); NEUT % 81.2 % (42.8-82.8); PLATELET COUNT 477 K/MM3 (134-434); RBC 4.22 M/mm3 (3.60-5.2); RDW 14.8 % (11.6-15.6); WHITE BLOOD COUNT 11.8 K/mm3 (4.0-10.0)
[2020-06-09 07:12] LABS: BLOOD UREA NITROGEN 9.2 mg/dL (7-18); CALCIUM 8.3 mg/dL (8.5-10.1); CREATININE 0.7 mg/dL (0.55-1.3); MAGNESIUM 2.1 mg/dL (1.8-2.4); PHOSPHOROUS 2.6 mg/dL (2.5-4.9); POTASSIUM 4.1 mmol/L (3.5-5.1)
[2020-06-09] MEDS ORDERED: MEROPENEM 1 GM VIAL (RESTRICTED TO ID) IVPB ONE ×3 (09:52→21:12)
[2020-06-09] MEDS ORDERED: DEXTROSE 5%-WATER 100 ML IVPB ONE ×3 (09:52→21:12)
[2020-06-09] MEDS: METOPROLOL TARTRATE 50 MG TABLET (FP) PO SCH ×2 (09:56→21:16)
[2020-06-09] MEDS: levETIRAcetam 250 MG TABLET PO SCH ×2 (09:57→21:16)
[2020-06-09] MEDS: ENOXAPARIN NA (PORCINE) 40 MG/0.4 ML DISP.SYRIN SQ SCH (09:57)
[2020-06-09] MEDS: POLYETHYLENE GLYCOL 3350 119 GM BTL PO SCH (09:57)
[2020-06-09 10:18] LABS: ANISOCYTOSIS 1+; MACROCYTOSIS 0; OVALOCYTE 1+; PLATELET ESTIMATE NORMAL; TEAR DROP CELLS 1+
[2020-06-09] MEDS: LACTATED RINGERS SOLUTION 1,000 ML IV SCH (17:40)
[2020-06-09] MEDS: ACETAMINOPHEN 325 MG TABLET (FP) PO PRN (21:15)
[2020-06-09] MEDS: ATORVASTATIN CA 10 MG TABLET (FP) PO SCH (21:16)
[2020-06-10] MEDS: MEROPENEM 1 GM in DEXTROSE 5%-WATER 100 ML IVPB SCH ×3 (01:01→17:53)
[2020-06-10] MEDS: INSULIN SLIDING SCALE (NOVOLOG) 1 VIAL SQ SCH ×4 (06:22→21:09)
[2020-06-10 06:33] LABS: BASO % 0.4 % (0-2.0); EOS % 2.5 % (0-4.5); HEMATOCRIT 34.1 % (32.4-45.2); HEMOGLOBIN 11.2 GM/dL (10.7-15.3); LYMPH % 18.5 % (8-40); MCH 26.7 pg (25.7-33.7); MCHC 32.8 g/dl (32.0-36.0); MEAN CELL VOLUME 81.3 fl (80-96); MEAN PLT VOLUME 7.4 fl (7.5-11.1); MONO % 5.7 % (3.8-10.2); NEUT % 72.9 % (42.8-82.8); PLATELET COUNT 500 K/MM3 (134-434); RDW 14.7 % (11.6-15.6); WHITE BLOOD COUNT 14.9 K/mm3 (4.0-10.0)
[2020-06-10 07:03] LABS: BLOOD UREA NITROGEN 9.3 mg/dL (7-18); CALCIUM 8.6 mg/dL (8.5-10.1); CREATININE 0.6 mg/dL (0.55-1.3); MAGNESIUM 2.3 mg/dL (1.8-2.4); PHOSPHOROUS 2.8 mg/dL (2.5-4.9); POTASSIUM 3.9 mmol/L (3.5-5.1)
[2020-06-10] MEDS ORDERED: MEROPENEM 1 GM VIAL (RESTRICTED TO ID) IVPB ONE ×2 (09:14→17:18)
[2020-06-10] MEDS ORDERED: DEXTROSE 5%-WATER 100 ML IVPB ONE ×2 (09:14→17:18)
[2020-06-10] MEDS ORDERED: VANCOMYCIN 1 GRAM (PRE-DOCKED) 1,000 MG/250 ML BAG IVPB ONE (09:30)
[2020-06-10] MEDS: METOPROLOL TARTRATE 50 MG TABLET (FP) PO SCH ×2 (09:35→21:06)
[2020-06-10] MEDS: levETIRAcetam 250 MG TABLET PO SCH ×2 (09:35→21:06)
[2020-06-10] MEDS: ENOXAPARIN NA (PORCINE) 40 MG/0.4 ML DISP.SYRIN SQ SCH (09:35)
[2020-06-10] MEDS: POLYETHYLENE GLYCOL 3350 119 GM BTL PO SCH (09:36)
[2020-06-10] MEDS: LACTATED RINGERS SOLUTION 1,000 ML IV SCH (17:53)
[2020-06-10] MEDS: ATORVASTATIN CA 10 MG TABLET (FP) PO SCH (21:06)
[2020-06-11] MEDS ORDERED: MEROPENEM 1 GM VIAL (RESTRICTED TO ID) IVPB ONE ×3 (01:06→17:17)
[2020-06-11] MEDS ORDERED: DEXTROSE 5%-WATER 100 ML IVPB ONE ×3 (01:06→17:17)
[2020-06-11] MEDS: MEROPENEM 1 GM in DEXTROSE 5%-WATER 100 ML IVPB SCH ×3 (01:19→17:30)
[2020-06-11] MEDS: INSULIN SLIDING SCALE (NOVOLOG) 1 VIAL SQ SCH ×4 (06:12→21:24)
[2020-06-11 07:03] LABS: BASO % 0.8 % (0-2.0); EOS % 2.7 % (0-4.5); HEMATOCRIT 33.1 % (32.4-45.2); HEMOGLOBIN 10.7 GM/dL (10.7-15.3); LYMPH % 20.7 % (8-40); MCH 26.5 pg (25.7-33.7); MCHC 32.3 g/dl (32.0-36.0); MEAN CELL VOLUME 81.9 fl (80-96); MEAN PLT VOLUME 7.4 fl (7.5-11.1); MONO % 6.2 % (3.8-10.2); NEUT % 69.6 % (42.8-82.8); PLATELET COUNT 535 K/MM3 (134-434); RBC 4.04 M/mm3 (3.60-5.2); RDW 14.5 % (11.6-15.6)
[2020-06-11 07:18] LABS: ALBUMIN 2.2 g/dl (3.4-5.0); BILIRUBIN,TOTAL 0.6 mg/dL (0.2-1); BLOOD UREA NITROGEN 12.6 mg/dL (7-18); CALCIUM 8.3 mg/dL (8.5-10.1); CREATININE 0.6 mg/dL (0.55-1.3); MAGNESIUM 2.2 mg/dL (1.8-2.4); PHOSPHOROUS 2.5 mg/dL (2.5-4.9); POTASSIUM 4.3 mmol/L (3.5-5.1); TOT PROT 6.2 g/dl (6.4-8.2)
[2020-06-11] MEDS: ENOXAPARIN NA (PORCINE) 40 MG/0.4 ML DISP.SYRIN SQ SCH (09:45)
[2020-06-11] MEDS: METOPROLOL TARTRATE 50 MG TABLET (FP) PO SCH ×2 (09:46→21:27)
[2020-06-11] MEDS: levETIRAcetam 250 MG TABLET PO SCH ×2 (09:46→21:27)
[2020-06-11] MEDS: POLYETHYLENE GLYCOL 3350 119 GM BTL PO SCH (11:27)
[2020-06-11] MEDS ORDERED: VANCOMYCIN 1 GRAM (PRE-DOCKED) 1 GM/250 ML BAG IVPB ONE (11:30)
[2020-06-11] MEDS ORDERED: VANCOMYCIN 1,000 MG in DEXTROSE 5%-WATER - 250 ML IVPB SCH (13:45)
[2020-06-11] MEDS: LACTATED RINGERS SOLUTION 1,000 ML IV SCH (17:29)
[2020-06-11] MEDS: ATORVASTATIN CA 10 MG TABLET (FP) PO SCH (21:27)
[2020-06-12] MEDS ORDERED: DEXTROSE 5%-WATER 100 ML IVPB ONE ×3 (01:50→16:23)
[2020-06-12] MEDS ORDERED: MEROPENEM 1 GM VIAL (RESTRICTED TO ID) IVPB ONE ×3 (01:50→16:23)
[2020-06-12] MEDS: MEROPENEM 1 GM in DEXTROSE 5%-WATER 100 ML IVPB SCH ×3 (01:54→18:30)
[2020-06-12] MEDS ORDERED: INSULIN (LEVEMIR) 100 UNITS/ML UNITS SQ SCH (06:00)
[2020-06-12] MEDS: INSULIN (LEVEMIR) 100 UNITS/ML UNITS SQ SCH (06:16)
[2020-06-12] MEDS: INSULIN SLIDING SCALE (NOVOLOG) 1 VIAL SQ SCH ×4 (06:16→22:02)
[2020-06-12 06:42] LABS: BASO % 1.1 % (0-2.0); EOS % 3.9 % (0-4.5); HEMATOCRIT 32.7 % (32.4-45.2); HEMOGLOBIN 10.6 GM/dL (10.7-15.3); LYMPH % 24.9 % (8-40); MCH 26.6 pg (25.7-33.7); MCHC 32.4 g/dl (32.0-36.0); MEAN CELL VOLUME 82.1 fl (80-96); MEAN PLT VOLUME 7.4 fl (7.5-11.1); MONO % 6.8 % (3.8-10.2); NEUT % 63.3 % (42.8-82.8); PLATELET COUNT 479 K/MM3 (134-434); RBC 3.98 M/mm3 (3.60-5.2); RDW 14.9 % (11.6-15.6); WHITE BLOOD COUNT 9.8 K/mm3 (4.0-10.0)
[2020-06-12 07:22] LABS: ALBUMIN 2.2 g/dl (3.4-5.0); BILIRUBIN,TOTAL 0.6 mg/dL (0.2-1); BLOOD UREA NITROGEN 9.1 mg/dL (7-18); CALCIUM 8.5 mg/dL (8.5-10.1); CREATININE 0.7 mg/dL (0.55-1.3); PHOSPHOROUS 2.5 mg/dL (2.5-4.9); POTASSIUM 4.7 mmol/L (3.5-5.1); TOT PROT 6.3 g/dl (6.4-8.2)
[2020-06-12] MEDS: VANCOMYCIN 1 GRAM (PRE-DOCKED) 1 GM/250 ML BAG IVPB SCH (09:32)
[2020-06-12] MEDS: levETIRAcetam 250 MG TABLET PO SCH ×2 (09:34→21:25)
[2020-06-12] MEDS: ENOXAPARIN NA (PORCINE) 40 MG/0.4 ML DISP.SYRIN SQ SCH (09:34)
[2020-06-12] MEDS: METOPROLOL TARTRATE 50 MG TABLET (FP) PO SCH ×2 (09:34→21:25)
[2020-06-12] MEDS: POLYETHYLENE GLYCOL 3350 119 GM BTL PO SCH (14:04)
[2020-06-12] MEDS: LACTATED RINGERS SOLUTION 1,000 ML IV SCH (16:24)
[2020-06-12] MEDS: ATORVASTATIN CA 10 MG TABLET (FP) PO SCH (21:25)
[2020-06-13] MEDS ORDERED: MEROPENEM 1 GM VIAL (RESTRICTED TO ID) IVPB ONE ×3 (00:57→17:53)
[2020-06-13] MEDS ORDERED: DEXTROSE 5%-WATER 100 ML IVPB ONE ×3 (00:57→17:53)
[2020-06-13] MEDS: MEROPENEM 1 GM in DEXTROSE 5%-WATER 100 ML IVPB SCH ×3 (01:12→18:10)
[2020-06-13 06:31] LABS: BASO % 1.2 % (0-2.0); EOS % 3.5 % (0-4.5); HEMATOCRIT 31.8 % (32.4-45.2); HEMOGLOBIN 10.5 GM/dL (10.7-15.3); LYMPH % 29.7 % (8-40); MEAN CELL VOLUME 81.7 fl (80-96); MEAN PLT VOLUME 7.6 fl (7.5-11.1); MONO % 7.7 % (3.8-10.2); NEUT % 57.9 % (42.8-82.8); PLATELET COUNT 459 K/MM3 (134-434); RDW 14.7 % (11.6-15.6); WHITE BLOOD COUNT 9.2 K/mm3 (4.0-10.0)
[2020-06-13 07:02] LABS: ALBUMIN 2.3 g/dl (3.4-5.0); BILIRUBIN,TOTAL 0.4 mg/dL (0.2-1); BLOOD UREA NITROGEN 7.7 mg/dL (7-18); CALCIUM 8.5 mg/dL (8.5-10.1); CREATININE 0.6 mg/dL (0.55-1.3); PHOSPHOROUS 2.2 mg/dL (2.5-4.9); POTASSIUM 4.1 mmol/L (3.5-5.1); TOT PROT 6.2 g/dl (6.4-8.2)
[2020-06-13] MEDS ORDERED: NAPH,MB-DB/K PH,MBDB POWDER PACKET PO ONE (07:30)
[2020-06-13] MEDS: INSULIN (LEVEMIR) 100 UNITS/ML UNITS SQ SCH (08:21)
[2020-06-13] MEDS: INSULIN SLIDING SCALE (NOVOLOG) 1 VIAL SQ SCH ×4 (08:22→22:33)
[2020-06-13] MEDS: VANCOMYCIN 1 GRAM (PRE-DOCKED) 1 GM/250 ML BAG IVPB SCH (08:45)
[2020-06-13] MEDS: ENOXAPARIN NA (PORCINE) 40 MG/0.4 ML DISP.SYRIN SQ SCH (09:34)
[2020-06-13] MEDS: levETIRAcetam 250 MG TABLET PO SCH ×2 (09:34→21:16)
[2020-06-13] MEDS: POLYETHYLENE GLYCOL 3350 119 GM BTL PO SCH (09:34)
[2020-06-13] MEDS: METOPROLOL TARTRATE 50 MG TABLET (FP) PO SCH ×2 (09:34→21:16)
[2020-06-13] MEDS: LACTATED RINGERS SOLUTION 1,000 ML IV SCH (18:10)
[2020-06-13] MEDS: ATORVASTATIN CA 10 MG TABLET (FP) PO SCH (21:16)
[2020-06-14] MEDS ORDERED: MEROPENEM 1 GM VIAL (RESTRICTED TO ID) IVPB ONE ×3 (01:14→17:20)
[2020-06-14] MEDS ORDERED: DEXTROSE 5%-WATER 100 ML IVPB ONE ×3 (01:15→17:21)
[2020-06-14] MEDS: MEROPENEM 1 GM in DEXTROSE 5%-WATER 100 ML IVPB SCH ×3 (01:22→17:16)
[2020-06-14] MEDS: INSULIN SLIDING SCALE (NOVOLOG) 1 VIAL SQ SCH ×4 (07:11→21:52)
[2020-06-14] MEDS: INSULIN (LEVEMIR) 100 UNITS/ML UNITS SQ SCH (07:11)
[2020-06-14 07:42] LABS: EOS % 2.9 % (0-4.5); HEMATOCRIT 32.3 % (32.4-45.2); HEMOGLOBIN 10.7 GM/dL (10.7-15.3); LYMPH % 28.3 % (8-40); MCH 27.3 pg (25.7-33.7); MCHC 33.2 g/dl (32.0-36.0); MEAN CELL VOLUME 82.2 fl (80-96); MEAN PLT VOLUME 7.8 fl (7.5-11.1); MONO % 7.5 % (3.8-10.2); NEUT % 60.3 % (42.8-82.8); PLATELET COUNT 479 K/MM3 (134-434); RBC 3.93 M/mm3 (3.60-5.2); RDW 14.6 % (11.6-15.6); WHITE BLOOD COUNT 8.8 K/mm3 (4.0-10.0)
[2020-06-14 08:01] LABS: BLOOD UREA NITROGEN 8.6 mg/dL (7-18); CREATININE 0.7 mg/dL (0.55-1.3); PHOSPHOROUS 2.4 mg/dL (2.5-4.9); POTASSIUM 4.3 mmol/L (3.5-5.1)
[2020-06-14] MEDS ORDERED: NAPH,MB-DB/K PH,MBDB POWDER PACKET PO ONE (08:45)
[2020-06-14] MEDS: METOPROLOL TARTRATE 50 MG TABLET (FP) PO SCH ×2 (10:35→21:52)
[2020-06-14] MEDS: ENOXAPARIN NA (PORCINE) 40 MG/0.4 ML DISP.SYRIN SQ SCH (10:35)
[2020-06-14] MEDS: VANCOMYCIN 1 GRAM (PRE-DOCKED) 1 GM/250 ML BAG IVPB SCH (10:35)
[2020-06-14] MEDS: levETIRAcetam 250 MG TABLET PO SCH ×2 (10:35→21:52)
[2020-06-14] MEDS: POLYETHYLENE GLYCOL 3350 119 GM BTL PO SCH (10:35)
[2020-06-14] MEDS: LACTATED RINGERS SOLUTION 1,000 ML IV SCH ×2 (17:16→21:53)
[2020-06-14] MEDS: ATORVASTATIN CA 10 MG TABLET (FP) PO SCH (21:52)
[2020-06-15] MEDS ORDERED: MEROPENEM 1 GM VIAL (RESTRICTED TO ID) IVPB ONE ×3 (01:15→16:58)
[2020-06-15] MEDS ORDERED: DEXTROSE 5%-WATER 100 ML IVPB ONE ×3 (01:15→16:59)
[2020-06-15] MEDS: MEROPENEM 1 GM in DEXTROSE 5%-WATER 100 ML IVPB SCH ×3 (01:29→17:01)
[2020-06-15] MEDS: INSULIN (LEVEMIR) 100 UNITS/ML UNITS SQ SCH (06:38)
[2020-06-15] MEDS: INSULIN SLIDING SCALE (NOVOLOG) 1 VIAL SQ SCH ×4 (06:39→21:48)
[2020-06-15 06:56] LABS: BASO % 1.3 % (0-2.0); EOS % 2.9 % (0-4.5); HEMOGLOBIN 10.8 GM/dL (10.7-15.3); LYMPH % 27.5 % (8-40); MCH 27.1 pg (25.7-33.7); MCHC 32.8 g/dl (32.0-36.0); MEAN CELL VOLUME 82.7 fl (80-96); MEAN PLT VOLUME 7.7 fl (7.5-11.1); MONO % 7.4 % (3.8-10.2); NEUT % 60.9 % (42.8-82.8); PLATELET COUNT 473 K/MM3 (134-434)
[2020-06-15 07:29] LABS: CALCIUM 8.8 mg/dL (8.5-10.1); CREATININE 0.8 mg/dL (0.55-1.3); PHOSPHOROUS 2.7 mg/dL (2.5-4.9); POTASSIUM 4.5 mmol/L (3.5-5.1)
[2020-06-15] MEDS: levETIRAcetam 250 MG TABLET PO SCH ×2 (11:21→21:45)
[2020-06-15] MEDS: METOPROLOL TARTRATE 50 MG TABLET (FP) PO SCH ×2 (11:22→21:45)
[2020-06-15] MEDS: ENOXAPARIN NA (PORCINE) 40 MG/0.4 ML DISP.SYRIN SQ SCH (11:22)
[2020-06-15] MEDS: VANCOMYCIN 1 GRAM (PRE-DOCKED) 1 GM/250 ML BAG IVPB SCH (12:16)
[2020-06-15] MEDS: POLYETHYLENE GLYCOL 3350 119 GM BTL PO SCH (12:23)
[2020-06-15] MEDS: LACTATED RINGERS SOLUTION 1,000 ML IV SCH (17:06)
[2020-06-15] MEDS: ACETAMINOPHEN 325 MG TABLET (FP) PO PRN (21:45)
[2020-06-15] MEDS: ATORVASTATIN CA 10 MG TABLET (FP) PO SCH (21:45)
[2020-06-16] MEDS ORDERED: DEXTROSE 5%-WATER 100 ML IVPB ONE ×2 (00:31→08:40)
[2020-06-16] MEDS ORDERED: MEROPENEM 1 GM VIAL (RESTRICTED TO ID) IVPB ONE ×2 (00:31→08:39)
[2020-06-16] MEDS: MEROPENEM 1 GM in DEXTROSE 5%-WATER 100 ML IVPB SCH ×2 (01:15→09:00)
[2020-06-16 06:18] LABS: BASO % 0.3 % (0-2.0); HEMATOCRIT 33.6 % (32.4-45.2); HEMOGLOBIN 11.1 GM/dL (10.7-15.3); LYMPH % 31.8 % (8-40); MCH 27.5 pg (25.7-33.7); MEAN CELL VOLUME 83.2 fl (80-96); MEAN PLT VOLUME 7.3 fl (7.5-11.1); MONO % 7.1 % (3.8-10.2); NEUT % 56.8 % (42.8-82.8); PLATELET COUNT 431 K/MM3 (134-434); RBC 4.04 M/mm3 (3.60-5.2); RDW 15.2 % (11.6-15.6); WHITE BLOOD COUNT 8.9 K/mm3 (4.0-10.0)
[2020-06-16] MEDS: INSULIN (LEVEMIR) 100 UNITS/ML UNITS SQ SCH (06:28)
[2020-06-16] MEDS: INSULIN SLIDING SCALE (NOVOLOG) 1 VIAL SQ SCH ×3 (06:29→16:42)
[2020-06-16 06:42] LABS: BLOOD UREA NITROGEN 10.8 mg/dL (7-18); CALCIUM 8.7 mg/dL (8.5-10.1); CREATININE 0.8 mg/dL (0.55-1.3); POTASSIUM 4.9 mmol/L (3.5-5.1)
[2020-06-16] MEDS: ENOXAPARIN NA (PORCINE) 40 MG/0.4 ML DISP.SYRIN SQ SCH (08:59)
[2020-06-16] MEDS: VANCOMYCIN 1 GRAM (PRE-DOCKED) 1 GM/250 ML BAG IVPB SCH (08:59)
[2020-06-16] MEDS: levETIRAcetam 250 MG TABLET PO SCH (09:00)
[2020-06-16] MEDS: METOPROLOL TARTRATE 50 MG TABLET (FP) PO SCH (09:01)
[2020-06-16] MEDS: POLYETHYLENE GLYCOL 3350 119 GM BTL PO SCH (09:02)
[2020-06-16] MEDS: ACETAMINOPHEN 325 MG TABLET (FP) PO PRN (14:42)
[2020-06-16 16:09] VITALS: TEMP 98.9
[2020-06-16 16:11] VITALS: BP 142/74; PULSE 77
[2020-07-25] MEDS ORDERED: INSULIN SLIDING SCALE (NOVOLOG) 1 VIAL SQ SCH (16:30)
== END 2020-06-16 20:00 | DRG 441 ==
LOC: JER 03:54 → JERBED 04:29 → J7W 23:15 → JICU 06-01 07:21
PROVIDERS: ATTEND Internal Medicine
PROC: 0TBB8ZZ Excision of Bladder, Via Natural or Artificial Opening Endoscopic (ICD-10-PCS; 2020-05-29)
PROC: 0TBC8ZZ Excision of Bladder Neck, Via Natural or Artificial Opening Endoscopic (ICD-10-PCS; 2020-05-29)
PROC: 0T5C8ZZ Destruction of Bladder Neck, Via Natural or Artificial Opening Endoscopic (ICD-10-PCS; principal; 2020-05-29 14:30)
PROC: 0T5B8ZZ Destruction of Bladder, Via Natural or Artificial Opening Endoscopic (ICD-10-PCS; 2020-05-29 14:30)
PROC: 0TQB0ZZ Repair Bladder, Open Approach (ICD-10-PCS; 2020-06-03)
PROC: 0TJB8ZZ Inspection of Bladder, Via Natural or Artificial Opening Endoscopic (ICD-10-PCS; 2020-06-03)
PROC: 3E1K88Z Irrigation of Genitourinary Tract using Irrigating Substance, Via Natural or Artificial Opening Endoscopic (ICD-10-PCS; 2020-06-03)
DX: C67.1 Malignant neoplasm of dome of bladder (principal); E11.9 Type 2 diabetes mellitus without complications; I25.10 Atherosclerotic heart disease of native coronary artery without angina pectoris; E78.5 Hyperlipidemia, unspecified; J45.909 Unspecified asthma, uncomplicated; M51.26 Other intervertebral disc displacement, lumbar region; G40.909 Epilepsy, unspecified, not intractable, without status epilepticus; J98.11 Atelectasis; R33.9 Retention of urine, unspecified; I77.819 Aortic ectasia, unspecified site; I27.20 Pulmonary hypertension, unspecified; N32.89 Other specified disorders of bladder; N99.89 Other postprocedural complications and disorders of genitourinary system; N39.0 Urinary tract infection, site not specified; R16.2 Hepatomegaly with splenomegaly, not elsewhere classified; F05 Delirium due to known physiological condition; E87.1 Hypo-osmolality and hyponatremia; A41.51 Sepsis due to Escherichia coli [E. coli]; R58 Hemorrhage, not elsewhere classified; R94.31 Abnormal electrocardiogram [ECG] [EKG]; R00.0 Tachycardia, unspecified; R50.9 Fever, unspecified; I11.0 Hypertensive heart disease with heart failure; I50.31 Acute diastolic (congestive) heart failure; K59.09 Other constipation; E83.39 Other disorders of phosphorus metabolism; B96.1 Klebsiella pneumoniae [K. pneumoniae] as the cause of diseases classified elsewhere; B95.2 Enterococcus as the cause of diseases classified elsewhere; T81.44XA Sepsis following a procedure, initial encounter; Y83.8 Other surgical procedures as the cause of abnormal reaction of the patient, or of later complication, without mention of misadventure at the time of the procedure; R31.0 Gross hematuria; E11.65 Type 2 diabetes mellitus with hyperglycemia
CPT/HCPCS: 36415; 71045-TC-FY; 74018-TC-FY; 74176-TC; 74177-TC; 80048; 80053; 81003; 82550; 82962; 83605; 83690; 83735; 84100; 84484; 85025; 85027; 85610; 85730; 86850; 86900; 86901; 86922; 87040; 87086; 87186; 88307-TC; 93005; 93010; 93306-TC; 94640; 94760; 97116-GP; 97161-GP; 99285-25; G0480; J0131; J1644; Q9967; U0003

== ENCOUNTER 2020-07-25 04:45 | Day surgery (SDC) | payer OTHER ==
[2020-07-24 18:36] VITALS: BMI 25.4
[2020-07-25] MEDS ORDERED: ONDANSETRON 4 MG/2 ML VIAL IVPUSH PRN (08:43)
[2020-07-25] MEDS ORDERED: oxyCODONE HCL 5 MG TABLET PO PRN (08:43)
[2020-07-25] MEDS ORDERED: LACTATED RINGERS SOLUTION 1,000 ML IV SCH (08:45)
[2020-07-25] MEDS ORDERED: PROPOFOL 20 ML ONE (09:04)
[2020-07-25] MEDS ORDERED: ceFAZolin SODIUM 1 GM VIAL ONE (09:06)
[2020-07-25] MEDS ORDERED: ceFAZolin SODIUM 1 GM VIAL IVPB ONE (09:21)
[2020-07-25] MEDS ORDERED: DEXAMETHASONE SOD PHOSPHATE 4 MG/1 ML VIAL ONE (09:29)
[2020-07-25] MEDS ORDERED: ACETAMINOPHEN 325 MG TABLET (FP) PO PRN (13:54)
[2020-07-25] MEDS: ELECTROLYTE-148 SOLN 1,000 ML IV SCH (17:46)
[2020-07-25 17:53] LABS: BASO % 0.4 % (0-2.0); HEMATOCRIT 31.7 % (32.4-45.2); HEMOGLOBIN 10.1 GM/dL (10.7-15.3); LYMPH % 15.2 % (8-40); MCH 25.8 pg (25.7-33.7); MEAN CELL VOLUME 80.5 fl (80-96); MEAN PLT VOLUME 8.9 fl (7.5-11.1); MONO % 0.7 % (3.8-10.2); NEUT % 83.7 % (42.8-82.8); PLATELET COUNT 237 K/MM3 (134-434); RBC 3.94 M/mm3 (3.60-5.2); RDW 14.8 % (11.6-15.6); WHITE BLOOD COUNT 6.3 K/mm3 (4.0-10.0)
[2020-07-25] MEDS: INSULIN SLIDING SCALE (NOVOLOG) 1 VIAL SQ SCH ×2 (17:55→21:12)
[2020-07-25 18:22] LABS: POTASSIUM 4.4 mmol/L (3.5-5.1)
[2020-07-25 18:24] LABS: ALBUMIN 2.8 g/dl (3.4-5.0); BLOOD UREA NITROGEN 7.8 mg/dL (7-18); CALCIUM 8.7 mg/dL (8.5-10.1)
[2020-07-25 18:27] LABS: CREATININE 0.9 mg/dL (0.55-1.3)
[2020-07-25 18:29] LABS: BILIRUBIN,TOTAL 0.4 mg/dL (0.2-1); TOT PROT 6.4 g/dl (6.4-8.2)
[2020-07-25] MEDS ORDERED: INSULIN (NOVOLOG) ASPART 100 UNITS/ML 10ML VIAL ONE (20:48)
[2020-07-25] MEDS: levETIRAcetam 250 MG TABLET PO SCH (21:12)
[2020-07-25] MEDS: METOPROLOL TARTRATE 50 MG TABLET (FP) PO SCH (21:12)
[2020-07-25] MEDS: ATORVASTATIN CA 10 MG TABLET (FP) PO SCH (21:12)
[2020-07-25] MEDS ORDERED: HEPARIN NA (PORCINE) 5,000 UNITS/ML 1ML VIAL SQ SCH (22:00)
[2020-07-26] MEDS: INSULIN SLIDING SCALE (NOVOLOG) 1 VIAL SQ SCH ×4 (06:08→21:41)
[2020-07-26 07:34] LABS: BASO % 1.2 % (0-2.0); EOS % 1.8 % (0-4.5); HEMATOCRIT 28.5 % (32.4-45.2); HEMOGLOBIN 9.5 GM/dL (10.7-15.3); LYMPH % 43.8 % (8-40); MCH 26.6 pg (25.7-33.7); MCHC 33.1 g/dl (32.0-36.0); MEAN CELL VOLUME 80.4 fl (80-96); MEAN PLT VOLUME 9.1 fl (7.5-11.1); MONO % 4.8 % (3.8-10.2); NEUT % 48.4 % (42.8-82.8); PLATELET COUNT 207 K/MM3 (134-434); RBC 3.55 M/mm3 (3.60-5.2); RDW 14.6 % (11.6-15.6); WHITE BLOOD COUNT 8.4 K/mm3 (4.0-10.0)
[2020-07-26 07:44] LABS: POTASSIUM 3.9 mmol/L (3.5-5.1)
[2020-07-26 07:58] LABS: ALBUMIN 2.4 g/dl (3.4-5.0); BLOOD UREA NITROGEN 6.2 mg/dL (7-18)
[2020-07-26 07:59] LABS: CALCIUM 8.9 mg/dL (8.5-10.1)
[2020-07-26 08:01] LABS: CREATININE 0.6 mg/dL (0.55-1.3); PHOSPHOROUS 3.8 mg/dL (2.5-4.9)
[2020-07-26 08:02] LABS: BILIRUBIN,TOTAL 0.9 mg/dL (0.2-1); TOT PROT 5.8 g/dl (6.4-8.2)
[2020-07-26] MEDS: ASPIRIN COATED 81 MG TABLET.EC PO SCH (10:10)
[2020-07-26] MEDS: levETIRAcetam 250 MG TABLET PO SCH ×2 (10:10→21:36)
[2020-07-26] MEDS: METOPROLOL TARTRATE 50 MG TABLET (FP) PO SCH ×2 (10:10→21:36)
[2020-07-26] MEDS: ELECTROLYTE-148 SOLN 1,000 ML IV SCH (10:11)
[2020-07-26] MEDS ORDERED: INSULIN (NOVOLOG) ASPART 100 UNITS/ML 10ML VIAL ONE (21:33)
[2020-07-26] MEDS: ATORVASTATIN CA 10 MG TABLET (FP) PO SCH (21:36)
[2020-07-27] MEDS: INSULIN SLIDING SCALE (NOVOLOG) 1 VIAL SQ SCH ×4 (06:23→22:04)
[2020-07-27] MEDS: ASPIRIN COATED 81 MG TABLET.EC PO SCH (10:05)
[2020-07-27] MEDS: METOPROLOL TARTRATE 50 MG TABLET (FP) PO SCH ×3 (10:05→22:06)
[2020-07-27] MEDS: levETIRAcetam 250 MG TABLET PO SCH ×3 (10:05→22:07)
[2020-07-27 10:29] LABS: BASO % 0.9 % (0-2.0); EOS % 3.1 % (0-4.5); HEMATOCRIT 30.7 % (32.4-45.2); HEMOGLOBIN 10.1 GM/dL (10.7-15.3); LYMPH % 33.8 % (8-40); MCH 26.5 pg (25.7-33.7); MCHC 32.9 g/dl (32.0-36.0); MEAN CELL VOLUME 80.7 fl (80-96); MONO % 5.5 % (3.8-10.2); NEUT % 56.7 % (42.8-82.8); PLATELET COUNT 211 K/MM3 (134-434); RBC 3.81 M/mm3 (3.60-5.2); RDW 14.7 % (11.6-15.6); WHITE BLOOD COUNT 7.2 K/mm3 (4.0-10.0)
[2020-07-27 11:32] LABS: POTASSIUM 3.9 mmol/L (3.5-5.1)
[2020-07-27 11:36] LABS: CALCIUM 8.8 mg/dL (8.5-10.1)
[2020-07-27 11:37] LABS: ALBUMIN 2.4 g/dl (3.4-5.0)
[2020-07-27 11:39] LABS: CREATININE 0.7 mg/dL (0.55-1.3)
[2020-07-27 11:41] LABS: BILIRUBIN,TOTAL 0.3 mg/dL (0.2-1)
[2020-07-27] MEDS: ATORVASTATIN CA 10 MG TABLET (FP) PO SCH ×2 (20:49→22:07)
[2020-07-28] MEDS: INSULIN SLIDING SCALE (NOVOLOG) 1 VIAL SQ SCH ×3 (06:06→16:16)
[2020-07-28 06:12] VITALS: PULSE 72
[2020-07-28] MEDS: levETIRAcetam 250 MG TABLET PO SCH (10:00)
[2020-07-28] MEDS: METOPROLOL TARTRATE 50 MG TABLET (FP) PO SCH (10:00)
[2020-07-28] MEDS: ASPIRIN COATED 81 MG TABLET.EC PO SCH (10:01)
[2020-07-28 10:50] LABS: BASO % 1.1 % (0-2.0); EOS % 2.6 % (0-4.5); HEMATOCRIT 32.2 % (32.4-45.2); HEMOGLOBIN 10.7 GM/dL (10.7-15.3); LYMPH % 30.7 % (8-40); MCH 26.7 pg (25.7-33.7); MCHC 33.3 g/dl (32.0-36.0); MEAN CELL VOLUME 80.2 fl (80-96); MEAN PLT VOLUME 8.7 fl (7.5-11.1); NEUT % 60.6 % (42.8-82.8); PLATELET COUNT 236 K/MM3 (134-434); RBC 4.02 M/mm3 (3.60-5.2); RDW 14.8 % (11.6-15.6)
[2020-07-28 11:06] LABS: POTASSIUM 3.9 mmol/L (3.5-5.1)
[2020-07-28 11:10] LABS: CALCIUM 9.2 mg/dL (8.5-10.1)
[2020-07-28 11:11] LABS: ALBUMIN 2.7 g/dl (3.4-5.0); BLOOD UREA NITROGEN 9.2 mg/dL (7-18)
[2020-07-28 11:14] LABS: CREATININE 0.7 mg/dL (0.55-1.3)
[2020-07-28 11:15] LABS: BILIRUBIN,TOTAL 0.4 mg/dL (0.2-1); TOT PROT 6.3 g/dl (6.4-8.2)
[2020-07-28 15:32] VITALS: BP 114/59; TEMP 98.1
== END 2020-07-28 17:00 ==
LOC: JASU-SURG 04:45 → JASUSAT 04:45 → SUATTDRO 04:45 → J8W 16:25 → JASUSAT 07-28 17:00
PROVIDERS: ATTEND Nurse Practitioner Family
PROC: 0T5B8ZZ Destruction of Bladder, Via Natural or Artificial Opening Endoscopic (ICD-10-PCS; principal; 2020-07-25 08:30)
DX: C67.9 Malignant neoplasm of bladder, unspecified (principal); E11.9 Type 2 diabetes mellitus without complications; J45.909 Unspecified asthma, uncomplicated
CPT/HCPCS: 36415; 80053; 82962; 83735; 84100; 85025; 88307-TC; 94010; 94760; 97116-GP; 97161-GP; C9803; U0003

== ENCOUNTER 2020-11-28 05:21 | Day surgery (SDC) | payer OTHER ==
[2020-11-24 14:38] VITALS: BMI 22.6
[2020-11-28] MEDS ORDERED: LIDOCAINE HCL/PF 2% SDV 5ML VIAL ONE (11:36)
[2020-11-28] MEDS ORDERED: PROPOFOL 20 ML ONE (11:37)
[2020-11-28] MEDS ORDERED: ceFAZolin SODIUM 1 GM VIAL ONE (11:56)
[2020-11-28] MEDS ORDERED: ceFAZolin SODIUM 1 GM VIAL IVPB ONE (11:58)
[2020-11-28] MEDS ORDERED: FUROSEMIDE 40 MG/4 ML INJECTABLE VIAL ONE (12:16)
[2020-11-28] MEDS ORDERED: oxyCODONE HCL 5 MG TABLET PO PRN (13:05)
[2020-11-28] MEDS ORDERED: ONDANSETRON 4 MG/2 ML VIAL IVPUSH PRN (13:05)
[2020-11-28] MEDS: ELECTROLYTE-148 SOLN 1,000 ML IV SCH (23:04)
[2020-11-29] MEDS: ELECTROLYTE-148 SOLN 1,000 ML IV SCH (12:05)
[2020-11-29 14:09] VITALS: BP 129/69; PULSE 117; TEMP 98.7
== END 2020-11-29 15:22 | disposition home or self-care (01) ==
LOC: JASUSAT 05:21 → JASU-SURG 05:21 → J6S 19:55 → JASUSAT 11-29 15:22
PROVIDERS: ATTEND Urology
PROC: 0T5B8ZZ Destruction of Bladder, Via Natural or Artificial Opening Endoscopic (ICD-10-PCS; principal; 2020-11-28 12:00)
DX: C67.8 Malignant neoplasm of overlapping sites of bladder (principal)
CPT/HCPCS: 82962; 88307-TC; 94760

== ENCOUNTER 2020-12-10 18:32 | Emergency (ER) | payer OTHER ==
[2020-12-10 18:42] VITALS: TEMP 98; BMI 24.5
[2020-12-10 20:43] LABS: EPI CELLS 3 /uL (0-25.1); HYALINE CASTS 1 /uL (0-3.1); URINE APPEARANCE TURBID; URINE BILIRUBIN 1+ (NEGATIVE); URINE COLOR RED; URINE GLUCOSE (UA) NEGATIVE (NEGATIVE); URINE KETONE NEGATIVE (NEGATIVE); URINE LEUK ESTERASE 2+ (NEGATIVE); URINE NITRITE POSITIVE (NEGATIVE); URINE PROTEIN 3+ (NEGATIVE); URINE RBC 23599 /uL (0-23.9); URINE UROBILINOGEN 0.2 mg/dL (0.2-1.0); URINE WBC 148 /uL (0-25.8)
[2020-12-10 20:50] LABS: URINE BACTERIA 1348.8 /uL (0-1359)
[2020-12-10] MEDS ORDERED: NITROFURANTOIN MACROCRYSTAL 50 MG CAPSULE (FP) ONE (21:29)
[2020-12-10] MEDS ORDERED: NITROFURANTOIN MACROCRYSTAL 50 MG CAPSULE (FP) PO SCH ×2 (21:30)
[2020-12-10 21:50] VITALS: BP 167/82; PULSE 72
== END 2020-12-10 21:54 | disposition home or self-care (01) ==
LOC: JER 18:32
DX: R33.9 Retention of urine, unspecified (principal); R31.9 Hematuria, unspecified
CPT/HCPCS: 81003; 87086; 87186; 99284-25

== ENCOUNTER 2020-12-12 00:42 | Emergency (ER) | payer OTHER ==
[2020-12-12 01:17] VITALS: BP 173/74; PULSE 73; TEMP 97.7; BMI 23.8
== END 2020-12-12 02:02 | disposition home or self-care (01) ==
LOC: JER 00:42
DX: R33.9 Retention of urine, unspecified (principal)
CPT/HCPCS: 99282-25

== ENCOUNTER 2021-02-27 04:17 | Day surgery (SDC) | payer OTHER ==
[2021-02-26 11:55] VITALS: BMI 23.3
[2021-02-27] MEDS ORDERED: ELECTROLYTE-148 SOLN 1,000 ML IV SCH (10:30)
[2021-02-27] MEDS ORDERED: MIDAZOLAM HCL 2 MG/2 ML SINGLE DOSE VIAL ONE (10:56)
[2021-02-27] MEDS ORDERED: PROPOFOL 20 ML ONE ×3 (10:56)
[2021-02-27] MEDS ORDERED: ceFAZolin 2 GRAM PREMIX BAG IVPB ONE (11:12)
[2021-02-27] MEDS ORDERED: ONDANSETRON 4 MG/2 ML VIAL IVPUSH PRN (11:51)
[2021-02-27] MEDS: LACTATED RINGERS SOLUTION 1,000 ML IV SCH (14:30)
[2021-02-28] MEDS ORDERED: PT OWN MED DRAWER 7, Y5N ONE (02:23)
[2021-02-28] MEDS: LACTATED RINGERS SOLUTION 1,000 ML IV SCH (03:54)
[2021-02-28 14:12] VITALS: BP 116/50; PULSE 100; TEMP 98.5
== END 2021-02-28 14:43 | disposition home or self-care (01) ==
LOC: JASU-SURG 04:17 → JASUSAT 04:17 → J6S 14:38 → JASUSAT 02-28 14:43
PROVIDERS: ATTEND Urology
PROC: 0T5B8ZZ Destruction of Bladder, Via Natural or Artificial Opening Endoscopic (ICD-10-PCS; principal; 2021-02-27 11:00)
DX: C67.9 Malignant neoplasm of bladder, unspecified (principal)
CPT/HCPCS: 82962; 88307-TC; 94760; 97116-GP; 97161-GP; C9803; U0003; U0005

== ENCOUNTER 2021-08-07 04:22 | Day surgery (SDC) | payer OTHER ==
[2021-08-03 15:20] VITALS: BMI 23.3
[2021-08-07] MEDS ORDERED: ceFAZolin SODIUM 1 GM VIAL IVPB ONE (12:10)
[2021-08-07] MEDS ORDERED: ELECTROLYTE-148 SOLN 1,000 ML IV SCH (12:15)
[2021-08-07] MEDS ORDERED: ONDANSETRON 4 MG/2 ML VIAL IVPUSH PRN (15:41)
[2021-08-07] MEDS ORDERED: LACTATED RINGERS SOLUTION 1,000 ML IV SCH (15:45)
[2021-08-07] MEDS ORDERED: FLU VACC QS2021-22(6MOS UP)/PF 60 MCG/0.5 ML SYRINGE IM ONE ×2 (16:47→17:15)
[2021-08-08 09:58] VITALS: PULSE 93
[2021-08-08 14:09] VITALS: BP 126/55; TEMP 97.9
== END 2021-08-08 15:19 | disposition home or self-care (01) ==
LOC: JASU-SURG 04:22 → JASUSAT 04:22 → J4S 16:15 → JASUSAT 08-08 15:19
PROVIDERS: ATTEND Urology
PROC: 0T5B8ZZ Destruction of Bladder, Via Natural or Artificial Opening Endoscopic (ICD-10-PCS; principal; 2021-08-07 12:00)
DX: C67.9 Malignant neoplasm of bladder, unspecified (principal)
CPT/HCPCS: 82962; 88307-TC; 90686; 94760

== ENCOUNTER 2022-04-02 01:19 | Emergency (ER) | payer OTHER ==
[2022-04-02 02:33] VITALS: BP 145/67; PULSE 77; TEMP 98.3; BMI 21.7
[2022-04-02] MEDS ORDERED: CLOTRIMAZOLE 1% CREAM TP ONE (03:12)
== END 2022-04-02 03:31 | disposition home or self-care (01) ==
LOC: JER 01:19
DX: B35.6 Tinea cruris (principal)
CPT/HCPCS: 99283-25

== ENCOUNTER 2022-08-22 14:16 | Emergency (ER) | payer OTHER ==
[2022-08-22 15:07] VITALS: RESP 18; TEMP 97.9; BMI 22.6
[2022-08-22] MEDS ORDERED: ACETAMINOPHEN 1000 MG/100 ML BAG IVPB ONE (16:40)
[2022-08-22] MEDS ORDERED: ACETAMINOPHEN INJECTION 100 ML IVPB ONE (16:55)
[2022-08-22 17:36] LABS: BASO % 0.5 % (0-2.0); EOS % 0.9 % (0-4.5); HEMATOCRIT 37.1 % (32.4-45.2); HEMOGLOBIN 11.9 GM/dL (10.7-15.3); LYMPH % 23.7 % (8-40); MCHC 32.1 g/dl (32.0-36.0); MEAN CELL VOLUME 80.9 fl (80-96); MEAN PLT VOLUME 8.9 fl (7.5-11.1); MONO % 9.2 % (3.8-10.2); NEUT % 65.7 % (42.8-82.8); PLATELET COUNT 211 10^3/uL (134-434); RBC 4.59 M/mm3 (3.60-5.2); RDW 14.9 % (11.6-15.6); WHITE BLOOD COUNT 7.8 K/mm3 (4.0-10.0)
[2022-08-22 17:52] LABS: CALCIUM 9.4 mg/dL (8.5-10.1)
[2022-08-22 17:53] LABS: ALBUMIN 3.4 g/dl (3.4-5.0); BLOOD UREA NITROGEN 11.9 mg/dL (7-18)
[2022-08-22 17:56] LABS: TOT PROT 7.6 g/dl (6.4-8.2)
[2022-08-22 17:57] LABS: BILIRUBIN,TOTAL 0.4 mg/dL (0.2-1)
[2022-08-22] MEDS ORDERED: ALBUTEROL SO4 HFA INHALER IH ONE (22:11)
[2022-08-22] MEDS ORDERED: guaiFENesin 200 MG/10 ML 10 ML UNIT-DOSE CUPS PO ONE (22:15)
[2022-08-22] MEDS ORDERED: guaiFENesin/D-METHORPHAN HB 10 ML UNIT-DOSE CUPS ONE (22:22)
[2022-08-22 22:49] VITALS: BP 138/62; PULSE 78
== END 2022-08-22 22:49 | disposition home or self-care (01) ==
LOC: JER 14:16
PROC: 3E0333Z Introduction of Anti-inflammatory into Peripheral Vein, Percutaneous Approach (ICD-10-PCS; principal; 2022-08-22)
DX: R05.1 Acute cough (principal); R06.02 Shortness of breath
CPT/HCPCS: 0241U-QW; 36415; 71046-TC-FY; 80053; 82962; 84484; 85025; 93005; 93010; 99285-25

== ENCOUNTER 2023-03-04 22:35 | Inpatient (IN) | payer OTHER ==
[2023-03-04] MEDS ORDERED: ACETAMINOPHEN 1000 MG/100 ML BAG IVPB ONE (23:06)
[2023-03-04] MEDS ORDERED: SODIUM CHLORIDE 0.9% 500 ML INFUS.BAG IV ONE (23:06)
[2023-03-04] MEDS ORDERED: ONDANSETRON 4 MG/2 ML VIAL IVPUSH ONE (23:06)
[2023-03-04] MEDS ORDERED: ONDANSETRON 4 MG/2 ML VIAL ONE (23:14)
[2023-03-04] MEDS ORDERED: ACETAMINOPHEN INJECTION 100 ML IVPB ONE (23:14)
[2023-03-04 23:59] LABS: BASO % 0.5 % (0-2.0); EOS % 1.2 % (0-4.5); HEMATOCRIT 35.9 % (32.4-45.2); HEMOGLOBIN 11.7 GM/dL (10.7-15.3); LYMPH % 28.4 % (8-40); MCH 26.1 pg (25.7-33.7); MCHC 32.8 g/dl (32.0-36.0); MEAN CELL VOLUME 79.7 fl (80-96); MEAN PLT VOLUME 8.5 fl (7.5-11.1); MONO % 5.1 % (3.8-10.2); NEUT % 64.8 % (42.8-82.8); PLATELET COUNT 211 10^3/uL (134-434); RDW 15.3 % (11.6-15.6); WHITE BLOOD COUNT 9.3 K/mm3 (4.0-10.0)
[2023-03-05] MEDS ORDERED: ONDANSETRON 4 MG/2 ML VIAL IVPUSH PRN (00:01)
[2023-03-05 00:02] LABS: EPI CELLS 2 /uL (0-25.1); HYALINE CASTS 0 /uL (0-3.1); PH,URINE 5.5 (5.0-8.0); URINE APPEARANCE CLEAR; URINE BACTERIA >9,000 /uL (0-1359); URINE BILIRUBIN NEGATIVE (NEGATIVE); URINE COLOR YELLOW; URINE GLUCOSE (UA) TRACE (NEGATIVE); URINE KETONE NEGATIVE (NEGATIVE); URINE LEUK ESTERASE 2+ (NEGATIVE); URINE NITRITE POSITIVE (NEGATIVE); URINE PROTEIN TRACE (NEGATIVE); URINE RBC 13 /uL (0-23.9); URINE UROBILINOGEN 0.2 mg/dL (0.2-1.0); URINE WBC 435 /uL (0-25.8)
[2023-03-05] MEDS ORDERED: MEROPENEM 1 GM in DEXTROSE 5%-WATER 100 ML IVPB ONE (00:07)
[2023-03-05 00:15] LABS: INR 0.97 (0.83-1.09); PROTHROMBIN TIME (PATIENT) 11.2 SEC (9.7-13.0)
[2023-03-05 00:17] LABS: ACTIVATED PTT 29.9 SECONDS (25.2-36.5)
[2023-03-05 00:19] LABS: POTASSIUM 4.4 mmol/L (3.5-5.1)
[2023-03-05 00:22] LABS: BLOOD UREA NITROGEN 17.2 mg/dL (7-18); CALCIUM 9.7 mg/dL (8.5-10.1)
[2023-03-05 00:23] LABS: ALBUMIN 3.5 g/dl (3.4-5.0); MAGNESIUM 1.7 mg/dL (1.8-2.4)
[2023-03-05 00:25] LABS: CREATININE 0.9 mg/dL (0.55-1.3)
[2023-03-05] MEDS ORDERED: MEROPENEM 1 GM VIAL (RESTRICTED TO ID) IVPB ONE (00:26)
[2023-03-05 00:27] LABS: BILIRUBIN,TOTAL 0.5 mg/dL (0.2-1); TOT PROT 7.6 g/dl (6.4-8.2)
[2023-03-05 00:45] LABS: LACTIC ACID 3.4 mmol/L (0.4-2.0)
[2023-03-05] MEDS ORDERED: SODIUM CHLORIDE 0.9% 500 ML INFUS.BAG IV ONE (00:48)
[2023-03-05] MEDS ORDERED: MAGNESIUM SULF 50% (8.12 MEQ/2 ML-1 GM VIAL) IVPB ONE (04:26)
[2023-03-05] MEDS ORDERED: MAGNESIUM SULFATE IN WATER 2 GM/50 ML IVPB IVPB ONE (04:48)
[2023-03-05] MEDS ORDERED: ACETAMINOPHEN 1000 MG/100 ML BAG IVPB PRN (06:07)
[2023-03-05] MEDS ORDERED: VANCOMYCIN/WATER 1,250 MG/250 ML BAG (RESTRICTED TO ID ONLY) IVPB ONE (06:30)
[2023-03-05] MEDS: MEROPENEM 1 GM in DEXTROSE 5%-WATER 100 ML IVPB SCH ×2 (10:43→17:52)
[2023-03-05] MEDS: METOPROLOL TARTRATE 50 MG TABLET (FP) PO SCH ×2 (10:43→23:04)
[2023-03-05] MEDS: ENOXAPARIN NA (PORCINE) 40 MG/0.4 ML DISP.SYRIN SQ SCH (10:43)
[2023-03-05] MEDS: ASPIRIN COATED 81 MG TABLET.EC PO SCH (10:43)
[2023-03-05] MEDS: PANTOPRAZOLE 40 MG TABLET PO SCH (10:43)
[2023-03-05] MEDS ORDERED: INSULIN (NOVOLOG) ASPART 100 UNITS/ML 10ML VIAL ONE (11:27)
[2023-03-05] MEDS: INSULIN SLIDING SCALE (NOVOLOG) 1 VIAL SQ SCH ×4 (11:35→23:05)
[2023-03-05 13:13] LABS: HEMATOCRIT 33.5 % (32.4-45.2); HEMOGLOBIN 10.7 GM/dL (10.7-15.3); MCH 26.2 pg (25.7-33.7); MEAN CELL VOLUME 81.8 fl (80-96); MEAN PLT VOLUME 9.9 fl (7.5-11.1); PLATELET COUNT 185 10^3/uL (134-434); RDW 15.2 % (11.6-15.6); WHITE BLOOD COUNT 8.1 K/mm3 (4.0-10.0)
[2023-03-05 13:47] LABS: POTASSIUM 4.6 mmol/L (3.5-5.1)
[2023-03-05 13:50] LABS: ALBUMIN 3.1 g/dl (3.4-5.0)
[2023-03-05 13:51] LABS: BLOOD UREA NITROGEN 14.4 mg/dL (7-18); MAGNESIUM 2.2 mg/dL (1.8-2.4)
[2023-03-05 13:54] LABS: CREATININE 0.9 mg/dL (0.55-1.3)
[2023-03-05 13:56] LABS: BILIRUBIN,TOTAL 0.6 mg/dL (0.2-1); TOT PROT 6.7 g/dl (6.4-8.2)
[2023-03-05] MEDS: levETIRAcetam 250 MG TABLET PO SCH (23:04)
[2023-03-05] MEDS: MIRTAZAPINE 15 MG TABLET (FP) PO SCH (23:04)
[2023-03-05] MEDS: ATORVASTATIN CA 10 MG TABLET (FP) PO SCH (23:04)
[2023-03-06] MEDS: MEROPENEM 1 GM in DEXTROSE 5%-WATER 100 ML IVPB SCH ×2 (01:38→18:05)
[2023-03-06] MEDS: INSULIN SLIDING SCALE (NOVOLOG) 1 VIAL SQ SCH ×4 (06:04→22:24)
[2023-03-06] MEDS ORDERED: MEROPENEM 1 GM in DEXTROSE 5%-WATER 100 ML IVPB SCH (10:00)
[2023-03-06 10:52] LABS: BASO % 1.1 % (0-2.0); EOS % 3.3 % (0-4.5); HEMATOCRIT 35.3 % (32.4-45.2); HEMOGLOBIN 11.2 GM/dL (10.7-15.3); LYMPH % 40.4 % (8-40); MCH 26.2 pg (25.7-33.7); MCHC 31.8 g/dl (32.0-36.0); MEAN CELL VOLUME 82.4 fl (80-96); MEAN PLT VOLUME 8.6 fl (7.5-11.1); MONO % 4.5 % (3.8-10.2); NEUT % 50.7 % (42.8-82.8); PLATELET COUNT 210 10^3/uL (134-434); RBC 4.28 M/mm3 (3.60-5.2); RDW 15.2 % (11.6-15.6); WHITE BLOOD COUNT 6.7 K/mm3 (4.0-10.0)
[2023-03-06] MEDS ORDERED: ACETAMINOPHEN 1000 MG/100 ML BAG IVPB SCH (11:00)
[2023-03-06] MEDS: levETIRAcetam 250 MG TABLET PO SCH ×2 (11:14→22:20)
[2023-03-06] MEDS: METOPROLOL TARTRATE 50 MG TABLET (FP) PO SCH ×2 (11:14→22:20)
[2023-03-06] MEDS: ASPIRIN COATED 81 MG TABLET.EC PO SCH (11:14)
[2023-03-06] MEDS: ENOXAPARIN NA (PORCINE) 40 MG/0.4 ML DISP.SYRIN SQ SCH (11:15)
[2023-03-06] MEDS: PANTOPRAZOLE 40 MG TABLET PO SCH (11:15)
[2023-03-06 12:03] LABS: ALBUMIN 3.3 g/dl (3.4-5.0); BILIRUBIN,TOTAL 0.7 mg/dL (0.2-1); BLOOD UREA NITROGEN 9.7 mg/dL (7-18); CALCIUM 9.4 mg/dL (8.5-10.1); CREATININE 0.9 mg/dL (0.55-1.3); POTASSIUM 4.3 mmol/L (3.5-5.1); TOT PROT 7.2 g/dl (6.4-8.2)
[2023-03-06] MEDS: ACETAMINOPHEN 1000 MG/100 ML BAG IVPB SCH ×2 (14:53→22:20)
[2023-03-06] MEDS ORDERED: INSULIN (NOVOLOG MIX 70/30) 100 UNITS/ML MDV SQ ONE (18:47)
[2023-03-06] MEDS ORDERED: INSULIN (NOVOLOG) ASPART 100 UNITS/ML 10ML VIAL ONE (18:48)
[2023-03-06] MEDS: MIRTAZAPINE 15 MG TABLET (FP) PO SCH (22:18)
[2023-03-06] MEDS: ATORVASTATIN CA 10 MG TABLET (FP) PO SCH (22:19)
[2023-03-07] MEDS: MEROPENEM 1 GM in DEXTROSE 5%-WATER 100 ML IVPB SCH ×2 (02:06→09:03)
[2023-03-07] MEDS: INSULIN SLIDING SCALE (NOVOLOG) 1 VIAL SQ SCH ×4 (06:15→23:10)
[2023-03-07] MEDS: levETIRAcetam 250 MG TABLET PO SCH ×2 (09:03→21:56)
[2023-03-07] MEDS: ASPIRIN COATED 81 MG TABLET.EC PO SCH (09:03)
[2023-03-07] MEDS: PANTOPRAZOLE 40 MG TABLET PO SCH (09:03)
[2023-03-07] MEDS: METOPROLOL TARTRATE 50 MG TABLET (FP) PO SCH ×2 (09:03→21:56)
[2023-03-07] MEDS: ENOXAPARIN NA (PORCINE) 40 MG/0.4 ML DISP.SYRIN SQ SCH (09:03)
[2023-03-07] MEDS ORDERED: ACETAMINOPHEN 325 MG TABLET (FP) PO PRN (09:45)
[2023-03-07] MEDS ORDERED: INSULIN (NOVOLOG) ASPART 100 UNITS/ML 10ML VIAL ONE ×3 (10:57→23:09)
[2023-03-07] MEDS: CEFTRIAXONE 1 GM in DEXTROSE 5%-WATER - 50 ML IVPB SCH (11:28)
[2023-03-07 12:35] VITALS: BMI 23.0
[2023-03-07] MEDS ORDERED: traMADol HCL 50 MG TABLET PO PRN (14:03)
[2023-03-07] MEDS: INSULIN (LEVEMIR) 100 UNITS/ML UNITS SQ SCH (15:54)
[2023-03-07] MEDS ORDERED: INSULIN (LEVEMIR) 100 UNITS/ML UNITS SQ ONE (16:58)
[2023-03-07] MEDS: ATORVASTATIN CA 10 MG TABLET (FP) PO SCH (21:56)
[2023-03-07] MEDS: MIRTAZAPINE 15 MG TABLET (FP) PO SCH (21:56)
[2023-03-08] MEDS ORDERED: INSULIN (NOVOLOG) ASPART 100 UNITS/ML 10ML VIAL ONE ×3 (05:52→21:00)
[2023-03-08] MEDS: INSULIN (LEVEMIR) 100 UNITS/ML UNITS SQ SCH ×2 (06:03→21:16)
[2023-03-08] MEDS: INSULIN SLIDING SCALE (NOVOLOG) 1 VIAL SQ SCH ×4 (06:04→21:17)
[2023-03-08 07:22] LABS: BASO % 1.1 % (0-2.0); EOS % 3.4 % (0-4.5); HEMATOCRIT 34.8 % (32.4-45.2); HEMOGLOBIN 11.3 GM/dL (10.7-15.3); LYMPH % 31.3 % (8-40); MCH 26.5 pg (25.7-33.7); MCHC 32.5 g/dl (32.0-36.0); MEAN CELL VOLUME 81.6 fl (80-96); MEAN PLT VOLUME 8.3 fl (7.5-11.1); MONO % 5.2 % (3.8-10.2); PLATELET COUNT 195 10^3/uL (134-434); RBC 4.26 M/mm3 (3.60-5.2); RDW 15.2 % (11.6-15.6); WHITE BLOOD COUNT 8.4 K/mm3 (4.0-10.0)
[2023-03-08 08:28] LABS: POTASSIUM 4.3 mmol/L (3.5-5.1)
[2023-03-08 08:30] LABS: CALCIUM 9.5 mg/dL (8.5-10.1)
[2023-03-08 08:31] LABS: BLOOD UREA NITROGEN 11.9 mg/dL (7-18)
[2023-03-08 08:34] LABS: CREATININE 0.9 mg/dL (0.55-1.3); PHOSPHOROUS 3.8 mg/dL (2.5-4.9)
[2023-03-08 08:35] LABS: BILIRUBIN,TOTAL 0.4 mg/dL (0.2-1); TOT PROT 6.9 g/dl (6.4-8.2)
[2023-03-08] MEDS: PANTOPRAZOLE 40 MG TABLET PO SCH (10:54)
[2023-03-08] MEDS: CEFTRIAXONE 1 GM in DEXTROSE 5%-WATER - 50 ML IVPB SCH (10:54)
[2023-03-08] MEDS: levETIRAcetam 250 MG TABLET PO SCH ×2 (10:54→21:09)
[2023-03-08] MEDS: ENOXAPARIN NA (PORCINE) 40 MG/0.4 ML DISP.SYRIN SQ SCH (10:54)
[2023-03-08] MEDS: METOPROLOL TARTRATE 50 MG TABLET (FP) PO SCH ×2 (10:54→21:08)
[2023-03-08] MEDS: ASPIRIN COATED 81 MG TABLET.EC PO SCH (10:54)
[2023-03-08] MEDS: INSULIN (NOVOLOG) ASPART 100 UNITS/ML 10ML VIAL SQ SCH (17:14)
[2023-03-08] MEDS: MIRTAZAPINE 15 MG TABLET (FP) PO SCH (21:09)
[2023-03-08] MEDS: ATORVASTATIN CA 10 MG TABLET (FP) PO SCH (21:09)
[2023-03-08] MEDS ORDERED: INSULIN (LEVEMIR) 100 UNITS/ML UNITS SQ ONE (21:16)
[2023-03-09] MEDS: INSULIN (NOVOLOG) ASPART 100 UNITS/ML 10ML VIAL SQ SCH ×3 (06:30→17:21)
[2023-03-09] MEDS: INSULIN SLIDING SCALE (NOVOLOG) 1 VIAL SQ SCH ×4 (06:31→22:17)
[2023-03-09] MEDS ORDERED: INSULIN (NOVOLOG) ASPART 100 UNITS/ML 10ML VIAL ONE ×3 (08:04→22:08)
[2023-03-09] MEDS ORDERED: INSULIN (LEVEMIR) 100 UNITS/ML UNITS SQ ONE (08:05)
[2023-03-09 08:48] LABS: POTASSIUM 4.1 mmol/L (3.5-5.1)
[2023-03-09 08:49] LABS: BASO % 0.5 % (0-2.0); HEMATOCRIT 34.7 % (32.4-45.2); HEMOGLOBIN 11.4 GM/dL (10.7-15.3); LYMPH % 38.6 % (8-40); MCH 26.2 pg (25.7-33.7); MCHC 32.8 g/dl (32.0-36.0); MEAN PLT VOLUME 9.3 fl (7.5-11.1); MONO % 6.9 % (3.8-10.2); PLATELET COUNT 218 10^3/uL (134-434); RBC 4.34 M/mm3 (3.60-5.2); RDW 15.4 % (11.6-15.6); WHITE BLOOD COUNT 7.5 K/mm3 (4.0-10.0)
[2023-03-09 08:57] LABS: ALBUMIN 3.1 g/dl (3.4-5.0); BILIRUBIN,TOTAL 0.4 mg/dL (0.2-1); CALCIUM 9.6 mg/dL (8.5-10.1); TOT PROT 6.9 g/dl (6.4-8.2)
[2023-03-09 08:59] LABS: CREATININE 0.8 mg/dL (0.55-1.3)
[2023-03-09] MEDS: PANTOPRAZOLE 40 MG TABLET PO SCH (10:29)
[2023-03-09] MEDS: levETIRAcetam 250 MG TABLET PO SCH ×2 (10:29→22:11)
[2023-03-09] MEDS: ENOXAPARIN NA (PORCINE) 40 MG/0.4 ML DISP.SYRIN SQ SCH (10:29)
[2023-03-09] MEDS: INSULIN (LEVEMIR) 100 UNITS/ML UNITS SQ SCH ×2 (10:29→22:17)
[2023-03-09] MEDS: ASPIRIN COATED 81 MG TABLET.EC PO SCH (10:29)
[2023-03-09] MEDS: METOPROLOL TARTRATE 50 MG TABLET (FP) PO SCH ×2 (10:29→22:10)
[2023-03-09] MEDS: CEFTRIAXONE 1 GM in DEXTROSE 5%-WATER - 50 ML IVPB SCH (10:29)
[2023-03-09] MEDS: MIRTAZAPINE 15 MG TABLET (FP) PO SCH (22:10)
[2023-03-09] MEDS: ATORVASTATIN CA 10 MG TABLET (FP) PO SCH (22:11)
[2023-03-09] MEDS: POLYETHYLENE GLYCOL (HEALTHYLAX) 3350 17 GM PACKET PO SCH (22:12)
[2023-03-10] MEDS: INSULIN (NOVOLOG) ASPART 100 UNITS/ML 10ML VIAL SQ SCH ×3 (06:48→16:43)
[2023-03-10] MEDS: INSULIN SLIDING SCALE (NOVOLOG) 1 VIAL SQ SCH ×4 (06:48→22:51)
[2023-03-10] MEDS ORDERED: INSULIN (NOVOLOG) ASPART 100 UNITS/ML 10ML VIAL ONE ×4 (08:07→21:40)
[2023-03-10] MEDS ORDERED: INSULIN (LEVEMIR) 100 UNITS/ML UNITS SQ ONE (08:08)
[2023-03-10 08:23] LABS: ACTIVATED PTT 30.8 SECONDS (25.2-36.5)
[2023-03-10 08:25] LABS: INR 1.04 (0.83-1.09); PROTHROMBIN TIME (PATIENT) 12.1 SEC (9.7-13.0)
[2023-03-10 08:26] LABS: BASO % 1.1 % (0-2.0); EOS % 3.7 % (0-4.5); HEMATOCRIT 33.3 % (32.4-45.2); HEMOGLOBIN 10.8 GM/dL (10.7-15.3); LYMPH % 44.3 % (8-40); MCH 26.6 pg (25.7-33.7); MCHC 32.5 g/dl (32.0-36.0); MEAN CELL VOLUME 81.9 fl (80-96); MONO % 6.2 % (3.8-10.2); NEUT % 44.7 % (42.8-82.8); PLATELET COUNT 225 10^3/uL (134-434); RBC 4.06 M/mm3 (3.60-5.2); RDW 15.1 % (11.6-15.6); WHITE BLOOD COUNT 7.5 K/mm3 (4.0-10.0)
[2023-03-10 08:40] LABS: BLOOD UREA NITROGEN 10.7 mg/dL (7-18)
[2023-03-10 08:41] LABS: ALBUMIN 2.9 g/dl (3.4-5.0); CALCIUM 9.3 mg/dL (8.5-10.1)
[2023-03-10 08:44] LABS: PHOSPHOROUS 4.5 mg/dL (2.5-4.9)
[2023-03-10 08:45] LABS: BILIRUBIN,TOTAL 0.8 mg/dL (0.2-1); CREATININE 0.8 mg/dL (0.55-1.3)
[2023-03-10 08:46] LABS: TOT PROT 6.6 g/dl (6.4-8.2)
[2023-03-10] MEDS: CEFTRIAXONE 1 GM in DEXTROSE 5%-WATER - 50 ML IVPB SCH (10:37)
[2023-03-10] MEDS: ENOXAPARIN NA (PORCINE) 40 MG/0.4 ML DISP.SYRIN SQ SCH (10:37)
[2023-03-10] MEDS: levETIRAcetam 250 MG TABLET PO SCH ×2 (10:38→22:42)
[2023-03-10] MEDS: PANTOPRAZOLE 40 MG TABLET PO SCH (10:38)
[2023-03-10] MEDS: ASPIRIN COATED 81 MG TABLET.EC PO SCH (10:38)
[2023-03-10] MEDS: POLYETHYLENE GLYCOL (HEALTHYLAX) 3350 17 GM PACKET PO SCH ×2 (10:38→22:42)
[2023-03-10] MEDS: METOPROLOL TARTRATE 50 MG TABLET (FP) PO SCH ×2 (10:38→22:43)
[2023-03-10] MEDS: INSULIN (LEVEMIR) 100 UNITS/ML UNITS SQ SCH ×2 (11:47→22:43)
[2023-03-10] MEDS: MIRTAZAPINE 15 MG TABLET (FP) PO SCH (22:42)
[2023-03-10] MEDS: ATORVASTATIN CA 10 MG TABLET (FP) PO SCH (22:42)
[2023-03-11] MEDS: INSULIN (NOVOLOG) ASPART 100 UNITS/ML 10ML VIAL SQ SCH ×2 (07:10→11:33)
[2023-03-11] MEDS: INSULIN SLIDING SCALE (NOVOLOG) 1 VIAL SQ SCH ×2 (07:11→11:33)
[2023-03-11 09:52] VITALS: BP 108/45; PULSE 73; RESP 16; TEMP 98.8
[2023-03-11] MEDS: ENOXAPARIN NA (PORCINE) 40 MG/0.4 ML DISP.SYRIN SQ SCH (09:52)
[2023-03-11] MEDS: CEFTRIAXONE 1 GM in DEXTROSE 5%-WATER - 50 ML IVPB SCH (09:52)
[2023-03-11] MEDS: POLYETHYLENE GLYCOL (HEALTHYLAX) 3350 17 GM PACKET PO SCH (09:52)
[2023-03-11] MEDS: PANTOPRAZOLE 40 MG TABLET PO SCH (09:53)
[2023-03-11] MEDS: levETIRAcetam 250 MG TABLET PO SCH (09:53)
[2023-03-11] MEDS: ASPIRIN COATED 81 MG TABLET.EC PO SCH (09:53)
[2023-03-11] MEDS: INSULIN (LEVEMIR) 100 UNITS/ML UNITS SQ SCH (09:53)
[2023-03-11] MEDS: METOPROLOL TARTRATE 50 MG TABLET (FP) PO SCH (09:53)
[2023-03-11] MEDS ORDERED: INSULIN (LEVEMIR) 100 UNITS/ML UNITS SQ SCH (10:59)
== END 2023-03-11 14:26 | disposition home health service (06) | DRG 690 ==
LOC: JER 22:35 → JERBED 03-05 03:58 → J7W 03-05 06:43 → J8W 03-11 10:25
PROVIDERS: ADMIT Internal Medicine; ATTEND Internal Medicine
DX: N39.0 Urinary tract infection, site not specified (principal); I10 Essential (primary) hypertension; E11.65 Type 2 diabetes mellitus with hyperglycemia; R10.31 Right lower quadrant pain; E78.5 Hyperlipidemia, unspecified; K86.89 Other specified diseases of pancreas; C67.9 Malignant neoplasm of bladder, unspecified
CPT/HCPCS: 0241U-QW; 36415; 71045-TC-FY; 74177-TC; 76775-TC; 80053; 81003; 82105; 82150; 82378; 82550; 82728; 82784; 82962; 83036; 83540; 83550; 83605; 83615; 83690; 83735; 84100; 84155; 84165; 84484; 85025; 85027; 85045; 85610; 85730; 86140; 86301; 86334; 86803; 86850; 86900; 86901; 87040; 87086; 87186; 87340; 87517; 93005; 93010; 93975; 97116-GP; 97161-GP; 99285-25; Q9967